=== PATIENT | female | born 1980 | race Hispanic/Latino ===

== ENCOUNTER 2017-02-26 15:18 | Inpatient (IN) | payer OTHER ==
[~2017-02-26] VITALS: Ht 160 cm; Wt 80.8 kg
[~2017-02-26 15:18] MED LIST: ALPRAZOLAM OD0.25 MG; ATORVASTATIN CA10 MG; FENOFIBRATE160 M1 PO; FLEXERIL 5MG TAB5 MG PO; HUMALOG100 U/ML SC; METFORMIN HCL500 M2; MULTIVITAMIN1 TAB PO; NORCO 325 MG-51 TAB PO; TRI-SPRINTEC 281 TAB PO; VITAMIN B COMPL1 CAP PO; VITAMIN D32000 I1 PO; ZITHROMAX Z-PA250 M1 PO
--- NOTE | 2017-02-26 15:23 | NUR ---
PT TO ED FOR C/C OF RLQ PAIN THAT RADIATES TO BACK SINCE THIS MORNING. +NAUSEA/+VOMITING X 2 EPISODES. DENIES DIFFICULTY URINATING. PT IS TYPE II DM: F/S 134 IN TRIAGE. PT HYPERTENSIVE IN TRAIGE
--- NOTE | 2017-02-26 15:32 | NUR ---
APPRECIATE TRIAGE NOTE. RAMOS AVENDANO TO BEDSIDE FOR EVALUATION AT THIS TIME.
--- NOTE | 2017-02-26 15:35 | ED GI/GU/ABDOMINAL COMPLAINT ---
History of Present Illness General Chief Complaint: General Adult Stated Complaint: N/V, RT SIDE ABDOMINAL PAIN Source: patient Exam Limitations: no limitations Vital Signs & Intake/Output Vital Signs & Intake/Output Vital Signs Date Time Temp Pulse Resp B/P B/P Pulse O2 O2 Flow FiO2 Mean Ox Delivery Rate 02/26 1609 100.2 02/26 1536 148/89 02/26 1521 96.2 82 15 154/110 100 Room Air Room Air Allergies Coded Allergies: MDX - PCN (penicillin) (PCN (PENICILLIN)) (HIVES 02/26/17) Reconcile Medications Acetaminophen/Hydrocodone Bi ([place] 325 MG-5 MG) 1 TAB TAB 1 TAB PO Q6HR PRN PAIN Alprazolam 0.25 MG TABLET 1 TAB PO PRN ANXIETY (Reported) Atorvastatin Calcium (Lipitor) (Unknown Strength) TABLET (Unknown Dose) UNKNOWN (Reported) CHOLECALCIFEROL (VITAMIN D3) (Vitamin D-3) (Unknown Strength) CAPSULE (Unknown Dose) PO DAILY SUPPLEMENT (Reported) Cyclobenzaprine (Flexeril 5MG Tab) 5 MG TAB 1 TAB PO QHS PRN PAIN Ethinyl Estradiol/Norgestima (Tri-Sprintec 28 35 Mcg-0.25 MG) 1 TAB TAB 1 TAB PO DAILY CONTROL (Reported) FENOFIBRATE NANOCRYSTALLIZED (Fenofibrate) 145 MG TABLET 1 TAB PO DAILY CHOLESTEROL (Reported) Insulin Lispro, Recombinant (Humalog) 100 U/ML EDVIN 1-5 UNIT SC DAILY DIABETES (Reported) Metformin Hydrochloride (Metformin HCl) 500 MG TAB 1 TAB PO BID DIABETES ( Reported) Multivitamin (Multiple Vitamins) 1 EACH TABLET 1 TAB PO DAILY SUPPLEMENT ( Reported) Vitamin B Complex 1 EACH CAPSULE 1 CAP PO DAILY SUPPLEMENT (Reported) Triage Note: PT TO ED FOR C/C OF RLQ PAIN THAT RADIATES TO BACK SINCE THIS MORNING. +NAUSEA/+VOMITING X 2 EPISODES. DENIES DIFFICULTY URINATING. PT IS TYPE II DM: F/S 134 IN TRIAGE. Triage Nurses Notes Reviewed? yes ? n Is pt currently ? No Onset: Abrupt Duration: hour(s):, constant, continues in ED Timing: recent history Quality/Severity: moderate, sharpness, severe Location: right upper quadrant Radiation: no radiation Activities at Onset: none No Modifying Factors: none HPI: 36-year-old female comes into emergency room for further evaluation of right upper abdominal pain that began this morning when she woke up. Associated nausea vomiting. Pain is sharp. Moderate to severe. Continues. History of pancreatitis. Denies any abdominal surgeries. Nothing seems to make the symptoms better or worse. Denies any other associated symptoms. (TAVO SHEN) Past History Travel History Traveled to [place] past 21 day No Medical History Any Pertinent Medical History? 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 No (TAVO SHEN) Review of Systems Review of Systems Constitutional: Reports: no symptoms. EENTM: Reports: no symptoms. Respiratory: Reports: no symptoms. Cardiovascular: Reports: no symptoms. GI: Reports: see HPI. Genitourinary: Reports: no symptoms. Musculoskeletal: Reports: no symptoms. Skin: Reports: no symptoms. Neurological/Psychological: Reports: no symptoms. Hematologic/Endocrine: Reports: no symptoms. Immunologic/Allergic: Reports: no symptoms. All Other Systems: Reviewed and Negative (TAVO SHEN) Physical Exam Physical Exam General Appearance: well developed/nourished, alert, awake Head: atraumatic Eyes: Bilateral: normal appearance. Ears, Nose, Throat, Mouth: hearing grossly normal, moist mucous membrane Neck: normal inspection Respiratory: no respiratory distress Cardiovascular: regular rate/rhythm Gastrointestinal: soft, tenderness (right upper quadrant) Back: normal inspection Extremities: normal range of motion Neurologic/Psych: awake, alert, oriented x 3, normal gait, normal mood/affect Skin: intact, normal color Core Measures ACS in differential dx? No Severe Sepsis Present: No Septic Shock Present: No (TAVO SHEN) Progress Differential Diagnosis: appendicitis, biliary colic, bowel obstruction, cholecystitis, diverticulitis, ectopic , gastritis, hepatitis, hernia, ischemic bowel, inflamm bowel dis, intrauterine , kidney stone, ovarian cyst, ovarian torsion, pancreatitis, PID/cervicitis, peptic ulcer, PUD/GERD, perforated viscous, threatened AB, UTI/pyelo Plan of Care: Orders Procedure Date/time Status Nothing by Mouth 02/27 B Active Add-on Test (ER Only) 02/26 1718 Active Patient Data 02/26 1715 Active Saline Lock 02/26 1713 Active Misc Message 02/26 171 Active ED Holding Orders 02/26 171 Active Vital Signs 02/26 1713 Active Activity/Ambulation 02/26 1713 Active Code Status 02/26 171 Active Admit to inpatient 02/27 1712 Active Add-on Test (ER Only) 02/26 171 Active MIXED VENOUS BLOOD GAS (GEN) 02/26 170 Active URINALYSIS 02/26 153 Active LIPASE 02/26 153 Complete HUMAN BETA HCG SCREEN 02/26 153 Complete COMPREHENSIVE METABOLIC PANEL 02/26 153 Complete CBC WITHOUT DIFFERENTIAL 02/26 153 Complete AMYLASE 02/26 153 Complete Current Medications Sig/Jack Start time Last Medication Dose Stop Time Status Admin Lactated Ringer's 1,000 ML ONCE ONE 02/26 171 AC (Lactated Ringers) 02/26 2114 Sodium Chloride 1,000 ML BOLUS ONE 02/26 171 AC (Normal Saline 0.9%) 02/26 1814 Sodium Chloride 1,000 ML .Q6H40M 02/26 171 UNVr (Normal Saline 0.9%) Laboratory Tests 02/26/17 1550: Anion Gap 17 H, Estimated GFR > 60, BUN/Creatinine Ratio 20.0, Glucose 140 H, Calcium 8.4, Total Bilirubin 1.3, AST 38 H, ALT 39, Alkaline Phosphatase 79, Total Protein 8.1, Albumin 3.2 L, Globulin 4.9 H, Albumin/Globulin Ratio 0.7 L, Amylase 78, Lipase 319 H, Total Beta HCG NEGATIVE, CBC w Diff NO MAN DIFF REQ, RBC 4.97, MCV 81.0, MCH 28.2, RDW 12.8, MPV 10.2, Gran % 81.7 H, Lymphocytes % 15.1 L, Monocytes % 2.5, Eosinophils % 0.5, Basophils % 0.2, Absolute Granulocytes 10.1 H, Absolute Lymphocytes 1.9, Absolute Monocytes 0.3, Absolute Eosinophils 0.1, Absolute Basophils 0, PUBS MCHC 34.8 Diagnostic Imaging: Viewed by Me: CT Scan. Discussed w/RAD: CT Scan. Radiology Impression: SERVICE DATE: 02/26/17-6508 EXAM TYPE: CAT - CT ABD & PELVIS W/O IV CONTRAS EXAMINATION: CT ABDOMEN AND PELVIS WITHOUT CONTRAST CLINICAL INFORMATION: Right upper quadrant pain. History of pancreatitis. COMPARISON: None TECHNIQUE: Multidetector volumetric imaging was performed from the superior aspect of the liver through the pubic symphysis. Sagittal and coronal reformatted images were obtained on the technologist's workstation. DLP: 335.29 mGy-cm FINDINGS: LUNG BASES: The visualized lung bases are unremarkable. LIVER, GALLBLADDER, AND BILIARY TREE: The liver is diffusely low in attenuation in keeping with hepatic steatosis. No dilated bile ducts are appreciated on this study without intravenous contrast. The gallbladder is contracted and not evaluated. No evidence to suggest cholecystitis. PANCREAS: The pancreas is not well evaluated due to the lack of intravenous contrast on this study. There is moderate swelling of the head of the pancreas consistent with the history of pancreatitis. Small amount of adjacent peripancreatic fluid. No large fluid collections are seen. The study does not assess for pancreatic necrosis or adjacent splenic vein/vasculature. SPLEEN: Unremarkable. ADRENAL GLANDS: Unremarkable. KIDNEYS AND URETERS: A tiny nonobstructing calculus is seen at the lower pole the left kidney. The kidneys are otherwise normal in appearance without hydronephrosis. BLADDER: The bladder is decompressed. GASTROINTESTINAL TRACT: The small and large bowel are unremarkable. The appendix is unremarkable. ABDOMINAL WALL: Small fat-containing periumbilical hernia is seen. LYMPH NODES: Normal. VASCULAR: No dilatation of the abdominal aorta or iliac vessels. PELVIC VISCERA: The uterus and adnexa are unremarkable. Trace free fluid is seen in the cul-de-sac. OSSEOUS STRUCTURES: Unremarkable. IMPRESSION: 1. Moderate swelling of the pancreatic head is demonstrated with mild peripancreatic acute fluid. The findings are concordant with the clinical diagnosis of pancreatitis. No well- defined fluid collection is seen. The lack of intravenous contrast limits evaluation for pancreatic necrosis or for evaluation of the adjacent pancreatic vasculature. 2. Hepatic steatosis without hepatomegaly. No obvious biliary ductal dilatation. The gallbladder is decompressed and not evaluated. Right upper quadrant sonography may be of further utility if there is concern regarding biliary dilatation or cholelithiasis. There are no CT manifestations to suggest cholecystitis. 3. Tiny nonobstructive left lower pole renal calculus. DICTATED BY: ARACELI HENDRICKS MD Initial ED EKG: none (TAVO SHEN) Departure Departure Disposition: STILL A PATIENT Condition: Stable Clinical Impression Primary Impression: Acute pancreatitis Referrals: ANYA LAWRENCE MD (PCP/Family) Departure Forms: Customer Survey General Discharge Information Admission Note Spoke With: VANCE ANNA MD Documentation of Exam: Documentation of any treatments & extenuating circumstances including Concerns Regarding Discharge (functional status, medication knowledge or non-compliance, living conditions, etc.) that warrant an admission rather than observation: Patient require IV fluids. IV pain control. GI consultation. IV antiemetics. Patient would do poorly as an outpatient. (TAVO SHEN) PA/RESTAURANT SUPERVISOR Co-Sign Statement Statement: ED Attending supervision documentation- [X] I saw and evaluated the patient. I have also reviewed all the pertinent lab results and diagnostic results. I agree with the findings and the plan of care as documented in the PA's/RESTAURANT SUPERVISOR's documentation. [X] I have reviewed the ED Record and agree with the PA's/RESTAURANT SUPERVISOR's documentation. [] Additions or exceptions (if any) to the PAs/RESTAURANT SUPERVISOR's note and plan are summarized below: [] (YULIA JACKSON,JHON Cruz)
--- NOTE | 2017-02-26 16:18 | NUR ---
PT MEDICATED PER EMAR. TO CAT SCAN VIA STRETCHER.
[2017-02-26 16:37] LABS: ABSOLUTE BASOPHIL COUNT 0 /CUMM (0.0-0.2); ABSOLUTE EOSINOPHIL COUNT 0.1 /CUMM (0.0-0.7); ABSOLUTE GRANULOCYTE CT 10.1 /CUMM (1.4-6.5); ABSOLUTE LYMPH COUNT 1.9 /CUMM (1.2-3.4); ABSOLUTE MONOCYTE COUNT 0.3 /CUMM (0.10-0.60); BASOPHIL % 0.2 % (0.0-2.0); EOSINOPHIL % 0.5 % (0-5); HEMATOCRIT 40.3 % (37-47); MEAN CORPUSCULAR HGB 28.2 PG (27.0-31.0); MEAN CORPUSCULAR HGB CONC 34.8 G/DL (33.0-37.0); MEAN PLATELET VOLUME 10.2 FL (7.4-10.4); RBC DISTRIBUTION WIDTH 12.8 % (11.5-14.5); RED BLOOD CELL CT 4.97 /CUMM (4.20-5.40); WHITE BLOOD CELL COUNT 12.4 /CUMM (4.8-10.8)
--- NOTE | 2017-02-26 16:37 | NUR ---
PT REPORTS RELIEF FROM PAIN 4/10 AT THIS TIME. PT REMINDED OF NEED FOR URINE SPECIMEN, VERBALIZES UNDERSTANDING. NS BOLUS CONTINUES TO RUN AT THIS TIME.
--- NOTE | 2017-02-26 16:49 | CT SCAN REPORT ---
EXAMINATION: CT ABDOMEN AND PELVIS WITHOUT CONTRAST CLINICAL INFORMATION: Right upper quadrant pain. History of pancreatitis. COMPARISON: None TECHNIQUE: Multidetector volumetric imaging was performed from the superior aspect of the liver through the pubic symphysis. Sagittal and coronal reformatted images were obtained on the technologist's workstation. DLP: 335.29 mGy-cm FINDINGS: LUNG BASES: The visualized lung bases are unremarkable. LIVER, GALLBLADDER, AND BILIARY TREE: The liver is diffusely low in attenuation in keeping with hepatic steatosis. No dilated bile ducts are appreciated on this study without intravenous contrast. The gallbladder is contracted and not evaluated. No evidence to suggest cholecystitis. PANCREAS: The pancreas is not well evaluated due to the lack of intravenous contrast on this study. There is moderate swelling of the head of the pancreas consistent with the history of pancreatitis. Small amount of adjacent peripancreatic fluid. No large fluid collections are seen. The study does not assess for pancreatic necrosis or adjacent splenic vein/vasculature. SPLEEN: Unremarkable. ADRENAL GLANDS: Unremarkable. KIDNEYS AND URETERS: A tiny nonobstructing calculus is seen at the lower pole the left kidney. The kidneys are otherwise normal in appearance without hydronephrosis. BLADDER: The bladder is decompressed. GASTROINTESTINAL TRACT: The small and large bowel are unremarkable. The appendix is unremarkable. ABDOMINAL WALL: Small fat-containing periumbilical hernia is seen. LYMPH NODES: Normal. VASCULAR: No dilatation of the abdominal aorta or iliac vessels. PELVIC VISCERA: The uterus and adnexa are unremarkable. Trace free fluid is seen in the cul-de-sac. OSSEOUS STRUCTURES: Unremarkable. IMPRESSION: 1. Moderate swelling of the pancreatic head is demonstrated with mild peripancreatic acute fluid. The findings are concordant with the clinical diagnosis of pancreatitis. No well-defined fluid collection is seen. The lack of intravenous contrast limits evaluation for pancreatic necrosis or for evaluation of the adjacent pancreatic vasculature. 2. Hepatic steatosis without hepatomegaly. No obvious biliary ductal dilatation. The gallbladder is decompressed and not evaluated. Right upper quadrant sonography may be of further utility if there is concern regarding biliary dilatation or cholelithiasis. There are no CT manifestations to suggest cholecystitis. 3. Tiny nonobstructive left lower pole renal calculus.
[2017-02-26 16:57] LABS: GRANULOCYTE % 81.7 % (42.2-75.2); PLATELET COUNT 148 /CUMM (130-400)
--- NOTE | 2017-02-26 17:05 | NUR ---
RAMOS JUAN ALBERTO TO BEDSIDE TO DISCUSS RESULTS AND POC.
--- NOTE | 2017-02-26 17:36 | NUR ---
PT MEDICATED PER EMAR.
--- NOTE | 2017-02-26 17:55 | NUR ---
CRITICAL TEST RESULTS [id number] JANETH CRUZ 36 F TESTS AND RESULTS: LACTIC 2.0 Results received and read back by: SOCORRO MONTANO Results received date and time: 02/26/17 1756 The following provider was notified of the results, and read the results back: RAMOS AVENDANO Notified date and time: 02/26/17 at 1756
--- NOTE | 2017-02-26 18:07 | NUR ---
Emergency Dept [facility] Admit Note: To be admitted to [facility] by DR ANNA with PANCREATITIS as the diagnosis, to 204-02 location. Nursing Slat Grader and admitting notified 02/26/17 at 8641
--- NOTE | 2017-02-26 18:10 | NUR ---
PER SHIRA HOLLOWAY SHE WILL CALL BACK FOR REPORT.
--- NOTE | 2017-02-26 19:21 | History & Physical ---
COLIN NEAL 02/26/17 5819: General Information and HPI MD Statement: I have seen and personally examined JANETH CRUZ and documented this H&P. The patient is a 36 year old F who presented with a patient stated chief complaint of [abdominal pain]. Source of Information: patient, family Exam Limitations: no limitations History of Present Illness: Patient is a 36-year-old female with past medical history of hypertriglyceridemia, type 2 diabetes mellitus, Previous episodes of pancreatitis(1 and 5 years ago), asthma presented to the ED today for acute onset of right upper quadrant pain that started this morning. Patient reports that around 9:30 this morning she started having sharp right upper quadrant pain along with nausea and vomiting. Pain was 10 /10 in intensity, continuous, and the right upper quadrant, radiating in a bandlike form to her back. It was associated with nausea and vomiting. She had 2 episodes of severe vomiting which was bilious/ brownish with food particles. She also endorses fever, chills, along with weakness and fatigue. No associated chest pain, palpitations, headaches, lightheadedness, urinary or bowel symptoms. Patient had 2 attacks of pancreatitis in the past. She was diagnosed with hypertriglyceridemia about 4 years ago and has been on treatment with Crestor, fenofibrate and fish oil since then. Her reforestation worker is Dr. Zelaya in [place]. She has no history of gallstones, but was found to have biliary sludge in previous imaging. No history of alcohol abuse. In the ED vitals showed a temperature of 96.2, pulse 82, respiration 15, blood pressure 154/110, pulse ox 100% on room air. Labs showed white count of 12.4 with no left shift, sodium 133, potassium 4.2, anion gap of 17, glucose 140, normal lactate, AST of 38, Lipase of 319, amylase 78,calcium 8.4, her triglycerides level was more than 10,500 (significantly elevated than previous values), hemoglobin A1c 5.9 in October 2016, beta-hCG negative CT ab/pelvis showed moderate swelling of the pancreatic head with mild peripancreatic ascites fluid consistent with appendicitis. No fluid collection was seen. Hepatitic steatosis morphine with no biliary dilatation. Patient received IV fluids, IV morphine, IV Zofran in the ED. Allergies/Medications Allergies: Coded Allergies: MDX - PCN (penicillin) (PCN (PENICILLIN)) (HIVES 02/26/17) Home Med list Acetaminophen/Hydrocodone Bi ([place] 325 MG-5 MG) 1 TAB TAB 1 TAB PO Q6HR PRN PAIN Albuterol Sulfate (Proair Hfa) 90 MCG HFA.AER.AD 2 PUF INH Q4-6 PRN PRN WHEEZING (Reported) Alprazolam 0.25 MG TABLET 1 TAB PO PRN ANXIETY (Reported) Atorvastatin Calcium (Lipitor) (Unknown Strength) TABLET (Unknown Dose) UNKNOWN (Reported) CHOLECALCIFEROL (VITAMIN D3) (Vitamin D-3) (Unknown Strength) CAPSULE (Unknown Dose) PO DAILY SUPPLEMENT (Reported) Cyclobenzaprine (Flexeril 5MG Tab) 5 MG TAB 1 TAB PO QHS PRN PAIN Ethinyl Estradiol/Norgestima (Tri-Sprintec 28 35 Mcg-0.25 MG) 1 TAB TAB 1 TAB PO DAILY CONTROL (Reported) Fenofibrate 160 MG TABLET 1 TAB PO DAILY HIGH CHOLESTROL (Reported) Insulin Lispro, Recombinant (Humalog) 100 U/ML EDVIN 1-5 UNIT SC DAILY DIABETES (Reported) Metformin Hydrochloride (Metformin HCl) 500 MG TAB 1 TAB PO BID DIABETES ( Reported) Multivitamin (Multiple Vitamins) 1 EACH TABLET 1 TAB PO DAILY SUPPLEMENT ( Reported) Melrose-3 Acid Ethyl Esters 1 GRAM CAPSULE 2 CAP PO BID VITAMIN SUPPORT ( Reported) Rosuvastatin Calcium (Crestor) 20 MG TABLET 1 TAB PO DAILY HIGH CHOLESTROL ( Reported) Vitamin B Complex 1 EACH CAPSULE 1 CAP PO DAILY SUPPLEMENT (Reported) Past History Travel History Traveled to [place] past 21 day No Medical History Neurological: NONE EENT: NONE Cardiovascular: HIGH TRIGLYCERIDES Respiratory: asthma Gastrointestinal: pancreatitis Hepatic: INFLAMED LIVER Renal: NONE Musculoskeletal: NONE Psychiatric: anxiety Endocrine: diabetes Blood Disorders: NONE Cancer(s): NONE TOWER SWITCH OPERATOR/Reproductive: NONE Surgical History Surgical History: N Past Family/Social History Psychosocial History ETOH Use: denies use Illicit Drug Use: denies illicit drug use Review of Systems Review of Systems Constitutional: Reports: chills, fever, malaise, weakness. EENTM: Reports: no symptoms. Cardiovascular: Reports: no symptoms. Respiratory: Reports: no symptoms. GI: Reports: abdominal pain, nausea, vomiting. Genitourinary: Reports: no symptoms. Musculoskeletal: Reports: no symptoms. Skin: Reports: no symptoms. Neurological/Psychological: Reports: no symptoms. Exam & Diagnostic Data Last 24 Hrs of Vital Signs/I&O Vital Signs Date Time Temp Pulse Resp B/P B/P Pulse O2 O2 Flow FiO2 Mean Ox Delivery Rate 02/26 1735 99.9 75 18 114/69 99 Room Air Room Air 02/26 1609 100.2 02/26 1536 148/89 02/26 1521 96.2 82 15 154/110 100 Room Air Room Air Intake & Output 02/26 1600 02/26 0800 02/26 0000 Intake Total Output Total Balance Patient 77.111 kg Weight Weight Reported by Patient Measurement Method Physical Exam General Appearance Alert, Oriented X3, Cooperative, No Acute Distress Skin No Rashes, No Breakdown, No Significant Lesion Skin Temp/Moisture Exam: Warm/Dry Sepsis Skin Exam (color): Normal for Ethnicity HEENT Atraumatic, PERRLA, EOMI Neck Supple, No JVD Lymphatic Cervical nl Cardiovascular Regular Rate, Normal S1, Normal S2 Lungs Clear to Auscultation, Normal Air Movement Abdomen RUQ TENDERNESS, POSITIVE LAM'S, positive lam's sign Neurological Normal Gait, Normal Speech, Normal Tone, Sensation Intact, Cranial Nerves 3-12 NL, Reflexes 2+ Last 24 Hrs of Labs/Dave: Laboratory Tests 02/26/17 1841: Urinalysis LIGHT H, Urine Color YEL, Urine Clarity CLEAR, Urine pH 5.5, Ur Specific [place] >= 1.030, Urine Protein TRACE H, Urine Ketones 15 H, Urine Nitrite NEG, Urine Bilirubin NEG, Urine Urobilinogen 0.2, Ur Leukocyte Esterase NEG, Ur Microscopic SEDIMENT EXAMINED, Urine WBC 3-5 H, Ur Epithelial Cells MOD H, Urine Bacteria FEW H, Urine Mucus MOD H, Urine Hemoglobin TRACE-LYSED, Urine Glucose NEG 02/26/17 1800: Bicarbonate Actual 19 L, Mixed VBG pH 7.31, Mixed VBG pCO2 38 L, Mixed VBG O2 Saturation 38, P-50 (Temp Corrected) Y, Carboxyhemoglobin 0.2 L, O2 Concentration % RA, Temperature 99.0, Phlebotomy Draw Site R AC 02/26/17 1550: Anion Gap 17 H, Estimated GFR > 60, BUN/Creatinine Ratio 20.0, Glucose 140 H, Lactic Acid 2.0, Calcium 8.4, Total Bilirubin 1.3, AST 38 H, ALT 39, Alkaline Phosphatase 79, Lactate Dehydrogenase 534, Total Protein 8.1, Albumin 3.2 L, Globulin 4.9 H, Albumin/Globulin Ratio 0.7 L, Triglycerides > 01354 H, Amylase 78, Lipase 319 H, Total Beta HCG NEGATIVE, CBC w Diff NO MAN DIFF REQ, RBC 4.97, MCV 81.0, MCH 28.2, RDW 12.8, MPV 10.2, Gran % 81.7 H, Lymphocytes % 15.1 L, Monocytes % 2.5, Eosinophils % 0.5, Basophils % 0.2, Absolute Granulocytes 10.1 H, Absolute Lymphocytes 1.9, Absolute Monocytes 0.3, Absolute Eosinophils 0.1, Absolute Basophils 0, PUBS MCHC 34.8 Assessment/Plan Assessment: Patient is a 36-year-old female with past medical history of hypertriglyceridemia, type 2 diabetes mellitus, Previous episodes of pancreatitis(1 and 5 years ago), asthma presented to the ED today for acute onset of right upper quadrant pain that started this morning. In the ED vitals showed a temperature of 96.2, pulse 82, respiration 15, blood pressure 154/110, pulse ox 100% on room air. Labs showed white count of 12.4 with no left shift, sodium 133, potassium 4.2, anion gap of 17, glucose 140, normal lactate, AST of 38, Lipase of 319, amylase 78,calcium 8.4, her triglycerides level was more than 10,500 (significantly elevated than previous values), hemoglobin A1c 5.9 in October 2016, beta-hCG negative CT ab/pelvis showed moderate swelling of the pancreatic head with mild peripancreatic ascites fluid consistent with pancreatitis. No fluid collection was seen. Hepatitic steatosis morphine with no biliary dilatation. Patient received IV fluids, IV morphine, IV Zofran in the ED. Assessment * Hypertrigleceridemia induced acute on chronic pancreatitis * ?Acute Cholecystitis * Positive Lam's * Type 2 diabetes mellitus * Asthma * Nausea & Vomiting Plan * Admit patient to ICU * Vitals per protocol * Nothing by mouth for now and advance diet in a.m. as tolerated * Continue Ringer's lactate at 200 mL an hour * Since patient has significantly elevated triglyceride levels, patient should ideally receive a Apheresis. Endocrinology was consulted and a decision was made to start the patient on insulin drip at 1 unit per hour with sugar checks every hour. If blood sugar drops below 140 mg, plan is to start the patient on dextrose. Serum triglyceride level more than 1000 mg per dl happens in fewer than 1 in 5000 individuals. * Add potassium to the Ringer's lactate * Recheck triglyceride levels in a.m. * We will check lipid panel in a.m. * Check a baseline chest x-ray to rule out any infection * EKG and troponin, since patient appears to have irregular heart rate with a murmur. * We will get baseline echocardiogram since she is at high risk of coronary artery disease. * We'll check thyroid levels * IV Zofran around the clock when necessary for nausea and vomiting * IV morphine for pain control [id number] * Continue Crestor 80 mg, fenofibrate 600 mg twice a day and fish oil * Right upper quadrant ultrasound to rule out biliary dilatation/gallstones * GI consult in a.m. * Endocrine consult in a.m. * Cardiology consult * Continue her asthma medications * DVT prophylaxis subcutaneous heparin * Full code As Ranked By This Provider Problem List: 1. Acute pancreatitis 2. Diabetes Core Measures/Miscellaneous Acute Coronary Syndrome ACS Diagnosis: No Cerebrovascular Accident CVA/TIA Diagnosis: No Congestive Heart Failure CHF Diagnosis: No VTE (View Protocol) VTE Risk Factors: Estrogen No Mech VTE prophylaxis d/t: No contraindications No VTE Pharm Prophylaxis d/t: No contraindications VTE Diagnosis: No VTE Type: NONE VTE Confirmed by (Test): NONE Sepsis (View Protocol) Severe Sepsis Present: No Septic Shock Septic Shock Present: No Miscellaneous Documentation Attending Case Discussed With: WILFRIDO JACKSON,VANCE Aldrich Primary Care Physician: MELINDA JACKSON,ANYA Patient sees these Specialists DR LAZCANO Level of Patient Care: General Medicine GRISELDA JACKSON, [facility] 02/26/172028: Attending MD Review Statement Attending Statement Attending MD Statement: examined this patient, discuss w/resident/PA/GRAINING OPERATOR, agreed w/resident/PA/GRAINING OPERATOR, discussed with family Attending Assessment/Plan: 36 yo F had her first bout of pancreatitis about 5 yrs ago when she was admitted for DKA and had a new diagnosis of T2DM at [facility]. Subsequently, about 1 yr ago she had her second bout of pancreatitis due to hypertriglyceridemia (admitted to a hospital at [facility]). She was diagnosed with hypertriglyceridemia about 4 yrs prior and is on crestor, fenofibrate and fish oil. She follows GI Dr. Zelaya at [place]. She has no h/o gallstones, was noted to have biliary sludge at one point but this was absent on recent repeat imaging. She denies h/o alcohol use. She presents today for c/o sudden onset sharp right upper quadrant pain radiating to the back, associated with nausea, bilious nonbloody vomiting, chills and weakness. She denies chest pain, palpitations, dyspnea, diarrhea or urinary symptoms. She is followed by Dr. Ann (Endocrine) at [place]. She reports her last A1C was 5.8, and for the past 1 week her sugars have been elevated to around 200 's. She is currently on novolog SS and metformin for diabetes, she was on lantus that was stopped 3 yrs ago by her PCP as her sugars were better. Vitals: Tmax 100.2, HR 82, BP 123/61, sats 92% RA. Exam: AAO, in moderate distress due to pain, dry mucous membranes, no pallor or cyanosis, Chest b/ clear, Heart S1S2 regular, systolic murmur+, Abd soft, distended, RUQ tenderness+, BS sluggish, no guarding or rigidity. LE: no edema. Labs: WBC 12.4, H/H 14/40.3, no bands, Na 133, bicarb 12, AG 17, glucose 140, lactic acid 2.0, T. Bili 1.3, AST 38, ALT 39, trop neg, albumin 3.2, Triglyceride > 64865, amylase 78, lipase 319, TSH 0.682, Free T4 1.35, beta HCG neg. UA trace protein, ketones 15, WBC 3-5. VB.31/38/69/19. CXR: mild left basilar atelectatic changes, no acute changes. CT abd/pelvis w/o contrast: moderate swelling of pancreatic head with mild peripancreatic acute fluid. Cannot comment on pancreatic necrosis due to lack of contrast. Hepatic steatosis w/o hepatomegaly, no biliary dilatation or cholelithiasis. EKG: Sinus rhythm, no acute changes. Assessment and plan: 1. Acute RUQ pain associated with N/V in this patient with h/o hypertriglyceridemia and pancreatitis, now with elevated TG levels to > 10,[address] imaging s/o of pancreatitis, although cannot rule out other possibilities such as acute cholecystitis, no e/o choledocholithiasis or cholelithiasis, less likely cholangitis with normal LFTs. Amylase/ lipase are not very helpful when the TG levels are that high. ICU admit, vitals q1 hourly, panculture, NPO, anti-emetics, lactated ringer's @ 200/hr, pain management with IV dilaudid, serial abdominal exam. RUQ ultrasound in AM to assess biliary and hepatic pathology. Trend lactic acid. Endo (Dr. Gibbs ) and GI (Dr. Bonilla) consulted. Ideally Apheresis is the first option for hypertriglyceridemia (for > 1000), however after d/w Endocrine we are going ahead with insulin drip to help reduced triglyceride levels (acts by increasing lipoprotein lipase activity). Accucheks Q1 hour, initiate D5-1/2NS with KCL once sugars < 140, continue insulin drip, recheck ICU bundle and TG levels Q6 hours. If TG persistently high, we will discuss with Nephro about need for apheresis. Continue crestor, fenofibrate and fish oil when patient able to take PO. Check HbA1c. [facility]CU consult (Dr. Lazcano aware). 2. High AG metabolic acidosis. Lactic acid normal. Will check salicylate, alcohol, tylenol and acetone levels. Check urine tox screen. 3. Systolic murmur on exam. EKG and troponin are essentially negative. Will obtain echo in AM. GI ppx - IV protonix. DVT ppx Hep SC. Full code. UPDATE Around midnight, patient spiked a temp of 101, repeat labs showed worsening hypocalcemia, lactic acidosis (2.0 --> 3.9), hypomagnesemia and worsening metabolic acidosis. TG levels still remained at >10,500. Patient c/o persistent abdominal discomfort and bloating, otherwise she was hemodynamically stable. Given the fever spike, which is possible with pancreatitis, ?concern for impending necrosis vs. Acute GB pathology which I cannot rule out, I have covered empirically with IV Ceftaz and flagyl to cover for gram negatives and anaerobes. I had a long discussion with Dr. Lazcano (on-call dynamic balancer) to see what would be the best course of action in the best interest of the patient. Concern was raised if patient needs urgent apheresis and if that is the case, can we do apheresis at [facility] or do we need to transfer patient to [facility]. I personally spoke with Dr. Bonilla (GI) and Dr. Gibbs (Endo). Per Dr. Bonilla, we do have the ability to do apheresis at [facility] but this call would be taken by Nephro. Resident spoke with Dr. Fuchs (On-call auto body worker) who said he would assess patient in AM for need for apheresis, and that we could arrange for apheresis at [facility]. I was constantly in contact with Dr. Lazcano and he is aware of the above plan. We will continue the insulin drip, recheck labs in AM and pending above will decide on eventual need for apheresis in AM. I have personally explained all of the above to the patient and she agrees with the plan. Patient works with Dr. Lazcano, and he also spoke with her over the phone. We have reassured her about the plan of care. TTS > [address] imaging s/o of pancreatitis, although cannot rule out other possibilities such as acute cholecystitis, no e/o choledocholithiasis or cholelithiasis, less likely cholangitis with normal LFTs. Amylase/ lipase are not very helpful when the TG levels are that high. ICU admit, vitals q1 hourly, panculture, NPO, anti-emetics, lactated ringer's @ 200/hr, pain management with IV dilaudid, serial abdominal exam. RUQ ultrasound in AM to assess biliary and hepatic pathology. Trend lactic acid. Endo (Dr. Gibbs ) and GI (Dr. Bonilla) consulted. Ideally Apheresis is the first option for hypertriglyceridemia (for > 1000), however after d/w Endocrine we are going ahead with insulin drip to help reduced triglyceride levels (acts by increasing lipoprotein lipase activity). Accucheks Q1 hour, initiate D5-1/2NS with KCL once sugars < 140, continue insulin drip, recheck ICU bundle and TG levels Q6 hours. If TG persistently high, we will discuss with Nephro about need for apheresis. Continue crestor, fenofibrate and fish oil when patient able to take PO. Check HbA1c. 2. High AG metabolic acidosis. Lactic acid normal. Will check salicylate, alcohol, tylenol and acetone levels. Check urine tox screen. 3. Systolic murmur on exam. EKG and troponin are essentially negative. Will obtain echo in AM. DVT ppx Hep SC. Full code. UPDATE Around midnight, patient spiked a temp of 101, repeat labs showed worsening hypocalcemia, lactic acidosis (2.0 --> 3.9), hypomagnesemia and worsening metabolic acidosis. TG levels still remained at >10,500. Patient c/o persistent abdominal discomfort and bloating, otherwise she was hemodynamically stable. Given the fever spike, which is possible with pancreatitis, ?concern for impending necrosis vs. Acute GB pathology which I cannot rule out, I have covered empirically with IV Ceftaz and flagyl to cover for gram negatives and anaerobes. I had a long discussion with Dr. Lazcano (on-call dynamic balancer) to see what would be the best course of action in the best interest of the patient. Concern was raised if patient needs urgent apheresis and if that is the case, can we do apheresis at [facility] or do we need to transfer patient to [facility]. I personally spoke with Dr. Bonilla (GI) and Dr. Gibbs (Endo). Per Dr. Bonilla, we do have the ability to do apheresis at [facility] but this call would be taken by Nephro. Resident spoke with Dr. Fuchs (On-call auto body worker) who said he would assess patient in AM for need for apheresis, and that we could arrange for apheresis at [facility]. I was constantly in contact with Dr. Lazcano and he is aware of the above plan. We will continue the insulin drip, recheck labs in AM and pending above will decide on eventual need for apheresis in AM. I have personally explained all of the above to the patient and she agrees with the plan. Patient works with Dr. Lazcano, and he also spoke with her over the phone. We have reassured her about the plan of care.
--- NOTE | 2017-02-26 19:43 | NUR ---
REPORT GIVEN TO SHIRA HOLLOWAY. TRANSPORT BOOKED. PT MEDICATED PER EMAR.
--- NOTE | 2017-02-26 19:49 | NUR ---
TRANSPORT TO BEDSIDE FOR PT TRANSPORT BUT PT IS NOT TO BE TRANSFERRED AT THIS TIME PER DR. TRUJILLO DUE TO POSSIBLE NEED FOR INSULIN DRIP. FBG AT THIS TIME 146. CHARGE NURSE NOTIFIED OF SITUATION AND PT UPDATED ON POC.
[2017-02-26] MEDS ORDERED: CRESTOR20 M2 PO (20:03)
[2017-02-26] MEDS ORDERED: OMEGA-3 ACID ETH1 GM PO (20:04)
[2017-02-26] MEDS ORDERED: PROAIR HFA8.5 GM INH (20:05)
--- NOTE | 2017-02-26 20:28 | NUR ---
PT TO RADIOLOGY FOR PCXY AT THIS TIME.
--- NOTE | 2017-02-26 20:53 | RADIOLOGY REPORT ---
EXAMINATION: XR CHEST CLINICAL INFORMATION: Chest pain COMPARISON: None TECHNIQUE: 2 views of the chest were obtained. FINDINGS: Normal cardiomediastinal silhouette and pulmonary vascularity. Mild left basilar atelectatic changes. The lungs are otherwise clear. No pleural effusions or pneumothorax. The visualized bones are within normal limits. IMPRESSION: Mild left basilar atelectatic changes, otherwise no acute cardiopulmonary findings.
--- NOTE | 2017-02-26 21:20 | NUR ---
PT MEDICATED WITH REGLAN AND DILAUDID PER EMAR FOR WORSENING NAUSEA AND PAIN.
--- NOTE | 2017-02-26 21:45 | NUR ---
PER DR. TRUJILLO START INSULIN DRIP AT 1UNIT/HR. HOURLY FBG WITH TRAGET RANGE OF 140-160MG/DL. DO NOT RUN D5NS PIGGYBACK INTO INSULIN DRIP. CHANGE MAINTENANCE FLUIDS FROM LR AT 200ML/HR TO D5 1/2NS WITH 40MEQ K AT 100ML/HR.
--- NOTE | 2017-02-26 22:50 | NUR ---
[facility] REPORTED 155PER DR. TRUJILLO
--- NOTE | 2017-02-26 23:23 | NUR ---
PER [employer] WILLOW PRN ORDERS WERE PLACED FOR NAUSEA AND PAIN. PHARMACY CONCERNS REGARDING TRICOR 600MG DISCUSSED WITH [employer]. PER PHARMACY TRICOR 200MG IS MAX DAILY DOSE AND DESPITE MULTIPLE ATTEMPTS TO REACH THE [employer]CIAL [employer]ERS OR RESIDENT THE ORDER HAS NOT BEEN ABLE TO BE CORRECTED. SHIRA PAULA GIVEN REPORT AT THIS TIME REGARDING PLAN OF CARE AND FOLLOW UP.
--- NOTE | 2017-02-27 | NUR ---
SEE ICU FLOWSHEET.
--- NOTE | 2017-02-27 00:15 | NUR ---
HOUSE STAFF CLOTH PATTERN MAKER MARBELLA GARCIA NOTIFIED--HE IS AWARE OF FSBS AND TEMP. NO CHANGES OR NEW ORDERS GIVEN AT THIS TIME.
--- NOTE | 2017-02-27 01:17 | NUR ---
CRITICAL TEST RESULTS [id number] JANETH CRUZ 36 F TESTS AND RESULTS: MAG = 0.8 Results received and read back by: GENIE CARD Results received date and time: 02/27/17 0117 The following provider was notified of the results, and read the results back: DR GARCIA Notified date and time: 02/27/17 at 0015
--- NOTE | 2017-02-27 01:39 | Admission Certification ---
Admission Certification Certification Statement - As attending physician, I certify that at the time of - admission, based on clinical presentation, severity of - symptoms, need for further diagnostic testing and - therapeutic interventions, and risk of adverse outcomes - without in-hospital treatment, in my clinical assessment, - this patient requires an acute hospital stay for a minimum - of two nights or longer. I have also considered psychsocial - factors such as support system, advanced age, financial - issues, cognitive issues, and failed out-patient treatments, - past re-admission history, safety of patient, and lack of - compliance as applicable. Specific rationale supporting this admission is: Pancreatitis, hypertriglyceridemia.
--- NOTE | 2017-02-27 02:00 | NUR ---
HOUSE STAFFF HERE REQUESTING STAT EKG. SHE IS AWARE OF INCREASED TEMP AND OVERALL STATUS.
--- NOTE | 2017-02-27 03:43 | NUR ---
REPORT CALLLED TO ED RN
[2017-02-27 04:00] VITALS: BP 126/78
--- NOTE | 2017-02-27 04:00 | NUR ---
36 YEAR OLD FEMALE WITH PMHX HIGH TRIGLYCERIDES, PANCREATITIS X2 WITH HOSPITALIZATION, INFLAMED LIVER, ASTHMA, DIABETES, AND ANXIETY PRESENTS TO HOSPITAL WITH ACUTE ONSET OF RIGHT UPPER QUADRANT PAIN. NOTED TRIGLYCERIDES GREATER THAN 10,000 AND LIPASE 319. PT STARTED ON INSULIN GTT WITH ACCU CHECKS INCREASED AND NEEDED TO DRIVE DOWNTRIGLYCERIDES. SKIN INTACT VENODYNES PLACED WITH HEPARIN SQ CONTINUED. EKG SINUS TACHY 110-120'S AND NO ECTOPY NOTED. ACU CHECK 237 AND INSULIN GTT TO 3 UNITS PER HOUR. IVF TO CONT AT 200 PER HOUR OF LR AND D51/2NS WITH 40 KCL AT 100/HR EACH AND MAGNESIUM 2 GM TO RUN IN. PT SETTLED INTO ROOM 112 AND ORIENTED TO ICU
[2017-02-27 06:15] LABS: HEMATOCRIT 43.7 % (37-47); MEAN CORPUSCULAR VOLUME 80.9 FL (81.0-99.0); MEAN PLATELET VOLUME 8.4 FL (7.4-10.4); RBC DISTRIBUTION WIDTH 13.1 % (11.5-14.5); WHITE BLOOD CELL COUNT 9.9 /CUMM (4.8-10.8)
[2017-02-27 07:00] LABS: PLATELET COUNT 267 /CUMM (130-400)
[2017-02-27 07:01] LABS: MEAN CORPUSCULAR HGB 28.2 PG (27.0-31.0); MEAN CORPUSCULAR HGB CONC 34.6 G/DL (33.0-37.0)
--- NOTE | 2017-02-27 07:31 | Cons- CRCU ---
ROSSY GORDON MD 02/27/17 0731: General Information and HPI Consulting Request Date of Consult: 02/27/17 Requested By: Dr. Swanson History of Present Illness: 36 year old woman with past medical history of hypertriglyceridemia, two episodes of pancreatitis, NIDDM-II, and asthma seen for evaluation of abdominal pain. Patient reports that around 9:30am on the day of admission she develop acute onset 10/10 right upper quadrant abdominal pain radiating straight through to her back with associated nausea, nonbloody bilious vomiting, fever, chills, weakness and fatigue. She otherwise denied any chest pain, palpitations. She was reportedly diagnosed with hypertriglyceridemia 4 four years ago for which she is followed by paper conservator Dr. Zelaya of [place] and takes Crestor, Fenofribrate. Presently she reports moderate abdominal pain with associated nausea, but otherwise denies any further vomiting. Additionally she denies any blurred/ double vision, lightheadedness/dizziness, headache, fever, chills, chest pain, palpitations, shortness of breath, diarrhea. Allergies/Medications Allergies: Coded Allergies: Penicillins (HIVES 02/28/17) atorvastatin (From LIPITOR) (THROAT CLOSES 02/28/17) Home Med List: Acetaminophen/Hydrocodone Bi ([place] 325 MG-5 MG) 1 TAB TAB 1 TAB PO Q6HR PRN PAIN Albuterol Sulfate (Proair Hfa) 90 MCG HFA.AER.AD 2 PUF INH Q4-6 PRN PRN WHEEZING (Reported) Alprazolam 0.25 MG TABLET 1 TAB PO PRN ANXIETY (Reported) CHOLECALCIFEROL (VITAMIN D3) (Vitamin D-3) (Unknown Strength) CAPSULE (Unknown Dose) PO DAILY SUPPLEMENT (Reported) Cyclobenzaprine (Flexeril 5MG Tab) 5 MG TAB 1 TAB PO QHS PRN PAIN Ethinyl Estradiol/Norgestima (Tri-Sprintec 28 35 Mcg-0.25 MG) 1 TAB TAB 1 TAB PO DAILY CONTROL (Reported) Fenofibrate 160 MG TABLET 1 TAB PO DAILY HIGH CHOLESTROL (Reported) Insulin Lispro, Recombinant (Humalog) 100 U/ML EDVIN 1-5 UNIT SC DAILY DIABETES (Reported) Metformin Hydrochloride (Metformin HCl) 500 MG TAB 1 TAB PO BID DIABETES ( Reported) Multivitamin (Multiple Vitamins) 1 EACH TABLET 1 TAB PO DAILY SUPPLEMENT ( Reported) Dwight-3 Acid Ethyl Esters 1 GRAM CAPSULE 2 CAP PO BID VITAMIN SUPPORT ( Reported) Rosuvastatin Calcium (Crestor) 20 MG TABLET 1 TAB PO DAILY HIGH CHOLESTROL ( Reported) Vitamin B Complex 1 EACH CAPSULE 1 CAP PO DAILY SUPPLEMENT (Reported) Current Medications: Current Medications Sig/Jack Start time Last Medication Dose Route Stop Time Status Admin Acetaminophen 0 .STK-MED ONE 02/27 014 DC IV Acetaminophen 0 .STK-MED ONE 02/26 1942 DC IV Acetaminophen 0 .STK-MED ONE 02/27 1940 DC PO Acetaminophen 325 MG Q6 PRN 02/26 184 AC PO Acetaminophen 1,000 MG Q6 PRN 02/26 1845 AC 02/27 IV 0747 Albumin Human 200 GM ONCE ONE 02/27 1045 DC 02/27 IV 02/27 1046 1143 Atorvastatin Calcium 80 MG 1700 02/27 1700 AC PO Calcitriol 0.25 MCG BID 02/27 1212 AC 02/27 IV 1453 Calcium Chloride 1 GM ONCE ONE 02/27 0915 CAN IV 02/27 0916 Calcium Gluconate 1 GM ONCE ONE 02/27 1715 DC 07 Sodium Chloride 100 ML IV 02/27 1814 1726 Calcium Gluconate 1 GM ONCE ONE 02/27 1715 DC Sodium Chloride 100 ML IV 02/27 1814 Calcium Gluconate 6 GM ONCE ONE 02/27 1115 DC 07 Sodium Chloride 190 ML IV 02/27 1116 1143 Calcium Gluconate 6 GM ONCE ONE 02/27 1100 CAN Sodium Chloride 190 ML IV 02/27 1329 Calcium Gluconate 1 GM ONCE ONE 02/27 1015 DC 02/27 Sodium Chloride 100 ML IV 02/27 1114 1230 Calcium Gluconate 0 .STK-MED ONE 02/27 0225 DC IV Calcium Gluconate 1 GM ONCE ONE 02/27 0145 DC 02/27 Sodium Chloride 100 ML IV 02/27 0244 0145 Ceftazidime 0 .STK-MED ONE 02/27 0225 DC .ROUTE Ceftazidime 1,000 MG IQ8 02/27 0215 DC 07 IV 0841 Enoxaparin Sodium 40 MG 1700 02/27 1700 DC SC Enoxaparin Sodium 40 MG 1900 02/26 1900 DC SC Fenofibrate 145 MG DAILY 02/27 0030 AC 02/27 PO 0107 Fenofibrate 600 MG BID 02/26 220 DC PO Fenofibrate 145 MG DAILY 02/26 1849 DC PO Heparin Sodium 0 .STK-MED ONE 02/27 0905 DC (Porcine) IV Heparin Sodium 0 .STK-MED ONE 02/26 2358 DC (Porcine) .ROUTE Heparin Sodium 5,000 UNIT Q8 02/26 2200 AC 02/27 (Porcine) SC 1454 Hydromorphone HCl 1 MG Q3 PRN 02/27 0800 AC 02/27 IV 1730 Hydromorphone HCl 0 .STK-MED ONE 02/27 0351 DC .ROUTE Hydromorphone HCl 0 .STK-MED ONE 02/26 2355 DC .ROUTE Hydromorphone HCl 2 MG ONCE ONE 02/26 2330 DC 02/27 IV PUSH 02/26 2331 0003 Hydromorphone HCl 0 .STK-MED ONE 02/26 2107 DC .ROUTE Hydromorphone HCl 1 MG Q4P PRN 02/26 2100 DC 02/27 IV 0600 Insulin Aspart 0 TIDAC 02/27 0800 CAN SC Insulin Human Regular 100 UNIT Q24H 02/26 2045 AC 02/26 Sodium Chloride 100 ML IV 2145 Lactated Ringer's 1,000 ML Q10H 02/26 2100 AC 02/27 IV 0842 Lactated Ringer's 1,000 ML ONCE ONE 02/26 1945 CAN IV 02/27 0044 Lactated Ringer's 1,000 ML ONCE ONE 02/26 1715 DC 02/26 IV 02/26 2114 1940 Lidocaine 0 .STK-MED ONE 02/27 0905 DC .ROUTE Magnesium Sulfate 1 GM Q2H 02/27 1415 DC 02/27 Dextrose/Water 100 ML IV 02/27 1814 1700 Magnesium Sulfate 1 GM ONCE ONE 02/27 0915 DC 02/27 Dextrose/Water 100 ML IV 02/27 1314 1217 Magnesium Sulfate 1 GM Q2H 02/27 0130 DC 02/27 Dextrose/Water 100 ML IV 02/27 0529 0530 Metoclopramide HCl 0 .STK-MED ONE 02/26 210 DC .ROUTE Metoclopramide HCl 10 MG ONCE ONE 02/26 2100 DC 07/04 IV 07/04 2101 2110 Metronidazole 500 MG IQ8 02/27 0215 DC 02/27 N/A 1 UNIT IV 0842 Montelukast Sodium 10 MG AT BEDTIME 02/26 2200 AC 02/27 PO 0008 Morphine Sulfate 0 .STK-MED ONE 02/26 193 DC .ROUTE Morphine Sulfate 0.5 MG Q4 PRN 02/26 1845 DC 02/26 IV 1940 Non-Formulary 0 SEE ADMIN CRITERIA 02/26 1900 UNVr Medication ANY Ondansetron HCl 4 MG .STK-MED ONE 02/27 0746 DC IM 02/27 0747 Ondansetron HCl 4 MG Q6P PRN 02/26 194 DC IV Ondansetron HCl 0 .STK-MED ONE 02/26 193 DC .ROUTE Ondansetron HCl 4 MG Q6P PRN 02/26 1930 AC 02/27 IV 1453 Pantoprazole Sodium 40 MG DAILY 02/27 1000 AC 02/27 IV 0841 Potassium Chloride 40 MEQ Q10H 02/26 2115 DC 02/26 Dextrose/Sodium 1,000 ML IV 2226 Chloride Potassium Chloride 20 MEQ Q10H 02/26 2100 DC Sodium Chloride 1,000 ML IV Sodium Chloride 1,000 ML .Q6H40M 02/26 1715 DC 02/27 IV 0107 Trimethobenzamide HCl 0 .STK-MED ONE 02/26 2355 DC IM Trimethobenzamide HCl 200 MG ONCE ONE 02/26 2330 DC 02/27 IM 02/26 2331 0003 Review of Systems Review of Systems Constitutional: Reports: see HPI. 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 Home Services at Home: None Smoking Status: Never Smoked ETOH Use: denies use Illicit Drug Use: denies illicit drug use Exam & Diagnostic Data Last 24 Hrs of Vital Signs/I&O Vital Signs Date Time Temp Pulse Resp B/P B/P Pulse O2 O2 Flow FiO2 Mean Ox Delivery Rate 02/27 1600 96.8 120 26 118/70 93 Room Air Room Air 02/27 1200 99 Room Air Room Air 02/27 0800 98.6 116 20 120/84 96 Room Air Room Air 07/05 0800 95 Room Air Room Air 02/27 0400 99.4 122 28 126/78 93 Room Air 02/27 0400 93 Room Air 02/27 0300 99.1 02/27 0142 100.8 02/27 0004 101.0 103 16 123/61 92 Room Air 02/26 2212 100.2 70 17 138/82 100 Room Air 02/26 1942 100.7 78 18 144/87 98 Room Air Room Air Intake & Output 02/27 1600 02/27 0800 02/27 0000 Intake Total 1587 1260 1999 Output Total 300 100 Balance 1287 1160 1999 Intake, IV 1587 1260 1999 Output, Urine 300 100 Patient 78.528 kg Weight Weight Bed scale Measurement Method Physical Exam General Appearance: well developed/nourished, alert, awake, mild distress Other Physical Findings: General-well developed, well nourished middle aged woman in mild/ moderate distress HEENT-NCAT, PERRL, EOMI, anicteric sclera Cardio-S1, S2 w/o m/g/r;RRR Lung-CTA bilaterally Abdomen-moderate/sever tenderness without guarding/rigidity, faint bowel sounds, Neuro- Awake and alert, CN II - XII grossly intact Ext-normal pulses, no cyanosis/clubbing/edema, normal capillary refill Last 48 Hrs of Labs/Dave: Laboratory Tests 02/27/17 1823: Lactic Acid Cancelled 02/27/17 1520: Lactic Acid 4.3 H 02/27/17 1520: Ionized Calcium Pending 02/27/17 1520: Plasma Potassium 4.3, Anion Gap 14, Estimated GFR > 60, Glucose 178 H, Calcium 5.9 *L, Phosphorus 1.6 L, Magnesium 2.2, Total Bilirubin 0.8, AST 16, ALT 16, Albumin 3.6, Triglycerides 864 H, CBC w Diff NO MAN DIFF REQ, RBC 5.64 H, MCV 82.2, MCH 27.9, RDW 13.6, MPV 9.6, Gran % 80.9 H, Lymphocytes % 14.5 L, Monocytes % 4.4, Eosinophils % 0, Basophils % 0.2, Absolute Granulocytes 7.3 H, Absolute Lymphocytes 1.3, Absolute Monocytes 0.4, Absolute Eosinophils 0, Absolute Basophils 0, PUBS MCHC 33.9 02/27/17 1215: Ionized Calcium Pending 02/27/17 1215: Plasma Potassium 5.1 H, Anion Gap 16, Estimated GFR > 60, Glucose 252 H, Lactic Acid 3.7 H, Calcium 5.1 *L, Phosphorus 1.7 L, Magnesium 1.6, Total Bilirubin 0.8, AST 32, ALT 30, Albumin 3.0 L, Acetone Level NEGATIVE 02/27/17 1150: Urinalysis LIGHT H, Urine Color YESIKA, Urine Clarity HAZY H, Urine pH 6.0, Ur Specific [place] >= 1.030, Urine Protein 100 H, Urine Ketones 15 H, Urine Nitrite NEG, Urine Bilirubin NEG, Urine Urobilinogen 0.2, Ur Leukocyte Esterase NEG, Ur Microscopic SEDIMENT EXAMINED, Urine RBC RARE, Urine WBC 1-3 H, Ur Epithelial Cells RARE, Urine Bacteria FEW H, Hyaline Casts 1-3 H, Granular Casts 1-3 H, Urine Mucus MOD H, Urine Hemoglobin NEG, Urine Glucose >=1000 H 02/27/17 09: Ionized Calcium Pending 02/27/17 0930: Plasma Potassium 5.5 H, Anion Gap 18 H, Estimated GFR > 60, Glucose 263 H, Lactic Acid 4.5 H, Calcium 5.3 *L, Phosphorus 1.3 L, Magnesium 1.8, Total Bilirubin 1.2, AST 37 H, ALT 23, Albumin 2.8 L, PT 11.7, INR 1.12, APTT 29, Fibrinogen Activity 446 H, Fibrin Degrad Products <10 ug/ml, CBC w Diff MAN DIFF ORDERED, RBC 5.87 H, MCV 81.2, MCH 27.9, RDW 13.1, MPV 9.1, Segmented Neutrophils 62, Band Neutrophils 12 H, Lymphocytes 23, Monocytes 3, Platelet Estimate VERIFIED BY SMEAR, Polychromasia 1+, PUBS MCHC 34.4 02/27/17 0545: Lactic Acid 4.2 H 02/27/17 0545: Anion Gap 19 H, Estimated GFR > 60, Glucose 262 H, Calcium 5.6 *L, Phosphorus 1.8 L, Magnesium 1.7, Total Bilirubin 1.0, AST 36, ALT 30, Albumin 2.8 L, Triglycerides > 77069 H, Cholesterol 837 H, LDL Cholesterol Direct 145.50 H, LDL Cholesterol, Calc ND, HDL Cholesterol 24 L, Cholesterol/HDL Ratio 27.1 H, 25-OH Vitamin D Total < 4.2 L, PTH Intact 226.4 H, CBC w Diff MAN DIFF ORDERED , RBC 5.40, MCV 80.9 L, MCH 28.2, RDW 13.1, MPV 8.4, Segmented Neutrophils 65, Band Neutrophils 15 H, Lymphocytes 18 L, Monocytes 2, Platelet Estimate ADEQUATE, Polychromasia 1+, Ovalocytes FEW, PUBS MCHC 34.6, Fld Total RBCs Counted 100 02/27/17 0230: Lactic Acid 3.9 H 02/27/17 0028: Anion Gap 17 H, Estimated GFR > 60, Glucose 201 H, Calcium 6.0 L, Phosphorus 3.2, Magnesium 0.8 *L, Total Bilirubin 1.1, AST 33, ALT 29, Albumin 3.1 L, Triglycerides > 23930 H 02/26/17 1841: Urine Opiates Screen > 4000.00 H, Methadone Screen < 40, Barbiturate Screen < 60, Ur Phencyclidine Scrn < 6.00, Amphetamines Screen < 100, U Benzodiazepines Scrn < 85, Urine Cocaine Screen < 50, Urine Cannabis Screen < 5.00, Urinalysis LIGHT H, Urine Color YEL, Urine Clarity CLEAR, Urine pH 5.5, Ur Specific [place] >= 1.030, Urine Protein TRACE H, Urine Ketones 15 H, Urine Nitrite NEG , Urine Bilirubin NEG, Urine Urobilinogen 0.2, Ur Leukocyte Esterase NEG, Ur Microscopic SEDIMENT EXAMINED, Urine WBC 3-5 H, Ur Epithelial Cells MOD H, Urine Bacteria FEW H, Urine Mucus MOD H, Urine Hemoglobin TRACE-LYSED, Urine Glucose NEG 02/26/17 1800: Bicarbonate Actual 19 L, Mixed VBG pH 7.31, Mixed VBG pCO2 38 L, Mixed VBG O2 Saturation 38, P-50 (Temp Corrected) Y, Carboxyhemoglobin 0.2 L, O2 Concentration % RA, Temperature 99.0, Phlebotomy Draw Site R AC 02/26/17 1550: Anion Gap 17 H, Estimated GFR > 60, BUN/Creatinine Ratio 20.0, Glucose 140 H, Lactic Acid 2.0, Calcium 8.4, Total Bilirubin 1.3, AST 38 H, ALT 39, Alkaline Phosphatase 79, Lactate Dehydrogenase 534, Troponin I < 0.01, Total Protein 8.1, Albumin 3.2 L, Globulin 4.9 H, Albumin/Globulin Ratio 0.7 L, Triglycerides > 42513 H, Amylase 78, Lipase 319 H, TSH 0.682, Free T4 1.35, Total T3 1.09, Total Beta HCG NEGATIVE, CBC w Diff NO MAN DIFF REQ, RBC 4.97, MCV 81.0, MCH 28.2, RDW 12.8, MPV 10.2, Gran % 81.7 H, Lymphocytes % 15.1 L, Monocytes % 2.5 , Eosinophils % 0.5, Basophils % 0.2, Absolute Granulocytes 10.1 H, Absolute Lymphocytes 1.9, Absolute Monocytes 0.3, Absolute Eosinophils 0.1, Absolute Basophils 0, PUBS MCHC 34.8, Salicylates < 1.0, Acetaminophen < 10.0 L, Serum Alcohol < 10.0, Acetone Level NEGATIVE Diagnostic Data CXR Results IMPRESSION: Mild left basilar atelectatic changes, otherwise no acute cardiopulmonary findings. Other Results SERVICE DATE: 02/26/17 EXAM TYPE: CAT - CT ABD & PELVIS W/O IV CONTRAS IMPRESSION: 1. Moderate swelling of the pancreatic head is demonstrated with mild peripancreatic acute fluid. The findings are concordant with the clinical diagnosis of pancreatitis. No well-defined fluid collection is seen. The lack of intravenous contrast limits evaluation for pancreatic necrosis or for evaluation of the adjacent pancreatic vasculature. 2. Hepatic steatosis without hepatomegaly. No obvious biliary ductal dilatation. The gallbladder is decompressed and not evaluated. Right upper quadrant sonography may be of further utility if there is concern regarding biliary dilatation or cholelithiasis. There are no CT manifestations to suggest cholecystitis. 3. Tiny nonobstructive left lower pole renal calculus. SERVICE DATE: 02/27/17 EXAM TYPE: IR - FLUORO GUID VENOUS ACCESS; INTERVENTIONAL SETUP; US-GUIDANCE VASCULAR ACCESS; US-LIMITED ABDOMEN IMPRESSION: Successful placement of right sided jugular dialysis catheter. Assessment/Plan Impression/Plan: 36 year old woman with past medical history of Hypertriglyceridemia, two episodes of pancreatitis, non-insulin dependent diabetes mellitus type II, and asthma seen for evaluation of acute onset abdominal pain. ED Course -Vitals: Temp 96.2-100.2, HR 82, RR 15, BP 148-154/89-110, O2 100% on Room Air -Significant Labs: WBC 12.4, Hgb/Hct 14.0/40.3, Plt 289, Na 133, K 4.2, AG 17, Lactic acid 2.0, Ca 8.4, Triglycerides >10,500, Lipase 319, B-HCG negative -Studies: CXR no acute cardiopulmonary findings, CT Abdomen/Pelvis- moderate swelling of the pancreatic head with mild peripancreatic fluid consistent with pancreatitis Problem List: -Severe Hypertriglyceridemia -Acute Pancreatitis -Diabetic Ketoacidosis -Lactic Acidosis -Hypocalcemia -Hypophosphatemia Patient appears to have acute pancreatitis secondary to severe hypertriglyceridemia. Patient was started on Lactated Ringers in the ED and admitted to the ICU for further evaluation. Consults were placed with gastroenterology, endocrinology and nephrology for further evaluation of the patients clinical condition. It was determiend that plasmapheresis should be pursued in an attempt to reduce patients serum lipids. Plan -ICU -Serum plasma labs Q3 Hours -Replete Electrolytes aggressively -Plasmapheresis per nephrology -Accucheck Q1 -Insulin Drip -Pain Control -Aggressive Intravenous fluids -GI/Endo/Neph/ID consults -F/U echocardiogram Consult Acknowledgment - Thank you for your consult request. KLAUS BERGER MD 02/27/17 1024: Assessment/Plan Other Findings/Comments: Klaus Drew M.D. have examined this patient, reviewed available EMR data, personally reviewed images, discussed with resident/PA/DRY BOX TENDER, discussed management plan with housestaff and nursing staff, discussed managment plan all of healthcare providers, discussed management plan with patient and/or family, agreed with resident/PA/DRY BOX TENDER. The past history and parts of the chart have been autopopulated. Impression 36 year old woman * significant acute on chronic hypertrygliceredimia with pancreatitis * electrolyte derangement secondary to above Plan -urgent plasmapheresis, IR for large bore phresis catheter -insulin gtt -gi, endocrine, renal consultations are appreciated -monitor hemodynamics -f/u ECHO -incentive spirometry -pain control -calcium repletion -ppi -with respect to abxs, no iv contrast was used and no clear evidence for pancreatic necrosis, unclear role for antibiotics, will ask Dr. Damon if antibiotics are necessary at this clinical juncture. DVT prophylaxis at all times TTS 60 min Consult Acknowledgment - Thank you for your consult request.
--- NOTE | 2017-02-27 07:50 | Cons- Gastroenterology ---
General Information and HPI Consulting Request Date of Consult: 02/27/17 Requested By: VANCE ANNA MD Source of Information: patient Allergies/Medications Allergies: Coded Allergies: MDX - PCN (penicillin) (PCN (PENICILLIN)) (HIVES 02/26/17) Home Med List: Acetaminophen/Hydrocodone Bi ([place] 325 MG-5 MG) 1 TAB TAB 1 TAB PO Q6HR PRN PAIN Albuterol Sulfate (Proair Hfa) 90 MCG HFA.AER.AD 2 PUF INH Q4-6 PRN PRN WHEEZING (Reported) Alprazolam 0.25 MG TABLET 1 TAB PO PRN ANXIETY (Reported) Atorvastatin Calcium (Lipitor) (Unknown Strength) TABLET (Unknown Dose) UNKNOWN (Reported) CHOLECALCIFEROL (VITAMIN D3) (Vitamin D-3) (Unknown Strength) CAPSULE (Unknown Dose) PO DAILY SUPPLEMENT (Reported) Cyclobenzaprine (Flexeril 5MG Tab) 5 MG TAB 1 TAB PO QHS PRN PAIN Ethinyl Estradiol/Norgestima (Tri-Sprintec 28 35 Mcg-0.25 MG) 1 TAB TAB 1 TAB PO DAILY CONTROL (Reported) Fenofibrate 160 MG TABLET 1 TAB PO DAILY HIGH CHOLESTROL (Reported) Insulin Lispro, Recombinant (Humalog) 100 U/ML EDVIN 1-5 UNIT SC DAILY DIABETES (Reported) Metformin Hydrochloride (Metformin HCl) 500 MG TAB 1 TAB PO BID DIABETES ( Reported) Multivitamin (Multiple Vitamins) 1 EACH TABLET 1 TAB PO DAILY SUPPLEMENT ( Reported) [place]-3 Acid Ethyl Esters 1 GRAM CAPSULE 2 CAP PO BID VITAMIN SUPPORT ( Reported) Rosuvastatin Calcium (Crestor) 20 MG TABLET 1 TAB PO DAILY HIGH CHOLESTROL ( Reported) Vitamin B Complex 1 EACH CAPSULE 1 CAP PO DAILY SUPPLEMENT (Reported) Current Medications: Current Medications Sig/Jack Start time Last Medication Dose Route Stop Time Status Admin Acetaminophen 0 .STK-MED ONE 02/27 145 DC IV Acetaminophen 0 .STK-MED ONE 02/26 1942 DC IV Acetaminophen 0 .STK-MED ONE 02/27 1940 DC PO Acetaminophen 325 MG Q6 PRN 02/26 184 AC PO Acetaminophen 1,000 MG Q6 PRN 02/26 1845 AC 02/27 IV 0747 Atorvastatin Calcium 80 MG 1700 02/27 1700 AC PO Calcium Gluconate 0 .STK-MED ONE 02/27 0225 DC IV Calcium Gluconate 1 GM ONCE ONE 02/27 0145 DC 02/27 Sodium Chloride 100 ML IV 02/27 0244 0145 Ceftazidime 0 .STK-MED ONE 02/27 0225 DC .ROUTE Ceftazidime 1,000 MG IQ8 02/27 0215 AC 02/27 IV 0332 Enoxaparin Sodium 40 MG 1700 02/27 1700 DC SC Enoxaparin Sodium 40 MG 1900 02/26 1900 DC SC Fenofibrate 145 MG DAILY 02/27 0030 AC 02/27 PO 0107 Fenofibrate 600 MG BID 02/26 220 DC PO Fenofibrate 145 MG DAILY 02/26 1849 DC PO Heparin Sodium 0 .STK-MED ONE 02/26 2358 DC (Porcine) .ROUTE Heparin Sodium 5,000 UNIT Q8 02/26 2200 AC 02/27 (Porcine) SC 0550 Hydromorphone HCl 0 .STK-MED ONE 02/27 0351 DC .ROUTE Hydromorphone HCl 0 .STK-MED ONE 02/26 235 DC .ROUTE Hydromorphone HCl 2 MG ONCE ONE 02/26 2330 DC 02/27 IV PUSH 02/26 2331 0003 Hydromorphone HCl 0 .STK-MED ONE 02/26 210 DC .ROUTE Hydromorphone HCl 1 MG Q4P PRN 02/26 2100 AC 02/27 IV 0600 Hydromorphone HCl 0 .STK-MED ONE 02/26 1722 DC .ROUTE Hydromorphone HCl 1 MG ONCE ONE 02/26 1715 DC 02/26 IV 02/26 1716 1735 Insulin Aspart 0 TIDAC 02/27 0800 CAN SC Insulin Human Regular 100 UNIT Q24H 02/26 2045 AC 02/26 Sodium Chloride 100 ML IV 2145 Lactated Ringer's 1,000 ML Q10H 02/26 2100 AC IV Lactated Ringer's 1,000 ML ONCE ONE 02/26 1945 CAN IV 02/27 0044 Lactated Ringer's 1,000 ML ONCE ONE 02/26 1715 DC / IV 02/26 2114 1940 Magnesium Sulfate 1 GM Q2H 02/27 0130 DC 02/27 Dextrose/Water 100 ML IV 02/27 0529 0530 Metoclopramide HCl 0 .STK-MED ONE 02/26 2107 DC .ROUTE Metoclopramide HCl 10 MG ONCE ONE 02/26 2100 DC 02/26 IV 02/26 2101 2110 Metoclopramide HCl 0 .STK-MED ONE 02/26 1721 DC .ROUTE Metoclopramide HCl 10 MG ONCE ONE 02/26 1715 DC 02/26 IV 02/26 1716 1735 Metronidazole 500 MG IQ8 02/27 0215 02/27 N/A 1 UNIT IV 0332 Montelukast Sodium 10 MG AT BEDTIME 02/26 2200 02/27 PO 0008 Morphine Sulfate 0 .STK-MED ONE 02/26 1933 DC .ROUTE Morphine Sulfate 0.5 MG Q4 PRN 02/26 1845 DC 02/26 IV 1940 Morphine Sulfate 0 .STK-MED ONE 02/26 1610 DC .ROUTE Morphine Sulfate 4 MG ONCE ONE 02/26 1545 DC 02/26 IV 02/26 1546 1618 Non-Formulary 0 SEE ADMIN CRITERIA 02/26 1900 UNVr Medication ANY Ondansetron HCl 4 MG Q6P PRN 02/26 1945 DC IV Ondansetron HCl 0 .STK-MED ONE 02/26 1933 DC .ROUTE Ondansetron HCl 4 MG Q6P PRN 02/26 1930 AC 02/27 IV 0746 Ondansetron HCl 0 .STK-MED ONE 02/26 1610 DC .ROUTE Ondansetron HCl 4 MG ONCE ONE 02/26 1545 DC 02/26 IV 02/26 1546 1618 Pantoprazole Sodium 40 MG DAILY 02/27 1000 AC IV Potassium Chloride 40 MEQ Q10H 02/26 2115 AC 02/26 Dextrose/Sodium 1,000 ML IV 2226 Chloride Potassium Chloride 20 MEQ Q10H 02/26 2100 DC Sodium Chloride 1,000 ML IV Sodium Chloride 1,000 ML BOLUS ONE 02/26 1715 DC 02/26 IV 02/26 1814 1735 Sodium Chloride 1,000 ML .Q6H40M 02/26 1715 DC 02/27 IV 0107 Sodium Chloride 1,000 ML BOLUS ONE 02/26 1545 DC 02/26 IV 02/26 1644 1618 Trimethobenzamide HCl 0 .STK-MED ONE 02/26 2355 DC IM Trimethobenzamide HCl 200 MG ONCE ONE 02/26 2330 DC 02/27 IM 02/26 2331 0003 Past History Travel History Traveled to [place] past 21 day No Medical History Blood Transfusion Hx: No Neurological: NONE EENT: NONE Cardiovascular: HIGH TRIGLYCERIDES Respiratory: asthma Gastrointestinal: pancreatitis Hepatic: INFLAMED LIVER Renal: NONE Musculoskeletal: NONE Psychiatric: anxiety Endocrine: diabetes Blood Disorders: NONE Cancer(s): NONE 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 Home Services at Home: None Smoking Status: Never Smoked ETOH Use: denies use Illicit Drug Use: denies illicit drug use Exam & Diagnostic Data Vital Signs and I&O Vital Signs Date Time Temp Pulse Resp B/P B/P Pulse O2 O2 Flow FiO2 Mean Ox Delivery Rate 02/28 400 99.4 122 28 126/78 93 Room Air 02/27 040 93 Room Air 02/27 0300 99.1 02/27 0142 100.8 02/27 0004 101.0 103 16 123/61 92 Room Air 02/26 2212 100.2 70 17 138/82 100 Room Air 02/26 1942 100.7 78 18 144/87 98 Room Air Room Air 02/26 1735 99.9 75 18 114/69 99 Room Air Room Air 02/26 1609 100.2 02/26 1536 148/89 02/26 1521 96.2 82 15 154/110 100 Room Air Room Air Intake & Output 02/27 1600 02/27 0400 02/26 1600 02/26 0400 02/25 1600 02/25 0400 Intake Total 1260 2000 Output Total 100 Balance 1160 2000 Intake, IV 1260 2000 Output, Urine 100 Patient 173 lb 170 lb Weight Weight Bed scale Reported by Patient Measurement Method Results Pertinent Lab Results: Laboratory Tests 02/27 02/27 02/27 0545 0545 0230 Chemistry Sodium (137 - 145 mmol/L) 129 L Potassium (3.5 - 5.1 mmol/L) 4.9 Chloride (98 - 107 mmol/L) 104 Carbon Dioxide (22 - 30 mmol/L) 6 *L Anion Gap (5 - 16) 19 H BUN (7 - 17 mg/dL) 6 L Creatinine (0.5 - 1.0 mg/dL) 0.5 Estimated GFR (>60 ml/min) > 60 Glucose (65 - 99 mg/dL) 262 H Lactic Acid (0.7 - 2.1 mmol/L) 4.2 H 3.9 H Calcium (8.4 - 10.2 mg/dL) 5.6 *L Phosphorus (2.5 - 4.5 mg/dL) 1.8 L Magnesium (1.6 - 2.3 mg/dL) 1.7 Total Bilirubin (0.2 - 1.3 mg/dL) 1.0 AST (14 - 36 U/L) 36 ALT (9 - 52 U/L) 30 Albumin (3.5 - 5.0 g/dL) 2.8 L Triglycerides (<150 mg/dL) > 51727 H Cholesterol (<200 MG/DL) 837 H LDL Cholesterol Direct (<100 mg/dL) 145.50 H LDL Cholesterol, Calc (65 - 129 mg/dL) ND HDL Cholesterol (40 - 60 mg/dL) 24 L Cholesterol/HDL Ratio (0.00 - 4.23 %) 27.1 H 25-OH Vitamin D Total (30 - 100 ng/ml) Pending PTH Intact (13.8 - 85 pg/ml) Pending Hematology CBC w Diff MAN DIFF ORDERED WBC (4.8 - 10.8 /CUMM) 9.9 RBC (4.20 - 5.40 /CUMM) 5.40 Hgb (12.0 - 16.0 G/DL) 15.0 Hct (37 - 47 %) 43.7 MCV (81.0 - 99.0 FL) 80.9 L MCH (27.0 - 31.0 PG) 28.2 RDW (11.5 - 14.5 %) 13.1 Plt Count (130 - 400 /CUMM) 267 MPV (7.4 - 10.4 FL) 8.4 Segmented Neutrophils (42.2 - 75.2 %) 65 Band Neutrophils (0.0 - 5.0 %) 15 H Lymphocytes (20.5 - 51.1 %) 18 L Monocytes (1.7 - 9.3 %) 2 Platelet Estimate (ADEQUATE) ADEQUATE Polychromasia 1+ Ovalocytes FEW PUBS MCHC (33.0 - 37.0 G/DL) 34.6 Other Body Source Fld Total RBCs Counted (%) 100 02/27 02/26 02/26 0028 1841 1800 Blood Gas Bicarbonate Actual (22 - 26 MEQ/L) 19 L Mixed VBG pH (7.31 - 7.41 PH) 7.31 Mixed VBG pCO2 (41 - 51 TORR) 38 L Mixed VBG O2 Saturation (35 - 45 TORR) 38 P-50 (Temp Corrected) Y Carboxyhemoglobin (1.5 - 5.0 %) 0.2 L O2 Concentration % RA Temperature (97.0 - 100.0 FARH) 99.0 Chemistry Sodium (137 - 145 mmol/L) 131 L Potassium (3.5 - 5.1 mmol/L) 4.4 Chloride (98 - 107 mmol/L) 104 Carbon Dioxide (22 - 30 mmol/L) 10 L Anion Gap (5 - 16) 17 H BUN (7 - 17 mg/dL) 6 L Creatinine (0.5 - 1.0 mg/dL) 0.5 Estimated GFR (>60 ml/min) > 60 Glucose (65 - 99 mg/dL) 201 H Calcium (8.4 - 10.2 mg/dL) 6.0 L Phosphorus (2.5 - 4.5 mg/dL) 3.2 Magnesium (1.6 - 2.3 mg/dL) 0.8 *L Total Bilirubin (0.2 - 1.3 mg/dL) 1.1 AST (14 - 36 U/L) 33 ALT (9 - 52 U/L) 29 Albumin (3.5 - 5.0 g/dL) 3.1 L Triglycerides (<150 mg/dL) > 29074 H Miscellaneous Phlebotomy Draw Site R AC Toxicology Urine Opiates Screen (>2000 NG/ML) > 4000.00 H Methadone Screen (>300 NG/ML) < 40 Barbiturate Screen (>200 NG/ML) < 60 Ur Phencyclidine Scrn (>25 NG/ML) < 6.00 Amphetamines Screen (>1000 NG/ML) < 100 U Benzodiazepines Scrn (>200 NG/ML) < 85 Urine Cocaine Screen (>300 NG/ML) < 50 Urine Cannabis Screen (>50 NG/ML) < 5.00 Urines Urinalysis LIGHT H Urine Color (YEL,AMB,STR) YEL Urine Clarity (CLEAR) CLEAR Urine pH (5.0 - 8.0) 5.5 Ur Specific [place] (1.001 - 1.035) >= 1.030 Urine Protein (NEG,<30 MG/DL) TRACE H Urine Ketones (NEG) 15 H Urine Nitrite (NEG) NEG Urine Bilirubin (NEG) NEG Urine Urobilinogen (0.1 - 1.0 EU/dl) 0.2 Ur Leukocyte Esterase (NEG) NEG Ur Microscopic SEDIMENT EXAMINED Urine WBC (0 - 2 /HPF) 3-5 H Ur Epithelial Cells (NONE,FEW) MOD H Urine Bacteria (NEG/NONE) FEW H Urine Mucus (FEW,NONE) MOD H Urine Hemoglobin (NEG) TRACE-LYSED Urine Glucose (N MG/DL) NEG 02/26 1550 Chemistry Sodium (137 - 145 mmol/L) 133 L Potassium (3.5 - 5.1 mmol/L) 4.2 Chloride (98 - 107 mmol/L) 104 Carbon Dioxide (22 - 30 mmol/L) 12 L Anion Gap (5 - 16) 17 H BUN (7 - 17 mg/dL) 10 Creatinine (0.5 - 1.0 mg/dL) 0.5 Estimated GFR (>60 ml/min) > 60 BUN/Creatinine Ratio (7 - 25 %) 20.0 Glucose (65 - 99 mg/dL) 140 H Lactic Acid (0.7 - 2.1 mmol/L) 2.0 Calcium (8.4 - 10.2 mg/dL) 8.4 Total Bilirubin (0.2 - 1.3 mg/dL) 1.3 AST (14 - 36 U/L) 38 H ALT (9 - 52 U/L) 39 Alkaline Phosphatase (<127 U/L) 79 Lactate Dehydrogenase (313 - 618 U/L) 534 Troponin I (< 0.11 ng/ml) < 0.01 Total Protein (6.3 - 8.2 g/dL) 8.1 Albumin (3.5 - 5.0 g/dL) 3.2 L Globulin (1.9 - 4.2 gm/dL) 4.9 H Albumin/Globulin Ratio (1.1 - 2.2 %) 0.7 L Triglycerides (<150 mg/dL) > 28430 H Amylase (30 - 110 U/L) 78 Lipase (23 - 300 U/L) 319 H TSH (0.270 - 4.200 uIU/mL) 0.682 Free T4 (0.79 - 2.35 ng/dL) 1.35 Total T3 (0.97 - 1.69 ng/mL) 1.09 Total Beta HCG (NEGATIVE) NEGATIVE Hematology CBC w Diff NO MAN DIFF REQ WBC (4.8 - 10.8 /CUMM) 12.4 H RBC (4.20 - 5.40 /CUMM) 4.97 Hgb (12.0 - 16.0 G/DL) 14.0 Hct (37 - 47 %) 40.3 MCV (81.0 - 99.0 FL) 81.0 MCH (27.0 - 31.0 PG) 28.2 RDW (11.5 - 14.5 %) 12.8 Plt Count (130 - 400 /CUMM) 148 MPV (7.4 - 10.4 FL) 10.2 Gran % (42.2 - 75.2 %) 81.7 H Lymphocytes % (20.5 - 51.1 %) 15.1 L Monocytes % (1.7 - 9.3 %) 2.5 Eosinophils % (0 - 5 %) 0.5 Basophils % (0.0 - 2.0 %) 0.2 Absolute Granulocytes (1.4 - 6.5 /CUMM) 10.1 H Absolute Lymphocytes (1.2 - 3.4 /CUMM) 1.9 Absolute Monocytes (0.10 - 0.60 /CUMM) 0.3 Absolute Eosinophils (0.0 - 0.7 /CUMM) 0.1 Absolute Basophils (0.0 - 0.2 /CUMM) 0 PUBS MCHC (33.0 - 37.0 G/DL) 34.8 Toxicology Salicylates (0 - 20.0 mg/dL) < 1.0 Acetaminophen (10.0 - 30.0 ug/mL) < 10.0 L Serum Alcohol (<10 MG/DL) < 10.0 Acetone Level (NEGATIVE) NEGATIVE Assessment/Plan Assessment/Recommendations: Full note to follow Severe acute hypertriglyceridemic pancreatitis with abdominal distention and apparent ileus, acidemia, hypocalcemia, fever. Recommendations * Nothing by mouth, aggressive IV fluids although monitor for worsening abdominal distention and risk of compartment syndrome * Careful monitoring of input and output, oxygen saturation * Concurrent management of hypertriglyceridemia by endocrinology, to include insulin and fenofibrate. * Rule out component of ketoacidosis to acidemia * Strong consideration for apheresis given the degree of hypertriglyceridemia and severity of pancreatitis. Nephrology has been contacted. * Calcium infusion with evidence of symptomatic hypocalcemia. Magnesium repletion. Consult Acknowledgment - Thank you for your consult request.
[2017-02-27 08:00] VITALS: BP 120/84
--- NOTE | 2017-02-27 09:20 | Cons- Nephrology ---
General Information and HPI Consulting Request Date of Consult: 02/27/17 Requested By: WILFRIDO JACKSON,VANCE Aldrich Reason for Consult: Pancreatitis & severe hyperTG Source of Information: patient, old records Exam Limitations: no limitations History of Present Illness: 36 yr old WF w known DM & hypertriglyceridemia complicated by previous pancreatitis x 2 in past admit yesterday w R sided upper quadrant & epigastric pain associated w mult episodes of vomiting. Evaluation showed markedly elevated TG (>10K) & mildly elevated lipase w edema pancreatic head by CT consistent w pancreatitis. Begun on IV fluids & insulin drip but course complicated by lactic acidosis & progressive severe hypocalcemia. No Sz activity but has had cramps w/ o paresthesias. No SOB & nonoliguric. Denies EtOH use. Labs also significant for prob pseudohyponatremia & prob erroneous serum bicarb <10. Allergies/Medications Allergies: Coded Allergies: MDX - PCN (penicillin) (PCN (PENICILLIN)) (HIVES 02/26/17) Home Med List: Acetaminophen/Hydrocodone Bi (Kanosh 325 MG-5 MG) 1 TAB TAB 1 TAB PO Q6HR PRN PAIN Albuterol Sulfate (Proair Hfa) 90 MCG HFA.AER.AD 2 PUF INH Q4-6 PRN PRN WHEEZING (Reported) Alprazolam 0.25 MG TABLET 1 TAB PO PRN ANXIETY (Reported) Atorvastatin Calcium (Lipitor) (Unknown Strength) TABLET (Unknown Dose) UNKNOWN (Reported) CHOLECALCIFEROL (VITAMIN D3) (Vitamin D-3) (Unknown Strength) CAPSULE (Unknown Dose) PO DAILY SUPPLEMENT (Reported) Cyclobenzaprine (Flexeril 5MG Tab) 5 MG TAB 1 TAB PO QHS PRN PAIN Ethinyl Estradiol/Norgestima (Tri-Sprintec 28 35 Mcg-0.25 MG) 1 TAB TAB 1 TAB PO DAILY CONTROL (Reported) Fenofibrate 160 MG TABLET 1 TAB PO DAILY HIGH CHOLESTROL (Reported) Insulin Lispro, Recombinant (Humalog) 100 U/ML EDVIN 1-5 UNIT SC DAILY DIABETES (Reported) Metformin Hydrochloride (Metformin HCl) 500 MG TAB 1 TAB PO BID DIABETES ( Reported) Multivitamin (Multiple Vitamins) 1 EACH TABLET 1 TAB PO DAILY SUPPLEMENT ( Reported) Hasty-3 Acid Ethyl Esters 1 GRAM CAPSULE 2 CAP PO BID VITAMIN SUPPORT ( Reported) Rosuvastatin Calcium (Crestor) 20 MG TABLET 1 TAB PO DAILY HIGH CHOLESTROL ( Reported) Vitamin B Complex 1 EACH CAPSULE 1 CAP PO DAILY SUPPLEMENT (Reported) Current Medications: Current Medications Sig/Jack Start time Last Medication Dose Route Stop Time Status Admin Acetaminophen 0 .STK-MED ONE 02/27 014 DC IV Acetaminophen 0 .STK-MED ONE 02/26 194 DC IV Acetaminophen 0 .STK-MED ONE 02/26 194 DC PO Acetaminophen 325 MG Q6 PRN 02/26 184 AC PO Acetaminophen 1,000 MG Q6 PRN 02/26 1845 AC 02/27 IV 0747 Atorvastatin Calcium 80 MG 1700 02/27 1700 AC PO Calcium Gluconate 0 .STK-MED ONE 02/27 0225 DC IV Calcium Gluconate 1 GM ONCE ONE 02/27 014 DC 02/27 Sodium Chloride 100 ML IV 02/27 0244 0145 Ceftazidime 0 .STK-MED ONE 02/27 022 DC .ROUTE Ceftazidime 1,000 MG IQ8 02/27 0215 AC 02/27 IV 0332 Enoxaparin Sodium 40 MG 1700 02/27 1700 DC SC Enoxaparin Sodium 40 MG 1900 02/26 1900 DC SC Fenofibrate 145 MG DAILY 02/27 0030 AC 02/27 PO 0107 Fenofibrate 600 MG BID 02/26 220 DC PO Fenofibrate 145 MG DAILY 02/26 184 DC PO Heparin Sodium 0 .STK-MED ONE 02/26 2358 DC (Porcine) .ROUTE Heparin Sodium 5,000 UNIT Q8 02/26 2200 AC 02/27 (Porcine) SC 0550 Hydromorphone HCl 1 MG Q3 PRN 02/27 0800 AC IV Hydromorphone HCl 0 .STK-MED ONE 02/27 0351 DC .ROUTE Hydromorphone HCl 0 .STK-MED ONE 02/26 2355 DC .ROUTE Hydromorphone HCl 2 MG ONCE ONE 02/26 2330 DC 02/27 IV PUSH 02/26 2331 0003 Hydromorphone HCl 0 .STK-MED ONE 02/26 2107 DC .ROUTE Hydromorphone HCl 1 MG Q4P PRN 02/26 2100 DC 02/27 IV 0600 Hydromorphone HCl 0 .STK-MED ONE 02/26 1722 DC .ROUTE Hydromorphone HCl 1 MG ONCE ONE 02/26 1715 DC 02/26 IV 02/26 1716 1735 Insulin Aspart 0 TIDAC 02/27 0800 CAN SC Insulin Human Regular 100 UNIT Q24H 02/26 2045 AC 02/26 Sodium Chloride 100 ML IV 2145 Lactated Ringer's 1,000 ML Q10H 02/26 2100 AC IV Lactated Ringer's 1,000 ML ONCE ONE 02/26 1945 CAN IV 02/27 0044 Lactated Ringer's 1,000 ML ONCE ONE 02/26 1715 DC 02/26 IV 02/26 211 1940 Magnesium Sulfate 1 GM Q2H 02/27 0130 DC 02/27 Dextrose/Water 100 ML IV 02/27 05 0530 Metoclopramide HCl 0 .STK-MED ONE 02/26 2107 DC .ROUTE Metoclopramide HCl 10 MG ONCE ONE 02/26 2100 DC 02/26 IV 02/26 2101 2110 Metoclopramide HCl 0 .STK-MED ONE 02/26 172 DC .ROUTE Metoclopramide HCl 10 MG ONCE ONE 02/26 1715 DC 02/26 IV 02/26 1716 1735 Metronidazole 500 MG IQ8 02/27 0215 AC 02/27 N/A 1 UNIT IV 0332 Montelukast Sodium 10 MG AT BEDTIME 02/26 2200 AC 02/27 PO 0008 Morphine Sulfate 0 .STK-MED ONE 02/26 193 DC .ROUTE Morphine Sulfate 0.5 MG Q4 PRN 02/26 1845 DC 02/26 IV 1940 Morphine Sulfate 0 .STK-MED ONE 02/26 1610 DC .ROUTE Morphine Sulfate 4 MG ONCE ONE 02/26 1545 DC 02/26 IV 02/26 1546 1618 Non-Formulary 0 SEE ADMIN CRITERIA 02/26 1900 UNVr Medication ANY Ondansetron HCl 4 MG Q6P PRN 02/26 194 DC IV Ondansetron HCl 0 .STK-MED ONE 02/26 193 DC .ROUTE Ondansetron HCl 4 MG Q6P PRN 02/26 1930 AC 02/27 IV 0746 Ondansetron HCl 0 .STK-MED ONE 02/26 1610 DC .ROUTE Ondansetron HCl 4 MG ONCE ONE 02/26 1545 DC 02/26 IV 02/26 1546 1618 Pantoprazole Sodium 40 MG DAILY 07/05 1000 AC IV Potassium Chloride 40 MEQ Q10H 02/26 2115 DC 02/26 Dextrose/Sodium 1,000 ML IV 2226 Chloride Potassium Chloride 20 MEQ Q10H 02/26 2100 DC Sodium Chloride 1,000 ML IV Sodium Chloride 1,000 ML BOLUS ONE 02/26 1715 DC 02/26 IV 02/26 1814 1735 Sodium Chloride 1,000 ML .Q6H40M 02/26 1715 DC 02/27 IV 0107 Sodium Chloride 1,000 ML BOLUS ONE 02/26 1545 DC 07/ IV 02/26 1644 1618 Trimethobenzamide HCl 0 .STK-MED ONE 02/26 2355 DC IM Trimethobenzamide HCl 200 MG ONCE ONE 02/26 2330 DC 02/27 IM 02/26 2331 0003 Review of Systems Review of Systems Constitutional: Reports: fever. EENTM: Reports: no symptoms. Cardiovascular: Reports: no symptoms. Respiratory: Reports: no symptoms. GI: Reports: see HPI. Genitourinary: Reports: no symptoms. Musculoskeletal: Reports: no symptoms. Skin: Reports: no symptoms. Neurological/Psychological: Reports: no symptoms. Hematologic/Endocrine: Reports: no symptoms. Immunologic/Allergic: Reports: no symptoms. 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 Home Services at Home: None Smoking Status: Never Smoked ETOH Use: denies use Illicit Drug Use: denies illicit drug use Exam & Diagnostic Data Vital Signs and I&O Vital Signs Date Time Temp Pulse Resp B/P B/P Pulse O2 O2 Flow FiO2 Mean Ox Delivery Rate 02/27 0400 99.4 122 28 126/78 93 Room Air 02/27 0400 93 Room Air 02/27 0300 99.1 02/27 0142 100.8 02/27 0004 101.0 103 16 123/61 92 Room Air 02/26 2212 100.2 70 17 138/82 100 Room Air 02/26 1942 100.7 78 18 144/87 98 Room Air Room Air 02/26 1735 99.9 75 18 114/69 99 Room Air Room Air 02/26 1609 100.2 02/26 1536 148/89 02/26 1521 96.2 82 15 154/110 100 Room Air Room Air Intake & Output 02/27 0400 02/26 1600 02/26 0400 02/25 1600 02/25 0400 Intake Total 1260 2000 Output Total 100 Balance 1160 2000 Intake, IV 1260 2000 Output, Urine 100 Patient 173 lb 170 lb Weight Weight Bed scale Reported by Patient Measurement Method Physical Exam General Appearance: well developed/nourished, no apparent distress, alert Head: atraumatic, normal appearance Eyes: Bilateral: normal appearance. 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2 - 1.3 mg/dL) 1.0 AST (14 - 36 U/L) 36 ALT (9 - 52 U/L) 30 Albumin (3.5 - 5.0 g/dL) 2.8 L Triglycerides (<150 mg/dL) > 34387 H Cholesterol (<200 MG/DL) 837 H LDL Cholesterol Direct (<100 mg/dL) 145.50 H LDL Cholesterol, Calc (65 - 129 mg/dL) ND HDL Cholesterol (40 - 60 mg/dL) 24 L Cholesterol/HDL Ratio (0.00 - 4.23 %) 27.1 H 25-OH Vitamin D Total (30 - 100 ng/ml) < 4.2 L PTH Intact (13.8 - 85 pg/ml) 226.4 H Hematology CBC w Diff MAN DIFF ORDERED WBC (4.8 - 10.8 /CUMM) 9.9 RBC (4.20 - 5.40 /CUMM) 5.40 Hgb (12.0 - 16.0 G/DL) 15.0 Hct (37 - 47 %) 43.7 MCV (81.0 - 99.0 FL) 80.9 L MCH (27.0 - 31.0 PG) 28.2 RDW (11.5 - 14.5 %) 13.1 Plt Count (130 - 400 /CUMM) 267 MPV (7.4 - 10.4 FL) 8.4 Segmented Neutrophils (42.2 - 75.2 %) 65 Band Neutrophils (0.0 - 5.0 %) 15 H Lymphocytes (20.5 - 51.1 %) 18 L Monocytes (1.7 - 9.3 %) 2 Platelet Estimate (ADEQUATE) ADEQUATE Polychromasia 1+ Ovalocytes FEW PUBS MCHC (33.0 - 37.0 G/DL) 34.6 Other Body Source Fld Total RBCs Counted (%) 100 07/05 02/26 02/26 0028 1841 1800 Blood Gas Bicarbonate Actual (22 - 26 MEQ/L) 19 L Mixed VBG pH (7.31 - 7.41 PH) 7.31 Mixed VBG pCO2 (41 - 51 TORR) 38 L Mixed VBG O2 Saturation (35 - 45 TORR) 38 P-50 (Temp Corrected) Y Carboxyhemoglobin (1.5 - 5.0 %) 0.2 L O2 Concentration % RA Temperature (97.0 - 100.0 FARH) 99.0 Chemistry Sodium (137 - 145 mmol/L) 131 L Potassium (3.5 - 5.1 mmol/L) 4.4 Chloride (98 - 107 mmol/L) 104 Carbon Dioxide (22 - 30 mmol/L) 10 L Anion Gap (5 - 16) 17 H BUN (7 - 17 mg/dL) 6 L Creatinine (0.5 - 1.0 mg/dL) 0.5 Estimated GFR (>60 ml/min) > 60 Glucose (65 - 99 mg/dL) 201 H Calcium (8.4 - 10.2 mg/dL) 6.0 L Phosphorus (2.5 - 4.5 mg/dL) 3.2 Magnesium (1.6 - 2.3 mg/dL) 0.8 *L Total Bilirubin (0.2 - 1.3 mg/dL) 1.1 AST (14 - 36 U/L) 33 ALT (9 - 52 U/L) 29 Albumin (3.5 - 5.0 g/dL) 3.1 L Triglycerides (<150 mg/dL) > 82450 H Miscellaneous Phlebotomy Draw Site R AC Toxicology Urine Opiates Screen (>2000 NG/ML) > 4000.00 H Methadone Screen (>300 NG/ML) < 40 Barbiturate Screen (>200 NG/ML) < 60 Ur Phencyclidine Scrn (>25 NG/ML) < 6.00 Amphetamines Screen (>1000 NG/ML) < 100 U Benzodiazepines Scrn (>200 NG/ML) < 85 Urine Cocaine Screen (>300 NG/ML) < 50 Urine Cannabis Screen (>50 NG/ML) < 5.00 Urines Urinalysis LIGHT H Urine Color (YEL,AMB,STR) YEL Urine Clarity (CLEAR) CLEAR Urine pH (5.0 - 8.0) 5.5 Ur Specific Sharon (1.001 - 1.035) >= 1.030 Urine Protein (NEG,<30 MG/DL) TRACE H Urine Ketones (NEG) 15 H Urine Nitrite (NEG) NEG Urine Bilirubin (NEG) NEG Urine Urobilinogen (0.1 - 1.0 EU/dl) 0.2 Ur Leukocyte Esterase (NEG) NEG Ur Microscopic SEDIMENT EXAMINED Urine WBC (0 - 2 /HPF) 3-5 H Ur Epithelial Cells (NONE,FEW) MOD H Urine Bacteria (NEG/NONE) FEW H Urine Mucus (FEW,NONE) MOD H Urine Hemoglobin (NEG) TRACE-LYSED Urine Glucose (N MG/DL) NEG 02/26 1550 Chemistry Sodium (137 - 145 mmol/L) 133 L Potassium (3.5 - 5.1 mmol/L) 4.2 Chloride (98 - 107 mmol/L) 104 Carbon Dioxide (22 - 30 mmol/L) 12 L Anion Gap (5 - 16) 17 H BUN (7 - 17 mg/dL) 10 Creatinine (0.5 - 1.0 mg/dL) 0.5 Estimated GFR (>60 ml/min) > 60 BUN/Creatinine Ratio (7 - 25 %) 20.0 Glucose (65 - 99 mg/dL) 140 H Lactic Acid (0.7 - 2.1 mmol/L) 2.0 Calcium (8.4 - 10.2 mg/dL) 8.4 Total Bilirubin (0.2 - 1.3 mg/dL) 1.3 AST (14 - 36 U/L) 38 H ALT (9 - 52 U/L) 39 Alkaline Phosphatase (<127 U/L) 79 Lactate Dehydrogenase (313 - 618 U/L) 534 Troponin I (< 0.11 ng/ml) < 0.01 Total Protein (6.3 - 8.2 g/dL) 8.1 Albumin (3.5 - 5.0 g/dL) 3.2 L Globulin (1.9 - 4.2 gm/dL) 4.9 H Albumin/Globulin Ratio (1.1 - 2.2 %) 0.7 L Triglycerides (<150 mg/dL) > 41899 H Amylase (30 - 110 U/L) 78 Lipase (23 - 300 U/L) 319 H TSH (0.270 - 4.200 uIU/mL) 0.682 Free T4 (0.79 - 2.35 ng/dL) 1.35 Total T3 (0.97 - 1.69 ng/mL) 1.09 Total Beta HCG (NEGATIVE) NEGATIVE Hematology CBC w Diff NO MAN DIFF REQ WBC (4.8 - 10.8 /CUMM) 12.4 H RBC (4.20 - 5.40 /CUMM) 4.97 Hgb (12.0 - 16.0 G/DL) 14.0 Hct (37 - 47 %) 40.3 MCV (81.0 - 99.0 FL) 81.0 MCH (27.0 - 31.0 PG) 28.2 RDW (11.5 - 14.5 %) 12.8 Plt Count (130 - 400 /CUMM) 148 MPV (7.4 - 10.4 FL) 10.2 Gran % (42.2 - 75.2 %) 81.7 H Lymphocytes % (20.5 - 51.1 %) 15.1 L Monocytes % (1.7 - 9.3 %) 2.5 Eosinophils % (0 - 5 %) 0.5 Basophils % (0.0 - 2.0 %) 0.2 Absolute Granulocytes (1.4 - 6.5 /CUMM) 10.1 H Absolute Lymphocytes (1.2 - 3.4 /CUMM) 1.9 Absolute Monocytes (0.10 - 0.60 /CUMM) 0.3 Absolute Eosinophils (0.0 - 0.7 /CUMM) 0.1 Absolute Basophils (0.0 - 0.2 /CUMM) 0 PUBS MCHC (33.0 - 37.0 G/DL) 34.8 Toxicology Salicylates (0 - 20.0 mg/dL) < 1.0 Acetaminophen (10.0 - 30.0 ug/mL) < 10.0 L Serum Alcohol (<10 MG/DL) < 10.0 Acetone Level (NEGATIVE) NEGATIVE Imaging/Other Studies: XR CHEST CLINICAL INFORMATION: Chest pain COMPARISON: None TECHNIQUE: 2 views of the chest were obtained. FINDINGS: Normal cardiomediastinal silhouette and pulmonary vascularity. Mild left basilar atelectatic changes. The lungs are otherwise clear. No pleural effusions or pneumothorax. The visualized bones are within normal limits. IMPRESSION: Mild left basilar atelectatic changes, otherwise no acute cardiopulmonary findings. CT ABDOMEN AND PELVIS WITHOUT CONTRAST CLINICAL INFORMATION: Right upper quadrant pain. History of pancreatitis. COMPARISON: None TECHNIQUE: Multidetector volumetric imaging was performed from the superior aspect of the liver through the pubic symphysis. Sagittal and coronal reformatted images were obtained on the technologist's workstation. DLP: 335.29 mGy-cm FINDINGS: LUNG BASES: The visualized lung bases are unremarkable. LIVER, GALLBLADDER, AND BILIARY TREE: The liver is diffusely low in attenuation in keeping with hepatic steatosis. No dilated bile ducts are appreciated on this study without intravenous contrast. The gallbladder is contracted and not evaluated. No evidence to suggest cholecystitis. PANCREAS: The pancreas is not well evaluated due to the lack of intravenous contrast on this study. There is moderate swelling of the head of the pancreas consistent with the history of pancreatitis. Small amount of adjacent peripancreatic fluid. No large fluid collections are seen. The study does not assess for pancreatic necrosis or adjacent splenic vein/vasculature. SPLEEN: Unremarkable. ADRENAL GLANDS: Unremarkable. KIDNEYS AND URETERS: A tiny nonobstructing calculus is seen at the lower pole the left kidney. The kidneys are otherwise normal in appearance without hydronephrosis. BLADDER: The bladder is decompressed. GASTROINTESTINAL TRACT: The small and large bowel are unremarkable. The appendix is unremarkable. ABDOMINAL WALL: Small fat-containing periumbilical hernia is seen. LYMPH NODES: Normal. VASCULAR: No dilatation of the abdominal aorta or iliac vessels. PELVIC VISCERA: The uterus and adnexa are unremarkable. Trace free fluid is seen in the cul-de-sac. OSSEOUS STRUCTURES: Unremarkable. IMPRESSION: 1. Moderate swelling of the pancreatic head is demonstrated with mild peripancreatic acute fluid. The findings are concordant with the clinical diagnosis of pancreatitis. No well-defined fluid collection is seen. The lack of intravenous contrast limits evaluation for pancreatic necrosis or for evaluation of the adjacent pancreatic vasculature. 2. Hepatic steatosis without hepatomegaly. No obvious biliary ductal dilatation. The gallbladder is decompressed and not evaluated. Right upper quadrant sonography may be of further utility if there is concern regarding biliary dilatation or cholelithiasis. There are no CT manifestations to suggest cholecystitis. 3. Tiny nonobstructive left lower pole renal calculus. Assessment/Plan Assessment/Recommendations Assessment: 1. Pancreatitis: despite relatively low amylase/lipase, clinically severe w elevated lactic acid & severe hypocalcemia due to severe hypertriglyceridemia. Discussed possible benefit & risks for adddition of plasma exchange to try to limit further pancreatic injury, including need for IJ cath access, citrate anticoagulation, SP Alb replacement w possible FFP need if coags/bleeding require. Pt wishes to proceed. 2. HypoCa: due to pancreatitis & hypoMg; sxmatic w + Chvostek --> replace Mg & gentle Ca supplement 3. Met Acid: likely lactic acidosis - r/o ongoing ketoacidosis, but serum bicarb 10 prob lab measurement error due to severe hyperTG & ABG measured bicarb 19 more accurate; would check plasma lytes & ask lab to separate lipid phase from serum going forward 4. Hyponatremia: suspect pseudo due to hyperTG Recommendations: 1. IR consult nontunneled IJ HD cath 2. 4 liter plasmapheresis/exchange w SP Alb replacement 3. IV Ca gluconate drip to keep corrected Ca ~ 7 4. IV Mg replacement 5. check coags 6. serum acetone; urine ketones 7. plasma electrolytes 8. recheck TG level post pheresis & again in AM
[2017-02-27 10:15] LABS: HEMATOCRIT 47.7 % (37-47); MEAN CORPUSCULAR VOLUME 81.2 FL (81.0-99.0); MEAN PLATELET VOLUME 9.1 FL (7.4-10.4); PLATELET COUNT 270 /CUMM (130-400); RBC DISTRIBUTION WIDTH 13.1 % (11.5-14.5); RED BLOOD CELL CT 5.87 /CUMM (4.20-5.40); WHITE BLOOD CELL COUNT 8.2 /CUMM (4.8-10.8)
[2017-02-27 11:34] LABS: MEAN CORPUSCULAR HGB 27.9 PG (27.0-31.0); MEAN CORPUSCULAR HGB CONC 34.4 G/DL (33.0-37.0)
--- NOTE | 2017-02-27 11:35 | Cons- Endocrinology ---
General Information and HPI Consulting Request Date of Consult: 02/27/17 Requested By: ICU team Reason for Consult: management of diabetes and severe hypertriglyeridemia Source of Information: patient, old records Exam Limitations: no limitations History of Present Illness: 36-year-old female with past medical history of hypertriglyceridemia and multiple episodes of pancreatitis, type 2 diabetes mellitus, asthma presented to the ED for acute onset of right upper quadrant pain and she was diagnosed with acute pancreatitis. At home, she was on Aorvastatin and Fenofibrate. On admission, blood work showed glucose 140, TRIG > 42211, AG 17, bicarb 12, acetone negative, lipase 318 and amylase 78. She was kept NPO and on LR; she was put on an insulin drip and D5 1/2 NS. Midnight lab showed glucose 201, TRIG > 44949, calcium 6.0, Mg 0.8, bicarb 10, albumin 3.1. patient remained on isnulin drip and received Mg and calcium iv supplement. She still complains of having abdominal pain this morning. Allergies/Medications Allergies: Coded Allergies: MDX - PCN (penicillin) (PCN (PENICILLIN)) (HIVES 02/26/17) Home Med List: Acetaminophen/Hydrocodone Bi ([place] 325 MG-5 MG) 1 TAB TAB 1 TAB PO Q6HR PRN PAIN Albuterol Sulfate (Proair Hfa) 90 MCG HFA.AER.AD 2 PUF INH Q4-6 PRN PRN WHEEZING (Reported) Alprazolam 0.25 MG TABLET 1 TAB PO PRN ANXIETY (Reported) Atorvastatin Calcium (Lipitor) (Unknown Strength) TABLET (Unknown Dose) UNKNOWN (Reported) CHOLECALCIFEROL (VITAMIN D3) (Vitamin D-3) (Unknown Strength) CAPSULE (Unknown Dose) PO DAILY SUPPLEMENT (Reported) Cyclobenzaprine (Flexeril 5MG Tab) 5 MG TAB 1 TAB PO QHS PRN PAIN Ethinyl Estradiol/Norgestima (Tri-Sprintec 28 35 Mcg-0.25 MG) 1 TAB TAB 1 TAB PO DAILY CONTROL (Reported) Fenofibrate 160 MG TABLET 1 TAB PO DAILY HIGH CHOLESTROL (Reported) Insulin Lispro, Recombinant (Humalog) 100 U/ML EDVIN 1-5 UNIT SC DAILY DIABETES (Reported) Metformin Hydrochloride (Metformin HCl) 500 MG TAB 1 TAB PO BID DIABETES ( Reported) Multivitamin (Multiple Vitamins) 1 EACH TABLET 1 TAB PO DAILY SUPPLEMENT ( Reported) [place]-3 Acid Ethyl Esters 1 GRAM CAPSULE 2 CAP PO BID VITAMIN SUPPORT ( Reported) Rosuvastatin Calcium (Crestor) 20 MG TABLET 1 TAB PO DAILY HIGH CHOLESTROL ( Reported) Vitamin B Complex 1 EACH CAPSULE 1 CAP PO DAILY SUPPLEMENT (Reported) Review of Systems Review of Systems Constitutional: Reports: see HPI. Cardiovascular: Denies: chest pain, orthopena, palpitations. Respiratory: Denies: short of breath. GI: Reports: abdominal pain. Hematologic/Endocrine: Denies: polyuria, polydipsia. 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 Home Services at Home: None Smoking Status: Never Smoked ETOH Use: denies use Illicit Drug Use: denies illicit drug use Exam & Diagnostic Data Last 24 Hrs of Vital Signs/I&O Vital Signs Date Time Temp Pulse Resp B/P B/P Pulse O2 O2 Flow FiO2 Mean Ox Delivery Rate 02/27 0400 99.4 122 28 126/78 93 Room Air 02/27 0400 93 Room Air 02/27 0300 99.1 / 0142 100.8 07/ 0004 101.0 103 16 123/61 92 Room Air 02/26 2212 100.2 70 17 138/82 100 Room Air 02/26 1942 100.7 78 18 144/87 98 Room Air Room Air 02/26 1735 99.9 75 18 114/69 99 Room Air Room Air 02/26 1609 100.2 / 1536 148/89 07/ 1521 96.2 82 15 154/110 100 Room Air Room Air Intake & Output 02/27 1600 07/05 0800 07/05 0000 Intake Total 1260 2000 Output Total 100 Balance 1160 2000 Intake, IV 1260 2000 Output, Urine 100 Patient 173 lb Weight Weight Bed scale Measurement Method Physical Exam General Appearance: no apparent distress Neck: normal inspection Respiratory: lungs clear Cardiovascular: regular rate/rhythm Gastrointestinal: tenderness Extremities: no edema Labs/Dave Results: Laboratory Tests 02/27 02/27 02/27 0930 0930 2247 Chemistry Sodium (137 - 145 mmol/L) 127 L Potassium (3.5 - 5.1 mmol/L) 5.9 H Plasma Potassium (3.4 - 4.4 MMOL/L) 5.5 H Chloride (98 - 107 mmol/L) 103 Carbon Dioxide (22 - 30 mmol/L) 8 *L Anion Gap (5 - 16) 18 H BUN (7 - 17 mg/dL) 8 Creatinine (0.5 - 1.0 mg/dL) 0.7 Estimated GFR (>60 ml/min) > 60 Glucose (65 - 99 mg/dL) 263 H Lactic Acid (0.7 - 2.1 mmol/L) 4.5 H 4.2 H Calcium (8.4 - 10.2 mg/dL) 5.3 *L Ionized Calcium Pending Phosphorus (2.5 - 4.5 mg/dL) 1.3 L Magnesium (1.6 - 2.3 mg/dL) 1.8 Total Bilirubin (0.2 - 1.3 mg/dL) 1.2 AST (14 - 36 U/L) 37 H ALT (9 - 52 U/L) 23 Albumin (3.5 - 5.0 g/dL) 2.8 L Coagulation PT (9.4 - 12.5 SEC) 11.7 INR (0.90 - 1.19) 1.12 APTT (25 - 37 SEC) 29 Fibrinogen Activity (200 - 393 MG/DL) 446 H Fibrin Degrad Products (< 10 ug/ml) <10 ug/ml Hematology CBC w Diff MAN DIFF ORDERED WBC (4.8 - 10.8 /CUMM) 8.2 RBC (4.20 - 5.40 /CUMM) 5.87 H Hgb (12.0 - 16.0 G/DL) 16.3 H Hct (37 - 47 %) 47.7 H MCV (81.0 - 99.0 FL) 81.2 MCH (27.0 - 31.0 PG) 27.9 RDW (11.5 - 14.5 %) 13.1 Plt Count (130 - 400 /CUMM) 270 MPV (7.4 - 10.4 FL) 9.1 Segmented Neutrophils (42.2 - 75.2 %) 62 Band Neutrophils (0.0 - 5.0 %) 12 H Lymphocytes (20.5 - 51.1 %) 23 Monocytes (1.7 - 9.3 %) 3 Platelet Estimate (ADEQUATE) VERIFIED BY SMEAR Polychromasia 1+ PUBS MCHC (33.0 - 37.0 G/DL) 34.4 02/27 0702/27 0545 0230 0028 Chemistry Sodium (137 - 145 mmol/L) 129 L 131 L Potassium (3.5 - 5.1 mmol/L) 4.9 4.4 Chloride (98 - 107 mmol/L) 104 104 Carbon Dioxide (22 - 30 mmol/L) 6 *L 10 L Anion Gap (5 - 16) 19 H 17 H BUN (7 - 17 mg/dL) 6 L 6 L Creatinine (0.5 - 1.0 mg/dL) 0.5 0.5 Estimated GFR (>60 ml/min) > 60 > 60 Glucose (65 - 99 mg/dL) 262 H 201 H Lactic Acid (0.7 - 2.1 mmol/L) 3.9 H Calcium (8.4 - 10.2 mg/dL) 5.6 *L 6.0 L Phosphorus (2.5 - 4.5 mg/dL) 1.8 L 3.2 Magnesium (1.6 - 2.3 mg/dL) 1.7 0.8 *L Total Bilirubin (0.2 - 1.3 mg/dL) 1.0 1.1 AST (14 - 36 U/L) 36 33 ALT (9 - 52 U/L) 30 29 Albumin (3.5 - 5.0 g/dL) 2.8 L 3.1 L Triglycerides (<150 mg/dL) > 45570 H > 17870 H Cholesterol (<200 MG/DL) 837 H LDL Cholesterol Direct (<100 mg/dL) 145.50 H LDL Cholesterol, Calc (65 - 129 mg/dL) ND HDL Cholesterol (40 - 60 mg/dL) 24 L Cholesterol/HDL Ratio (0.00 - 4.23 %) 27.1 H 25-OH Vitamin D Total (30 - 100 ng/ml) < 4.2 L PTH Intact (13.8 - 85 pg/ml) 226.4 H Hematology CBC w Diff MAN DIFF ORDERED WBC (4.8 - 10.8 /CUMM) 9.9 RBC (4.20 - 5.40 /CUMM) 5.40 Hgb (12.0 - 16.0 G/DL) 15.0 Hct (37 - 47 %) 43.7 MCV (81.0 - 99.0 FL) 80.9 L MCH (27.0 - 31.0 PG) 28.2 RDW (11.5 - 14.5 %) 13.1 Plt Count (130 - 400 /CUMM) 267 MPV (7.4 - 10.4 FL) 8.4 Segmented Neutrophils (42.2 - 75.2 %) 65 Band Neutrophils (0.0 - 5.0 %) 15 H Lymphocytes (20.5 - 51.1 %) 18 L Monocytes (1.7 - 9.3 %) 2 Platelet Estimate (ADEQUATE) ADEQUATE Polychromasia 1+ Ovalocytes FEW PUBS MCHC (33.0 - 37.0 G/DL) 34.6 Other Body Source Fld Total RBCs Counted (%) 100 02/26 02/26 1841 1800 Blood Gas Bicarbonate Actual (22 - 26 MEQ/L) 19 L Mixed VBG pH (7.31 - 7.41 PH) 7.31 Mixed VBG pCO2 (41 - 51 TORR) 38 L Mixed VBG O2 Saturation (35 - 45 TORR) 38 P-50 (Temp Corrected) Y Carboxyhemoglobin (1.5 - 5.0 %) 0.2 L O2 Concentration % RA Temperature (97.0 - 100.0 FARH) 99.0 Miscellaneous Phlebotomy Draw Site R AC Toxicology Urine Opiates Screen (>2000 NG/ML) > 4000.00 H Methadone Screen (>300 NG/ML) < 40 Barbiturate Screen (>200 NG/ML) < 60 Ur Phencyclidine Scrn (>25 NG/ML) < 6.00 Amphetamines Screen (>1000 NG/ML) < 100 U Benzodiazepines Scrn (>200 NG/ML) < 85 Urine Cocaine Screen (>300 NG/ML) < 50 Urine Cannabis Screen (>50 NG/ML) < 5.00 Urines Urinalysis LIGHT H Urine Color (YEL,AMB,STR) YEL Urine Clarity (CLEAR) CLEAR Urine pH (5.0 - 8.0) 5.5 Ur Specific [place] (1.001 - 1.035) >= 1.030 Urine Protein (NEG,<30 MG/DL) TRACE H Urine Ketones (NEG) 15 H Urine Nitrite (NEG) NEG Urine Bilirubin (NEG) NEG Urine Urobilinogen (0.1 - 1.0 EU/dl) 0.2 Ur Leukocyte Esterase (NEG) NEG Ur Microscopic SEDIMENT EXAMINED Urine WBC (0 - 2 /HPF) 3-5 H Ur Epithelial Cells (NONE,FEW) MOD H Urine Bacteria (NEG/NONE) FEW H Urine Mucus (FEW,NONE) MOD H Urine Hemoglobin (NEG) TRACE-LYSED Urine Glucose (N MG/DL) NEG 02/26 1550 Chemistry Sodium (137 - 145 mmol/L) 133 L Potassium (3.5 - 5.1 mmol/L) 4.2 Chloride (98 - 107 mmol/L) 104 Carbon Dioxide (22 - 30 mmol/L) 12 L Anion Gap (5 - 16) 17 H BUN (7 - 17 mg/dL) 10 Creatinine (0.5 - 1.0 mg/dL) 0.5 Estimated GFR (>60 ml/min) > 60 BUN/Creatinine Ratio (7 - 25 %) 20.0 Glucose (65 - 99 mg/dL) 140 H Lactic Acid (0.7 - 2.1 mmol/L) 2.0 Calcium (8.4 - 10.2 mg/dL) 8.4 Total Bilirubin (0.2 - 1.3 mg/dL) 1.3 AST (14 - 36 U/L) 38 H ALT (9 - 52 U/L) 39 Alkaline Phosphatase (<127 U/L) 79 Lactate Dehydrogenase (313 - 618 U/L) 534 Troponin I (< 0.11 ng/ml) < 0.01 Total Protein (6.3 - 8.2 g/dL) 8.1 Albumin (3.5 - 5.0 g/dL) 3.2 L Globulin (1.9 - 4.2 gm/dL) 4.9 H Albumin/Globulin Ratio (1.1 - 2.2 %) 0.7 L Triglycerides (<150 mg/dL) > 36232 H Amylase (30 - 110 U/L) 78 Lipase (23 - 300 U/L) 319 H TSH (0.270 - 4.200 uIU/mL) 0.682 Free T4 (0.79 - 2.35 ng/dL) 1.35 Total T3 (0.97 - 1.69 ng/mL) 1.09 Total Beta HCG (NEGATIVE) NEGATIVE Hematology CBC w Diff NO MAN DIFF REQ WBC (4.8 - 10.8 /CUMM) 12.4 H RBC (4.20 - 5.40 /CUMM) 4.97 Hgb (12.0 - 16.0 G/DL) 14.0 Hct (37 - 47 %) 40.3 MCV (81.0 - 99.0 FL) 81.0 MCH (27.0 - 31.0 PG) 28.2 RDW (11.5 - 14.5 %) 12.8 Plt Count (130 - 400 /CUMM) 148 MPV (7.4 - 10.4 FL) 10.2 Gran % (42.2 - 75.2 %) 81.7 H Lymphocytes % (20.5 - 51.1 %) 15.1 L Monocytes % (1.7 - 9.3 %) 2.5 Eosinophils % (0 - 5 %) 0.5 Basophils % (0.0 - 2.0 %) 0.2 Absolute Granulocytes (1.4 - 6.5 /CUMM) 10.1 H Absolute Lymphocytes (1.2 - 3.4 /CUMM) 1.9 Absolute Monocytes (0.10 - 0.60 /CUMM) 0.3 Absolute Eosinophils (0.0 - 0.7 /CUMM) 0.1 Absolute Basophils (0.0 - 0.2 /CUMM) 0 PUBS MCHC (33.0 - 37.0 G/DL) 34.8 Toxicology Salicylates (0 - 20.0 mg/dL) < 1.0 Acetaminophen (10.0 - 30.0 ug/mL) < 10.0 L Serum Alcohol (<10 MG/DL) < 10.0 Acetone Level (NEGATIVE) NEGATIVE Assessment/Plan Assessment/Plan 36-year-old female with past medical history of hypertriglyceridemia and multiple episodes of pancreatitis, type 2 diabetes mellitus, asthma presented to the ED for acute onset of right upper quadrant pain and she was diagnosed with acute pancreatitis which most likely is related to severe hypertriglyceridemia. She has been on insulin drip overnight and her TRIG level remains > 54743. In addition, her electrolytes have been significantly off which could be ? assay affected by the significantly elevated TRIG. management: 1. continue insulin drip and adjust the insulin drip rate to keep glucose level between 140 and 180 mg/dl; 2. monitor electrolytes every 3-4 hours and then IVF will be adjusted accordingly; 3. consider plasmaphoresis; 4. hypocalcemia with secondary hyperparathyroidism and severe vitamin D deficiency ( undetectable 25 OH vitamin D) --- calcium gluconate iv supplement and calcitriol 0.25 mcg iv twice a day; ---replete Mg; ---monitor calcium level every 3-4 hours and will consider calcium drip if it is indicated. ---if she starts taking pills orally, I will consider giving patient TUMs 500 mg every 8 hours and vitamin d2 50,000 units once a week. Consult Acknowledgment - Thank you for your consult request.
[2017-02-27 11:38] LABS: PT 11.7 SEC (9.4-12.5); PTT 29 SEC (25-37)
--- NOTE | 2017-02-27 11:49 | INTERVENTIONAL RADIOLOGY RPT ---
RIGHT-SIDED nondiagnostic TUNNELED DIALYSIS CATHETER FOR PLASMAPHERESIS INTERVENTIONAL RADIOLOGIST: Jonathan Segura M.D. CLINICAL INDICATION: Pancreatitis and hyperlipidemia. Needs plasmapheresis. ACCESS: Right internal jugular vein. GUIDANCE: Ultrasound and Fluoroscopy (0.2) minutes COMPLICATIONS: none CONTRAST: none INFORMED CONSENT: Informed consent was obtained from the patient prior to the procedure. During this process, the procedure and potential alternatives were explained, along with the intended outcome and benefits. The risks of the procedure including the possibility of an unsuccessful procedure, as well as the risk of not doing the procedure were discussed. The patient was given the opportunity to ask questions regarding the procedure and appeared competent to make decisions. A signed consent form documenting this discussion was placed in the medical record. A time out procedure was performed. DESCRIPTION: The right neck and chest wall were prepped and draped. All elements of maximal sterile barrier technique followed including use of cap, mask, sterile gown, sterile gloves, a sterile full body drape and hand hygiene. Also followed skin preparation with 2% chlorhexidine for cutaneous antisepsis, and sterile ultrasound preparation with sterile gel and probe cover when applicable. Under direct ultrasonic guidance, the right internal jugular vein was punctured using a micropuncture system. Under fluoroscopic guidance, a 0.018 guidewire was advanced into the right atrium. The 0.018 wire was replaced with a 0.035 wire with its tip in the IVC. After serial dilatation with 8, 10 and 12 [place] dilators, a 12 [place] temporary dialysis catheter was passed over the guidewire and positioned with its tip in the mid-right atrium. The the wings of the catheter were secured to the skin using 2-0 Ethilon. . The lumens of the Perma-Cath were flushed with heparin. A sterile dressing was applied. IMPRESSION: Successful placement of right sided jugular dialysis catheter.
--- NOTE | 2017-02-27 15:19 | Cons- Infect Disease ---
General Information and HPI Consulting Request Date of Consult: 02/27/17 Requested By: VANCE ANNA MD Reason for Consult: Pancreatitis Source of Information: patient History of Present Illness: This is a 36-year-old woman with a history of hypertriglyceridemia, diabetes, with 2 episodes of pancreatitis in the past, 1 and 5 years prior to admission, both of which resolved with supportive treatment, admitted on February 26 with the acute onset of right upper quadrant pain, nausea and vomiting associated with fevers, chills, weakness and fatigue. On admission she was febrile to 100.2. Laboratory data revealed a white blood cell count of 12,000, BUN/creatinine 10 and 0.5, lipase 319, triglycerides greater than 10,500, AST 38. Urinalysis 3-5 WBCs. Chest x-ray revealed mild left basilar atelectasis. CT of the abdomen and pelvis without IV contrast revealed moderate swelling of the pancreatic head with mild peripancreatic fluid, a decompressed gallbladder and a tiny nonobstructive left lower pole renal calculus. She was admitted to the ICU and begun on an insulin drip. Overnight she spiked to 101 and was begun on Ceftazidime and Flagyl. This morning a right IJ tunneled dialysis catheter was placed for plasmapheresis, and she underwent an exchange earlier today. She reports persistent right upper quadrant pain with nausea. Allergies/Medications Allergies: Coded Allergies: MDX - PCN (penicillin) (PCN (PENICILLIN)) (HIVES 02/26/17) Home Med List: Acetaminophen/Hydrocodone Bi ([place] 325 MG-5 MG) 1 TAB TAB 1 TAB PO Q6HR PRN PAIN Albuterol Sulfate (Proair Hfa) 90 MCG HFA.AER.AD 2 PUF INH Q4-6 PRN PRN WHEEZING (Reported) Alprazolam 0.25 MG TABLET 1 TAB PO PRN ANXIETY (Reported) Atorvastatin Calcium (Lipitor) (Unknown Strength) TABLET (Unknown Dose) UNKNOWN (Reported) CHOLECALCIFEROL (VITAMIN D3) (Vitamin D-3) (Unknown Strength) CAPSULE (Unknown Dose) PO DAILY SUPPLEMENT (Reported) Cyclobenzaprine (Flexeril 5MG Tab) 5 MG TAB 1 TAB PO QHS PRN PAIN Ethinyl Estradiol/Norgestima (Tri-Sprintec 28 35 Mcg-0.25 MG) 1 TAB TAB 1 TAB PO DAILY CONTROL (Reported) Fenofibrate 160 MG TABLET 1 TAB PO DAILY HIGH CHOLESTROL (Reported) Insulin Lispro, Recombinant (Humalog) 100 U/ML EDVIN 1-5 UNIT SC DAILY DIABETES (Reported) Metformin Hydrochloride (Metformin HCl) 500 MG TAB 1 TAB PO BID DIABETES ( Reported) Multivitamin (Multiple Vitamins) 1 EACH TABLET 1 TAB PO DAILY SUPPLEMENT ( Reported) [place]-3 Acid Ethyl Esters 1 GRAM CAPSULE 2 CAP PO BID VITAMIN SUPPORT ( Reported) Rosuvastatin Calcium (Crestor) 20 MG TABLET 1 TAB PO DAILY HIGH CHOLESTROL ( Reported) Vitamin B Complex 1 EACH CAPSULE 1 CAP PO DAILY SUPPLEMENT (Reported) Past History Travel History Traveled to [place] past 21 day No Medical History Blood Transfusion Hx: No Neurological: NONE EENT: NONE Cardiovascular: HIGH TRIGLYCERIDES Respiratory: asthma Gastrointestinal: pancreatitis Hepatic: INFLAMED LIVER Renal: NONE Musculoskeletal: NONE Psychiatric: anxiety Endocrine: diabetes Blood Disorders: NONE Cancer(s): NONE 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 Home Services at Home: None Smoking Status: Never Smoked ETOH Use: denies use Illicit Drug Use: denies illicit drug use Review of Systems Review of Systems All Other Systems: Reviewed and Negative Exam & Diagnostic Data Last 24 Hrs of Vital Signs/I&O Vital Signs Date Time Temp Pulse Resp B/P B/P Pulse O2 O2 Flow FiO2 Mean Ox Delivery Rate 02/27 1200 99 Room Air Room Air 02/27 0800 95 Room Air Room Air 02/27 0400 99.4 122 28 126/78 93 Room Air 02/27 0400 93 Room Air 02/27 0300 99.1 07/ 0142 100.8 07/ 0004 101.0 103 16 123/61 92 Room Air 02/26 2212 100.2 70 17 138/82 100 Room Air 02/26 1942 100.7 78 18 144/87 98 Room Air Room Air 02/26 1735 99.9 75 18 114/69 99 Room Air Room Air 02/26 1609 100.2 / 1536 148/89 02/26 1521 96.2 82 15 154/110 100 Room Air Room Air Intake & Output 02/27 1600 07/05 0800 07 0000 Intake Total 1260 2000 Output Total 100 Balance 1160 2000 Intake, IV 1260 2000 Output, Urine 100 Patient 173 lb Weight Weight Bed scale Measurement Method Physical Exam Other Physical Findings: She is awake and alert in no acute distress. MAXIMUM TEMPERATURE 101. Skin reveals no rash. HEENT exam is negative. Neck is supple with no adenopathy; right IJ tunneled catheter in place. Lungs decreased breath sounds at both bases. Heart regular rhythm with no murmur. Abdomen is distended, tender on palpation over the right upper quadrant and, to a lesser extent, the left lower quadrant and right lower quadrant, with no bowel sounds appreciated. Back no CVA tenderness. Extremities no cyanosis, clubbing or edema. Neuro is without focality. Finnegan catheter is in place. Last 24 Hours of Lab Results: Laboratory Tests 02/27 02/27 02/27 1215 1215 1150 Chemistry Sodium (137 - 145 mmol/L) 129 L Potassium (3.5 - 5.1 mmol/L) 5.6 H Plasma Potassium (3.4 - 4.4 MMOL/L) 5.1 H Chloride (98 - 107 mmol/L) 105 Carbon Dioxide (22 - 30 mmol/L) 8 *L Anion Gap (5 - 16) 16 BUN (7 - 17 mg/dL) 9 Creatinine (0.5 - 1.0 mg/dL) 0.9 Estimated GFR (>60 ml/min) > 60 Glucose (65 - 99 mg/dL) 252 H Lactic Acid (0.7 - 2.1 mmol/L) 3.7 H Calcium (8.4 - 10.2 mg/dL) 5.1 *L Ionized Calcium Pending Phosphorus (2.5 - 4.5 mg/dL) 1.7 L Magnesium (1.6 - 2.3 mg/dL) 1.6 Total Bilirubin (0.2 - 1.3 mg/dL) 0.8 AST (14 - 36 U/L) 32 ALT (9 - 52 U/L) 30 Albumin (3.5 - 5.0 g/dL) 3.0 L Urines Urinalysis LIGHT H Urine Color (YEL,AMB,STR) YESIKA Urine Clarity (CLEAR) HAZY H Urine pH (5.0 - 8.0) 6.0 Ur Specific [place] (1.001 - 1.035) >= 1.030 Urine Protein (NEG,<30 MG/DL) 100 H Urine Ketones (NEG) 15 H Urine Nitrite (NEG) NEG Urine Bilirubin (NEG) NEG Urine Urobilinogen (0.1 - 1.0 EU/dl) 0.2 Ur Leukocyte Esterase (NEG) NEG Ur Microscopic SEDIMENT EXAMINED Urine RBC (0 - 5 /HPF) RARE Urine WBC (0 - 2 /HPF) 1-3 H Ur Epithelial Cells (NONE,FEW) RARE Urine Bacteria (NEG/NONE) FEW H Hyaline Casts (0/LPF) 1-3 H Granular Casts (NONE /LPF) 1-3 H Urine Mucus (FEW,NONE) MOD H Urine Hemoglobin (NEG) NEG Urine Glucose (N MG/DL) >=1000 H 02/27 02/27 02/27 0930 0930 0545 Chemistry Sodium (137 - 145 mmol/L) 127 L Potassium (3.5 - 5.1 mmol/L) 5.9 H Plasma Potassium (3.4 - 4.4 MMOL/L) 5.5 H Chloride (98 - 107 mmol/L) 103 Carbon Dioxide (22 - 30 mmol/L) 8 *L Anion Gap (5 - 16) 18 H BUN (7 - 17 mg/dL) 8 Creatinine (0.5 - 1.0 mg/dL) 0.7 Estimated GFR (>60 ml/min) > 60 Glucose (65 - 99 mg/dL) 263 H Lactic Acid (0.7 - 2.1 mmol/L) 4.5 H 4.2 H Calcium (8.4 - 10.2 mg/dL) 5.3 *L Ionized Calcium Pending Phosphorus (2.5 - 4.5 mg/dL) 1.3 L Magnesium (1.6 - 2.3 mg/dL) 1.8 Total Bilirubin (0.2 - 1.3 mg/dL) 1.2 AST (14 - 36 U/L) 37 H ALT (9 - 52 U/L) 23 Albumin (3.5 - 5.0 g/dL) 2.8 L Coagulation PT (9.4 - 12.5 SEC) 11.7 INR (0.90 - 1.19) 1.12 APTT (25 - 37 SEC) 29 Fibrinogen Activity (200 - 393 MG/DL) 446 H Fibrin Degrad Products (< 10 ug/ml) <10 ug/ml Hematology CBC w Diff MAN DIFF ORDERED WBC (4.8 - 10.8 /CUMM) 8.2 RBC (4.20 - 5.40 /CUMM) 5.87 H Hgb (12.0 - 16.0 G/DL) 16.3 H Hct (37 - 47 %) 47.7 H MCV (81.0 - 99.0 FL) 81.2 MCH (27.0 - 31.0 PG) 27.9 RDW (11.5 - 14.5 %) 13.1 Plt Count (130 - 400 /CUMM) 270 MPV (7.4 - 10.4 FL) 9.1 Segmented Neutrophils (42.2 - 75.2 %) 62 Band Neutrophils (0.0 - 5.0 %) 12 H Lymphocytes (20.5 - 51.1 %) 23 Monocytes (1.7 - 9.3 %) 3 Platelet Estimate (ADEQUATE) VERIFIED BY SMEAR Polychromasia 1+ PUBS MCHC (33.0 - 37.0 G/DL) 34.4 02/27 07/02/27 0545 0230 0028 Chemistry Sodium (137 - 145 mmol/L) 129 L 131 L Potassium (3.5 - 5.1 mmol/L) 4.9 4.4 Chloride (98 - 107 mmol/L) 104 104 Carbon Dioxide (22 - 30 mmol/L) 6 *L 10 L Anion Gap (5 - 16) 19 H 17 H BUN (7 - 17 mg/dL) 6 L 6 L Creatinine (0.5 - 1.0 mg/dL) 0.5 0.5 Estimated GFR (>60 ml/min) > 60 > 60 Glucose (65 - 99 mg/dL) 262 H 201 H Lactic Acid (0.7 - 2.1 mmol/L) 3.9 H Calcium (8.4 - 10.2 mg/dL) 5.6 *L 6.0 L Phosphorus (2.5 - 4.5 mg/dL) 1.8 L 3.2 Magnesium (1.6 - 2.3 mg/dL) 1.7 0.8 *L Total Bilirubin (0.2 - 1.3 mg/dL) 1.0 1.1 AST (14 - 36 U/L) 36 33 ALT (9 - 52 U/L) 30 29 Albumin (3.5 - 5.0 g/dL) 2.8 L 3.1 L Triglycerides (<150 mg/dL) > 90866 H > 45376 H Cholesterol (<200 MG/DL) 837 H LDL Cholesterol Direct (<100 mg/dL) 145.50 H LDL Cholesterol, Calc (65 - 129 mg/dL) ND HDL Cholesterol (40 - 60 mg/dL) 24 L Cholesterol/HDL Ratio (0.00 - 4.23 %) 27.1 H 25-OH Vitamin D Total (30 - 100 ng/ml) < 4.2 L PTH Intact (13.8 - 85 pg/ml) 226.4 H Hematology CBC w Diff MAN DIFF ORDERED WBC (4.8 - 10.8 /CUMM) 9.9 RBC (4.20 - 5.40 /CUMM) 5.40 Hgb (12.0 - 16.0 G/DL) 15.0 Hct (37 - 47 %) 43.7 MCV (81.0 - 99.0 FL) 80.9 L MCH (27.0 - 31.0 PG) 28.2 RDW (11.5 - 14.5 %) 13.1 Plt Count (130 - 400 /CUMM) 267 MPV (7.4 - 10.4 FL) 8.4 Segmented Neutrophils (42.2 - 75.2 %) 65 Band Neutrophils (0.0 - 5.0 %) 15 H Lymphocytes (20.5 - 51.1 %) 18 L Monocytes (1.7 - 9.3 %) 2 Platelet Estimate (ADEQUATE) ADEQUATE Polychromasia 1+ Ovalocytes FEW PUBS MCHC (33.0 - 37.0 G/DL) 34.6 Other Body Source Fld Total RBCs Counted (%) 100 02/26 02/26 1841 1800 Blood Gas Bicarbonate Actual (22 - 26 MEQ/L) 19 L Mixed VBG pH (7.31 - 7.41 PH) 7.31 Mixed VBG pCO2 (41 - 51 TORR) 38 L Mixed VBG O2 Saturation (35 - 45 TORR) 38 P-50 (Temp Corrected) Y Carboxyhemoglobin (1.5 - 5.0 %) 0.2 L O2 Concentration % RA Temperature (97.0 - 100.0 FARH) 99.0 Miscellaneous Phlebotomy Draw Site R AC Toxicology Urine Opiates Screen (>2000 NG/ML) > 4000.00 H Methadone Screen (>300 NG/ML) < 40 Barbiturate Screen (>200 NG/ML) < 60 Ur Phencyclidine Scrn (>25 NG/ML) < 6.00 Amphetamines Screen (>1000 NG/ML) < 100 U Benzodiazepines Scrn (>200 NG/ML) < 85 Urine Cocaine Screen (>300 NG/ML) < 50 Urine Cannabis Screen (>50 NG/ML) < 5.00 Urines Urinalysis LIGHT H Urine Color (YEL,AMB,STR) YEL Urine Clarity (CLEAR) CLEAR Urine pH (5.0 - 8.0) 5.5 Ur Specific [place] (1.001 - 1.035) >= 1.030 Urine Protein (NEG,<30 MG/DL) TRACE H Urine Ketones (NEG) 15 H Urine Nitrite (NEG) NEG Urine Bilirubin (NEG) NEG Urine Urobilinogen (0.1 - 1.0 EU/dl) 0.2 Ur Leukocyte Esterase (NEG) NEG Ur Microscopic SEDIMENT EXAMINED Urine WBC (0 - 2 /HPF) 3-5 H Ur Epithelial Cells (NONE,FEW) MOD H Urine Bacteria (NEG/NONE) FEW H Urine Mucus (FEW,NONE) MOD H Urine Hemoglobin (NEG) TRACE-LYSED Urine Glucose (N MG/DL) NEG 02/26 1550 Chemistry Sodium (137 - 145 mmol/L) 133 L Potassium (3.5 - 5.1 mmol/L) 4.2 Chloride (98 - 107 mmol/L) 104 Carbon Dioxide (22 - 30 mmol/L) 12 L Anion Gap (5 - 16) 17 H BUN (7 - 17 mg/dL) 10 Creatinine (0.5 - 1.0 mg/dL) 0.5 Estimated GFR (>60 ml/min) > 60 BUN/Creatinine Ratio (7 - 25 %) 20.0 Glucose (65 - 99 mg/dL) 140 H Lactic Acid (0.7 - 2.1 mmol/L) 2.0 Calcium (8.4 - 10.2 mg/dL) 8.4 Total Bilirubin (0.2 - 1.3 mg/dL) 1.3 AST (14 - 36 U/L) 38 H ALT (9 - 52 U/L) 39 Alkaline Phosphatase (<127 U/L) 79 Lactate Dehydrogenase (313 - 618 U/L) 534 Troponin I (< 0.11 ng/ml) < 0.01 Total Protein (6.3 - 8.2 g/dL) 8.1 Albumin (3.5 - 5.0 g/dL) 3.2 L Globulin (1.9 - 4.2 gm/dL) 4.9 H Albumin/Globulin Ratio (1.1 - 2.2 %) 0.7 L Triglycerides (<150 mg/dL) > 16724 H Amylase (30 - 110 U/L) 78 Lipase (23 - 300 U/L) 319 H TSH (0.270 - 4.200 uIU/mL) 0.682 Free T4 (0.79 - 2.35 ng/dL) 1.35 Total T3 (0.97 - 1.69 ng/mL) 1.09 Total Beta HCG (NEGATIVE) NEGATIVE Hematology CBC w Diff NO MAN DIFF REQ WBC (4.8 - 10.8 /CUMM) 12.4 H RBC (4.20 - 5.40 /CUMM) 4.97 Hgb (12.0 - 16.0 G/DL) 14.0 Hct (37 - 47 %) 40.3 MCV (81.0 - 99.0 FL) 81.0 MCH (27.0 - 31.0 PG) 28.2 RDW (11.5 - 14.5 %) 12.8 Plt Count (130 - 400 /CUMM) 148 MPV (7.4 - 10.4 FL) 10.2 Gran % (42.2 - 75.2 %) 81.7 H Lymphocytes % (20.5 - 51.1 %) 15.1 L Monocytes % (1.7 - 9.3 %) 2.5 Eosinophils % (0 - 5 %) 0.5 Basophils % (0.0 - 2.0 %) 0.2 Absolute Granulocytes (1.4 - 6.5 /CUMM) 10.1 H Absolute Lymphocytes (1.2 - 3.4 /CUMM) 1.9 Absolute Monocytes (0.10 - 0.60 /CUMM) 0.3 Absolute Eosinophils (0.0 - 0.7 /CUMM) 0.1 Absolute Basophils (0.0 - 0.2 /CUMM) 0 PUBS MCHC (33.0 - 37.0 G/DL) 34.8 Toxicology Salicylates (0 - 20.0 mg/dL) < 1.0 Acetaminophen (10.0 - 30.0 ug/mL) < 10.0 L Serum Alcohol (<10 MG/DL) < 10.0 Acetone Level (NEGATIVE) NEGATIVE Last 24 Hours of Dave Results: Blood cultures 2 February 27 pending Urine culture February 26 and February 27 pending Diagnostic Data Recent Imaging Findings: Chest x-ray revealed mild left basilar atelectasis. CT of the abdomen and pelvis without IV contrast revealed moderate swelling of the pancreatic head with mild peripancreatic fluid, a decompressed gallbladder and a tiny nonobstructive left lower pole renal calculus. Right upper quadrant ultrasound results pending Assessment/Plan Assessment/Plan Impression: This is a 36-year-old woman with diabetes, hypertriglyceridemia, status post 2 episodes of pancreatitis in the past 5 years, admitted on February 26 with the acute onset of right upper quadrant pain, nausea and vomiting, found to have a markedly elevated triglyceride level with a low-grade fever and mild leukocytosis now status post 1 plasmapheresis exchange. Her clinical picture is consistent with an acute pancreatitis, with a CT scan of the abdomen revealing pancreatic and mild peripancreatic inflammation. The CT scan was without IV contrast, limiting the ability to detect necrosis; nevertheless there is no role for antibiotics in this setting. If she is found to have necrosis and her condition deteriorates then aspiration of the pancreas to rule out infection would be indicated, after which antibiotics could be considered pending results of the aspiration. Her abdomen is markedly distended, with no bowel sounds appreciated, raising concern for an ileus or, as GI has suggested, abdominal compartment syndrome. Suggestion: 1. Further management of her pancreatitis and evaluation for ileus/compartment syndrome per GI 2. Consider surgical evaluation 3. Follow-up results of the recent right upper quadrant ultrasound 4. Consider repeat CT of the abdomen and pelvis with IV contrast/pancreatic protocol 5. Discontinue Ceftazidime and Flagyl and follow off antibiotics pending above Consult Acknowledgment - Thank you for your consult request.
[2017-02-27 16:00] VITALS: BP 118/70
[2017-02-27 16:06] LABS: ABSOLUTE BASOPHIL COUNT 0 /CUMM (0.0-0.2); ABSOLUTE EOSINOPHIL COUNT 0 /CUMM (0.0-0.7); ABSOLUTE GRANULOCYTE CT 7.3 /CUMM (1.4-6.5); ABSOLUTE LYMPH COUNT 1.3 /CUMM (1.2-3.4); ABSOLUTE MONOCYTE COUNT 0.4 /CUMM (0.10-0.60); BASOPHIL % 0.2 % (0.0-2.0); EOSINOPHIL % 0 % (0-5); HEMATOCRIT 46.4 % (37-47); MEAN CORPUSCULAR HGB 27.9 PG (27.0-31.0); MEAN CORPUSCULAR HGB CONC 33.9 G/DL (33.0-37.0); MEAN CORPUSCULAR VOLUME 82.2 FL (81.0-99.0); MEAN PLATELET VOLUME 9.6 FL (7.4-10.4); RBC DISTRIBUTION WIDTH 13.6 % (11.5-14.5); RED BLOOD CELL CT 5.64 /CUMM (4.20-5.40)
[2017-02-27 17:07] LABS: GRANULOCYTE % 80.9 % (42.2-75.2); PLATELET COUNT 155 /CUMM (130-400)
[2017-02-27 19:38] LABS: ABSOLUTE BASOPHIL COUNT 0 /CUMM (0.0-0.2); ABSOLUTE EOSINOPHIL COUNT 0 /CUMM (0.0-0.7); ABSOLUTE GRANULOCYTE CT 6.2 /CUMM (1.4-6.5); ABSOLUTE LYMPH COUNT 1.4 /CUMM (1.2-3.4); ABSOLUTE MONOCYTE COUNT 0.4 /CUMM (0.10-0.60); BASOPHIL % 0.1 % (0.0-2.0); EOSINOPHIL % 0.1 % (0-5); GRANULOCYTE % 77.4 % (42.2-75.2); MEAN CORPUSCULAR HGB 27.5 PG (27.0-31.0); MEAN CORPUSCULAR HGB CONC 33.7 G/DL (33.0-37.0); MEAN CORPUSCULAR VOLUME 81.6 FL (81.0-99.0); PLATELET COUNT 189 /CUMM (130-400); RBC DISTRIBUTION WIDTH 13.6 % (11.5-14.5); RED BLOOD CELL CT 5.39 /CUMM (4.20-5.40); WHITE BLOOD CELL COUNT 8.1 /CUMM (4.8-10.8)
--- NOTE | 2017-02-27 21:26 | NUR ---
PATIENT RECEIVED AT 0800, ALERT/ORIENTED X3. NOTED THROUGHOUT THE DAY TO HAVE INTERMITTENT PAIN TO RUQ W/ REST AND UPON PALPATION UP TO 05/05. IV DILAUDID GIVEN PER EMAR. RELIEF FOUND W/ 10/05 PAIN AFTER MEDS GIVEN. PATIENT IS NPO AND C/O NAUSEA INTERMITTENTLY WELL, ZOFRAN GIVEN PER EMAR. RIGHT CHEST ALESHA CATH PLACED IN IR THIS AM WITHOUT ILL EFFECT. PLASMOPHARESIS COMPLETED AND REMOVED 5L OF TRIGLYCERIDES WITH GOOD EFFECT. SINUS TACH ON THE MONITOR 110S-120S THROUGHOUT SHIFT, SBP 90S-120S. PATIENT DENIES CHEST PAIN. NOTED MORE BLOATING/BELCHING IN THE EVENING. VERY HYPOACTIVE BOWEL SOUNDS ASSESSED THROUGHOUT THE DAY. SKIN INTACT. JOSHUA PLACED AT 1115 W/ CLEAR YESIKA URINE IN MODERATE AMOUNTS. ON ROOM AIR, NOT DISTRESS. SATTING 94%. SWEATING AT TIMES, GIVEN COMPRESSES/FAN/ICE CHIPS OCCASIONALLY. ON INSULIN GTT W/ ACCU CHECKS DONE Q1 HOUR. ANION GAP CLOSING THROUGHOUT THE DAY AND BLOOD SUGARS DECREASING. NOVOLIN INSULIN GTT TITRATED PER MD REQUEST. LR RUNNING AT 100 MLS/HR UPON INITIAL ASSESSMENT AND LEAVING W/ IT RUNNING AT 150S MLS/HR. SURGERY CONSULTED FOR CONTINUED ABDOMINAL DISCOMFORT. CALCIUM AND MAG REPLETED THROUGHOUT THE DAY. PATIENT GIVEN EMOTIONAL REASSURANCE/SUPPORT.
[2017-02-27 22:19] LABS: ABSOLUTE BASOPHIL COUNT 0 /CUMM (0.0-0.2); ABSOLUTE EOSINOPHIL COUNT 0 /CUMM (0.0-0.7); ABSOLUTE GRANULOCYTE CT 6.4 /CUMM (1.4-6.5); ABSOLUTE LYMPH COUNT 1.5 /CUMM (1.2-3.4); ABSOLUTE MONOCYTE COUNT 0.4 /CUMM (0.10-0.60); BASOPHIL % 0.2 % (0.0-2.0); EOSINOPHIL % 0.1 % (0-5); GRANULOCYTE % 76.2 % (42.2-75.2); HEMATOCRIT 44.8 % (37-47); MEAN CORPUSCULAR HGB 27.9 PG (27.0-31.0); MEAN CORPUSCULAR HGB CONC 33.9 G/DL (33.0-37.0); MEAN CORPUSCULAR VOLUME 82.2 FL (81.0-99.0); MEAN PLATELET VOLUME 9.3 FL (7.4-10.4); PLATELET COUNT 124 /CUMM (130-400); RBC DISTRIBUTION WIDTH 13.8 % (11.5-14.5); RED BLOOD CELL CT 5.45 /CUMM (4.20-5.40); WHITE BLOOD CELL COUNT 8.4 /CUMM (4.8-10.8)
[2017-02-28] VITALS: BP 130/74
[2017-02-28 00:35] LABS: ABSOLUTE BASOPHIL COUNT 0 /CUMM (0.0-0.2); ABSOLUTE EOSINOPHIL COUNT 0 /CUMM (0.0-0.7); ABSOLUTE LYMPH COUNT 1.7 /CUMM (1.2-3.4); ABSOLUTE MONOCYTE COUNT 0.3 /CUMM (0.10-0.60); BASOPHIL % 0.2 % (0.0-2.0); EOSINOPHIL % 0 % (0-5); GRANULOCYTE % 79.6 % (42.2-75.2); HEMATOCRIT 42.2 % (37-47); MEAN CORPUSCULAR HGB 27.6 PG (27.0-31.0); MEAN CORPUSCULAR HGB CONC 34.3 G/DL (33.0-37.0); MEAN CORPUSCULAR VOLUME 80.5 FL (81.0-99.0); MEAN PLATELET VOLUME 8.7 FL (7.4-10.4); RBC DISTRIBUTION WIDTH 13.5 % (11.5-14.5); RED BLOOD CELL CT 5.25 /CUMM (4.20-5.40)
[2017-02-28 00:47] LABS: PLATELET COUNT 197 /CUMM (130-400)
--- NOTE | 2017-02-28 03:30 | NUR ---
0300- Patient noted to have bloody urine in carter catheter. Dr. Jackson Bruno notified of hematuria. Will cont to monitor.
[2017-02-28 06:22] LABS: ABSOLUTE BASOPHIL COUNT 0 /CUMM (0.0-0.2); ABSOLUTE EOSINOPHIL COUNT 0 /CUMM (0.0-0.7); ABSOLUTE LYMPH COUNT 1.7 /CUMM (1.2-3.4); ABSOLUTE MONOCYTE COUNT 0.3 /CUMM (0.10-0.60); BASOPHIL % 0 % (0.0-2.0); EOSINOPHIL % 0.1 % (0-5); GRANULOCYTE % 79.8 % (42.2-75.2); HEMATOCRIT 41.5 % (37-47); MEAN CORPUSCULAR HGB 27.5 PG (27.0-31.0); MEAN CORPUSCULAR HGB CONC 33.4 G/DL (33.0-37.0); MEAN CORPUSCULAR VOLUME 82.3 FL (81.0-99.0); MEAN PLATELET VOLUME 8.1 FL (7.4-10.4); PLATELET COUNT 190 /CUMM (130-400); RED BLOOD CELL CT 5.04 /CUMM (4.20-5.40)
--- NOTE | 2017-02-28 06:55 | PN- Resident CRCU ---
Subjective HPI/CRCU Issues: Patient seen and examined. She is seen sitting upright in bed resting comfortably. She appears to be in no acute distress. She reports persistent nausea despite the three currently ordered medications; however admits that she would love to try a gingerale. Her abdominal pain/discomfort is still present but is much improved since yesterday. She admits to feeling bloated but feels relief when she burps, she denies passing gas. She otherwise feels overall much better and has no new complaints. She admits to mild shortness of breath that is worse when speaking that she attributes to her swollen belly. She denies any headache, fever, chills, chest pain/discomfort, vomiting, diarrhea. Objective Vital Signs & I&O Last 8 Hrs of Vitals and I&O: Vitals signs since 02/28/17 0000 HR 124-128 BP Sys 92-154 BP Jessie 62-154 RR 18-34 Exam General Appearance: well developed/nourished, no apparent distress, alert, awake , comfortable Other Physical Findings: General-well developed, well nourished middle aged woman in mild/ moderate distress HEENT-NCAT, PERRL, EOMI, anicteric sclera Cardio/Chest-S1, S2 w/o m/g/r;RRR, nontunneled catheter in place in right chest wall Lung-CTA bilaterally, diminished bibasilar air movement Abdomen-mild tenderness without guarding/rigidity, faint bowel sounds - carter catheter in place draining a red/yellow urine Neuro- Awake and alert, CN II - XII grossly intact Ext-normal pulses, no cyanosis/clubbing/edema Current Medications: Current Medications Sig/Jack Start time Last Medication Dose Route Stop Time Status Admin Acetaminophen 650 MG ONCE ONE 03/01 0315 DC 03/01 PO 03/01 0316 0306 Acetaminophen 325 MG Q6 PRN 02/26 1845 AC PO Acetaminophen 1,000 MG Q6 PRN 02/26 1845 AC 02/27 IV 0747 Albuterol Sulfate 3 ML Q4P PRN 02/28 2145 AC 02/28 INH 2132 Calcitriol 0.25 MCG BID 02/27 1212 AC 03/01 IV 0950 Calcium Carbonate 500 MG Q6 02/28 1200 AC 03/01 PO 1157 Dextrose/Sodium 1,000 ML Q20H 07/07 0230 DC 03/01 Chloride IV 03/01 1549 0808 Dextrose/Sodium 1,000 ML Q10H 03/01 0230 AC 03/01 Chloride IV 1157 Ergocalciferol 50,000 IU QTHURS 02/28 1415 AC 02/28 PO 1847 Fenofibrate 145 MG DAILY 02/27 0030 AC 03/01 PO 0943 Furosemide 40 MG ONCE ONE 03/01 1545 DC IV 03/01 1546 Furosemide 40 MG ONCE ONE 03/01 1215 DC 03/01 IV 03/01 1216 1232 Guaifenesin/ 10 ML Q6P PRN 03/01 0100 AC Dextromethorphan PO Heparin Sodium 5,000 UNIT Q8 02/26 2200 AC 03/01 (Porcine) SC 1404 Hydromorphone HCl 1 MG Q3 PRN 02/27 0800 AC 03/01 IV 1404 Insulin Human Regular 100 UNIT Q24H 02/26 2045 AC 03/01 Sodium Chloride 100 ML IV 0059 Lactated Ringer's 1,000 ML Q20H 03/01 0230 DC 03/01 IV 0235 Lactated Ringer's 1,000 ML Q10H 02/26 2100 DC 03/01 IV 0950 Metoclopramide HCl 10 MG Q6P PRN 02/28 0215 IV Montelukast Sodium 10 MG AT BEDTIME 02/26 2200 AC 02/28 PO 2224 Nicotinic Acid 500 MG WITH MEALS 03/01 1700 AC PO Non-Formulary 0 SEE ADMIN CRITERIA 02/26 1900 UNVr Medication ANY Ondansetron HCl 4 MG Q6P PRN 02/26 1930 AC 03/01 IV 1300 Pantoprazole Sodium 40 MG DAILY 02/27 1000 AC 03/01 IV 0943 Potassium Phosphate 10 mMol ONE ONE 03/01 1215 DC 03/01 Sodium Chloride 250 ML IV 03/01 1617 1404 Rosuvastatin Calcium 20 MG DAILY 02/28 1115 AC 03/01 PO 0943 Trimethobenzamide HCl 200 MG TID PRN 02/28 0215 AC 02/28 IM 0212 Impression/Plan Impression/Problem List Impression: Patients abdominal pain/discomfort is improving with persistent nausea despite three antiemetics. She has mild shortness of breath, chest xray this morning demonstrated small bilateral effusions. She is continued on intravenous fluids. She is maintained on the insulin drip until triglycerides are below 500. Corrected calcium to 6.7 this morning, oral calcium supplement started. Repeat labs this afternoon will be drawn to assess improvement of metabolic abnormalities. #Severe Hypertriglyceridemia, improving #Acute Pancreatitis, improving #Diabetic Ketoacidosis, improving #History of insulin-dependent diabetes mellitus #Lactic acidosis, resolved #Hypocalcemia #Hypophosphatemia #Hypomagnesemia Patient with history of hypertriglyceridemia, insulin-dependent diabetes mellitus, and previous episodes of pancreatitis seen for evaluation of acute onset right upper quadrant abdominal pain. Triglycerides were found to be initially elevated to greater than 10,500 elevated lipase, and CT scan demonstrating acute pancreatitis. Patient was stared on intravenous fluids, pain medications, and antiemetics and admitted to the ICU for further management and care. Nephrology/endocrinology/gastroenterology consults were placed, patient was placed with a non-tunneled catheter and urgently underwent plasampheresis. Patient was later identified to be in DKA for which an insulin drip was started. Serum chemistries were drawn every three hours and electrolytes were aggressively repleted. Patient received ceftazidime / flagyl for concern of abdominal infection but was subsequently followed off antibiotics. -ICU -RIJ non-tunneled cath -Carter catheter -Strict ins&outs -Incentive spirometry -LR @ 125mL/hr -D5NS @ 75 mL/hr -Insulin Drip until triglycerides < 500 -Calcium carbonate 500mg PO Q6H -Zofran/Reglan/Tigan -Lipitor 80mg PO Daily -Calitriol 0.25mcg IV BID -Protonix 40mg IV Daily -Fenofibrate 145mg PO Daily -Pain control with Acetaminophen/Dilaudid -Endocrine/GI/Nephro/GS/ID consults -Follow up blood/urine cultures -NPO -DVT PPx with subcutaneous heparin -F/U [id number], C-peptid Problem List: 1. Acute pancreatitis Pain Ratin Tomorrow's Labs & Rationales: CBC ICU bundle Triglycerides Plan DVT/Prophylaxis: mechanical
--- NOTE | 2017-02-28 07:03 | RADIOLOGY REPORT ---
EXAMINATION: XR PORTABLE CHEST CLINICAL INFORMATION: Pleural effusion. COMPARISON: Chest x-ray 02/26/2017 TECHNIQUE: Portable frontal view of the chest was obtained. 6:24 AM FINDINGS: Lung volume is low. There is blunting of the right and left costophrenic angles consistent with small bilateral pleural effusions. No significant central pulmonary vascular congestion. No dense consolidation. IMPRESSION: Low lung volume. Small bilateral pleural effusions.
[2017-02-28 08:00] VITALS: BP 122/70
--- NOTE | 2017-02-28 08:35 | PN- Nephrology ---
Assessment/Plan Assessment: 1. pancreatitis; due to severe hyperTG; TG drop from > 10 K --> 864 post phereis --> 677 this morning. Given continued TG fall will hold further phereis this morning & recheck this afternoon 2. hypoCa: w/o sx --> would target corrected Ca 6.5-7; try to limit excess Ca supplement so as to avoid hyperCa in recovery phase 3. met acid: improved lactic; no bicarb need Suggestion: 1. continue IV fluids 2. check coags : PTT, INR, & fibrinogen 3. recheck TG this afternooon & in AM Subjective Subjective: Feeling better w less abd pain - no vomiting - no diarrhea Tolerated plasma pheresis/plasma exchange yesterday w SP Alb replacement No paresthesias or cramps No SOB Objective Vital Signs and I&Os Vital Signs Date Time Temp Pulse Resp B/P B/P Pulse O2 O2 Flow FiO2 Mean Ox Delivery Rate 02/28 0000 98.4 124 21 130/74 97 Room Air 02/27 1600 96.8 120 26 118/70 93 Room Air Room Air 02/27 1600 92 Room Air Room Air 02/27 1200 99 Room Air Room Air Intake & Output 02/28 1600 02/28 0400 02/27 1600 02/27 0400 02/26 1600 02/26 0400 Intake Total 1656 1150 2847 2000 Output Total 215 200 400 Balance 5108 002 7271 2000 Intake, IV 1656 1150 2847 2000 Output, Urine 215 200 400 Patient 173 lb 170 lb Weight Weight Bed scale Reported by Patient Measurement Method Physical Exam General Appearance: no apparent distress, alert Head: atraumatic, normal appearance Neck: R IJ HD cath Respiratory: no respiratory distress, quiet respiration, decreased breath sounds (bases) Cardiovascular: regular rate/rhythm Abdomen: distention, tenderness (primarily epigastric) Extremities: no edema Neurologic/Psychiatric: awake, alert, oriented x 3, no [place] Current Medications: Current Medications Sig/Jack Start time Last Medication Dose Route Stop Time Status Admin Acetaminophen 325 MG Q6 PRN 02/26 184 AC PO Acetaminophen 1,000 MG Q6 PRN 02/26 1845 AC 02/27 IV 0747 Albumin Human 200 GM ONCE ONE 02/27 1045 DC 02/27 IV 02/27 1046 1143 Atorvastatin Calcium 80 MG 1700 02/27 1700 AC PO Calcitriol 0.25 MCG BID 07/ 1212 AC 07/05 IV 2209 Calcium Carbonate 500 MG Q8 02/27 2215 AC / PO 0555 Calcium Chloride 1 GM ONCE ONE 02/27 0915 CAN IV 02/27 0916 Calcium Gluconate 1 GM ONCE ONE 02/28 0745 AC Sodium Chloride 100 ML IV 02/28 0844 Calcium Gluconate 1 GM ONCE ONE 02/28 0530 DC 07/ Sodium Chloride 100 ML IV 02/28 0629 0631 Calcium Gluconate 1 GM ONCE ONE 02/28 0100 DC 07/ Sodium Chloride 100 ML IV 07 0159 0159 Calcium Gluconate 1 GM ONCE ONE 02/27 1715 DC 07/ Sodium Chloride 100 ML IV 07 1814 1726 Calcium Gluconate 1 GM ONCE ONE 02/27 1715 DC 07/ Sodium Chloride 100 ML IV 07/ 1814 1730 Calcium Gluconate 6 GM ONCE ONE 02/27 1115 DC 07/ Sodium Chloride 190 ML IV 07/ 1116 1143 Calcium Gluconate 6 GM ONCE ONE 02/27 1100 CAN Sodium Chloride 190 ML IV 07 1329 Calcium Gluconate 1 GM ONCE ONE 02/27 1015 DC 07/ Sodium Chloride 100 ML IV 07/ 1114 1230 Ceftazidime 1,000 MG IQ8 02/27 0215 DC 07/ IV 0841 Dextrose/Sodium 1,000 ML Q20H / 2245 AC 07/05 Chloride IV 07/ 1204 2245 Enoxaparin Sodium 40 MG 1700 07/05 1700 DC SC Fenofibrate 145 MG DAILY 02/27 0030 02/27 PO 0107 Heparin Sodium 0 .STK-MED ONE 02/27 0905 DC (Porcine) IV Heparin Sodium 5,000 UNIT Q8 / 2200 AC 02/27 (Porcine) SC 2210 Hydromorphone HCl 2 MG ONE TIME ONE 02/28 0645 DC 02/28 IV PUSH 02/28 0646 0615 Hydromorphone HCl 1 MG Q3 PRN 02/27 0800 AC 07 IV 0801 Insulin Human Regular 100 UNITS .STK-MED ONE 02/27 1616 DC IV 07/ 1617 Insulin Human Regular 100 UNIT Q24H / 2045 AC 07/ Sodium Chloride 100 ML IV 0507 Lactated Ringer's 1,000 ML Q10H 02/26 2100 AC 02/28 IV 0302 Lidocaine 0 .STK-MED ONE 02/27 0905 DC .ROUTE Magnesium Sulfate 1 GM Q2H 02/27 1415 DC 02/27 Dextrose/Water 100 ML IV 02/27 1814 1700 Magnesium Sulfate 1 GM ONCE ONE 02/27 0915 DC 02/27 Dextrose/Water 100 ML IV 02/27 1314 1217 Metoclopramide HCl 10 MG Q6P PRN 02/28 0215 AC IV Metronidazole 500 MG IQ8 02/27 0215 DC 02/27 N/A 1 UNIT IV 0842 Montelukast Sodium 10 MG AT BEDTIME 02/26 2200 AC 02/27 PO 2226 Non-Formulary 0 SEE ADMIN CRITERIA 02/26 1900 UNVr Medication ANY Ondansetron HCl 4 MG ONCE ONE 02/27 2330 DC 02/27 IV 02/27 2331 2343 Ondansetron HCl 4 MG .STK-MED ONE 02/27 1438 DC IM 02/27 1439 Ondansetron HCl 4 MG Q6P PRN 02/26 1930 AC 02/28 IV 0512 Pantoprazole Sodium 40 MG DAILY 02/27 1000 AC 02/27 IV 0841 Trimethobenzamide HCl 200 MG TID PRN 02/28 0215 AC 02/28 IM 0212 Results Pertinent Lab Results: Laboratory Tests 02/28 02/28 02/28 0600 0305 0300 Chemistry Sodium (137 - 145 mmol/L) 134 L 135 L Potassium (3.5 - 5.1 mmol/L) 4.2 4.3 Chloride (98 - 107 mmol/L) 108 H 108 H Carbon Dioxide (22 - 30 mmol/L) 16 L 17 L Anion Gap (5 - 16) 10 10 BUN (7 - 17 mg/dL) 12 11 Creatinine (0.5 - 1.0 mg/dL) 0.7 0.7 Estimated GFR (>60 ml/min) > 60 > 60 Glucose (65 - 99 mg/dL) 154 H 147 H C-Peptide Pending Lactic Acid (0.7 - 2.1 mmol/L) 1.8 Calcium (8.4 - 10.2 mg/dL) 5.9 *L 6.1 L Phosphorus (2.5 - 4.5 mg/dL) 2.1 L 2.2 L Magnesium (1.6 - 2.3 mg/dL) 2.6 H 2.6 H Total Bilirubin (0.2 - 1.3 mg/dL) 0.7 0.7 AST (14 - 36 U/L) 37 H 34 ALT (9 - 52 U/L) 27 21 Albumin (3.5 - 5.0 g/dL) 3.0 L 3.1 L Triglycerides (<150 mg/dL) 677 H Hematology CBC w Diff NO MAN DIFF REQ WBC (4.8 - 10.8 /CUMM) 10.0 RBC (4.20 - 5.40 /CUMM) 5.04 Hgb (12.0 - 16.0 G/DL) 13.9 Hct (37 - 47 %) 41.5 MCV (81.0 - 99.0 FL) 82.3 MCH (27.0 - 31.0 PG) 27.5 RDW (11.5 - 14.5 %) 14.0 Plt Count (130 - 400 /CUMM) 190 MPV (7.4 - 10.4 FL) 8.1 Gran % (42.2 - 75.2 %) 79.8 H Lymphocytes % (20.5 - 51.1 %) 17.4 L Monocytes % (1.7 - 9.3 %) 2.7 Eosinophils % (0 - 5 %) 0.1 Basophils % (0.0 - 2.0 %) 0 L Absolute Granulocytes (1.4 - 6.5 /CUMM) 8.0 H Absolute Lymphocytes (1.2 - 3.4 /CUMM) 1.7 Absolute Monocytes (0.10 - 0.60 /CUMM) 0.3 Absolute Eosinophils (0.0 - 0.7 /CUMM) 0 Absolute Basophils (0.0 - 0.2 /CUMM) 0 PUBS MCHC (33.0 - 37.0 G/DL) 33.4 Immunology SHAHEED Antibody Pending 02/28 02/27 0000 2105 Chemistry Sodium (137 - 145 mmol/L) 134 L 134 L Potassium (3.5 - 5.1 mmol/L) 4.6 4.7 Chloride (98 - 107 mmol/L) 109 H 108 H Carbon Dioxide (22 - 30 mmol/L) 15 L 15 L Anion Gap (5 - 16) 10 11 BUN (7 - 17 mg/dL) 10 10 Creatinine (0.5 - 1.0 mg/dL) 0.7 0.7 Estimated GFR (>60 ml/min) > 60 > 60 Glucose (65 - 99 mg/dL) 144 H 125 H Lactic Acid (0.7 - 2.1 mmol/L) 1.7 2.2 H Calcium (8.4 - 10.2 mg/dL) 5.7 *L 6.1 L Phosphorus (2.5 - 4.5 mg/dL) 2.1 L 2.2 L Magnesium (1.6 - 2.3 mg/dL) 2.6 H 2.7 H Total Bilirubin (0.2 - 1.3 mg/dL) 0.6 0.6 AST (14 - 36 U/L) 30 25 ALT (9 - 52 U/L) 21 20 Albumin (3.5 - 5.0 g/dL) 3.1 L 3.3 L Hematology CBC w Diff NO MAN DIFF REQ NO MAN DIFF REQ WBC (4.8 - 10.8 /CUMM) 10.0 8.4 RBC (4.20 - 5.40 /CUMM) 5.25 5.45 H Hgb (12.0 - 16.0 G/DL) 14.5 15.2 Hct (37 - 47 %) 42.2 44.8 MCV (81.0 - 99.0 FL) 80.5 L 82.2 MCH (27.0 - 31.0 PG) 27.6 27.9 RDW (11.5 - 14.5 %) 13.5 13.8 Plt Count (130 - 400 /CUMM) 197 124 L MPV (7.4 - 10.4 FL) 8.7 9.3 Gran % (42.2 - 75.2 %) 79.6 H 76.2 H Lymphocytes % (20.5 - 51.1 %) 16.7 L 18.1 L Monocytes % (1.7 - 9.3 %) 3.5 5.4 Eosinophils % (0 - 5 %) 0 0.1 Basophils % (0.0 - 2.0 %) 0.2 0.2 Absolute Granulocytes (1.4 - 6.5 /CUMM) 8.0 H 6.4 Absolute Lymphocytes (1.2 - 3.4 /CUMM) 1.7 1.5 Absolute Monocytes (0.10 - 0.60 /CUMM) 0.3 0.4 Absolute Eosinophils (0.0 - 0.7 /CUMM) 0 0 Absolute Basophils (0.0 - 0.2 /CUMM) 0 0 PUBS MCHC (33.0 - 37.0 G/DL) 34.3 33.9 02/27 02/27 02/27 1830 1823 1520 Chemistry Sodium (137 - 145 mmol/L) 133 L Potassium (3.5 - 5.1 mmol/L) 4.1 Chloride (98 - 107 mmol/L) 107 Carbon Dioxide (22 - 30 mmol/L) 14 L Anion Gap (5 - 16) 11 BUN (7 - 17 mg/dL) 9 Creatinine (0.5 - 1.0 mg/dL) 0.7 Estimated GFR (>60 ml/min) > 60 Glucose (65 - 99 mg/dL) 158 H Lactic Acid (0.7 - 2.1 mmol/L) 3.0 H Cancelled 4.3 H Calcium (8.4 - 10.2 mg/dL) 6.8 L Phosphorus (2.5 - 4.5 mg/dL) 1.9 L Magnesium (1.6 - 2.3 mg/dL) 3.1 H Total Bilirubin (0.2 - 1.3 mg/dL) 0.7 AST (14 - 36 U/L) 23 ALT (9 - 52 U/L) 18 Albumin (3.5 - 5.0 g/dL) 3.3 L Hematology CBC w Diff NO MAN DIFF REQ WBC (4.8 - 10.8 /CUMM) 8.1 RBC (4.20 - 5.40 /CUMM) 5.39 Hgb (12.0 - 16.0 G/DL) 14.8 Hct (37 - 47 %) 44.0 MCV (81.0 - 99.0 FL) 81.6 MCH (27.0 - 31.0 PG) 27.5 RDW (11.5 - 14.5 %) 13.6 Plt Count (130 - 400 /CUMM) 189 MPV (7.4 - 10.4 FL) 9.0 Gran % (42.2 - 75.2 %) 77.4 H Lymphocytes % (20.5 - 51.1 %) 16.8 L Monocytes % (1.7 - 9.3 %) 5.6 Eosinophils % (0 - 5 %) 0.1 Basophils % (0.0 - 2.0 %) 0.1 Absolute Granulocytes (1.4 - 6.5 /CUMM) 6.2 Absolute Lymphocytes (1.2 - 3.4 /CUMM) 1.4 Absolute Monocytes (0.10 - 0.60 /CUMM) 0.4 Absolute Eosinophils (0.0 - 0.7 /CUMM) 0 Absolute Basophils (0.0 - 0.2 /CUMM) 0 PUBS MCHC (33.0 - 37.0 G/DL) 33.7 07 0702/27 1520 1520 1215 Chemistry Sodium (137 - 145 mmol/L) 135 L Potassium (3.5 - 5.1 mmol/L) 4.5 Plasma Potassium (3.4 - 4.4 MMOL/L) 4.3 Chloride (98 - 107 mmol/L) 107 Carbon Dioxide (22 - 30 mmol/L) 14 L Anion Gap (5 - 16) 14 BUN (7 - 17 mg/dL) 9 Creatinine (0.5 - 1.0 mg/dL) 0.7 Estimated GFR (>60 ml/min) > 60 Glucose (65 - 99 mg/dL) 178 H Calcium (8.4 - 10.2 mg/dL) 5.9 *L Ionized Calcium Pending Pending Phosphorus (2.5 - 4.5 mg/dL) 1.6 L Magnesium (1.6 - 2.3 mg/dL) 2.2 Total Bilirubin (0.2 - 1.3 mg/dL) 0.8 AST (14 - 36 U/L) 16 ALT (9 - 52 U/L) 16 Albumin (3.5 - 5.0 g/dL) 3.6 Triglycerides (<150 mg/dL) 864 H Hematology CBC w Diff NO MAN DIFF REQ WBC (4.8 - 10.8 /CUMM) 9.0 RBC (4.20 - 5.40 /CUMM) 5.64 H Hgb (12.0 - 16.0 G/DL) 15.7 Hct (37 - 47 %) 46.4 MCV (81.0 - 99.0 FL) 82.2 MCH (27.0 - 31.0 PG) 27.9 RDW (11.5 - 14.5 %) 13.6 Plt Count (130 - 400 /CUMM) 155 MPV (7.4 - 10.4 FL) 9.6 Gran % (42.2 - 75.2 %) 80.9 H Lymphocytes % (20.5 - 51.1 %) 14.5 L Monocytes % (1.7 - 9.3 %) 4.4 Eosinophils % (0 - 5 %) 0 Basophils % (0.0 - 2.0 %) 0.2 Absolute Granulocytes (1.4 - 6.5 /CUMM) 7.3 H Absolute Lymphocytes (1.2 - 3.4 /CUMM) 1.3 Absolute Monocytes (0.10 - 0.60 /CUMM) 0.4 Absolute Eosinophils (0.0 - 0.7 /CUMM) 0 Absolute Basophils (0.0 - 0.2 /CUMM) 0 PUBS MCHC (33.0 - 37.0 G/DL) 33.9 07 0702/27 1215 1150 0930 Chemistry Sodium (137 - 145 mmol/L) 129 L Potassium (3.5 - 5.1 mmol/L) 5.6 H Plasma Potassium (3.4 - 4.4 MMOL/L) 5.1 H Chloride (98 - 107 mmol/L) 105 Carbon Dioxide (22 - 30 mmol/L) 8 *L Anion Gap (5 - 16) 16 BUN (7 - 17 mg/dL) 9 Creatinine (0.5 - 1.0 mg/dL) 0.9 Estimated GFR (>60 ml/min) > 60 Glucose (65 - 99 mg/dL) 252 H Lactic Acid (0.7 - 2.1 mmol/L) 3.7 H Calcium (8.4 - 10.2 mg/dL) 5.1 *L Ionized Calcium Pending Phosphorus (2.5 - 4.5 mg/dL) 1.7 L Magnesium (1.6 - 2.3 mg/dL) 1.6 Total Bilirubin (0.2 - 1.3 mg/dL) 0.8 AST (14 - 36 U/L) 32 ALT (9 - 52 U/L) 30 Albumin (3.5 - 5.0 g/dL) 3.0 L Toxicology Acetone Level (NEGATIVE) NEGATIVE Urines Urinalysis LIGHT H Urine Color (YEL,AMB,STR) YESIKA Urine Clarity (CLEAR) HAZY H Urine pH (5.0 - 8.0) 6.0 Ur Specific Spring (1.001 - 1.035) >= 1.030 Urine Protein (NEG,<30 MG/DL) 100 H Urine Ketones (NEG) 15 H Urine Nitrite (NEG) NEG Urine Bilirubin (NEG) NEG Urine Urobilinogen (0.1 - 1.0 EU/dl) 0.2 Ur Leukocyte Esterase (NEG) NEG Ur Microscopic SEDIMENT EXAMINED Urine RBC (0 - 5 /HPF) RARE Urine WBC (0 - 2 /HPF) 1-3 H Ur Epithelial Cells (NONE,FEW) RARE Urine Bacteria (NEG/NONE) FEW H Hyaline Casts (0/LPF) 1-3 H Granular Casts (NONE /LPF) 1-3 H Urine Mucus (FEW,NONE) MOD H Urine Hemoglobin (NEG) NEG Urine Glucose (N MG/DL) >=1000 H 02/27 07 0930 0545 Chemistry Sodium (137 - 145 mmol/L) 127 L Potassium (3.5 - 5.1 mmol/L) 5.9 H Plasma Potassium (3.4 - 4.4 MMOL/L) 5.5 H Chloride (98 - 107 mmol/L) 103 Carbon Dioxide (22 - 30 mmol/L) 8 *L Anion Gap (5 - 16) 18 H BUN (7 - 17 mg/dL) 8 Creatinine (0.5 - 1.0 mg/dL) 0.7 Estimated GFR (>60 ml/min) > 60 Glucose (65 - 99 mg/dL) 263 H Lactic Acid (0.7 - 2.1 mmol/L) 4.5 H 4.2 H Calcium (8.4 - 10.2 mg/dL) 5.3 *L Phosphorus (2.5 - 4.5 mg/dL) 1.3 L Magnesium (1.6 - 2.3 mg/dL) 1.8 Total Bilirubin (0.2 - 1.3 mg/dL) 1.2 AST (14 - 36 U/L) 37 H ALT (9 - 52 U/L) 23 Albumin (3.5 - 5.0 g/dL) 2.8 L Coagulation PT (9.4 - 12.5 SEC) 11.7 INR (0.90 - 1.19) 1.12 APTT (25 - 37 SEC) 29 Fibrinogen Activity (200 - 393 MG/DL) 446 H Fibrin Degrad Products (< 10 ug/ml) <10 ug/ml Hematology CBC w Diff MAN DIFF ORDERED WBC (4.8 - 10.8 /CUMM) 8.2 RBC (4.20 - 5.40 /CUMM) 5.87 H Hgb (12.0 - 16.0 G/DL) 16.3 H Hct (37 - 47 %) 47.7 H MCV (81.0 - 99.0 FL) 81.2 MCH (27.0 - 31.0 PG) 27.9 RDW (11.5 - 14.5 %) 13.1 Plt Count (130 - 400 /CUMM) 270 MPV (7.4 - 10.4 FL) 9.1 Segmented Neutrophils (42.2 - 75.2 %) 62 Band Neutrophils (0.0 - 5.0 %) 12 H Lymphocytes (20.5 - 51.1 %) 23 Monocytes (1.7 - 9.3 %) 3 Platelet Estimate (ADEQUATE) VERIFIED BY SMEAR Polychromasia 1+ PUBS MCHC (33.0 - 37.0 G/DL) 34.4 05 07 07 0545 0230 0028 Chemistry Sodium (137 - 145 mmol/L) 129 L 131 L Potassium (3.5 - 5.1 mmol/L) 4.9 4.4 Chloride (98 - 107 mmol/L) 104 104 Carbon Dioxide (22 - 30 mmol/L) 6 *L 10 L Anion Gap (5 - 16) 19 H 17 H BUN (7 - 17 mg/dL) 6 L 6 L Creatinine (0.5 - 1.0 mg/dL) 0.5 0.5 Estimated GFR (>60 ml/min) > 60 > 60 Glucose (65 - 99 mg/dL) 262 H 201 H Lactic Acid (0.7 - 2.1 mmol/L) 3.9 H Calcium (8.4 - 10.2 mg/dL) 5.6 *L 6.0 L Phosphorus (2.5 - 4.5 mg/dL) 1.8 L 3.2 Magnesium (1.6 - 2.3 mg/dL) 1.7 0.8 *L Total Bilirubin (0.2 - 1.3 mg/dL) 1.0 1.1 AST (14 - 36 U/L) 36 33 ALT (9 - 52 U/L) 30 29 Albumin (3.5 - 5.0 g/dL) 2.8 L 3.1 L Triglycerides (<150 mg/dL) > 40429 H > 87570 H Cholesterol (<200 MG/DL) 837 H LDL Cholesterol Direct (<100 mg/dL) 145.50 H LDL Cholesterol, Calc (65 - 129 mg/dL) ND HDL Cholesterol (40 - 60 mg/dL) 24 L Cholesterol/HDL Ratio (0.00 - 4.23 %) 27.1 H 25-OH Vitamin D Total (30 - 100 ng/ml) < 4.2 L PTH Intact (13.8 - 85 pg/ml) 226.4 H Hematology CBC w Diff MAN DIFF ORDERED WBC (4.8 - 10.8 /CUMM) 9.9 RBC (4.20 - 5.40 /CUMM) 5.40 Hgb (12.0 - 16.0 G/DL) 15.0 Hct (37 - 47 %) 43.7 MCV (81.0 - 99.0 FL) 80.9 L MCH (27.0 - 31.0 PG) 28.2 RDW (11.5 - 14.5 %) 13.1 Plt Count (130 - 400 /CUMM) 267 MPV (7.4 - 10.4 FL) 8.4 Segmented Neutrophils (42.2 - 75.2 %) 65 Band Neutrophils (0.0 - 5.0 %) 15 H Lymphocytes (20.5 - 51.1 %) 18 L Monocytes (1.7 - 9.3 %) 2 Platelet Estimate (ADEQUATE) ADEQUATE Polychromasia 1+ Ovalocytes FEW PUBS MCHC (33.0 - 37.0 G/DL) 34.6 Other Body Source Fld Total RBCs Counted (%) 100 07/04 07 1841 1800 Blood Gas Bicarbonate Actual (22 - 26 MEQ/L) 19 L Mixed VBG pH (7.31 - 7.41 PH) 7.31 Mixed VBG pCO2 (41 - 51 TORR) 38 L Mixed VBG O2 Saturation (35 - 45 TORR) 38 P-50 (Temp Corrected) Y Carboxyhemoglobin (1.5 - 5.0 %) 0.2 L O2 Concentration % RA Temperature (97.0 - 100.0 FARH) 99.0 Miscellaneous Phlebotomy Draw Site R AC Toxicology Urine Opiates Screen (>2000 NG/ML) > 4000.00 H Methadone Screen (>300 NG/ML) < 40 Barbiturate Screen (>200 NG/ML) < 60 Ur Phencyclidine Scrn (>25 NG/ML) < 6.00 Amphetamines Screen (>1000 NG/ML) < 100 U Benzodiazepines Scrn (>200 NG/ML) < 85 Urine Cocaine Screen (>300 NG/ML) < 50 Urine Cannabis Screen (>50 NG/ML) < 5.00 Urines Urinalysis LIGHT H Urine Color (YEL,AMB,STR) YEL Urine Clarity (CLEAR) CLEAR Urine pH (5.0 - 8.0) 5.5 Ur Specific Spring (1.001 - 1.035) >= 1.030 Urine Protein (NEG,<30 MG/DL) TRACE H Urine Ketones (NEG) 15 H Urine Nitrite (NEG) NEG Urine Bilirubin (NEG) NEG Urine Urobilinogen (0.1 - 1.0 EU/dl) 0.2 Ur Leukocyte Esterase (NEG) NEG Ur Microscopic SEDIMENT EXAMINED Urine WBC (0 - 2 /HPF) 3-5 H Ur Epithelial Cells (NONE,FEW) MOD H Urine Bacteria (NEG/NONE) FEW H Urine Mucus (FEW,NONE) MOD H Urine Hemoglobin (NEG) TRACE-LYSED Urine Glucose (N MG/DL) NEG 02/26 1550 Chemistry Sodium (137 - 145 mmol/L) 133 L Potassium (3.5 - 5.1 mmol/L) 4.2 Chloride (98 - 107 mmol/L) 104 Carbon Dioxide (22 - 30 mmol/L) 12 L Anion Gap (5 - 16) 17 H BUN (7 - 17 mg/dL) 10 Creatinine (0.5 - 1.0 mg/dL) 0.5 Estimated GFR (>60 ml/min) > 60 BUN/Creatinine Ratio (7 - 25 %) 20.0 Glucose (65 - 99 mg/dL) 140 H Lactic Acid (0.7 - 2.1 mmol/L) 2.0 Calcium (8.4 - 10.2 mg/dL) 8.4 Total Bilirubin (0.2 - 1.3 mg/dL) 1.3 AST (14 - 36 U/L) 38 H ALT (9 - 52 U/L) 39 Alkaline Phosphatase (<127 U/L) 79 Lactate Dehydrogenase (313 - 618 U/L) 534 Troponin I (< 0.11 ng/ml) < 0.01 Total Protein (6.3 - 8.2 g/dL) 8.1 Albumin (3.5 - 5.0 g/dL) 3.2 L Globulin (1.9 - 4.2 gm/dL) 4.9 H Albumin/Globulin Ratio (1.1 - 2.2 %) 0.7 L Triglycerides (<150 mg/dL) > 50447 H Amylase (30 - 110 U/L) 78 Lipase (23 - 300 U/L) 319 H TSH (0.270 - 4.200 uIU/mL) 0.682 Free T4 (0.79 - 2.35 ng/dL) 1.35 Total T3 (0.97 - 1.69 ng/mL) 1.09 Total Beta HCG (NEGATIVE) NEGATIVE Hematology CBC w Diff NO MAN DIFF REQ WBC (4.8 - 10.8 /CUMM) 12.4 H RBC (4.20 - 5.40 /CUMM) 4.97 Hgb (12.0 - 16.0 G/DL) 14.0 Hct (37 - 47 %) 40.3 MCV (81.0 - 99.0 FL) 81.0 MCH (27.0 - 31.0 PG) 28.2 RDW (11.5 - 14.5 %) 12.8 Plt Count (130 - 400 /CUMM) 148 MPV (7.4 - 10.4 FL) 10.2 Gran % (42.2 - 75.2 %) 81.7 H Lymphocytes % (20.5 - 51.1 %) 15.1 L Monocytes % (1.7 - 9.3 %) 2.5 Eosinophils % (0 - 5 %) 0.5 Basophils % (0.0 - 2.0 %) 0.2 Absolute Granulocytes (1.4 - 6.5 /CUMM) 10.1 H Absolute Lymphocytes (1.2 - 3.4 /CUMM) 1.9 Absolute Monocytes (0.10 - 0.60 /CUMM) 0.3 Absolute Eosinophils (0.0 - 0.7 /CUMM) 0.1 Absolute Basophils (0.0 - 0.2 /CUMM) 0 PUBS MCHC (33.0 - 37.0 G/DL) 34.8 Toxicology Salicylates (0 - 20.0 mg/dL) < 1.0 Acetaminophen (10.0 - 30.0 ug/mL) < 10.0 L Serum Alcohol (<10 MG/DL) < 10.0 Acetone Level (NEGATIVE) NEGATIVE Imaging/Other Studies: CXR: IMPRESSION: Low lung volume. Small bilateral pleural effusions.
--- NOTE | 2017-02-28 08:40 | PN- Gastroenterology ---
Assessment/Plan Assessment/Recommendations: Severe acute hypertriglyceridemic pancreatitis with abdominal distention and ileus; dyspnea/hypoxia likely secondary to splinting; improvement in acidemia with normalization of anion gap, continued hypocalcemia. Hypertriglyceridemia responded well to 1 session of pheresis. Recommendations * Continue nothing by mouth, IV fluids * When cleared by nephrology, remove pheresis catheter * Continued careful monitoring of input and output, oxygen saturation * Chest x-ray, abdominal x-ray * Supplemental oxygen, respiratory therapy * Insulin management per endocrinology; hypertriglyceridemia is now improved to less than 1000, and anion gap has normalized. * Rule out component of ketoacidosis to acidemia * Calcium management per nephrology. Supplement, especially if recurrent evidence of symptomatic hypocalcemia. * Agree with infectious disease, as to no antibiotics Subjective Subjective: Continued abdominal pain, although the patient claims it is better. Mild nausea without vomiting. No fever this morning. Some difficulty breathing because of pain on inspiration. Review of Systems Constitutional: Reports: diaphoresis. Denies: fever. EENTM: Denies: icterus. Cardiovascular: Denies: chest pain, peripheral edema. Respiratory: Reports: short of breath. Denies: cough. Gastrointestinal: Reports: abdominal pain, bloating, nausea. Denies: vomiting. Genitourinary: Reports: hematuria. Musculoskeletal: Denies: neck pain. Skin: Denies: jaundice. Neurological/Psychological: Denies: cognitive dysfunction, confusion. Hematologic/Endocrine: Denies: bruising, bleeding. Objective Vital Signs and I&Os Vital Signs Date Time Temp Pulse Resp B/P B/P Pulse O2 O2 Flow FiO2 Mean Ox Delivery Rate 02/28 0000 98.4 124 21 130/74 97 Room Air 02/27 1600 96.8 120 26 118/70 93 Room Air Room Air 02/27 1600 92 Room Air Room Air 02/27 1200 99 Room Air Room Air Intake & Output 02/28 1600 02/28 0400 02/27 1600 02/27 0400 02/26 1600 02/26 0400 Intake Total 1656 1150 2847 1999 Output Total 215 200 400 Balance 7781 065 8673 1999 Intake, IV 1656 1150 2847 1999 Output, Urine 215 200 400 Patient 173 lb 170 lb Weight Weight Bed scale Reported by Patient Measurement Method Physical Exam: Tachypneic and tachycardic. Comfortable-appearing; no apparent distress, however. Skin without lesion, mottling, jaundice, petechiae//ecchymoses purpura. No adenopathy. Sclera anicteric. Mucous members moist. Heart tachycardia without murmur. Lungs with decreased breath sounds. Abdomen is distended with absent bowel sounds; there is upper abdominal tenderness to mild/ moderate palpation. Extremities without edema, and was normal pulses. Current Medications: Current Medications Sig/Jack Start time Last Medication Dose Route Stop Time Status Admin Acetaminophen 325 MG Q6 PRN 02/26 1845 AC PO Acetaminophen 1,000 MG Q6 PRN 02/26 1845 AC 02/27 IV 0747 Albumin Human 200 GM ONCE ONE 02/27 1045 DC 07/ IV 02/27 1046 1143 Atorvastatin Calcium 80 MG 1700 02/27 1700 AC PO Calcitriol 0.25 MCG BID 02/27 1212 AC 02/27 IV 2209 Calcium Carbonate 500 MG Q8 02/27 2215 AC 02/28 PO 0555 Calcium Chloride 1 GM ONCE ONE 02/27 0915 CAN IV 02/27 0916 Calcium Gluconate 1 GM ONCE ONE 02/28 0745 AC Sodium Chloride 100 ML IV 02/28 0844 Calcium Gluconate 1 GM ONCE ONE 02/28 0530 DC 02/28 Sodium Chloride 100 ML IV 02/28 0629 0631 Calcium Gluconate 1 GM ONCE ONE 02/28 0100 DC 07/ Sodium Chloride 100 ML IV 02/28 0159 0159 Calcium Gluconate 1 GM ONCE ONE 02/27 1715 DC 07/ Sodium Chloride 100 ML IV / 1814 1726 Calcium Gluconate 1 GM ONCE ONE 02/27 1715 DC 07/ Sodium Chloride 100 ML IV / 1814 1730 Calcium Gluconate 6 GM ONCE ONE 02/27 1115 DC 07/ Sodium Chloride 190 ML IV / 1116 1143 Calcium Gluconate 6 GM ONCE ONE 02/27 1100 CAN Sodium Chloride 190 ML IV / 1329 Calcium Gluconate 1 GM ONCE ONE 02/27 1015 DC 07/ Sodium Chloride 100 ML IV / 1114 1230 Ceftazidime 1,000 MG IQ8 02/27 0215 DC 07/05 IV 0841 Dextrose/Sodium 1,000 ML Q20H / 2245 AC 07/05 Chloride IV / 1204 2245 Enoxaparin Sodium 40 MG 1700 / 1700 DC SC Fenofibrate 145 MG DAILY 02/27 0030 02/27 PO 0107 Heparin Sodium 0 .STK-MED ONE 02/27 09 DC (Porcine) IV Heparin Sodium 5,000 UNIT Q8 02/26 2200 AC 02/27 (Porcine) SC 2210 Hydromorphone HCl 2 MG ONE TIME ONE 02/28 0645 DC 02/28 IV PUSH 02/28 0646 0615 Hydromorphone HCl 1 MG Q3 PRN 02/27 0800 AC 02/28 IV 0801 Insulin Human Regular 100 UNITS .STK-MED ONE 02/27 1616 DC IV 02/27 1617 Insulin Human Regular 100 UNIT Q24H 02/26 2045 AC 02/28 Sodium Chloride 100 ML IV 0507 Lactated Ringer's 1,000 ML Q10H 02/26 2100 AC 02/28 IV 0302 Lidocaine 0 .STK-MED ONE 02/27 09 DC .ROUTE Magnesium Sulfate 1 GM Q2H 02/27 1415 DC 02/27 Dextrose/Water 100 ML IV 02/27 1814 1700 Magnesium Sulfate 1 GM ONCE ONE 02/27 0915 MN 02/27 Dextrose/Water 100 ML IV 02/27 1314 1217 Metoclopramide HCl 10 MG Q6P PRN 02/28 0215 IV Metronidazole 500 MG IQ8 02/27 0215 DC 02/27 N/A 1 UNIT IV 0842 Montelukast Sodium 10 MG AT BEDTIME 02/26 220 02/27 PO 2226 Non-Formulary 0 SEE ADMIN CRITERIA 02/26 1900 UNVr Medication ANY Ondansetron HCl 4 MG ONCE ONE 02/27 2330 DC 02/27 IV 02/27 2331 2343 Ondansetron HCl 4 MG .STK-MED ONE 02/27 1438 DC IM 02/27 1439 Ondansetron HCl 4 MG Q6P PRN 02/26 1930 02/28 IV 0512 Pantoprazole Sodium 40 MG DAILY 02/27 1000 AC 02/27 IV 0841 Trimethobenzamide HCl 200 MG TID PRN 02/28 0215 AC 02/28 IM 0212 Results Pertinent Lab Results: Laboratory Tests 02/28 02/28 02/28 0600 0305 0300 Chemistry Sodium (137 - 145 mmol/L) 134 L 135 L Potassium (3.5 - 5.1 mmol/L) 4.2 4.3 Chloride (98 - 107 mmol/L) 108 H 108 H Carbon Dioxide (22 - 30 mmol/L) 16 L 17 L Anion Gap (5 - 16) 10 10 BUN (7 - 17 mg/dL) 12 11 Creatinine (0.5 - 1.0 mg/dL) 0.7 0.7 Estimated GFR (>60 ml/min) > 60 > 60 Glucose (65 - 99 mg/dL) 154 H 147 H C-Peptide Pending Lactic Acid (0.7 - 2.1 mmol/L) 1.8 Calcium (8.4 - 10.2 mg/dL) 5.9 *L 6.1 L Phosphorus (2.5 - 4.5 mg/dL) 2.1 L 2.2 L Magnesium (1.6 - 2.3 mg/dL) 2.6 H 2.6 H Total Bilirubin (0.2 - 1.3 mg/dL) 0.7 0.7 AST (14 - 36 U/L) 37 H 34 ALT (9 - 52 U/L) 27 21 Albumin (3.5 - 5.0 g/dL) 3.0 L 3.1 L Triglycerides (<150 mg/dL) 677 H Hematology CBC w Diff NO MAN DIFF REQ WBC (4.8 - 10.8 /CUMM) 10.0 RBC (4.20 - 5.40 /CUMM) 5.04 Hgb (12.0 - 16.0 G/DL) 13.9 Hct (37 - 47 %) 41.5 MCV (81.0 - 99.0 FL) 82.3 MCH (27.0 - 31.0 PG) 27.5 RDW (11.5 - 14.5 %) 14.0 Plt Count (130 - 400 /CUMM) 190 MPV (7.4 - 10.4 FL) 8.1 Gran % (42.2 - 75.2 %) 79.8 H Lymphocytes % (20.5 - 51.1 %) 17.4 L Monocytes % (1.7 - 9.3 %) 2.7 Eosinophils % (0 - 5 %) 0.1 Basophils % (0.0 - 2.0 %) 0 L Absolute Granulocytes (1.4 - 6.5 /CUMM) 8.0 H Absolute Lymphocytes (1.2 - 3.4 /CUMM) 1.7 Absolute Monocytes (0.10 - 0.60 /CUMM) 0.3 Absolute Eosinophils (0.0 - 0.7 /CUMM) 0 Absolute Basophils (0.0 - 0.2 /CUMM) 0 PUBS MCHC (33.0 - 37.0 G/DL) 33.4 Immunology SHAHEED Antibody Pending 02/28 02/27 0000 2105 Chemistry Sodium (137 - 145 mmol/L) 134 L 134 L Potassium (3.5 - 5.1 mmol/L) 4.6 4.7 Chloride (98 - 107 mmol/L) 109 H 108 H Carbon Dioxide (22 - 30 mmol/L) 15 L 15 L Anion Gap (5 - 16) 10 11 BUN (7 - 17 mg/dL) 10 10 Creatinine (0.5 - 1.0 mg/dL) 0.7 0.7 Estimated GFR (>60 ml/min) > 60 > 60 Glucose (65 - 99 mg/dL) 144 H 125 H Lactic Acid (0.7 - 2.1 mmol/L) 1.7 2.2 H Calcium (8.4 - 10.2 mg/dL) 5.7 *L 6.1 L Phosphorus (2.5 - 4.5 mg/dL) 2.1 L 2.2 L Magnesium (1.6 - 2.3 mg/dL) 2.6 H 2.7 H Total Bilirubin (0.2 - 1.3 mg/dL) 0.6 0.6 AST (14 - 36 U/L) 30 25 ALT (9 - 52 U/L) 21 20 Albumin (3.5 - 5.0 g/dL) 3.1 L 3.3 L Hematology CBC w Diff NO MAN DIFF REQ NO MAN DIFF REQ WBC (4.8 - 10.8 /CUMM) 10.0 8.4 RBC (4.20 - 5.40 /CUMM) 5.25 5.45 H Hgb (12.0 - 16.0 G/DL) 14.5 15.2 Hct (37 - 47 %) 42.2 44.8 MCV (81.0 - 99.0 FL) 80.5 L 82.2 MCH (27.0 - 31.0 PG) 27.6 27.9 RDW (11.5 - 14.5 %) 13.5 13.8 Plt Count (130 - 400 /CUMM) 197 124 L MPV (7.4 - 10.4 FL) 8.7 9.3 Gran % (42.2 - 75.2 %) 79.6 H 76.2 H Lymphocytes % (20.5 - 51.1 %) 16.7 L 18.1 L Monocytes % (1.7 - 9.3 %) 3.5 5.4 Eosinophils % (0 - 5 %) 0 0.1 Basophils % (0.0 - 2.0 %) 0.2 0.2 Absolute Granulocytes (1.4 - 6.5 /CUMM) 8.0 H 6.4 Absolute Lymphocytes (1.2 - 3.4 /CUMM) 1.7 1.5 Absolute Monocytes (0.10 - 0.60 /CUMM) 0.3 0.4 Absolute Eosinophils (0.0 - 0.7 /CUMM) 0 0 Absolute Basophils (0.0 - 0.2 /CUMM) 0 0 PUBS MCHC (33.0 - 37.0 G/DL) 34.3 33.9 02/27 02/27 02/27 1830 1823 1520 Chemistry Sodium (137 - 145 mmol/L) 133 L Potassium (3.5 - 5.1 mmol/L) 4.1 Chloride (98 - 107 mmol/L) 107 Carbon Dioxide (22 - 30 mmol/L) 14 L Anion Gap (5 - 16) 11 BUN (7 - 17 mg/dL) 9 Creatinine (0.5 - 1.0 mg/dL) 0.7 Estimated GFR (>60 ml/min) > 60 Glucose (65 - 99 mg/dL) 158 H Lactic Acid (0.7 - 2.1 mmol/L) 3.0 H Cancelled 4.3 H Calcium (8.4 - 10.2 mg/dL) 6.8 L Phosphorus (2.5 - 4.5 mg/dL) 1.9 L Magnesium (1.6 - 2.3 mg/dL) 3.1 H Total Bilirubin (0.2 - 1.3 mg/dL) 0.7 AST (14 - 36 U/L) 23 ALT (9 - 52 U/L) 18 Albumin (3.5 - 5.0 g/dL) 3.3 L Hematology CBC w Diff NO MAN DIFF REQ WBC (4.8 - 10.8 /CUMM) 8.1 RBC (4.20 - 5.40 /CUMM) 5.39 Hgb (12.0 - 16.0 G/DL) 14.8 Hct (37 - 47 %) 44.0 MCV (81.0 - 99.0 FL) 81.6 MCH (27.0 - 31.0 PG) 27.5 RDW (11.5 - 14.5 %) 13.6 Plt Count (130 - 400 /CUMM) 189 MPV (7.4 - 10.4 FL) 9.0 Gran % (42.2 - 75.2 %) 77.4 H Lymphocytes % (20.5 - 51.1 %) 16.8 L Monocytes % (1.7 - 9.3 %) 5.6 Eosinophils % (0 - 5 %) 0.1 Basophils % (0.0 - 2.0 %) 0.1 Absolute Granulocytes (1.4 - 6.5 /CUMM) 6.2 Absolute Lymphocytes (1.2 - 3.4 /CUMM) 1.4 Absolute Monocytes (0.10 - 0.60 /CUMM) 0.4 Absolute Eosinophils (0.0 - 0.7 /CUMM) 0 Absolute Basophils (0.0 - 0.2 /CUMM) 0 PUBS MCHC (33.0 - 37.0 G/DL) 33.7 02/27 02/27 02/27 1520 1520 1215 Chemistry Sodium (137 - 145 mmol/L) 135 L Potassium (3.5 - 5.1 mmol/L) 4.5 Plasma Potassium (3.4 - 4.4 MMOL/L) 4.3 Chloride (98 - 107 mmol/L) 107 Carbon Dioxide (22 - 30 mmol/L) 14 L Anion Gap (5 - 16) 14 BUN (7 - 17 mg/dL) 9 Creatinine (0.5 - 1.0 mg/dL) 0.7 Estimated GFR (>60 ml/min) > 60 Glucose (65 - 99 mg/dL) 178 H Calcium (8.4 - 10.2 mg/dL) 5.9 *L Ionized Calcium Pending Pending Phosphorus (2.5 - 4.5 mg/dL) 1.6 L Magnesium (1.6 - 2.3 mg/dL) 2.2 Total Bilirubin (0.2 - 1.3 mg/dL) 0.8 AST (14 - 36 U/L) 16 ALT (9 - 52 U/L) 16 Albumin (3.5 - 5.0 g/dL) 3.6 Triglycerides (<150 mg/dL) 864 H Hematology CBC w Diff NO MAN DIFF REQ WBC (4.8 - 10.8 /CUMM) 9.0 RBC (4.20 - 5.40 /CUMM) 5.64 H Hgb (12.0 - 16.0 G/DL) 15.7 Hct (37 - 47 %) 46.4 MCV (81.0 - 99.0 FL) 82.2 MCH (27.0 - 31.0 PG) 27.9 RDW (11.5 - 14.5 %) 13.6 Plt Count (130 - 400 /CUMM) 155 MPV (7.4 - 10.4 FL) 9.6 Gran % (42.2 - 75.2 %) 80.9 H Lymphocytes % (20.5 - 51.1 %) 14.5 L Monocytes % (1.7 - 9.3 %) 4.4 Eosinophils % (0 - 5 %) 0 Basophils % (0.0 - 2.0 %) 0.2 Absolute Granulocytes (1.4 - 6.5 /CUMM) 7.3 H Absolute Lymphocytes (1.2 - 3.4 /CUMM) 1.3 Absolute Monocytes (0.10 - 0.60 /CUMM) 0.4 Absolute Eosinophils (0.0 - 0.7 /CUMM) 0 Absolute Basophils (0.0 - 0.2 /CUMM) 0 PUBS MCHC (33.0 - 37.0 G/DL) 33.9 02/27 02/27 02/27 1215 1150 0930 Chemistry Sodium (137 - 145 mmol/L) 129 L Potassium (3.5 - 5.1 mmol/L) 5.6 H Plasma Potassium (3.4 - 4.4 MMOL/L) 5.1 H Chloride (98 - 107 mmol/L) 105 Carbon Dioxide (22 - 30 mmol/L) 8 *L Anion Gap (5 - 16) 16 BUN (7 - 17 mg/dL) 9 Creatinine (0.5 - 1.0 mg/dL) 0.9 Estimated GFR (>60 ml/min) > 60 Glucose (65 - 99 mg/dL) 252 H Lactic Acid (0.7 - 2.1 mmol/L) 3.7 H Calcium (8.4 - 10.2 mg/dL) 5.1 *L Ionized Calcium Pending Phosphorus (2.5 - 4.5 mg/dL) 1.7 L Magnesium (1.6 - 2.3 mg/dL) 1.6 Total Bilirubin (0.2 - 1.3 mg/dL) 0.8 AST (14 - 36 U/L) 32 ALT (9 - 52 U/L) 30 Albumin (3.5 - 5.0 g/dL) 3.0 L Toxicology Acetone Level (NEGATIVE) NEGATIVE Urines Urinalysis LIGHT H Urine Color (YEL,AMB,STR) YESIKA Urine Clarity (CLEAR) HAZY H Urine pH (5.0 - 8.0) 6.0 Ur Specific [place] (1.001 - 1.035) >= 1.030 Urine Protein (NEG,<30 MG/DL) 100 H Urine Ketones (NEG) 15 H Urine Nitrite (NEG) NEG Urine Bilirubin (NEG) NEG Urine Urobilinogen (0.1 - 1.0 EU/dl) 0.2 Ur Leukocyte Esterase (NEG) NEG Ur Microscopic SEDIMENT EXAMINED Urine RBC (0 - 5 /HPF) RARE Urine WBC (0 - 2 /HPF) 1-3 H Ur Epithelial Cells (NONE,FEW) RARE Urine Bacteria (NEG/NONE) FEW H Hyaline Casts (0/LPF) 1-3 H Granular Casts (NONE /LPF) 1-3 H Urine Mucus (FEW,NONE) MOD H Urine Hemoglobin (NEG) NEG Urine Glucose (N MG/DL) >=1000 H 02/27 02/27 0930 0545 Chemistry Sodium (137 - 145 mmol/L) 127 L Potassium (3.5 - 5.1 mmol/L) 5.9 H Plasma Potassium (3.4 - 4.4 MMOL/L) 5.5 H Chloride (98 - 107 mmol/L) 103 Carbon Dioxide (22 - 30 mmol/L) 8 *L Anion Gap (5 - 16) 18 H BUN (7 - 17 mg/dL) 8 Creatinine (0.5 - 1.0 mg/dL) 0.7 Estimated GFR (>60 ml/min) > 60 Glucose (65 - 99 mg/dL) 263 H Lactic Acid (0.7 - 2.1 mmol/L) 4.5 H 4.2 H Calcium (8.4 - 10.2 mg/dL) 5.3 *L Phosphorus (2.5 - 4.5 mg/dL) 1.3 L Magnesium (1.6 - 2.3 mg/dL) 1.8 Total Bilirubin (0.2 - 1.3 mg/dL) 1.2 AST (14 - 36 U/L) 37 H ALT (9 - 52 U/L) 23 Albumin (3.5 - 5.0 g/dL) 2.8 L Coagulation PT (9.4 - 12.5 SEC) 11.7 INR (0.90 - 1.19) 1.12 APTT (25 - 37 SEC) 29 Fibrinogen Activity (200 - 393 MG/DL) 446 H Fibrin Degrad Products (< 10 ug/ml) <10 ug/ml Hematology CBC w Diff MAN DIFF ORDERED WBC (4.8 - 10.8 /CUMM) 8.2 RBC (4.20 - 5.40 /CUMM) 5.87 H Hgb (12.0 - 16.0 G/DL) 16.3 H Hct (37 - 47 %) 47.7 H MCV (81.0 - 99.0 FL) 81.2 MCH (27.0 - 31.0 PG) 27.9 RDW (11.5 - 14.5 %) 13.1 Plt Count (130 - 400 /CUMM) 270 MPV (7.4 - 10.4 FL) 9.1 Segmented Neutrophils (42.2 - 75.2 %) 62 Band Neutrophils (0.0 - 5.0 %) 12 H Lymphocytes (20.5 - 51.1 %) 23 Monocytes (1.7 - 9.3 %) 3 Platelet Estimate (ADEQUATE) VERIFIED BY SMEAR Polychromasia 1+ PUBS MCHC (33.0 - 37.0 G/DL) 34.4 07 07 07 0545 0230 0028 Chemistry Sodium (137 - 145 mmol/L) 129 L 131 L Potassium (3.5 - 5.1 mmol/L) 4.9 4.4 Chloride (98 - 107 mmol/L) 104 104 Carbon Dioxide (22 - 30 mmol/L) 6 *L 10 L Anion Gap (5 - 16) 19 H 17 H BUN (7 - 17 mg/dL) 6 L 6 L Creatinine (0.5 - 1.0 mg/dL) 0.5 0.5 Estimated GFR (>60 ml/min) > 60 > 60 Glucose (65 - 99 mg/dL) 262 H 201 H Lactic Acid (0.7 - 2.1 mmol/L) 3.9 H Calcium (8.4 - 10.2 mg/dL) 5.6 *L 6.0 L Phosphorus (2.5 - 4.5 mg/dL) 1.8 L 3.2 Magnesium (1.6 - 2.3 mg/dL) 1.7 0.8 *L Total Bilirubin (0.2 - 1.3 mg/dL) 1.0 1.1 AST (14 - 36 U/L) 36 33 ALT (9 - 52 U/L) 30 29 Albumin (3.5 - 5.0 g/dL) 2.8 L 3.1 L Triglycerides (<150 mg/dL) > 54241 H > 75657 H Cholesterol (<200 MG/DL) 837 H LDL Cholesterol Direct (<100 mg/dL) 145.50 H LDL Cholesterol, Calc (65 - 129 mg/dL) ND HDL Cholesterol (40 - 60 mg/dL) 24 L Cholesterol/HDL Ratio (0.00 - 4.23 %) 27.1 H 25-OH Vitamin D Total (30 - 100 ng/ml) < 4.2 L PTH Intact (13.8 - 85 pg/ml) 226.4 H Hematology CBC w Diff MAN DIFF ORDERED WBC (4.8 - 10.8 /CUMM) 9.9 RBC (4.20 - 5.40 /CUMM) 5.40 Hgb (12.0 - 16.0 G/DL) 15.0 Hct (37 - 47 %) 43.7 MCV (81.0 - 99.0 FL) 80.9 L MCH (27.0 - 31.0 PG) 28.2 RDW (11.5 - 14.5 %) 13.1 Plt Count (130 - 400 /CUMM) 267 MPV (7.4 - 10.4 FL) 8.4 Segmented Neutrophils (42.2 - 75.2 %) 65 Band Neutrophils (0.0 - 5.0 %) 15 H Lymphocytes (20.5 - 51.1 %) 18 L Monocytes (1.7 - 9.3 %) 2 Platelet Estimate (ADEQUATE) ADEQUATE Polychromasia 1+ Ovalocytes FEW PUBS MCHC (33.0 - 37.0 G/DL) 34.6 Other Body Source Fld Total RBCs Counted (%) 100 02/26 02/26 1841 1800 Blood Gas Bicarbonate Actual (22 - 26 MEQ/L) 19 L Mixed VBG pH (7.31 - 7.41 PH) 7.31 Mixed VBG pCO2 (41 - 51 TORR) 38 L Mixed VBG O2 Saturation (35 - 45 TORR) 38 P-50 (Temp Corrected) Y Carboxyhemoglobin (1.5 - 5.0 %) 0.2 L O2 Concentration % RA Temperature (97.0 - 100.0 FARH) 99.0 Miscellaneous Phlebotomy Draw Site R AC Toxicology Urine Opiates Screen (>2000 NG/ML) > 4000.00 H Methadone Screen (>300 NG/ML) < 40 Barbiturate Screen (>200 NG/ML) < 60 Ur Phencyclidine Scrn (>25 NG/ML) < 6.00 Amphetamines Screen (>1000 NG/ML) < 100 U Benzodiazepines Scrn (>200 NG/ML) < 85 Urine Cocaine Screen (>300 NG/ML) < 50 Urine Cannabis Screen (>50 NG/ML) < 5.00 Urines Urinalysis LIGHT H Urine Color (YEL,AMB,STR) YEL Urine Clarity (CLEAR) CLEAR Urine pH (5.0 - 8.0) 5.5 Ur Specific [place] (1.001 - 1.035) >= 1.030 Urine Protein (NEG,<30 MG/DL) TRACE H Urine Ketones (NEG) 15 H Urine Nitrite (NEG) NEG Urine Bilirubin (NEG) NEG Urine Urobilinogen (0.1 - 1.0 EU/dl) 0.2 Ur Leukocyte Esterase (NEG) NEG Ur Microscopic SEDIMENT EXAMINED Urine WBC (0 - 2 /HPF) 3-5 H Ur Epithelial Cells (NONE,FEW) MOD H Urine Bacteria (NEG/NONE) FEW H Urine Mucus (FEW,NONE) MOD H Urine Hemoglobin (NEG) TRACE-LYSED Urine Glucose (N MG/DL) NEG 02/26 1550 Chemistry Sodium (137 - 145 mmol/L) 133 L Potassium (3.5 - 5.1 mmol/L) 4.2 Chloride (98 - 107 mmol/L) 104 Carbon Dioxide (22 - 30 mmol/L) 12 L Anion Gap (5 - 16) 17 H BUN (7 - 17 mg/dL) 10 Creatinine (0.5 - 1.0 mg/dL) 0.5 Estimated GFR (>60 ml/min) > 60 BUN/Creatinine Ratio (7 - 25 %) 20.0 Glucose (65 - 99 mg/dL) 140 H Lactic Acid (0.7 - 2.1 mmol/L) 2.0 Calcium (8.4 - 10.2 mg/dL) 8.4 Total Bilirubin (0.2 - 1.3 mg/dL) 1.3 AST (14 - 36 U/L) 38 H ALT (9 - 52 U/L) 39 Alkaline Phosphatase (<127 U/L) 79 Lactate Dehydrogenase (313 - 618 U/L) 534 Troponin I (< 0.11 ng/ml) < 0.01 Total Protein (6.3 - 8.2 g/dL) 8.1 Albumin (3.5 - 5.0 g/dL) 3.2 L Globulin (1.9 - 4.2 gm/dL) 4.9 H Albumin/Globulin Ratio (1.1 - 2.2 %) 0.7 L Triglycerides (<150 mg/dL) > 25055 H Amylase (30 - 110 U/L) 78 Lipase (23 - 300 U/L) 319 H TSH (0.270 - 4.200 uIU/mL) 0.682 Free T4 (0.79 - 2.35 ng/dL) 1.35 Total T3 (0.97 - 1.69 ng/mL) 1.09 Total Beta HCG (NEGATIVE) NEGATIVE Hematology CBC w Diff NO MAN DIFF REQ WBC (4.8 - 10.8 /CUMM) 12.4 H RBC (4.20 - 5.40 /CUMM) 4.97 Hgb (12.0 - 16.0 G/DL) 14.0 Hct (37 - 47 %) 40.3 MCV (81.0 - 99.0 FL) 81.0 MCH (27.0 - 31.0 PG) 28.2 RDW (11.5 - 14.5 %) 12.8 Plt Count (130 - 400 /CUMM) 148 MPV (7.4 - 10.4 FL) 10.2 Gran % (42.2 - 75.2 %) 81.7 H Lymphocytes % (20.5 - 51.1 %) 15.1 L Monocytes % (1.7 - 9.3 %) 2.5 Eosinophils % (0 - 5 %) 0.5 Basophils % (0.0 - 2.0 %) 0.2 Absolute Granulocytes (1.4 - 6.5 /CUMM) 10.1 H Absolute Lymphocytes (1.2 - 3.4 /CUMM) 1.9 Absolute Monocytes (0.10 - 0.60 /CUMM) 0.3 Absolute Eosinophils (0.0 - 0.7 /CUMM) 0.1 Absolute Basophils (0.0 - 0.2 /CUMM) 0 PUBS MCHC (33.0 - 37.0 G/DL) 34.8 Toxicology Salicylates (0 - 20.0 mg/dL) < 1.0 Acetaminophen (10.0 - 30.0 ug/mL) < 10.0 L Serum Alcohol (<10 MG/DL) < 10.0 Acetone Level (NEGATIVE) NEGATIVE
--- NOTE | 2017-02-28 08:47 | ECHOCARDIOGRAM REPORT ---
JANETH CRUZ Age: 36 : 1980 Gender: F Exam Date: 02/27/2017 08:41 Exam Location: [facility] Ht (in): 63 Wt (lb): 173 BSA: 1.90 BP: 126 / 78 Ordering Physician: ALEJANDRO ZABALA MD Referring Physician: ALEJANDRO ZABALA MD Technologist: Ceferino Cohen [facility] Room Number: 112 Indications: STRUCTURAL HEART DISEASE Rhythm: Sinus Technical Quality: Technically difficult study FINDINGS Left Ventricle Normal left ventricular size, wall thickness and systolic function with no obvious regional wall motion abnormalities. Normal left ventricular diastolic filling pattern for age. The ejection fraction is visually estimated at >65 %. Right Ventricle The right ventricle is normal in size and function. Right Atrium The right atrium is normal in size. Left Atrium The left atrium is normal in size. The interatrial septum is intact. Mitral Valve The mitral valve is normal in structure and function. There is no mitral regurgitation. Aortic Valve Structurally normal aortic valve without significant sclerosis or stenosis. There is no aortic regurgitation. Tricuspid Valve The tricuspid valve is normal in structure and function. There is no tricuspid regurgitation. Unable to estimate the right ventricular systolic pressure. Pulmonic Valve Pulmonic valve not well visualized. There is no pulmonic regurgitation. Pericardium Normal pericardium without effusion. No pleural effusion. Great Vessels Normal aortic root dimension. The aortic arch and great vessels are normal. CONCLUSIONS Technically difficult and limited study. No significant chamber abnormalities. No significant valve abnormalities. Normal transthoracic echocardiogram. Mikey Bonilla M.D. (Electronically Signed) Final Date: 28 February 2017 08:46 MEASUREMENTS (Male / Female) Normal Values 2D ECHO LV Diastolic Diameter PLAX 3.0 cm 4.2 - 5.9 / 3.9 - 5.3 cm LV Systolic Diameter PLAX 2.2 cm 2.1 - 4.0 cm LV Fractional Shortening PLAX 26.7 % 25 - 46 % LV Ejection Fraction 2D Teich 53.7 % IVS Diastolic Thickness 1.0 cm LVPW Diastolic Thickness 1.1 cm LV Relative Wall Thickness 0.7 RV Internal Dim ED PLAX 3.2 cm 1.9 - 3.8 cm LVOT Diameter 1.8 cm Aortic Root Diameter 2.6 cm LA Systolic Diameter LX 3.6 cm 3.0 - 4.0 / 2.7 - 3.8 cm Ascending Aorta Diameter 2.8 cm DOPPLER AV Peak Velocity 138.0 cm/s AV Peak Gradient 7.6 mmHg AV Mean Velocity 86.2 cm/s AV Mean Gradient 4.0 mmHg AV Velocity Time Integral 18.1 cm LVOT Peak Velocity 111.0 cm/s LVOT Peak Gradient 4.9 mmHg LVOT Mean Velocity 68.0 cm/s LVOT Mean Gradient 2.0 mmHg LVOT Velocity Time Integral 16.4 cm LVOT Stroke Volume 41.7 cm AV Area Cont Eq vti 2.3 cm AV Area Cont Eq pk 2.0 cm MV Peak Velocity 75.8 cm/s MV Peak Gradient 2.3 mmHg MV Mean Velocity 50.6 cm/s MV Mean Gradient 1.0 mmHg Mitral E Point Velocity 73.5 cm/s Mitral A Point Velocity 73.5 cm/s Mitral E to A Ratio 1.0 MV PHT Velocity 77.4 cm/s MV Deceleration Traill 392.0 cm/s MV Pressure Half Time 59.2 ms MV Area PHT 3.7 cm MV Deceleration Time 194.0 ms PV Peak Velocity 182.0 cm/s PV Peak Gradient 13.2 mmHg PV Mean Velocity 127.0 cm/s PV Mean Gradient 8.0 mmHg PV Velocity Time Integral 26.2 cm LV E' Lateral Velocity 8.6 cm/s Mitral E to LV E' Lateral Ratio 8.6 LV E' Septal Velocity 6.2 cm/s Mitral E to LV E' Septal Ratio 11.8
--- NOTE | 2017-02-28 09:23 | PN- CRCU ---
Subjective HPI/Critical Care Issues: pt seen and examined triglycerides with significant reduction after plasmapheresis abd pain remains but improved NPO for ileus Objective Current Medications: Current Medications Sig/Jack Start time Last Medication Dose Route Stop Time Status Admin Acetaminophen 325 MG Q6 PRN 02/26 1845 AC PO Acetaminophen 1,000 MG Q6 PRN 02/26 1845 AC 02/27 IV 0747 Albumin Human 200 GM ONCE ONE 02/27 1045 DC 07/ IV 02/27 1046 1143 Atorvastatin Calcium 80 MG 1700 02/27 1700 AC PO Calcitriol 0.25 MCG BID 02/27 1212 AC 07 IV 2209 Calcium Carbonate 500 MG Q6 02/28 1200 AC PO Calcium Carbonate 500 MG Q8 02/27 2215 DC 02/28 PO 0555 Calcium Chloride 1 GM ONCE ONE 02/27 0915 CAN IV 02/27 0916 Calcium Gluconate 1 GM ONCE ONE 02/28 0745 DC Sodium Chloride 100 ML IV 02/28 0844 Calcium Gluconate 1 GM ONCE ONE 02/28 0530 DC 02/28 Sodium Chloride 100 ML IV 02/28 0629 0631 Calcium Gluconate 1 GM ONCE ONE 02/28 0100 DC 07 Sodium Chloride 100 ML IV 02/28 0159 0159 Calcium Gluconate 1 GM ONCE ONE 02/27 1715 DC 07/05 Sodium Chloride 100 ML IV 07/ 1814 1726 Calcium Gluconate 1 GM ONCE ONE 02/27 1715 DC 07/05 Sodium Chloride 100 ML IV 07/ 1814 1730 Calcium Gluconate 6 GM ONCE ONE 02/27 1115 DC 07/ Sodium Chloride 190 ML IV 07/ 1116 1143 Calcium Gluconate 6 GM ONCE ONE 02/27 1100 CAN Sodium Chloride 190 ML IV 07/ 1329 Calcium Gluconate 1 GM ONCE ONE / 1015 DC 07/05 Sodium Chloride 100 ML IV 07/ 1114 1230 Ceftazidime 1,000 MG IQ8 / 0215 DC 07/ IV 0841 Dextrose/Sodium 1,000 ML Q20H / 2245 AC 07/05 Chloride IV 07/ 1204 2245 Enoxaparin Sodium 40 MG 1700 07/05 1700 DC SC Fenofibrate 145 MG DAILY 07/ 0030 AC 07 PO 0107 Heparin Sodium 5,000 UNIT Q8 02/26 2200 AC 02/27 (Porcine) SC 2210 Hydromorphone HCl 2 MG ONE TIME ONE 02/28 0645 DC 02/28 IV PUSH 02/28 0646 0615 Hydromorphone HCl 1 MG Q3 PRN 02/27 0800 AC 02/28 IV 0801 Insulin Human Regular 100 UNITS .STK-MED ONE 02/27 1616 DC IV 07/ 1617 Insulin Human Regular 100 UNIT Q24H 02/26 2045 AC 02/28 Sodium Chloride 100 ML IV 0507 Lactated Ringer's 1,000 ML Q10H 02/26 2100 AC 02/28 IV 0302 Magnesium Sulfate 1 GM Q2H 02/27 1415 DC 02/27 Dextrose/Water 100 ML IV 02/27 1814 1700 Magnesium Sulfate 1 GM ONCE ONE 02/27 0915 DC 02/27 Dextrose/Water 100 ML IV 02/27 1314 1217 Metoclopramide HCl 10 MG Q6P PRN 02/28 0215 AC IV Metronidazole 500 MG IQ8 02/27 0215 DC 02/27 N/A 1 UNIT IV 0842 Montelukast Sodium 10 MG AT BEDTIME 02/26 2200 02/27 PO 2226 Non-Formulary 0 SEE ADMIN CRITERIA 02/26 1900 UNVr Medication ANY Ondansetron HCl 4 MG ONCE ONE 02/27 2330 DC 07/ IV 02/27 2331 2343 Ondansetron HCl 4 MG .STK-MED ONE 02/27 1438 DC IM 02/27 1439 Ondansetron HCl 4 MG Q6P PRN 02/26 1930 02/28 IV 0512 Pantoprazole Sodium 40 MG DAILY 02/27 1000 AC 02/27 IV 0841 Trimethobenzamide HCl 200 MG TID PRN 02/28 0215 AC 02/28 IM 0212 Vital Signs & I&O Last 24 Hrs of Vitals and I&O: Vital Signs Date Time Temp Pulse Resp B/P B/P Pulse O2 O2 Flow FiO2 Mean Ox Delivery Rate 02/28 08 92 Nasal 3.0L Cannula 02/28 0000 98.4 124 21 130/74 97 Room Air / 1600 96.8 120 26 118/70 93 Room Air Room Air 02/27 1600 92 Room Air Room Air / 1200 99 Room Air Room Air Intake & Output 02/28 1600 02/28 0800 02/28 0000 Intake Total 1656 1150 Output Total 215 200 Balance 1441 950 Intake, IV 1656 1150 Output, Urine 215 200 Exam Other Physical Findings: gen awake and alert heent ncat cvs s1, s2 lungs ctab abd minimal sounds ext trace edema Results Last 24 Hrs of Lab Results: Laboratory Tests 02/28/17 0600: Anion Gap 10, Estimated GFR > 60, Glucose 154 H, Calcium 5.9 *L, Phosphorus 2.1 L, Magnesium 2.6 H, Total Bilirubin 0.7, AST 37 H, ALT 27, Albumin 3.0 L, Triglycerides 677 H, CBC w Diff NO MAN DIFF REQ, RBC 5.04, MCV 82.3, MCH 27.5, RDW 14.0, MPV 8.1, Gran % 79.8 H, Lymphocytes % 17.4 L, Monocytes % 2.7, Eosinophils % 0.1, Basophils % 0 L, Absolute Granulocytes 8.0 H, Absolute Lymphocytes 1.7, Absolute Monocytes 0.3, Absolute Eosinophils 0, Absolute Basophils 0, PUBS MCHC 33.4 02/28/17 0305: Anion Gap 10, Estimated GFR > 60, Glucose 147 H, Lactic Acid 1.8, Calcium 6.1 L, Phosphorus 2.2 L, Magnesium 2.6 H, Total Bilirubin 0.7, AST 34, ALT 21, Albumin 3.1 L 02/28/17 0300: C-Peptide Pending, SHAHEED Antibody Pending 02/28/17 0000: Anion Gap 10, Estimated GFR > 60, Glucose 144 H, Lactic Acid 1.7, Calcium 5.7 * L, Phosphorus 2.1 L, Magnesium 2.6 H, Total Bilirubin 0.6, AST 30, ALT 21, Albumin 3.1 L, CBC w Diff NO MAN DIFF REQ, RBC 5.25, MCV 80.5 L, MCH 27.6, RDW 13.5, MPV 8.7, Gran % 79.6 H, Lymphocytes % 16.7 L, Monocytes % 3.5, Eosinophils % 0, Basophils % 0.2, Absolute Granulocytes 8.0 H, Absolute Lymphocytes 1.7, Absolute Monocytes 0.3, Absolute Eosinophils 0, Absolute Basophils 0, PUBS MCHC 34.3 02/27/17 2105: Anion Gap 11, Estimated GFR > 60, Glucose 125 H, Lactic Acid 2.2 H, Calcium 6.1 L, Phosphorus 2.2 L, Magnesium 2.7 H, Total Bilirubin 0.6, AST 25, ALT 20 , Albumin 3.3 L, CBC w Diff NO MAN DIFF REQ, RBC 5.45 H, MCV 82.2, MCH 27.9, RDW 13.8, MPV 9.3, Gran % 76.2 H, Lymphocytes % 18.1 L, Monocytes % 5.4, Eosinophils % 0.1, Basophils % 0.2, Absolute Granulocytes 6.4, Absolute Lymphocytes 1.5, Absolute Monocytes 0.4, Absolute Eosinophils 0, Absolute Basophils 0, [facility] 33.9 02/27/17 1830: Anion Gap 11, Estimated GFR > 60, Glucose 158 H, Lactic Acid 3.0 H, Calcium 6.8 L, Phosphorus 1.9 L, Magnesium 3.1 H, Total Bilirubin 0.7, AST 23, ALT 18 , Albumin 3.3 L, CBC w Diff NO MAN DIFF REQ, RBC 5.39, MCV 81.6, MCH 27.5, RDW 13.6, MPV 9.0, Gran % 77.4 H, Lymphocytes % 16.8 L, Monocytes % 5.6, Eosinophils % 0.1, Basophils % 0.1, Absolute Granulocytes 6.2, Absolute Lymphocytes 1.4, Absolute Monocytes 0.4, Absolute Eosinophils 0, Absolute Basophils 0, [facility] 33.7 02/27/17 1823: Lactic Acid Cancelled 02/27/17 1520: Lactic Acid 4.3 H 02/27/17 1520: Ionized Calcium Pending 02/27/17 1520: Plasma Potassium 4.3, Anion Gap 14, Estimated GFR > 60, Glucose 178 H, Calcium 5.9 *L, Phosphorus 1.6 L, Magnesium 2.2, Total Bilirubin 0.8, AST 16, ALT 16, Albumin 3.6, Triglycerides 864 H, CBC w Diff NO MAN DIFF REQ, RBC 5.64 H, MCV 82.2, MCH 27.9, RDW 13.6, MPV 9.6, Gran % 80.9 H, Lymphocytes % 14.5 L, Monocytes % 4.4, Eosinophils % 0, Basophils % 0.2, Absolute Granulocytes 7.3 H, Absolute Lymphocytes 1.3, Absolute Monocytes 0.4, Absolute Eosinophils 0, Absolute Basophils 0, PUBS MCHC 33.9 02/27/17 1215: Ionized Calcium Pending 02/27/17 1215: Plasma Potassium 5.1 H, Anion Gap 16, Estimated GFR > 60, Glucose 252 H, Lactic Acid 3.7 H, Calcium 5.1 *L, Phosphorus 1.7 L, Magnesium 1.6, Total Bilirubin 0.8, AST 32, ALT 30, Albumin 3.0 L, Acetone Level NEGATIVE 02/27/17 1150: Urinalysis LIGHT H, Urine Color YESIKA, Urine Clarity HAZY H, Urine pH 6.0, Ur Specific [place] >= 1.030, Urine Protein 100 H, Urine Ketones 15 H, Urine Nitrite NEG, Urine Bilirubin NEG, Urine Urobilinogen 0.2, Ur Leukocyte Esterase NEG, Ur Microscopic SEDIMENT EXAMINED, Urine RBC RARE, Urine WBC 1-3 H, Ur Epithelial Cells RARE, Urine Bacteria FEW H, Hyaline Casts 1-3 H, Granular Casts 1-3 H, Urine Mucus MOD H, Urine Hemoglobin NEG, Urine Glucose >=1000 H 02/27/17 0930: Ionized Calcium Pending 02/27/17 0930: Plasma Potassium 5.5 H, Anion Gap 18 H, Estimated GFR > 60, Glucose 263 H, Lactic Acid 4.5 H, Calcium 5.3 *L, Phosphorus 1.3 L, Magnesium 1.8, Total Bilirubin 1.2, AST 37 H, ALT 23, Albumin 2.8 L, PT 11.7, INR 1.12, APTT 29, Fibrinogen Activity 446 H, Fibrin Degrad Products <10 ug/ml, CBC w Diff MAN DIFF ORDERED, RBC 5.87 H, MCV 81.2, MCH 27.9, RDW 13.1, MPV 9.1, Segmented Neutrophils 62, Band Neutrophils 12 H, Lymphocytes 23, Monocytes 3, Platelet Estimate VERIFIED BY SMEAR, Polychromasia 1+, PUBS MCHC 34.4 Impression/Plan Impression/Plan Impression/Plan: Impression 36 year old woman * 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
--- NOTE | 2017-02-28 09:56 | ULTRASOUND REPORT ---
EXAMINATION: US ABDOMEN LIMITED CLINICAL INFORMATION: Acute pancreatitis. COMPARISON: CT abdomen 02/26/2017. TECHNIQUE: Real-time imaging of the right upper quadrant abdominal viscera. FINDINGS: PANCREAS: Pancreas could not be seen as it is obscured by bowel gas. LIVER: Once again seen is fatty infiltration liver with increased echogenicity. The liver demonstrates normal size, and contour . No focal lesion or intrahepatic biliary duct dilatation. GALLBLADDER: The gallbladder is physiologically distended without evidence of stones, sludge, polyps, wall thickening or pericholecystic fluid. COMMON BILE DUCT: Normal in caliber measuring 0.4 cm in diameter. RIGHT KIDNEY: No hydronephrosis. No renal calculi or focal parenchymal lesions. The kidney measures 9.5 cm in maximum dimension. FREE FLUID: None. IMPRESSION: 1. Fatty infiltration of liver. 2. The pancreas could not be seen.
--- NOTE | 2017-02-28 10:16 | PN- Infect Dx ---
Subjective Subjective: Afebrile. She feels better with decreased abdominal discomfort and decreased nausea. She does note some dyspnea secondary to inability to take a deep inspiration. Objective Last 24 Hrs of Vital Signs/I&O Vital Signs Date Time Temp Pulse Resp B/P B/P Pulse O2 O2 Flow FiO2 Mean Ox Delivery Rate 02/29 800 92 Nasal 3.0L Cannula 02/28 08 96.6 126 24 122/70 91 Nasal 3.0L Cannula 02/28 0000 98.4 124 21 130/74 97 Room Air 02/27 1600 96.8 120 26 118/70 93 Room Air Room Air 02/27 1600 92 Room Air Room Air 02/27 1200 99 Room Air Room Air Intake & Output 02/28 1600 02/28 0802/28 0000 Intake Total 1656 1150 Output Total 215 200 Balance 1441 950 Intake, IV 1656 1150 Output, Urine 215 200 Physical Exam Other Physical Findings: She appears more comfortable in no acute distress Neck tunneled catheter in the right IJ with no inflammation at the site Lungs decreased breath sounds at both bases Heart regular rhythm with no murmur Abdomen is less distended, mildly tender to palpation diffusely, with no guarding or rebound, positive bowel sounds Extremities trace edema both lower extremities Finnegan catheter remains in place Results Last 24 Hours of Lab Results: Laboratory Tests 02/28 02/28 02/28 0600 0305 0300 Chemistry Sodium (137 - 145 mmol/L) 134 L 135 L Potassium (3.5 - 5.1 mmol/L) 4.2 4.3 Chloride (98 - 107 mmol/L) 108 H 108 H Carbon Dioxide (22 - 30 mmol/L) 16 L 17 L Anion Gap (5 - 16) 10 10 BUN (7 - 17 mg/dL) 12 11 Creatinine (0.5 - 1.0 mg/dL) 0.7 0.7 Estimated GFR (>60 ml/min) > 60 > 60 Glucose (65 - 99 mg/dL) 154 H 147 H C-Peptide Pending Lactic Acid (0.7 - 2.1 mmol/L) 1.8 Calcium (8.4 - 10.2 mg/dL) 5.9 *L 6.1 L Phosphorus (2.5 - 4.5 mg/dL) 2.1 L 2.2 L Magnesium (1.6 - 2.3 mg/dL) 2.6 H 2.6 H Total Bilirubin (0.2 - 1.3 mg/dL) 0.7 0.7 AST (14 - 36 U/L) 37 H 34 ALT (9 - 52 U/L) 27 21 Albumin (3.5 - 5.0 g/dL) 3.0 L 3.1 L Triglycerides (<150 mg/dL) 677 H Hematology CBC w Diff NO MAN DIFF REQ WBC (4.8 - 10.8 /CUMM) 10.0 RBC (4.20 - 5.40 /CUMM) 5.04 Hgb (12.0 - 16.0 G/DL) 13.9 Hct (37 - 47 %) 41.5 MCV (81.0 - 99.0 FL) 82.3 MCH (27.0 - 31.0 PG) 27.5 RDW (11.5 - 14.5 %) 14.0 Plt Count (130 - 400 /CUMM) 190 MPV (7.4 - 10.4 FL) 8.1 Gran % (42.2 - 75.2 %) 79.8 H Lymphocytes % (20.5 - 51.1 %) 17.4 L Monocytes % (1.7 - 9.3 %) 2.7 Eosinophils % (0 - 5 %) 0.1 Basophils % (0.0 - 2.0 %) 0 L Absolute Granulocytes (1.4 - 6.5 /CUMM) 8.0 H Absolute Lymphocytes (1.2 - 3.4 /CUMM) 1.7 Absolute Monocytes (0.10 - 0.60 /CUMM) 0.3 Absolute Eosinophils (0.0 - 0.7 /CUMM) 0 Absolute Basophils (0.0 - 0.2 /CUMM) 0 PUBS MCHC (33.0 - 37.0 G/DL) 33.4 Immunology SHAHEED Antibody Pending 02/28 02/27 0000 2105 Chemistry Sodium (137 - 145 mmol/L) 134 L 134 L Potassium (3.5 - 5.1 mmol/L) 4.6 4.7 Chloride (98 - 107 mmol/L) 109 H 108 H Carbon Dioxide (22 - 30 mmol/L) 15 L 15 L Anion Gap (5 - 16) 10 11 BUN (7 - 17 mg/dL) 10 10 Creatinine (0.5 - 1.0 mg/dL) 0.7 0.7 Estimated GFR (>60 ml/min) > 60 > 60 Glucose (65 - 99 mg/dL) 144 H 125 H Lactic Acid (0.7 - 2.1 mmol/L) 1.7 2.2 H Calcium (8.4 - 10.2 mg/dL) 5.7 *L 6.1 L Phosphorus (2.5 - 4.5 mg/dL) 2.1 L 2.2 L Magnesium (1.6 - 2.3 mg/dL) 2.6 H 2.7 H Total Bilirubin (0.2 - 1.3 mg/dL) 0.6 0.6 AST (14 - 36 U/L) 30 25 ALT (9 - 52 U/L) 21 20 Albumin (3.5 - 5.0 g/dL) 3.1 L 3.3 L Hematology CBC w Diff NO MAN DIFF REQ NO MAN DIFF REQ WBC (4.8 - 10.8 /CUMM) 10.0 8.4 RBC (4.20 - 5.40 /CUMM) 5.25 5.45 H Hgb (12.0 - 16.0 G/DL) 14.5 15.2 Hct (37 - 47 %) 42.2 44.8 MCV (81.0 - 99.0 FL) 80.5 L 82.2 MCH (27.0 - 31.0 PG) 27.6 27.9 RDW (11.5 - 14.5 %) 13.5 13.8 Plt Count (130 - 400 /CUMM) 197 124 L MPV (7.4 - 10.4 FL) 8.7 9.3 Gran % (42.2 - 75.2 %) 79.6 H 76.2 H Lymphocytes % (20.5 - 51.1 %) 16.7 L 18.1 L Monocytes % (1.7 - 9.3 %) 3.5 5.4 Eosinophils % (0 - 5 %) 0 0.1 Basophils % (0.0 - 2.0 %) 0.2 0.2 Absolute Granulocytes (1.4 - 6.5 /CUMM) 8.0 H 6.4 Absolute Lymphocytes (1.2 - 3.4 /CUMM) 1.7 1.5 Absolute Monocytes (0.10 - 0.60 /CUMM) 0.3 0.4 Absolute Eosinophils (0.0 - 0.7 /CUMM) 0 0 Absolute Basophils (0.0 - 0.2 /CUMM) 0 0 PUBS MCHC (33.0 - 37.0 G/DL) 34.3 33.9 02/27 02/27 02/27 1830 1823 1520 Chemistry Sodium (137 - 145 mmol/L) 133 L Potassium (3.5 - 5.1 mmol/L) 4.1 Chloride (98 - 107 mmol/L) 107 Carbon Dioxide (22 - 30 mmol/L) 14 L Anion Gap (5 - 16) 11 BUN (7 - 17 mg/dL) 9 Creatinine (0.5 - 1.0 mg/dL) 0.7 Estimated GFR (>60 ml/min) > 60 Glucose (65 - 99 mg/dL) 158 H Lactic Acid (0.7 - 2.1 mmol/L) 3.0 H Cancelled 4.3 H Calcium (8.4 - 10.2 mg/dL) 6.8 L Phosphorus (2.5 - 4.5 mg/dL) 1.9 L Magnesium (1.6 - 2.3 mg/dL) 3.1 H Total Bilirubin (0.2 - 1.3 mg/dL) 0.7 AST (14 - 36 U/L) 23 ALT (9 - 52 U/L) 18 Albumin (3.5 - 5.0 g/dL) 3.3 L Hematology CBC w Diff NO MAN DIFF REQ WBC (4.8 - 10.8 /CUMM) 8.1 RBC (4.20 - 5.40 /CUMM) 5.39 Hgb (12.0 - 16.0 G/DL) 14.8 Hct (37 - 47 %) 44.0 MCV (81.0 - 99.0 FL) 81.6 MCH (27.0 - 31.0 PG) 27.5 RDW (11.5 - 14.5 %) 13.6 Plt Count (130 - 400 /CUMM) 189 MPV (7.4 - 10.4 FL) 9.0 Gran % (42.2 - 75.2 %) 77.4 H Lymphocytes % (20.5 - 51.1 %) 16.8 L Monocytes % (1.7 - 9.3 %) 5.6 Eosinophils % (0 - 5 %) 0.1 Basophils % (0.0 - 2.0 %) 0.1 Absolute Granulocytes (1.4 - 6.5 /CUMM) 6.2 Absolute Lymphocytes (1.2 - 3.4 /CUMM) 1.4 Absolute Monocytes (0.10 - 0.60 /CUMM) 0.4 Absolute Eosinophils (0.0 - 0.7 /CUMM) 0 Absolute Basophils (0.0 - 0.2 /CUMM) 0 PUBS MCHC (33.0 - 37.0 G/DL) 33.7 02/27 02/27 02/27 1520 1520 1215 Chemistry Sodium (137 - 145 mmol/L) 135 L Potassium (3.5 - 5.1 mmol/L) 4.5 Plasma Potassium (3.4 - 4.4 MMOL/L) 4.3 Chloride (98 - 107 mmol/L) 107 Carbon Dioxide (22 - 30 mmol/L) 14 L Anion Gap (5 - 16) 14 BUN (7 - 17 mg/dL) 9 Creatinine (0.5 - 1.0 mg/dL) 0.7 Estimated GFR (>60 ml/min) > 60 Glucose (65 - 99 mg/dL) 178 H Calcium (8.4 - 10.2 mg/dL) 5.9 *L Ionized Calcium Pending Pending Phosphorus (2.5 - 4.5 mg/dL) 1.6 L Magnesium (1.6 - 2.3 mg/dL) 2.2 Total Bilirubin (0.2 - 1.3 mg/dL) 0.8 AST (14 - 36 U/L) 16 ALT (9 - 52 U/L) 16 Albumin (3.5 - 5.0 g/dL) 3.6 Triglycerides (<150 mg/dL) 864 H Hematology CBC w Diff NO MAN DIFF REQ WBC (4.8 - 10.8 /CUMM) 9.0 RBC (4.20 - 5.40 /CUMM) 5.64 H Hgb (12.0 - 16.0 G/DL) 15.7 Hct (37 - 47 %) 46.4 MCV (81.0 - 99.0 FL) 82.2 MCH (27.0 - 31.0 PG) 27.9 RDW (11.5 - 14.5 %) 13.6 Plt Count (130 - 400 /CUMM) 155 MPV (7.4 - 10.4 FL) 9.6 Gran % (42.2 - 75.2 %) 80.9 H Lymphocytes % (20.5 - 51.1 %) 14.5 L Monocytes % (1.7 - 9.3 %) 4.4 Eosinophils % (0 - 5 %) 0 Basophils % (0.0 - 2.0 %) 0.2 Absolute Granulocytes (1.4 - 6.5 /CUMM) 7.3 H Absolute Lymphocytes (1.2 - 3.4 /CUMM) 1.3 Absolute Monocytes (0.10 - 0.60 /CUMM) 0.4 Absolute Eosinophils (0.0 - 0.7 /CUMM) 0 Absolute Basophils (0.0 - 0.2 /CUMM) 0 PUBS MCHC (33.0 - 37.0 G/DL) 33.9 07/05 07/05 1215 1150 Chemistry Sodium (137 - 145 mmol/L) 129 L Potassium (3.5 - 5.1 mmol/L) 5.6 H Plasma Potassium (3.4 - 4.4 MMOL/L) 5.1 H Chloride (98 - 107 mmol/L) 105 Carbon Dioxide (22 - 30 mmol/L) 8 *L Anion Gap (5 - 16) 16 BUN (7 - 17 mg/dL) 9 Creatinine (0.5 - 1.0 mg/dL) 0.9 Estimated GFR (>60 ml/min) > 60 Glucose (65 - 99 mg/dL) 252 H Lactic Acid (0.7 - 2.1 mmol/L) 3.7 H Calcium (8.4 - 10.2 mg/dL) 5.1 *L Phosphorus (2.5 - 4.5 mg/dL) 1.7 L Magnesium (1.6 - 2.3 mg/dL) 1.6 Total Bilirubin (0.2 - 1.3 mg/dL) 0.8 AST (14 - 36 U/L) 32 ALT (9 - 52 U/L) 30 Albumin (3.5 - 5.0 g/dL) 3.0 L Toxicology Acetone Level (NEGATIVE) NEGATIVE Urines Urinalysis LIGHT H Urine Color (YEL,AMB,STR) YESIKA Urine Clarity (CLEAR) HAZY H Urine pH (5.0 - 8.0) 6.0 Ur Specific [place] (1.001 - 1.035) >= 1.030 Urine Protein (NEG,<30 MG/DL) 100 H Urine Ketones (NEG) 15 H Urine Nitrite (NEG) NEG Urine Bilirubin (NEG) NEG Urine Urobilinogen (0.1 - 1.0 EU/dl) 0.2 Ur Leukocyte Esterase (NEG) NEG Ur Microscopic SEDIMENT EXAMINED Urine RBC (0 - 5 /HPF) RARE Urine WBC (0 - 2 /HPF) 1-3 H Ur Epithelial Cells (NONE,FEW) RARE Urine Bacteria (NEG/NONE) FEW H Hyaline Casts (0/LPF) 1-3 H Granular Casts (NONE /LPF) 1-3 H Urine Mucus (FEW,NONE) MOD H Urine Hemoglobin (NEG) NEG Urine Glucose (N MG/DL) >=1000 H Last 24 Hours of Dave Results: Blood cultures 2 February 27 negative Urine culture February 26 negative Urine culture February 27 negative Recent Imaging Studies: Chest x-ray February 28, personally reviewed, reveals blunting of both right and left costophrenic angles with small bilateral pleural effusions Right upper quadrant ultrasound February 27 reveals fatty infiltration of the liver and a physiologically distended gallbladder with no evidence of stones, sludge, polyps, wall thickening or pericholecystic fluid Assessment/Plan Impression: Improved with a dramatic decrease in her triglyceride level following 1 pheresis treatment yesterday with a decrease in her abdominal discomfort as well. She remains afebrile with a normal white blood cell count off antibiotics. Suggestion: 1. Remove Finnegan catheter 2. Remove right IJ tunneled catheter once it is clear she will not require further treatments 3. Continue to follow off antibiotics
[2017-02-28] MEDS ORDERED: CRESTOR20 M2 PO (11:09)
--- NOTE | 2017-02-28 11:49 | NUR ---
RECEIVED PATIENT AT 0800 ALERT/ORIENTED X3, ST ON THE MONITOR 120S-130S, SBP:110S-130S. NO CHEST PAIN. ON ROOM AIR, C/O SHORTNESS OF BREATH/DIFFICULTY TAKING DEEP BREATHES R/T DISTENDED/BLOATED ABDOMEN. 86-88% O2 SAT NOTED, PLACED ON 3L NASAL CANNULA AND INCENTIVE SPIROMETER, ENCOURAGED TO COUGH/DEEP BREATHE. LUNGS CLEAR IN THE UPPER AND DIMINISHED THROUGHOUT. ALPS ON. ABDOMEN FIRM/DISTENDED, HYPOACTIVE BOWEL SOUNDS. DENIES NAUSEA. GIVEN DILAUDID FOR PAIN PER EMAR. JOSHUA IN PLACE DRAINING SCANT DARK YESIKA/RED TINGED SEDIMENT FILLED URINE. SKIN INTACT. GETTING LR @ 125 MLS/HR AND D5NS @ 75 X1 LITER. INSULIN GTT FOUND AT 5 U/HR AND TITRATED PER 'S REQUEST.
--- NOTE | 2017-02-28 12:46 | PN- Diabetes ---
See Addendum Assessment/Plan Assessment: 36-year-old female with past medical history of hypertriglyceridemia and multiple episodes of pancreatitis, type 2 diabetes mellitus, asthma presented to the ED for acute onset of right upper quadrant pain and she was diagnosed with acute pancreatitis which most likely is related to severe hypertriglyceridemia. She has been on insulin drip overnight and her TRIG level remains > [id number]. In addition, her electrolytes have been significantly off which could be ? assay affected by the significantly elevated TRIG. Patient received plasmaphoresis and TRIG level has improved. She was still on insulin drip at 5 units per hour this morning. In addition, she was on D5NS at 75 ml/hour. her FSGs were between 120 and 160. Her calcium level was low ranging between 5.1 and 5.9; her albumin was 3.0. She is on Calcitriol 0.25 mcg iv twice a day, WHITNEY 500 mg every 8 hours and calcium gluconate iv supplement as needed. Clinically she has been feeling better. Plan: 1. continue insulin drip and adjust the insulin drip rate to keep glucose level between 140 and 180 mg/dl; 2. monitor electrolytes and TRIG every 8-12 hours and then IVF will be adjusted accordingly; 3. hypocalcemia with secondary hyperparathyroidism and severe vitamin D deficiency ( undetectable 25 OH vitamin D) ---continue calcitriol 0.25 mcg iv twice a day; ---increase WHITNEY to 500 mg every 6 hours; ---consider starting vitamin d2 50,000 units once a week ---monitor calcium, albumin, phos and Mg. will follow. Subjective Subjective: She feels better. Objective Last 24 Hrs of Vital Signs/I&O Vital Signs Date Time Temp Pulse Resp B/P B/P Pulse O2 O2 Flow FiO2 Mean Ox Delivery Rate 02/28 1130 Nasal 3.0L Cannula 02/28 1130 92 Nasal 3.0L Cannula 02/28 08 92 Nasal 3.0L Cannula 02/28 0800 96.6 126 24 122/70 91 Nasal 3.0L Cannula 02/28 0000 98.4 124 21 130/74 97 Room Air / 1600 96.8 120 26 118/70 93 Room Air Room Air / 1600 92 Room Air Room Air Intake & Output 02/28 1600 /06 0800 07/ 0000 Intake Total 1656 1150 Output Total 215 200 Balance 1441 950 Intake, IV 1656 1150 Output, Urine 215 200 Findings Pertinent Lab/Dave Results: Laboratory Tests 02/28 02/28 02/28 1215 0600 0305 Chemistry Sodium (137 - 145 mmol/L) Pending 134 L 135 L Potassium (3.5 - 5.1 mmol/L) Pending 4.2 4.3 Chloride (98 - 107 mmol/L) Pending 108 H 108 H Carbon Dioxide (22 - 30 mmol/L) Pending 16 L 17 L Anion Gap (5 - 16) Pending 10 10 BUN (7 - 17 mg/dL) Pending 12 11 Creatinine (0.5 - 1.0 mg/dL) Pending 0.7 0.7 Estimated GFR (>60 ml/min) > 60 > 60 Glucose (65 - 99 mg/dL) Pending 154 H 147 H Lactic Acid (0.7 - 2.1 mmol/L) 1.8 Calcium (8.4 - 10.2 mg/dL) Pending 5.9 *L 6.1 L Phosphorus (2.5 - 4.5 mg/dL) Pending 2.1 L 2.2 L Magnesium (1.6 - 2.3 mg/dL) Pending 2.6 H 2.6 H Total Bilirubin (0.2 - 1.3 mg/dL) Pending 0.7 0.7 AST (14 - 36 U/L) Pending 37 H 34 ALT (9 - 52 U/L) Pending 27 21 Creatine Kinase Pending Albumin (3.5 - 5.0 g/dL) Pending 3.0 L 3.1 L Triglycerides (<150 mg/dL) Pending 677 H Coagulation PT Pending INR Pending APTT Pending Fibrinogen Activity Pending Fibrin Degrad Products Pending Hematology CBC w Diff NO MAN DIFF REQ WBC (4.8 - 10.8 /CUMM) 10.0 RBC (4.20 - 5.40 /CUMM) 5.04 Hgb (12.0 - 16.0 G/DL) 13.9 Hct (37 - 47 %) 41.5 MCV (81.0 - 99.0 FL) 82.3 MCH (27.0 - 31.0 PG) 27.5 RDW (11.5 - 14.5 %) 14.0 Plt Count (130 - 400 /CUMM) 190 MPV (7.4 - 10.4 FL) 8.1 Gran % (42.2 - 75.2 %) 79.8 H Lymphocytes % (20.5 - 51.1 %) 17.4 L Monocytes % (1.7 - 9.3 %) 2.7 Eosinophils % (0 - 5 %) 0.1 Basophils % (0.0 - 2.0 %) 0 L Absolute Granulocytes (1.4 - 6.5 /CUMM) 8.0 H Absolute Lymphocytes (1.2 - 3.4 /CUMM) 1.7 Absolute Monocytes (0.10 - 0.60 /CUMM) 0.3 Absolute Eosinophils (0.0 - 0.7 /CUMM) 0 Absolute Basophils (0.0 - 0.2 /CUMM) 0 PUBS MCHC (33.0 - 37.0 G/DL) 33.4 0706 07/06 0300 0000 Chemistry Sodium (137 - 145 mmol/L) 134 L Potassium (3.5 - 5.1 mmol/L) 4.6 Chloride (98 - 107 mmol/L) 109 H Carbon Dioxide (22 - 30 mmol/L) 15 L Anion Gap (5 - 16) 10 BUN (7 - 17 mg/dL) 10 Creatinine (0.5 - 1.0 mg/dL) 0.7 Estimated GFR (>60 ml/min) > 60 Glucose (65 - 99 mg/dL) 144 H C-Peptide Pending Lactic Acid (0.7 - 2.1 mmol/L) 1.7 Calcium (8.4 - 10.2 mg/dL) 5.7 *L Phosphorus (2.5 - 4.5 mg/dL) 2.1 L Magnesium (1.6 - 2.3 mg/dL) 2.6 H Total Bilirubin (0.2 - 1.3 mg/dL) 0.6 AST (14 - 36 U/L) 30 ALT (9 - 52 U/L) 21 Albumin (3.5 - 5.0 g/dL) 3.1 L Hematology CBC w Diff NO MAN DIFF REQ WBC (4.8 - 10.8 /CUMM) 10.0 RBC (4.20 - 5.40 /CUMM) 5.25 Hgb (12.0 - 16.0 G/DL) 14.5 Hct (37 - 47 %) 42.2 MCV (81.0 - 99.0 FL) 80.5 L MCH (27.0 - 31.0 PG) 27.6 RDW (11.5 - 14.5 %) 13.5 Plt Count (130 - 400 /CUMM) 197 MPV (7.4 - 10.4 FL) 8.7 Gran % (42.2 - 75.2 %) 79.6 H Lymphocytes % (20.5 - 51.1 %) 16.7 L Monocytes % (1.7 - 9.3 %) 3.5 Eosinophils % (0 - 5 %) 0 Basophils % (0.0 - 2.0 %) 0.2 Absolute Granulocytes (1.4 - 6.5 /CUMM) 8.0 H Absolute Lymphocytes (1.2 - 3.4 /CUMM) 1.7 Absolute Monocytes (0.10 - 0.60 /CUMM) 0.3 Absolute Eosinophils (0.0 - 0.7 /CUMM) 0 Absolute Basophils (0.0 - 0.2 /CUMM) 0 PUBS MCHC (33.0 - 37.0 G/DL) 34.3 Immunology SHAHEED Antibody Pending 02/27 02/27 2105 1830 Chemistry Sodium (137 - 145 mmol/L) 134 L 133 L Potassium (3.5 - 5.1 mmol/L) 4.7 4.1 Chloride (98 - 107 mmol/L) 108 H 107 Carbon Dioxide (22 - 30 mmol/L) 15 L 14 L Anion Gap (5 - 16) 11 11 BUN (7 - 17 mg/dL) 10 9 Creatinine (0.5 - 1.0 mg/dL) 0.7 0.7 Estimated GFR (>60 ml/min) > 60 > 60 Glucose (65 - 99 mg/dL) 125 H 158 H Lactic Acid (0.7 - 2.1 mmol/L) 2.2 H 3.0 H Calcium (8.4 - 10.2 mg/dL) 6.1 L 6.8 L Phosphorus (2.5 - 4.5 mg/dL) 2.2 L 1.9 L Magnesium (1.6 - 2.3 mg/dL) 2.7 H 3.1 H Total Bilirubin (0.2 - 1.3 mg/dL) 0.6 0.7 AST (14 - 36 U/L) 25 23 ALT (9 - 52 U/L) 20 18 Albumin (3.5 - 5.0 g/dL) 3.3 L 3.3 L Hematology CBC w Diff NO MAN DIFF REQ NO MAN DIFF REQ WBC (4.8 - 10.8 /CUMM) 8.4 8.1 RBC (4.20 - 5.40 /CUMM) 5.45 H 5.39 Hgb (12.0 - 16.0 G/DL) 15.2 14.8 Hct (37 - 47 %) 44.8 44.0 MCV (81.0 - 99.0 FL) 82.2 81.6 MCH (27.0 - 31.0 PG) 27.9 27.5 RDW (11.5 - 14.5 %) 13.8 13.6 Plt Count (130 - 400 /CUMM) 124 L 189 MPV (7.4 - 10.4 FL) 9.3 9.0 Gran % (42.2 - 75.2 %) 76.2 H 77.4 H Lymphocytes % (20.5 - 51.1 %) 18.1 L 16.8 L Monocytes % (1.7 - 9.3 %) 5.4 5.6 Eosinophils % (0 - 5 %) 0.1 0.1 Basophils % (0.0 - 2.0 %) 0.2 0.1 Absolute Granulocytes (1.4 - 6.5 /CUMM) 6.4 6.2 Absolute Lymphocytes (1.2 - 3.4 /CUMM) 1.5 1.4 Absolute Monocytes (0.10 - 0.60 /CUMM) 0.4 0.4 Absolute Eosinophils (0.0 - 0.7 /CUMM) 0 0 Absolute Basophils (0.0 - 0.2 /CUMM) 0 0 PUBS MCHC (33.0 - 37.0 G/DL) 33.9 33.7 02/27 02/27 02/27 1823 1520 1520 Chemistry Lactic Acid (0.7 - 2.1 mmol/L) Cancelled 4.3 H Ionized Calcium Pending 02/27 1520 Chemistry Sodium (137 - 145 mmol/L) 135 L Potassium (3.5 - 5.1 mmol/L) 4.5 Plasma Potassium (3.4 - 4.4 MMOL/L) 4.3 Chloride (98 - 107 mmol/L) 107 Carbon Dioxide (22 - 30 mmol/L) 14 L Anion Gap (5 - 16) 14 BUN (7 - 17 mg/dL) 9 Creatinine (0.5 - 1.0 mg/dL) 0.7 Estimated GFR (>60 ml/min) > 60 Glucose (65 - 99 mg/dL) 178 H Calcium (8.4 - 10.2 mg/dL) 5.9 *L Phosphorus (2.5 - 4.5 mg/dL) 1.6 L Magnesium (1.6 - 2.3 mg/dL) 2.2 Total Bilirubin (0.2 - 1.3 mg/dL) 0.8 AST (14 - 36 U/L) 16 ALT (9 - 52 U/L) 16 Albumin (3.5 - 5.0 g/dL) 3.6 Triglycerides (<150 mg/dL) 864 H Hematology CBC w Diff NO MAN DIFF REQ WBC (4.8 - 10.8 /CUMM) 9.0 RBC (4.20 - 5.40 /CUMM) 5.64 H Hgb (12.0 - 16.0 G/DL) 15.7 Hct (37 - 47 %) 46.4 MCV (81.0 - 99.0 FL) 82.2 MCH (27.0 - 31.0 PG) 27.9 RDW (11.5 - 14.5 %) 13.6 Plt Count (130 - 400 /CUMM) 155 MPV (7.4 - 10.4 FL) 9.6 Gran % (42.2 - 75.2 %) 80.9 H Lymphocytes % (20.5 - 51.1 %) 14.5 L Monocytes % (1.7 - 9.3 %) 4.4 Eosinophils % (0 - 5 %) 0 Basophils % (0.0 - 2.0 %) 0.2 Absolute Granulocytes (1.4 - 6.5 /CUMM) 7.3 H Absolute Lymphocytes (1.2 - 3.4 /CUMM) 1.3 Absolute Monocytes (0.10 - 0.60 /CUMM) 0.4 Absolute Eosinophils (0.0 - 0.7 /CUMM) 0 Absolute Basophils (0.0 - 0.2 /CUMM) 0 PUBS MCHC (33.0 - 37.0 G/DL) 33.9
--- NOTE | 2017-02-28 12:55 | Cons- General Surgery ---
General Information and HPI Consulting Request Date of Consult: 02/27/17 Requested By: VANCE ANNA MD Reason for Consult: Pancreatitis, r/o ACS Source of Information: patient Exam Limitations: no limitations History of Present Illness: 36 year old female presented to the ED with abdominal pain. She was diagnosed with pancreatitis d/t elevated triglycerides. She has h/o the same happening in the past but this time she admitted to the pain being different. She has been resuscitated since the night prior when she was admitted. Today she was noted to be more distended. Given the resuscitation and distention I was asked to evaluate for possible abdominal compartment syndrome. Patient still c/o of some epigastric pain and she does feel bloated. Allergies/Medications Allergies: Coded Allergies: Penicillins (HIVES 02/28/17) atorvastatin (From LIPITOR) (THROAT CLOSES 02/28/17) Home Med List: Acetaminophen/Hydrocodone Bi ([place] 325 MG-5 MG) 1 TAB TAB 1 TAB PO Q6HR PRN PAIN Albuterol Sulfate (Proair Hfa) 90 MCG HFA.AER.AD 2 PUF INH Q4-6 PRN PRN WHEEZING (Reported) Alprazolam 0.25 MG TABLET 1 TAB PO PRN ANXIETY (Reported) CHOLECALCIFEROL (VITAMIN D3) (Vitamin D-3) (Unknown Strength) CAPSULE (Unknown Dose) PO DAILY SUPPLEMENT (Reported) Cyclobenzaprine (Flexeril 5MG Tab) 5 MG TAB 1 TAB PO QHS PRN PAIN Ethinyl Estradiol/Norgestima (Tri-Sprintec 28 35 Mcg-0.25 MG) 1 TAB TAB 1 TAB PO DAILY CONTROL (Reported) Fenofibrate 160 MG TABLET 1 TAB PO DAILY HIGH CHOLESTROL (Reported) Insulin Lispro, Recombinant (Humalog) 100 U/ML EDVIN 1-5 UNIT SC DAILY DIABETES (Reported) Metformin Hydrochloride (Metformin HCl) 500 MG TAB 1 TAB PO BID DIABETES ( Reported) Multivitamin (Multiple Vitamins) 1 EACH TABLET 1 TAB PO DAILY SUPPLEMENT ( Reported) Union-3 Acid Ethyl Esters 1 GRAM CAPSULE 2 CAP PO BID VITAMIN SUPPORT ( Reported) Rosuvastatin Calcium (Crestor) 20 MG TABLET 1 TAB PO DAILY HIGH CHOLESTROL ( Reported) Vitamin B Complex 1 EACH CAPSULE 1 CAP PO DAILY SUPPLEMENT (Reported) Current Medications: Current Medications Sig/Jack Start time Last Medication Dose Route Stop Time Status Admin Acetaminophen 325 MG Q6 PRN 07/ 1845 AC PO Acetaminophen 1,000 MG Q6 PRN 02/26 1845 AC 07 IV 0747 Atorvastatin Calcium 80 MG 1700 07/ 1700 DC PO Calcitriol 0.25 MCG BID 07/ 1212 AC 07/ IV 1108 Calcium Carbonate 500 MG Q6 07/ 1200 AC 07 PO 1109 Calcium Carbonate 500 MG Q8 07 2215 DC 07 PO 0555 Calcium Chloride 1 GM ONCE ONE 02/27 0915 CAN IV 02/27 0916 Calcium Gluconate 1 GM ONCE ONE 02/28 0745 DC 02/28 Sodium Chloride 100 ML IV 02/28 0844 0830 Calcium Gluconate 1 GM ONCE ONE 02/28 0530 DC 02/28 Sodium Chloride 100 ML IV 02/28 0629 0631 Calcium Gluconate 1 GM ONCE ONE 02/28 0100 DC 02/28 Sodium Chloride 100 ML IV 02/28 0159 0159 Calcium Gluconate 1 GM ONCE ONE 02/27 1715 DC 07/ Sodium Chloride 100 ML IV 07 1814 1726 Calcium Gluconate 1 GM ONCE ONE 02/27 1715 DC 07/ Sodium Chloride 100 ML IV 07/ 1814 1730 Ceftazidime 1,000 MG IQ8 / 0215 DC 07 IV 0841 Dextrose/Sodium 1,000 ML Q20H / 2245 DC 07/ Chloride IV 07/ 1204 2245 Enoxaparin Sodium 40 MG 1700 07/ 1700 OH SC Fenofibrate 145 MG DAILY 07/ 0030 AC 02/28 PO 1109 Heparin Sodium 5,000 UNIT Q8 / 2200 02/27 (Porcine) SC 2210 Hydromorphone HCl 2 MG ONE TIME ONE 02/28 0645 DC / IV PUSH / 0646 0615 Hydromorphone HCl 1 MG Q3 PRN 02/27 0800 AC 02/28 IV 1102 Insulin Human Regular 100 UNITS .STK-MED ONE 02/27 1616 DC IV 07/ 1617 Insulin Human Regular 100 UNIT Q24H / 2045 AC 07/ Sodium Chloride 100 ML IV 0507 Lactated Ringer's 1,000 ML Q10H / 2100 AC 02/28 IV 0302 Magnesium Sulfate 1 GM Q2H 02/27 1415 DC 07 Dextrose/Water 100 ML IV 02/27 1814 1700 Magnesium Sulfate 1 GM ONCE ONE 02/27 0915 DC 02/27 Dextrose/Water 100 ML IV 02/27 1314 1217 Metoclopramide HCl 10 MG Q6P PRN 02/28 0215 AC IV Metronidazole 500 MG IQ8 02/27 0215 DC 02/27 N/A 1 UNIT IV 0842 Montelukast Sodium 10 MG AT BEDTIME 02/26 2200 AC 02/27 PO 2226 Non-Formulary 0 SEE ADMIN CRITERIA 02/26 1900 UNVr Medication ANY Ondansetron HCl 4 MG ONCE ONE 02/27 2330 DC 02/27 IV 02/27 2331 2343 Ondansetron HCl 4 MG .STK-MED ONE 02/27 1438 DC IM 02/27 1439 Ondansetron HCl 4 MG Q6P PRN 02/26 1930 AC 02/28 IV 0512 Pantoprazole Sodium 40 MG DAILY 02/27 1000 AC 02/28 IV 1108 Rosuvastatin Calcium 20 MG DAILY 02/28 1115 AC PO Trimethobenzamide HCl 200 MG TID PRN 02/28 0215 AC 02/28 IM 0212 Past History Medical History Blood Transfusion Hx: No Neurological: NONE EENT: NONE Cardiovascular: HIGH TRIGLYCERIDES Respiratory: asthma Gastrointestinal: pancreatitis Hepatic: INFLAMED LIVER Renal: NONE Musculoskeletal: NONE Psychiatric: anxiety Endocrine: diabetes Blood Disorders: NONE Cancer(s): NONE 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 Home Services at Home: None Smoking Status: Never Smoked ETOH Use: denies use Illicit Drug Use: denies illicit drug use Review of Systems Review of Systems: Negative aside for the above mentioned positives. Exam & Diagnostic Data Vital Signs and I&O Vital Signs Date Time Temp Pulse Resp B/P B/P Pulse O2 O2 Flow FiO2 Mean Ox Delivery Rate 02/28 1130 Nasal 3.0L Cannula 02/28 1130 92 Nasal 3.0L Cannula 02/28 08 92 Nasal 3.0L Cannula 02/28 08 96.6 126 24 122/70 91 Nasal 3.0L Cannula 02/28 0000 98.4 124 21 130/74 97 Room Air 02/27 1600 96.8 120 26 118/70 93 Room Air Room Air 02/27 1600 92 Room Air Room Air Intake & Output 02/28 0802/28 0000 02/27 0802/27 0000 Intake Total 1656 1150 1587 1260 2000 Output Total 215 200 300 100 Balance 9715 920 3062 1160 1999 Intake, IV 1656 1150 1587 1260 1999 Output, Urine 215 200 300 100 Patient 173 lb Weight Weight Bed scale Measurement Method Physical Exam General Appearance: well developed/nourished, no apparent distress, alert, awake Head: atraumatic, normal appearance Eyes: Bilateral: normal appearance. Neck: normal inspection, supple Respiratory: chest non-tender Cardiovascular: regular rate/rhythm Gastrointestinal: soft, distention, tenderness (epigastric) Back: normal range of motion Neurologic/Psych: no motor/sensory deficits Cranial Nerves: normal hearing, normal speech Last 24 Hours of Labs: Laboratory Tests 02/28 02/28 02/28 1215 0600 0305 Chemistry Sodium (137 - 145 mmol/L) Pending 134 L 135 L Potassium (3.5 - 5.1 mmol/L) Pending 4.2 4.3 Chloride (98 - 107 mmol/L) Pending 108 H 108 H Carbon Dioxide (22 - 30 mmol/L) Pending 16 L 17 L Anion Gap (5 - 16) Pending 10 10 BUN (7 - 17 mg/dL) Pending 12 11 Creatinine (0.5 - 1.0 mg/dL) Pending 0.7 0.7 Estimated GFR (>60 ml/min) > 60 > 60 Glucose (65 - 99 mg/dL) Pending 154 H 147 H Lactic Acid (0.7 - 2.1 mmol/L) 1.8 Calcium (8.4 - 10.2 mg/dL) Pending 5.9 *L 6.1 L Phosphorus (2.5 - 4.5 mg/dL) Pending 2.1 L 2.2 L Magnesium (1.6 - 2.3 mg/dL) Pending 2.6 H 2.6 H Total Bilirubin (0.2 - 1.3 mg/dL) Pending 0.7 0.7 AST (14 - 36 U/L) Pending 37 H 34 ALT (9 - 52 U/L) Pending 27 21 Creatine Kinase Pending Albumin (3.5 - 5.0 g/dL) Pending 3.0 L 3.1 L Triglycerides (<150 mg/dL) Pending 677 H Coagulation PT Pending INR Pending APTT Pending Fibrinogen Activity Pending Fibrin Degrad Products Pending Hematology CBC w Diff NO MAN DIFF REQ WBC (4.8 - 10.8 /CUMM) 10.0 RBC (4.20 - 5.40 /CUMM) 5.04 Hgb (12.0 - 16.0 G/DL) 13.9 Hct (37 - 47 %) 41.5 MCV (81.0 - 99.0 FL) 82.3 MCH (27.0 - 31.0 PG) 27.5 RDW (11.5 - 14.5 %) 14.0 Plt Count (130 - 400 /CUMM) 190 MPV (7.4 - 10.4 FL) 8.1 Gran % (42.2 - 75.2 %) 79.8 H Lymphocytes % (20.5 - 51.1 %) 17.4 L Monocytes % (1.7 - 9.3 %) 2.7 Eosinophils % (0 - 5 %) 0.1 Basophils % (0.0 - 2.0 %) 0 L Absolute Granulocytes (1.4 - 6.5 /CUMM) 8.0 H Absolute Lymphocytes (1.2 - 3.4 /CUMM) 1.7 Absolute Monocytes (0.10 - 0.60 /CUMM) 0.3 Absolute Eosinophils (0.0 - 0.7 /CUMM) 0 Absolute Basophils (0.0 - 0.2 /CUMM) 0 PUBS MCHC (33.0 - 37.0 G/DL) 33.4 02/28 02/28 0300 0000 Chemistry Sodium (137 - 145 mmol/L) 134 L Potassium (3.5 - 5.1 mmol/L) 4.6 Chloride (98 - 107 mmol/L) 109 H Carbon Dioxide (22 - 30 mmol/L) 15 L Anion Gap (5 - 16) 10 BUN (7 - 17 mg/dL) 10 Creatinine (0.5 - 1.0 mg/dL) 0.7 Estimated GFR (>60 ml/min) > 60 Glucose (65 - 99 mg/dL) 144 H C-Peptide Pending Lactic Acid (0.7 - 2.1 mmol/L) 1.7 Calcium (8.4 - 10.2 mg/dL) 5.7 *L Phosphorus (2.5 - 4.5 mg/dL) 2.1 L Magnesium (1.6 - 2.3 mg/dL) 2.6 H Total Bilirubin (0.2 - 1.3 mg/dL) 0.6 AST (14 - 36 U/L) 30 ALT (9 - 52 U/L) 21 Albumin (3.5 - 5.0 g/dL) 3.1 L Hematology CBC w Diff NO MAN DIFF REQ WBC (4.8 - 10.8 /CUMM) 10.0 RBC (4.20 - 5.40 /CUMM) 5.25 Hgb (12.0 - 16.0 G/DL) 14.5 Hct (37 - 47 %) 42.2 MCV (81.0 - 99.0 FL) 80.5 L MCH (27.0 - 31.0 PG) 27.6 RDW (11.5 - 14.5 %) 13.5 Plt Count (130 - 400 /CUMM) 197 MPV (7.4 - 10.4 FL) 8.7 Gran % (42.2 - 75.2 %) 79.6 H Lymphocytes % (20.5 - 51.1 %) 16.7 L Monocytes % (1.7 - 9.3 %) 3.5 Eosinophils % (0 - 5 %) 0 Basophils % (0.0 - 2.0 %) 0.2 Absolute Granulocytes (1.4 - 6.5 /CUMM) 8.0 H Absolute Lymphocytes (1.2 - 3.4 /CUMM) 1.7 Absolute Monocytes (0.10 - 0.60 /CUMM) 0.3 Absolute Eosinophils (0.0 - 0.7 /CUMM) 0 Absolute Basophils (0.0 - 0.2 /CUMM) 0 PUBS MCHC (33.0 - 37.0 G/DL) 34.3 Immunology SHAHEED Antibody Pending 02/27 02/27 2105 1830 Chemistry Sodium (137 - 145 mmol/L) 134 L 133 L Potassium (3.5 - 5.1 mmol/L) 4.7 4.1 Chloride (98 - 107 mmol/L) 108 H 107 Carbon Dioxide (22 - 30 mmol/L) 15 L 14 L Anion Gap (5 - 16) 11 11 BUN (7 - 17 mg/dL) 10 9 Creatinine (0.5 - 1.0 mg/dL) 0.7 0.7 Estimated GFR (>60 ml/min) > 60 > 60 Glucose (65 - 99 mg/dL) 125 H 158 H Lactic Acid (0.7 - 2.1 mmol/L) 2.2 H 3.0 H Calcium (8.4 - 10.2 mg/dL) 6.1 L 6.8 L Phosphorus (2.5 - 4.5 mg/dL) 2.2 L 1.9 L Magnesium (1.6 - 2.3 mg/dL) 2.7 H 3.1 H Total Bilirubin (0.2 - 1.3 mg/dL) 0.6 0.7 AST (14 - 36 U/L) 25 23 ALT (9 - 52 U/L) 20 18 Albumin (3.5 - 5.0 g/dL) 3.3 L 3.3 L Hematology CBC w Diff NO MAN DIFF REQ NO MAN DIFF REQ WBC (4.8 - 10.8 /CUMM) 8.4 8.1 RBC (4.20 - 5.40 /CUMM) 5.45 H 5.39 Hgb (12.0 - 16.0 G/DL) 15.2 14.8 Hct (37 - 47 %) 44.8 44.0 MCV (81.0 - 99.0 FL) 82.2 81.6 MCH (27.0 - 31.0 PG) 27.9 27.5 RDW (11.5 - 14.5 %) 13.8 13.6 Plt Count (130 - 400 /CUMM) 124 L 189 MPV (7.4 - 10.4 FL) 9.3 9.0 Gran % (42.2 - 75.2 %) 76.2 H 77.4 H Lymphocytes % (20.5 - 51.1 %) 18.1 L 16.8 L Monocytes % (1.7 - 9.3 %) 5.4 5.6 Eosinophils % (0 - 5 %) 0.1 0.1 Basophils % (0.0 - 2.0 %) 0.2 0.1 Absolute Granulocytes (1.4 - 6.5 /CUMM) 6.4 6.2 Absolute Lymphocytes (1.2 - 3.4 /CUMM) 1.5 1.4 Absolute Monocytes (0.10 - 0.60 /CUMM) 0.4 0.4 Absolute Eosinophils (0.0 - 0.7 /CUMM) 0 0 Absolute Basophils (0.0 - 0.2 /CUMM) 0 0 PUBS MCHC (33.0 - 37.0 G/DL) 33.9 33.7 02/27 02/27 02/27 1823 1520 1520 Chemistry Lactic Acid (0.7 - 2.1 mmol/L) Cancelled 4.3 H Ionized Calcium Pending 02/27 1520 Chemistry Sodium (137 - 145 mmol/L) 135 L Potassium (3.5 - 5.1 mmol/L) 4.5 Plasma Potassium (3.4 - 4.4 MMOL/L) 4.3 Chloride (98 - 107 mmol/L) 107 Carbon Dioxide (22 - 30 mmol/L) 14 L Anion Gap (5 - 16) 14 BUN (7 - 17 mg/dL) 9 Creatinine (0.5 - 1.0 mg/dL) 0.7 Estimated GFR (>60 ml/min) > 60 Glucose (65 - 99 mg/dL) 178 H Calcium (8.4 - 10.2 mg/dL) 5.9 *L Phosphorus (2.5 - 4.5 mg/dL) 1.6 L Magnesium (1.6 - 2.3 mg/dL) 2.2 Total Bilirubin (0.2 - 1.3 mg/dL) 0.8 AST (14 - 36 U/L) 16 ALT (9 - 52 U/L) 16 Albumin (3.5 - 5.0 g/dL) 3.6 Triglycerides (<150 mg/dL) 864 H Hematology CBC w Diff NO MAN DIFF REQ WBC (4.8 - 10.8 /CUMM) 9.0 RBC (4.20 - 5.40 /CUMM) 5.64 H Hgb (12.0 - 16.0 G/DL) 15.7 Hct (37 - 47 %) 46.4 MCV (81.0 - 99.0 FL) 82.2 MCH (27.0 - 31.0 PG) 27.9 RDW (11.5 - 14.5 %) 13.6 Plt Count (130 - 400 /CUMM) 155 MPV (7.4 - 10.4 FL) 9.6 Gran % (42.2 - 75.2 %) 80.9 H Lymphocytes % (20.5 - 51.1 %) 14.5 L Monocytes % (1.7 - 9.3 %) 4.4 Eosinophils % (0 - 5 %) 0 Basophils % (0.0 - 2.0 %) 0.2 Absolute Granulocytes (1.4 - 6.5 /CUMM) 7.3 H Absolute Lymphocytes (1.2 - 3.4 /CUMM) 1.3 Absolute Monocytes (0.10 - 0.60 /CUMM) 0.4 Absolute Eosinophils (0.0 - 0.7 /CUMM) 0 Absolute Basophils (0.0 - 0.2 /CUMM) 0 PUBS MCHC (33.0 - 37.0 G/DL) 33.9 Imaging Results: CT scan - +pancreatitis Assessment/Plan Assessment/Plan Pancreatitis d/t hypertriglyceridemia -no clinical evidence of ACS -Continue resuscitation as per primary team -Monitor UO -Distention likely related to ileus from the pancreatitis and third-spacing -No acute surgical intervention at this time -pleas reconsult with any changes in clinical exam Thank you Consult Acknowledgment - Thank you for your consult request.
[2017-02-28 14:08] LABS: PT 12.9 SEC (9.4-12.5); PTT 28 SEC (25-37)
--- NOTE | 2017-02-28 14:40 | RADIOLOGY REPORT ---
EXAMINATION: XR PORTABLE CHEST CLINICAL INFORMATION: Cough and short of breath. COMPARISON: Portable chest x-ray earlier the same day. TECHNIQUE: Portable frontal view of the chest was obtained. Image is labeled 2:10 PM. FINDINGS: Lung volumes remain diminished with bibasilar atelectasis versus developing infiltrate on the left side greater than right. Small bilateral pleural effusions are also suspected. IMPRESSION: Small bilateral pleural effusions with increasing atelectasis at the bilateral lung bases. Infiltrate especially left lung base not excluded. Continued follow-up along with clinical correlation is recommended.
[2017-02-28 16:00] VITALS: BP 128/64
--- NOTE | 2017-02-28 21:17 | NUR ---
PATIENT'S URINE GROING INCREASING PUS-LIKE, ORANGE/YELLOW, THICK, CONCENTRATED THROUGHT THE DAY SHIFT AND POOR OUTPUT NOTED TO BE 200 MLS OVER 8 HOURS DESPITE GETTING ALMOST 2 LITERS INTAKE. UA/UC SENT PER DR. GORDON AND HOUSESTAFF & DR. WAGNER AWARE OF PATIENT'S OUTPUT. CONTINUING TO MONITOR. JOSHUA TO REMAIN IN PLACE AT THIS TIME.
--- NOTE | 2017-02-28 21:20 | NUR ---
1914: PATIENT BROUGHT DOWN FOR XRAY OF MULTI VIEW ABDOMEN TOLERATED PROCEDURE, SETTLED BACK IN ROOM AND REPORT GIVEN TO RN, COTY. ACCU CHECKS STILL TO REMAIN Q1 HOUR, AND TO ADJUST 1 U/HR UP OR DOWN TO MAINTAINED BS BETWEEN 140-[address] BRENNAN.
--- NOTE | 2017-02-28 21:30 | NUR ---
PT A/Ox3 UP FROM XRAY SETTLED BACK INTO BED. PT ON 3L NC LUNGS CLEAR BUT DIMINISHED. PT C/O FEELING LIKE SHE NEEDS HER INHALER. RESPIRATORY CALLED AND NEBS GIVEN. PT REPORTS PAIN BEGINING TO RETURN. PT ABD FIRM AND DISTENDED. PT SITTING AT 45% OR GREATER FOR EASE OF BREATHING. PT HAS ABSENT BOWEL SOUNDS TO RIGHT UPPER QUADRANT AND HYPOACTIVE BOWEL SOUNDS THROUGHOUT. PT DENIES NAUSEA AT THIS TIME
--- NOTE | 2017-02-28 21:38 | RADIOLOGY REPORT ---
EXAMINATION: XR KIDNEYS URETERS AND BLADDER. CLINICAL INFORMATION: Abdominal pain. Pancreatitis clinically, question ileus. COMPARISON: None TECHNIQUE: AP view abdomen. KUB: No pathologic-appearing calcifications are seen. Stomach is partially air-filled There is a featureless bowel loops identified centrally in the abdomen likely a small bowel loop which could be consistent with a localized ileus type pattern given the history of pancreatitis. Left colon appears collapsed. Right colon contains air and a small amount of stool. Small spherical calcifications deep pelvis are likely phleboliths. No focal destructive or sclerotic osseous lesions are seen. Visualized lung bases are clear. IMPRESSION: Findings most consistent with a localized ileus type of pattern.
[2017-03-01] VITALS: BP 140/70
--- NOTE | 2017-03-01 01:20 | NUR ---
0000 PATIENT RECEIVED ALERT AND ORIENTED X3, SKIN PINK, WARM AND DRY, PATIENT STATES ABDOMINAL PAIN RELIEF AFTER EARLIER PAIN MED, NOW -10/05, JEWEL STRIPPER SINUS TACHYCARDIA WITHOUT ECTOPY, HEART RATE HIGH 110'S TO LOW 120'S/MIN, O2 AT 3L/MIN VIA NC, CONTINOUS O2 SAT 92 TO 95%, BREATHE SOUNDS CLEAR BUT DIMINISHED AT BOTH BASES, RIJ ALESHA CATHETER CLAMPED AND IN PLACE- DRESSING CLEAN, DRY AND INTACT, ABDOMEN DISTENDED AND FIRM BUT NOT TAUT, NO AUDIBLE BS AT THIS TIME, JOSHUA TO GRAVITY WITH CONTINUED LOW UO- URINE YESIKA COLORED, INSULIN DRIP CONTINUES AT 4 UNITS/HR- ACCUCHECK 150 THIS HOUR 0100 PATIENT C/O REOCCURANCE OF SEVERE ABDOMINAL PAIN AFTER COUGHING- PAIN MED GIVEN EARLY NOW WITH PERMISSION OF DR ZABALA 0130 DR GARCIA MADE AWARE OF CONTINUED POOR UO- NO CHANGES IN ORDERS AT THIS TIME
--- NOTE | 2017-03-01 02:30 | NUR ---
0115 DR GARCIA MADE AWARE THAT ABDOMEN REMAINS DISTENDED AND FIRM AND NO AUDIBLE BOWEL SOUNDS
[2017-03-01 04:48] LABS: ABSOLUTE BASOPHIL COUNT 0 /CUMM (0.0-0.2); ABSOLUTE EOSINOPHIL COUNT 0 /CUMM (0.0-0.7); ABSOLUTE GRANULOCYTE CT 5.6 /CUMM (1.4-6.5); ABSOLUTE LYMPH COUNT 1.4 /CUMM (1.2-3.4); ABSOLUTE MONOCYTE COUNT 0.2 /CUMM (0.10-0.60); BASOPHIL % 0.3 % (0.0-2.0); EOSINOPHIL % 0.5 % (0-5); GRANULOCYTE % 76.3 % (42.2-75.2); MEAN CORPUSCULAR HGB CONC 34.4 G/DL (33.0-37.0); MEAN CORPUSCULAR VOLUME 81.3 FL (81.0-99.0); MEAN PLATELET VOLUME 7.4 FL (7.4-10.4); PLATELET COUNT 130 /CUMM (130-400); RBC DISTRIBUTION WIDTH 14.2 % (11.5-14.5); WHITE BLOOD CELL COUNT 7.4 /CUMM (4.8-10.8)
[2017-03-01 04:56] LABS: HEMATOCRIT 29.7 % (37-47); RED BLOOD CELL CT 3.66 /CUMM (4.20-5.40)
--- NOTE | 2017-03-01 06:37 | NUR ---
0400 PATIENT OOB TO [facility] [place]IENT'S REQUEST- SLEEPING IN NAPS, UPON RETURN TO BED STATES THAT SHE IS MORE COMFORTABLE AFTER BELCHING WHILE UP, NOW HYPOACTIVE BS PRESENT TO LOWER QUADRANTS 0500 7 BEAT RUN OF [place] VS IDIOVENTRICULAR RHYTHYM- DR GARCIA NOTIFIED, SEE STRIP 0630 PATIENT CONTINUES TO SLEEP IN NAPS, DR GARCIA MADE AWARE OF AM LABWORK RESULTS (H/H10.2/29.7, POTASSIUM 3.7, TRIGLYCERIDES 675), URINE CLEARER THS AM- OCCASIONAL PINK STREAKS NOTED, AWAITING AM MD ROUNDS
--- NOTE | 2017-03-01 07:16 | PN- Resident CRCU ---
Subjective HPI/CRCU Issues: Patient seen and examined. She is seen sitting upright in bed resting comfortably maintained on supplemental oxygen via nasal cannula. She appears to be in no acute distress. She reports persistent shortness of breath that she continues to attribute to her swollen belly. She is still burping and continues to deny passing gas. She remains nauseated, but states that it is improving; she is requesting to have some gingerale to drink. Otherwise she denies any fever, chills, chest pain, palpitations, vomiting, diarrhea. Objective Vital Signs & I&O Last 8 Hrs of Vitals and I&O: Intake & Output 03/01 1600 Intake Total 1392 Output Total 1825 Balance -433 Intake, IV 1192 Intake, Oral 200 Output, Urine 1825 Exam General Appearance: well developed/nourished, no apparent distress, alert, awake Other Physical Findings: General-well developed, well nourished middle aged woman in no acute distress HEENT-NCAT, PERRL, EOMI, anicteric sclera Cardio/Chest-S1, S2 w/o m/g/r;RRR, nontunneled catheter in place in right chest wall Lung-CTA bilaterally, diminished bibasilar air movement Abdomen-mild tenderness without guarding/rigidity, faint bowel sounds - carter catheter in place draining a red/yellow urine Neuro- Awake and alert, CN II - XII grossly intact Ext-normal pulses, no cyanosis/clubbing/edema Current Medications: Current Medications Sig/Jack Start time Last Medication Dose Route Stop Time Status Admin Acetaminophen 650 MG ONCE ONE 03/01 0315 DC 03/01 PO 03/01 0316 0306 Acetaminophen 325 MG Q6 PRN 02/26 1845 AC PO Acetaminophen 1,000 MG Q6 PRN 02/26 1845 AC 02/27 IV 0747 Albuterol Sulfate 3 ML Q4P PRN 02/28 2145 AC 02/28 INH 2132 Calcitriol 0.25 MCG BID 02/27 1212 AC 03/01 IV 0950 Calcium Carbonate 500 MG Q6 02/28 1200 AC 03/01 PO 1157 Dextrose/Sodium 1,000 ML Q20H 03/01 0230 DC 03/01 Chloride IV 03/01 1549 0808 Dextrose/Sodium 1,000 ML Q10H 03/01 0230 AC 03/01 Chloride IV 1157 Ergocalciferol 50,000 IU QTHURS 02/28 1415 AC 02/28 PO 1847 Fenofibrate 145 MG DAILY 02/27 0030 AC 03/01 PO 0943 Furosemide 40 MG ONCE ONE 03/01 1545 DC IV 03/01 1546 Furosemide 40 MG ONCE ONE 03/01 1215 DC 03/01 IV 03/01 1216 1232 Guaifenesin/ 10 ML Q6P PRN 03/01 0100 AC Dextromethorphan PO Heparin Sodium 5,000 UNIT Q8 02/26 2200 AC 03/01 (Porcine) SC 1404 Hydromorphone HCl 1 MG Q3 PRN 02/27 0800 AC 03/01 IV 1404 Insulin Human Regular 100 UNIT Q24H 02/26 2045 AC 03/01 Sodium Chloride 100 ML IV 0059 Lactated Ringer's 1,000 ML Q20H 03/01 0230 DC 03/01 IV 0235 Lactated Ringer's 1,000 ML Q10H 02/26 2100 DC 03/01 IV 0950 Metoclopramide HCl 10 MG Q6P PRN 02/28 0215 IV Montelukast Sodium 10 MG AT BEDTIME 02/26 2200 AC 02/28 PO 2224 Nicotinic Acid 500 MG WITH MEALS 03/01 1700 AC PO Non-Formulary 0 SEE ADMIN CRITERIA 02/26 1900 UNVr Medication ANY Ondansetron HCl 4 MG Q6P PRN 02/26 1930 AC 03/01 IV 1300 Pantoprazole Sodium 40 MG DAILY 02/27 1000 AC 03/01 IV 0943 Potassium Phosphate 10 mMol ONE ONE 03/01 1215 DC 03/01 Sodium Chloride 250 ML IV 03/01 1617 1404 Rosuvastatin Calcium 20 MG DAILY 02/28 1115 AC 03/01 PO 0943 Trimethobenzamide HCl 200 MG TID PRN 02/28 0215 AC 02/28 IM 0212 Impression/Plan Impression/Problem List Impression: Patient reports mild improvement in her abdominal pain and nausea. Labs this morning demonstrate an acute drop in her hemoglobin, which is most likely dilutional as she has no identifiable source of bleeding and is getting aggressive intravenous hydration with little urine output. Her electrolyte abnormalities are improving, with the exception of phosphate. She is to be given 10mmol of KPhos over four hours with 40mg IV lasix today. She is to be trialed on clear liquid diet. Non-tunneled catheter was removed. Triglycerides remaiend elevated this morning, she remains on the insulin drip with D5NS. This is to be continued throughout the day with repeat levels this evening and in the morning. Lactated ringers is discontinued. Carter catheter removed. #Severe Hypertriglyceridemia, improving #Acute Pancreatitis, improving #Diabetic Ketoacidosis, improving #History of insulin-dependent diabetes mellitus #Lactic acidosis, resolved #Hypocalcemia #Hypophosphatemia #Hypomagnesemia Patient with history of hypertriglyceridemia, insulin-dependent diabetes mellitus, and previous episodes of pancreatitis seen for evaluation of acute onset right upper quadrant abdominal pain. Triglycerides were found to be initially elevated to greater than 10,500 elevated lipase, and CT scan demonstrating acute pancreatitis. Patient was stared on intravenous fluids, pain medications, and antiemetics and admitted to the ICU for further management and care. Nephrology/endocrinology/gastroenterology consults were placed, patient was placed with a non-tunneled catheter and urgently underwent plasampheresis. Patient was later identified to be in DKA for which an insulin drip was started. Serum chemistries were drawn every three hours and electrolytes were aggressively repleted. Patient received ceftazidime / flagyl for concern of abdominal infection but was subsequently followed off antibiotics. -ICU -RIJ non-tunneled cath -Strict ins&outs -Incentive spirometry -D5NS @ 75 mL/hr -Insulin Drip until triglycerides < 500 -Calcium carbonate 500mg PO Q6H -Zofran/Reglan/Tigan -Lipitor 80mg PO Daily -Calitriol 0.25mcg IV BID -Protonix 40mg IV Daily -Fenofibrate 145mg PO Daily -Pain control with Acetaminophen/Dilaudid -Endocrine/GI/Nephro/GS/ID consults -Follow up blood/urine cultures -Clear liquid diet -DVT PPx with subcutaneous heparin -F/U GAD65, C-peptide Problem List: 1. Acute pancreatitis Pain Ratin Tomorrow's Labs & Rationales: CBC ICU Triglycerides Plan DVT/Prophylaxis: mechanical
[2017-03-01 08:00] VITALS: BP 123/65
--- NOTE | 2017-03-01 09:24 | PN- Diabetes ---
Assessment/Plan Assessment: 36-year-old female with past medical history of hypertriglyceridemia and multiple episodes of pancreatitis, type 2 diabetes mellitus, asthma presented to the ED for acute onset of right upper quadrant pain and she was diagnosed with acute pancreatitis which most likely is related to severe hypertriglyceridemia. Patient received plasmaphoresis and TRIG level improved. She is still on insulin drip at 4 units per hour this morning. In addition, she was on D5NS at 100 ml/hour. her FSGs were between 120 and 160. Repeat TRIG 675. with regards to hypocalcemia, she is on Calcitriol 0.25 mcg iv twice a day, WHITNEY 500 mg every 6 hours. Her repeat calcium 6.3, phos 1.2, albumin 2.7 Clinically she has been feeling better. Plan: 1. continue the current insulin drip; monitor FSGs every one hour and the goal of her glucose level is between 140 and 180; 2. continue the current calcium and vitamin D supplement; continue monitoring her electrolytes and calcium level. will follow. Subjective Subjective: she feels better. Objective Last 24 Hrs of Vital Signs/I&O Vital Signs Date Time Temp Pulse Resp B/P B/P Pulse O2 O2 Flow FiO2 Mean Ox Delivery Rate 03/01 800 95 Nasal 3.0L Cannula 03/01 08 98.0 108 20 123/65 95 Nasal 3.0L Cannula 03/01 0400 94 Nasal 3.0L Cannula 03/01 0000 98.1 122 22 140/70 94 Nasal 3.0L Cannula 03/01 0000 92 Nasal 3.0L Cannula 02/28 2123 96 Nasal 3.0L Cannula 02/28 2000 95 Nasal 3.0L Cannula 02/28 1600 98.7 124 28 128/64 98 Nasal 3.0L Cannula 02/28 1600 94 Nasal 3.0L Cannula 02/28 1200 91 Nasal 3.0L Cannula 02/28 1130 Nasal 3.0L Cannula 02/28 1130 92 Nasal 3.0L Cannula Intake & Output 03/01 0803/01 0000 Intake Total 1331 1613 Output Total 310 338 Balance 1021 1275 Intake, IV 1231 1413 Intake, Oral 100 200 Number 0 0 Bowel Movements Output, Urine 310 338 Patient 178 lb Weight Weight Bed scale Measurement Method Findings Pertinent Lab/Dave Results: Laboratory Tests 03/01 02/28 0420 1415 Chemistry Sodium (137 - 145 mmol/L) 135 L Potassium (3.5 - 5.1 mmol/L) 3.7 Chloride (98 - 107 mmol/L) 107 Carbon Dioxide (22 - 30 mmol/L) 21 L Anion Gap (5 - 16) 8 BUN (7 - 17 mg/dL) 7 Creatinine (0.5 - 1.0 mg/dL) 0.5 Estimated GFR (>60 ml/min) > 60 Glucose (65 - 99 mg/dL) 149 H Calcium (8.4 - 10.2 mg/dL) 6.3 L Phosphorus (2.5 - 4.5 mg/dL) 1.2 L Magnesium (1.6 - 2.3 mg/dL) 2.4 H Total Bilirubin (0.2 - 1.3 mg/dL) 0.8 AST (14 - 36 U/L) 40 H ALT (9 - 52 U/L) 29 Albumin (3.5 - 5.0 g/dL) 2.7 L Triglycerides (<150 mg/dL) 675 H Hematology CBC w Diff NO MAN DIFF REQ WBC (4.8 - 10.8 /CUMM) 7.4 RBC (4.20 - 5.40 /CUMM) 3.66 L Hgb (12.0 - 16.0 G/DL) 10.2 L Hct (37 - 47 %) 29.7 L MCV (81.0 - 99.0 FL) 81.3 MCH (27.0 - 31.0 PG) 28.0 RDW (11.5 - 14.5 %) 14.2 Plt Count (130 - 400 /CUMM) 130 MPV (7.4 - 10.4 FL) 7.4 Gran % (42.2 - 75.2 %) 76.3 H Lymphocytes % (20.5 - 51.1 %) 19.6 L Monocytes % (1.7 - 9.3 %) 3.3 Eosinophils % (0 - 5 %) 0.5 Basophils % (0.0 - 2.0 %) 0.3 Absolute Granulocytes (1.4 - 6.5 /CUMM) 5.6 Absolute Lymphocytes (1.2 - 3.4 /CUMM) 1.4 Absolute Monocytes (0.10 - 0.60 /CUMM) 0.2 Absolute Eosinophils (0.0 - 0.7 /CUMM) 0 Absolute Basophils (0.0 - 0.2 /CUMM) 0 PUBS MCHC (33.0 - 37.0 G/DL) 34.4 Urines Urinalysis MANY H Urine Color (YEL,AMB,STR) ORANG H Urine Clarity (CLEAR) TURBD H Urine pH (5.0 - 8.0) 6.0 Ur Specific [place] (1.001 - 1.035) >= 1.030 Urine Protein (NEG,<30 MG/DL) 100 H Urine Ketones (NEG) NEG Urine Nitrite (NEG) POS H Urine Bilirubin (NEG) NEG@ICTO Urine Urobilinogen (0.1 - 1.0 EU/dl) 0.2 Ur Leukocyte Esterase (NEG) NEG Ur Microscopic SEDIMENT EXAMINED Urine RBC (0 - 5 /HPF) >75 H Urine WBC (0 - 2 /HPF) 1-3 H Urine Hemoglobin (NEG) LARGE H Urine Glucose (N MG/DL) NEG 02/28 1215 Chemistry Sodium (137 - 145 mmol/L) 134 L Potassium (3.5 - 5.1 mmol/L) 4.2 Chloride (98 - 107 mmol/L) 108 H Carbon Dioxide (22 - 30 mmol/L) 18 L Anion Gap (5 - 16) 8 BUN (7 - 17 mg/dL) 10 Creatinine (0.5 - 1.0 mg/dL) 0.6 Estimated GFR (>60 ml/min) > 60 Glucose (65 - 99 mg/dL) 139 H Calcium (8.4 - 10.2 mg/dL) 6.4 L Phosphorus (2.5 - 4.5 mg/dL) 2.0 L Magnesium (1.6 - 2.3 mg/dL) 2.5 H Total Bilirubin (0.2 - 1.3 mg/dL) 0.6 AST (14 - 36 U/L) 38 H ALT (9 - 52 U/L) 25 Creatine Kinase (30 - 135 U/L) 654 H Albumin (3.5 - 5.0 g/dL) 2.9 L Triglycerides (<150 mg/dL) 749 H Coagulation PT (9.4 - 12.5 SEC) 12.9 H INR (0.90 - 1.19) 1.23 H APTT (25 - 37 SEC) 28 Fibrinogen Activity (200 - 393 MG/DL) 673 H Fibrin Degrad Products (< 10 ug/ml) >10 but < 40 ug/ml H
--- NOTE | 2017-03-01 10:38 | PN- Infect Dx ---
Subjective Subjective: Afebrile. She continues to complain of abdominal discomfort/distention with mild nausea and with limitation to deep inspiration. Objective Last 24 Hrs of Vital Signs/I&O Vital Signs Date Time Temp Pulse Resp B/P B/P Pulse O2 O2 Flow FiO2 Mean Ox Delivery Rate 03/01 800 95 Nasal 3.0L Cannula 03/01 800 98.0 108 20 123/65 95 Nasal 3.0L Cannula 03/01 0400 94 Nasal 3.0L Cannula 03/01 0000 98.1 122 22 140/70 94 Nasal 3.0L Cannula 03/01 0000 92 Nasal 3.0L Cannula 02/28 2123 96 Nasal 3.0L Cannula 02/28 2000 95 Nasal 3.0L Cannula 02/28 1600 98.7 124 28 128/64 98 Nasal 3.0L Cannula 02/28 1600 94 Nasal 3.0L Cannula 02/28 1200 91 Nasal 3.0L Cannula 02/28 1130 Nasal 3.0L Cannula 02/28 1130 92 Nasal 3.0L Cannula Intake & Output 03/01 1600 03/01 0803/01 0000 Intake Total 1331 1613 Output Total 310 338 Balance 1021 1275 Intake, IV 1231 1413 Intake, Oral 100 200 Number 0 0 Bowel Movements Output, Urine 310 338 Patient 178 lb Weight Weight Bed scale Measurement Method Physical Exam Other Physical Findings: She appears more comfortable in no acute distress Neck tunneled catheter in the right IJ with no inflammation at the site Lungs decreased breath sounds bilaterally Heart regular rhythm with no murmur Abdomen is distended, tender on palpation over the right, with no guarding or rebound, positive bowel sounds Extremities no cyanosis, clubbing or edema Results Last 24 Hours of Lab Results: Laboratory Tests 03/01 02/28 0420 1415 Chemistry Sodium (137 - 145 mmol/L) 135 L Potassium (3.5 - 5.1 mmol/L) 3.7 Chloride (98 - 107 mmol/L) 107 Carbon Dioxide (22 - 30 mmol/L) 21 L Anion Gap (5 - 16) 8 BUN (7 - 17 mg/dL) 7 Creatinine (0.5 - 1.0 mg/dL) 0.5 Estimated GFR (>60 ml/min) > 60 Glucose (65 - 99 mg/dL) 149 H Calcium (8.4 - 10.2 mg/dL) 6.3 L Phosphorus (2.5 - 4.5 mg/dL) 1.2 L Magnesium (1.6 - 2.3 mg/dL) 2.4 H Total Bilirubin (0.2 - 1.3 mg/dL) 0.8 AST (14 - 36 U/L) 40 H ALT (9 - 52 U/L) 29 Albumin (3.5 - 5.0 g/dL) 2.7 L Triglycerides (<150 mg/dL) 675 H Hematology CBC w Diff NO MAN DIFF REQ WBC (4.8 - 10.8 /CUMM) 7.4 RBC (4.20 - 5.40 /CUMM) 3.66 L Hgb (12.0 - 16.0 G/DL) 10.2 L Hct (37 - 47 %) 29.7 L MCV (81.0 - 99.0 FL) 81.3 MCH (27.0 - 31.0 PG) 28.0 RDW (11.5 - 14.5 %) 14.2 Plt Count (130 - 400 /CUMM) 130 MPV (7.4 - 10.4 FL) 7.4 Gran % (42.2 - 75.2 %) 76.3 H Lymphocytes % (20.5 - 51.1 %) 19.6 L Monocytes % (1.7 - 9.3 %) 3.3 Eosinophils % (0 - 5 %) 0.5 Basophils % (0.0 - 2.0 %) 0.3 Absolute Granulocytes (1.4 - 6.5 /CUMM) 5.6 Absolute Lymphocytes (1.2 - 3.4 /CUMM) 1.4 Absolute Monocytes (0.10 - 0.60 /CUMM) 0.2 Absolute Eosinophils (0.0 - 0.7 /CUMM) 0 Absolute Basophils (0.0 - 0.2 /CUMM) 0 PUBS MCHC (33.0 - 37.0 G/DL) 34.4 Urines Urinalysis MANY H Urine Color (YEL,AMB,STR) ORANG H Urine Clarity (CLEAR) TURBD H Urine pH (5.0 - 8.0) 6.0 Ur Specific [place] (1.001 - 1.035) >= 1.030 Urine Protein (NEG,<30 MG/DL) 100 H Urine Ketones (NEG) NEG Urine Nitrite (NEG) POS H Urine Bilirubin (NEG) NEG@ICTO Urine Urobilinogen (0.1 - 1.0 EU/dl) 0.2 Ur Leukocyte Esterase (NEG) NEG Ur Microscopic SEDIMENT EXAMINED Urine RBC (0 - 5 /HPF) >75 H Urine WBC (0 - 2 /HPF) 1-3 H Urine Hemoglobin (NEG) LARGE H Urine Glucose (N MG/DL) NEG 02/28 1215 Chemistry Sodium (137 - 145 mmol/L) 134 L Potassium (3.5 - 5.1 mmol/L) 4.2 Chloride (98 - 107 mmol/L) 108 H Carbon Dioxide (22 - 30 mmol/L) 18 L Anion Gap (5 - 16) 8 BUN (7 - 17 mg/dL) 10 Creatinine (0.5 - 1.0 mg/dL) 0.6 Estimated GFR (>60 ml/min) > 60 Glucose (65 - 99 mg/dL) 139 H Calcium (8.4 - 10.2 mg/dL) 6.4 L Phosphorus (2.5 - 4.5 mg/dL) 2.0 L Magnesium (1.6 - 2.3 mg/dL) 2.5 H Total Bilirubin (0.2 - 1.3 mg/dL) 0.6 AST (14 - 36 U/L) 38 H ALT (9 - 52 U/L) 25 Creatine Kinase (30 - 135 U/L) 654 H Albumin (3.5 - 5.0 g/dL) 2.9 L Triglycerides (<150 mg/dL) 749 H Coagulation PT (9.4 - 12.5 SEC) 12.9 H INR (0.90 - 1.19) 1.23 H APTT (25 - 37 SEC) 28 Fibrinogen Activity (200 - 393 MG/DL) 673 H Fibrin Degrad Products (< 10 ug/ml) >10 but < 40 ug/ml H Last 24 Hours of Dave Results: Blood cultures February 27 negative Urine culture February 27 negative Urine culture February 28 negative Recent Imaging Studies: Chest x-ray February 28, personally reviewed, reveals small bilateral pleural effusions with increasing atelectasis at both lung bases Assessment/Plan Impression: Stable with temperatures and white blood cell count remaining normal off antibiotics. Her abdominal symptoms are improving slowly status post 1 pheresis treatment for pancreatitis secondary to severe hypertriglyceridemia, with her triglyceride level markedly decreased. Suggestion: 1. Remove right IJ tunneled catheter 2. Continue to follow off antibiotics
--- NOTE | 2017-03-01 10:48 | PN- CRCU ---
Subjective HPI/Critical Care Issues: pt seen and examined dyspnea secondary to pain TG stable carter removed Objective Current Medications: Current Medications Sig/Jack Start time Last Medication Dose Route Stop Time Status Admin Acetaminophen 650 MG ONCE ONE 03/01 0315 DC 03/01 PO 03/01 0316 0306 Acetaminophen 325 MG Q6 PRN 02/26 1845 AC PO Acetaminophen 1,000 MG Q6 PRN 02/26 1845 AC 02/27 IV 0747 Albuterol Sulfate 3 ML Q4P PRN 02/28 2145 AC 02/28 INH 2132 Atorvastatin Calcium 80 MG 1700 / 1700 DC PO Calcitriol 0.25 MCG BID 02/27 1212 AC 03/01 IV 0950 Calcium Carbonate 500 MG Q6 02/28 1200 AC 03/01 PO 0610 Dextrose/Sodium 1,000 ML Q20H 03/01 0230 AC 03/01 Chloride IV 03/01 1549 0808 Dextrose/Sodium 1,000 ML Q10H 03/01 0230 AC 03/01 Chloride IV 0237 Dextrose/Sodium 1,000 ML Q20H 02/27 2245 DC 02/27 Chloride IV 02/28 1204 2245 Ergocalciferol 50,000 IU QTHURS 02/28 1415 AC 02/28 PO 1847 Fenofibrate 145 MG DAILY 02/27 0030 AC 03/01 PO 0943 Guaifenesin/ 10 ML Q6P PRN 03/01 0100 AC Dextromethorphan PO Heparin Sodium 5,000 UNIT Q8 / 2200 AC 02/28 (Porcine) SC 2225 Hydromorphone HCl 1 MG Q3 PRN 02/27 0800 AC 03/01 IV 0943 Insulin Human Regular 100 UNIT Q24H 02/26 2045 AC 03/01 Sodium Chloride 100 ML IV 0059 Lactated Ringer's 1,000 ML Q20H 03/01 0230 AC 03/01 IV 0235 Lactated Ringer's 1,000 ML Q10H / 2100 AC 03/01 IV 0950 Metoclopramide HCl 10 MG Q6P PRN 02/28 0215 AC IV Montelukast Sodium 10 MG AT BEDTIME 02/26 2200 AC 02/28 PO 2224 Non-Formulary 0 SEE ADMIN CRITERIA 02/26 1900 UNVr Medication ANY Ondansetron HCl 4 MG Q6P PRN 02/26 1930 AC 02/28 IV 0512 Pantoprazole Sodium 40 MG DAILY 02/27 1000 AC 03/01 IV 0943 Rosuvastatin Calcium 20 MG DAILY 02/28 1115 03/01 PO 0943 Trimethobenzamide HCl 200 MG TID PRN 02/28 0215 02/28 IM 0212 Vital Signs & I&O Last 24 Hrs of Vitals and I&O: Vital Signs Date Time Temp Pulse Resp B/P B/P Pulse O2 O2 Flow FiO2 Mean Ox Delivery Rate 03/01 800 95 Nasal 3.0L Cannula 03/01 08 98.0 108 20 123/65 95 Nasal 3.0L Cannula 03/01 0400 94 Nasal 3.0L Cannula 03/01 0000 98.1 122 22 140/70 94 Nasal 3.0L Cannula 03/01 0000 92 Nasal 3.0L Cannula 02/28 2123 96 Nasal 3.0L Cannula 02/28 2000 95 Nasal 3.0L Cannula 02/28 1600 98.7 124 28 128/64 98 Nasal 3.0L Cannula 02/28 1600 94 Nasal 3.0L Cannula 02/28 1200 91 Nasal 3.0L Cannula 02/28 1130 Nasal 3.0L Cannula 02/28 1130 92 Nasal 3.0L Cannula Intake & Output 03/01 1600 03/01 0800 03/01 0000 Intake Total 1331 1613 Output Total 310 338 Balance 1021 1275 Intake, IV 1231 1413 Intake, Oral 100 200 Number 0 0 Bowel Movements Output, Urine 310 338 Patient 178 lb Weight Weight Bed scale Measurement Method Exam Other Physical Findings: gen awake and alert heent ncat cvs s1, s2 lungs ctab abd minimal sounds ext trace edema Results Last 24 Hrs of Lab Results: Laboratory Tests 03/01/17 0420: Anion Gap 8, Estimated GFR > 60, Glucose 149 H, Calcium 6.3 L, Phosphorus 1.2 L, Magnesium 2.4 H, Total Bilirubin 0.8, AST 40 H, ALT 29, Albumin 2.7 L, Triglycerides 675 H, CBC w Diff NO MAN DIFF REQ, RBC 3.66 L, MCV 81.3, MCH 28.0, RDW 14.2, MPV 7.4, Gran % 76.3 H, Lymphocytes % 19.6 L, Monocytes % 3.3, Eosinophils % 0.5, Basophils % 0.3, Absolute Granulocytes 5.6, Absolute Lymphocytes 1.4, Absolute Monocytes 0.2, Absolute Eosinophils 0, Absolute Basophils 0, PUBS MCHC 34.4 02/28/17 1415: Urinalysis MANY H, Urine Color ORANG H, Urine Clarity TURBD H, Urine pH 6.0, Ur Specific [place] >= 1.030, Urine Protein 100 H, Urine Ketones NEG, Urine Nitrite POS H, Urine Bilirubin NEG@ICTO, Urine Urobilinogen 0.2, Ur Leukocyte Esterase NEG, Ur Microscopic SEDIMENT EXAMINED, Urine RBC >75 H, Urine WBC 1-3 H, Urine Hemoglobin LARGE H, Urine Glucose NEG 02/28/17 1215: Anion Gap 8, Estimated GFR > 60, Glucose 139 H, Calcium 6.4 L, Phosphorus 2.0 L, Magnesium 2.5 H, Total Bilirubin 0.6, AST 38 H, ALT 25, Creatine Kinase 654 H, Albumin 2.9 L, Triglycerides 749 H, PT 12.9 H, INR 1.23 H, APTT 28, Fibrinogen Activity 673 H, Fibrin Degrad Products >10 but < 40 ug/ml H Impression/Plan Impression/Plan Impression/Plan: Impression 36 year old woman * significant acute on chronic hypertrygliceredimia with pancreatitis * electrolyte derangement secondary to above Plan -s/p plasmapheresis, significant reduction in TG, d/c katerina if ok with renal -hyperlycemic tx per endocrinology -gi, endocrine, renal and GI consultations are appreciated -monitor hemodynamics -incentive spirometry -pain control -calcium repletion -ppi -no abx warranted at this time DVT prophylaxis at all times TTS 35 min
--- NOTE | 2017-03-01 11:16 | PN- Nephrology ---
Assessment/Plan Assessment: 1. Pancreatitis: TG stable 600s post pheresis & no need for further plasma exchange 2. Volume overload: needs IV fluids stopped & diuresis 3. Hypophos: severe; needs supplement 4. HypoCa: w/o sx --> corrected ~ low 7s; watch after phos supplement Suggestion: 1. d/c IV fluids 2. Lasix 40 mg IV 3. Kphos 10 mmole IV over 4 hrs 4. remove IJ HD cath 5. recheck labs w Ca/phos/lytes this evening Subjective Subjective: Less abd pain Abd full limiting respiration No paresthesias - no cramps Objective Vital Signs and I&Os Vital Signs Date Time Temp Pulse Resp B/P B/P Pulse O2 O2 Flow FiO2 Mean Ox Delivery Rate 03/01 08 95 Nasal 3.0L Cannula 03/01 08 98.0 108 20 123/65 95 Nasal 3.0L Cannula 03/01 0400 94 Nasal 3.0L Cannula 03/01 0000 98.1 122 22 140/70 94 Nasal 3.0L Cannula 03/01 0000 92 Nasal 3.0L Cannula 02/28 2123 96 Nasal 3.0L Cannula 02/28 2000 95 Nasal 3.0L Cannula 02/28 1600 98.7 124 28 128/64 98 Nasal 3.0L Cannula 02/28 1600 94 Nasal 3.0L Cannula 02/28 1200 91 Nasal 3.0L Cannula 02/28 1130 Nasal 3.0L Cannula 02/28 1130 92 Nasal 3.0L Cannula Intake & Output 03/01 1600 /07 0400 / 1600 02/28 0400 02/27 1600 02/27 0400 Intake Total 1331 1613 3640 1150 2847 2000 Output Total 310 338 415 200 400 Balance 1021 1275 3225 950 2447 1999 Intake, IV 1231 1413 3340 1150 2847 1999 Intake, Oral 100 200 300 Number 0 0 Bowel Movements Output, Urine 310 338 415 200 400 Patient 178 lb 173 lb 173 lb Weight Weight Bed scale Bed scale Measurement Method Physical Exam General Appearance: no apparent distress, alert, awake Head: atraumatic, normal appearance Ears, Nose, Throat: normal ENT inspection Neck: R IJ HD cath Respiratory: decreased breath sounds (bilat) Cardiovascular: regular rate/rhythm, edema (1= leg bilat) Abdomen: distention, tenderness Extremities: swelling Neurologic/Psychiatric: awake, alert, no [place] Current Medications: Current Medications Sig/Jack Start time Last Medication Dose Route Stop Time Status Admin Acetaminophen 650 MG ONCE ONE 03/01 0315 DC 03/01 PO 03/01 0316 0306 Acetaminophen 325 MG Q6 PRN 02/26 1845 AC PO Acetaminophen 1,000 MG Q6 PRN 02/26 1845 AC 02/27 IV 0747 Albuterol Sulfate 3 ML Q4P PRN 02/28 2145 02/28 INH 2132 Calcitriol 0.25 MCG BID 02/27 1212 AC 03/01 IV 0950 Calcium Carbonate 500 MG Q6 02/28 1200 AC 03/01 PO 0610 Dextrose/Sodium 1,000 ML Q20H 03/01 0230 03/01 Chloride IV 03/01 1549 0808 Dextrose/Sodium 1,000 ML Q10H 03/01 0230 03/01 Chloride IV 0237 Dextrose/Sodium 1,000 ML Q20H 02/27 2245 DC 02/27 Chloride IV 02/28 1204 2245 Ergocalciferol 50,000 IU QTHURS 02/28 1415 AC 02/28 PO 1847 Fenofibrate 145 MG DAILY 02/27 0030 AC 03/01 PO 0943 Guaifenesin/ 10 ML Q6P PRN 03/01 0100 AC Dextromethorphan PO Heparin Sodium 5,000 UNIT Q8 02/26 2200 AC 02/28 (Porcine) SC 2225 Hydromorphone HCl 1 MG Q3 PRN 02/27 0800 03/01 IV 0943 Insulin Human Regular 100 UNIT Q24H 02/26 2045 03/01 Sodium Chloride 100 ML IV 0059 Lactated Ringer's 1,000 ML Q20H 03/01 0230 03/01 IV 0235 Lactated Ringer's 1,000 ML Q10H 02/26 2100 AC 03/01 IV 0950 Metoclopramide HCl 10 MG Q6P PRN 02/28 0215 IV Montelukast Sodium 10 MG AT BEDTIME 02/26 2200 02/28 PO 2224 Non-Formulary 0 SEE ADMIN CRITERIA 02/26 1900 UNVr Medication ANY Ondansetron HCl 4 MG Q6P PRN 02/26 1930 02/28 IV 0512 Pantoprazole Sodium 40 MG DAILY 02/27 1000 AC 03/01 IV 0943 Rosuvastatin Calcium 20 MG DAILY 02/28 1115 AC 03/01 PO 0943 Trimethobenzamide HCl 200 MG TID PRN 02/28 0215 AC 02/28 IM 0212 Results Pertinent Lab Results: Laboratory Tests 03/01 02/28 0420 1415 Chemistry Sodium (137 - 145 mmol/L) 135 L Potassium (3.5 - 5.1 mmol/L) 3.7 Chloride (98 - 107 mmol/L) 107 Carbon Dioxide (22 - 30 mmol/L) 21 L Anion Gap (5 - 16) 8 BUN (7 - 17 mg/dL) 7 Creatinine (0.5 - 1.0 mg/dL) 0.5 Estimated GFR (>60 ml/min) > 60 Glucose (65 - 99 mg/dL) 149 H Calcium (8.4 - 10.2 mg/dL) 6.3 L Phosphorus (2.5 - 4.5 mg/dL) 1.2 L Magnesium (1.6 - 2.3 mg/dL) 2.4 H Total Bilirubin (0.2 - 1.3 mg/dL) 0.8 AST (14 - 36 U/L) 40 H ALT (9 - 52 U/L) 29 Albumin (3.5 - 5.0 g/dL) 2.7 L Triglycerides (<150 mg/dL) 675 H Hematology CBC w Diff NO MAN DIFF REQ WBC (4.8 - 10.8 /CUMM) 7.4 RBC (4.20 - 5.40 /CUMM) 3.66 L Hgb (12.0 - 16.0 G/DL) 10.2 L Hct (37 - 47 %) 29.7 L MCV (81.0 - 99.0 FL) 81.3 MCH (27.0 - 31.0 PG) 28.0 RDW (11.5 - 14.5 %) 14.2 Plt Count (130 - 400 /CUMM) 130 MPV (7.4 - 10.4 FL) 7.4 Gran % (42.2 - 75.2 %) 76.3 H Lymphocytes % (20.5 - 51.1 %) 19.6 L Monocytes % (1.7 - 9.3 %) 3.3 Eosinophils % (0 - 5 %) 0.5 Basophils % (0.0 - 2.0 %) 0.3 Absolute Granulocytes (1.4 - 6.5 /CUMM) 5.6 Absolute Lymphocytes (1.2 - 3.4 /CUMM) 1.4 Absolute Monocytes (0.10 - 0.60 /CUMM) 0.2 Absolute Eosinophils (0.0 - 0.7 /CUMM) 0 Absolute Basophils (0.0 - 0.2 /CUMM) 0 PUBS MCHC (33.0 - 37.0 G/DL) 34.4 Urines Urinalysis MANY H Urine Color (YEL,AMB,STR) ORANG H Urine Clarity (CLEAR) TURBD H Urine pH (5.0 - 8.0) 6.0 Ur Specific [place] (1.001 - 1.035) >= 1.030 Urine Protein (NEG,<30 MG/DL) 100 H Urine Ketones (NEG) NEG Urine Nitrite (NEG) POS H Urine Bilirubin (NEG) NEG@ICTO Urine Urobilinogen (0.1 - 1.0 EU/dl) 0.2 Ur Leukocyte Esterase (NEG) NEG Ur Microscopic SEDIMENT EXAMINED Urine RBC (0 - 5 /HPF) >75 H Urine WBC (0 - 2 /HPF) 1-3 H Urine Hemoglobin (NEG) LARGE H Urine Glucose (N MG/DL) NEG 02/28 1215 Chemistry Sodium (137 - 145 mmol/L) 134 L Potassium (3.5 - 5.1 mmol/L) 4.2 Chloride (98 - 107 mmol/L) 108 H Carbon Dioxide (22 - 30 mmol/L) 18 L Anion Gap (5 - 16) 8 BUN (7 - 17 mg/dL) 10 Creatinine (0.5 - 1.0 mg/dL) 0.6 Estimated GFR (>60 ml/min) > 60 Glucose (65 - 99 mg/dL) 139 H Calcium (8.4 - 10.2 mg/dL) 6.4 L Phosphorus (2.5 - 4.5 mg/dL) 2.0 L Magnesium (1.6 - 2.3 mg/dL) 2.5 H Total Bilirubin (0.2 - 1.3 mg/dL) 0.6 AST (14 - 36 U/L) 38 H ALT (9 - 52 U/L) 25 Creatine Kinase (30 - 135 U/L) 654 H Albumin (3.5 - 5.0 g/dL) 2.9 L Triglycerides (<150 mg/dL) 749 H Coagulation PT (9.4 - 12.5 SEC) 12.9 H INR (0.90 - 1.19) 1.23 H APTT (25 - 37 SEC) 28 Fibrinogen Activity (200 - 393 MG/DL) 673 H Fibrin Degrad Products (< 10 ug/ml) >10 but < 40 ug/ml H 02/28 07/06 07/06 0600 0305 0300 Chemistry Sodium (137 - 145 mmol/L) 134 L 135 L Potassium (3.5 - 5.1 mmol/L) 4.2 4.3 Chloride (98 - 107 mmol/L) 108 H 108 H Carbon Dioxide (22 - 30 mmol/L) 16 L 17 L Anion Gap (5 - 16) 10 10 BUN (7 - 17 mg/dL) 12 11 Creatinine (0.5 - 1.0 mg/dL) 0.7 0.7 Estimated GFR (>60 ml/min) > 60 > 60 Glucose (65 - 99 mg/dL) 154 H 147 H C-Peptide Pending Lactic Acid (0.7 - 2.1 mmol/L) 1.8 Calcium (8.4 - 10.2 mg/dL) 5.9 *L 6.1 L Phosphorus (2.5 - 4.5 mg/dL) 2.1 L 2.2 L Magnesium (1.6 - 2.3 mg/dL) 2.6 H 2.6 H Total Bilirubin (0.2 - 1.3 mg/dL) 0.7 0.7 AST (14 - 36 U/L) 37 H 34 ALT (9 - 52 U/L) 27 21 Albumin (3.5 - 5.0 g/dL) 3.0 L 3.1 L Triglycerides (<150 mg/dL) 677 H Hematology CBC w Diff NO MAN DIFF REQ WBC (4.8 - 10.8 /CUMM) 10.0 RBC (4.20 - 5.40 /CUMM) 5.04 Hgb (12.0 - 16.0 G/DL) 13.9 Hct (37 - 47 %) 41.5 MCV (81.0 - 99.0 FL) 82.3 MCH (27.0 - 31.0 PG) 27.5 RDW (11.5 - 14.5 %) 14.0 Plt Count (130 - 400 /CUMM) 190 MPV (7.4 - 10.4 FL) 8.1 Gran % (42.2 - 75.2 %) 79.8 H Lymphocytes % (20.5 - 51.1 %) 17.4 L Monocytes % (1.7 - 9.3 %) 2.7 Eosinophils % (0 - 5 %) 0.1 Basophils % (0.0 - 2.0 %) 0 L Absolute Granulocytes (1.4 - 6.5 /CUMM) 8.0 H Absolute Lymphocytes (1.2 - 3.4 /CUMM) 1.7 Absolute Monocytes (0.10 - 0.60 /CUMM) 0.3 Absolute Eosinophils (0.0 - 0.7 /CUMM) 0 Absolute Basophils (0.0 - 0.2 /CUMM) 0 PUBS MCHC (33.0 - 37.0 G/DL) 33.4 Immunology SHAHEED Antibody Pending 02/28 07 0000 2105 Chemistry Sodium (137 - 145 mmol/L) 134 L 134 L Potassium (3.5 - 5.1 mmol/L) 4.6 4.7 Chloride (98 - 107 mmol/L) 109 H 108 H Carbon Dioxide (22 - 30 mmol/L) 15 L 15 L Anion Gap (5 - 16) 10 11 BUN (7 - 17 mg/dL) 10 10 Creatinine (0.5 - 1.0 mg/dL) 0.7 0.7 Estimated GFR (>60 ml/min) > 60 > 60 Glucose (65 - 99 mg/dL) 144 H 125 H Lactic Acid (0.7 - 2.1 mmol/L) 1.7 2.2 H Calcium (8.4 - 10.2 mg/dL) 5.7 *L 6.1 L Phosphorus (2.5 - 4.5 mg/dL) 2.1 L 2.2 L Magnesium (1.6 - 2.3 mg/dL) 2.6 H 2.7 H Total Bilirubin (0.2 - 1.3 mg/dL) 0.6 0.6 AST (14 - 36 U/L) 30 25 ALT (9 - 52 U/L) 21 20 Albumin (3.5 - 5.0 g/dL) 3.1 L 3.3 L Hematology CBC w Diff NO MAN DIFF REQ NO MAN DIFF REQ WBC (4.8 - 10.8 /CUMM) 10.0 8.4 RBC (4.20 - 5.40 /CUMM) 5.25 5.45 H Hgb (12.0 - 16.0 G/DL) 14.5 15.2 Hct (37 - 47 %) 42.2 44.8 MCV (81.0 - 99.0 FL) 80.5 L 82.2 MCH (27.0 - 31.0 PG) 27.6 27.9 RDW (11.5 - 14.5 %) 13.5 13.8 Plt Count (130 - 400 /CUMM) 197 124 L MPV (7.4 - 10.4 FL) 8.7 9.3 Gran % (42.2 - 75.2 %) 79.6 H 76.2 H Lymphocytes % (20.5 - 51.1 %) 16.7 L 18.1 L Monocytes % (1.7 - 9.3 %) 3.5 5.4 Eosinophils % (0 - 5 %) 0 0.1 Basophils % (0.0 - 2.0 %) 0.2 0.2 Absolute Granulocytes (1.4 - 6.5 /CUMM) 8.0 H 6.4 Absolute Lymphocytes (1.2 - 3.4 /CUMM) 1.7 1.5 Absolute Monocytes (0.10 - 0.60 /CUMM) 0.3 0.4 Absolute Eosinophils (0.0 - 0.7 /CUMM) 0 0 Absolute Basophils (0.0 - 0.2 /CUMM) 0 0 PUBS MCHC (33.0 - 37.0 G/DL) 34.3 33.9 02/27 02/27 02/27 1830 1823 1520 Chemistry Sodium (137 - 145 mmol/L) 133 L Potassium (3.5 - 5.1 mmol/L) 4.1 Chloride (98 - 107 mmol/L) 107 Carbon Dioxide (22 - 30 mmol/L) 14 L Anion Gap (5 - 16) 11 BUN (7 - 17 mg/dL) 9 Creatinine (0.5 - 1.0 mg/dL) 0.7 Estimated GFR (>60 ml/min) > 60 Glucose (65 - 99 mg/dL) 158 H Lactic Acid (0.7 - 2.1 mmol/L) 3.0 H Cancelled 4.3 H Calcium (8.4 - 10.2 mg/dL) 6.8 L Phosphorus (2.5 - 4.5 mg/dL) 1.9 L Magnesium (1.6 - 2.3 mg/dL) 3.1 H Total Bilirubin (0.2 - 1.3 mg/dL) 0.7 AST (14 - 36 U/L) 23 ALT (9 - 52 U/L) 18 Albumin (3.5 - 5.0 g/dL) 3.3 L Hematology CBC w Diff NO MAN DIFF REQ WBC (4.8 - 10.8 /CUMM) 8.1 RBC (4.20 - 5.40 /CUMM) 5.39 Hgb (12.0 - 16.0 G/DL) 14.8 Hct (37 - 47 %) 44.0 MCV (81.0 - 99.0 FL) 81.6 MCH (27.0 - 31.0 PG) 27.5 RDW (11.5 - 14.5 %) 13.6 Plt Count (130 - 400 /CUMM) 189 MPV (7.4 - 10.4 FL) 9.0 Gran % (42.2 - 75.2 %) 77.4 H Lymphocytes % (20.5 - 51.1 %) 16.8 L Monocytes % (1.7 - 9.3 %) 5.6 Eosinophils % (0 - 5 %) 0.1 Basophils % (0.0 - 2.0 %) 0.1 Absolute Granulocytes (1.4 - 6.5 /CUMM) 6.2 Absolute Lymphocytes (1.2 - 3.4 /CUMM) 1.4 Absolute Monocytes (0.10 - 0.60 /CUMM) 0.4 Absolute Eosinophils (0.0 - 0.7 /CUMM) 0 Absolute Basophils (0.0 - 0.2 /CUMM) 0 PUBS MCHC (33.0 - 37.0 G/DL) 33.7 02/27 02/27 02/27 1520 1520 1215 Chemistry Sodium (137 - 145 mmol/L) 135 L Potassium (3.5 - 5.1 mmol/L) 4.5 Plasma Potassium (3.4 - 4.4 MMOL/L) 4.3 Chloride (98 - 107 mmol/L) 107 Carbon Dioxide (22 - 30 mmol/L) 14 L Anion Gap (5 - 16) 14 BUN (7 - 17 mg/dL) 9 Creatinine (0.5 - 1.0 mg/dL) 0.7 Estimated GFR (>60 ml/min) > 60 Glucose (65 - 99 mg/dL) 178 H Calcium (8.4 - 10.2 mg/dL) 5.9 *L Ionized Calcium (() mg/dL) Pending TNP Phosphorus (2.5 - 4.5 mg/dL) 1.6 L Magnesium (1.6 - 2.3 mg/dL) 2.2 Total Bilirubin (0.2 - 1.3 mg/dL) 0.8 AST (14 - 36 U/L) 16 ALT (9 - 52 U/L) 16 Albumin (3.5 - 5.0 g/dL) 3.6 Triglycerides (<150 mg/dL) 864 H Hematology CBC w Diff NO MAN DIFF REQ WBC (4.8 - 10.8 /CUMM) 9.0 RBC (4.20 - 5.40 /CUMM) 5.64 H Hgb (12.0 - 16.0 G/DL) 15.7 Hct (37 - 47 %) 46.4 MCV (81.0 - 99.0 FL) 82.2 MCH (27.0 - 31.0 PG) 27.9 RDW (11.5 - 14.5 %) 13.6 Plt Count (130 - 400 /CUMM) 155 MPV (7.4 - 10.4 FL) 9.6 Gran % (42.2 - 75.2 %) 80.9 H Lymphocytes % (20.5 - 51.1 %) 14.5 L Monocytes % (1.7 - 9.3 %) 4.4 Eosinophils % (0 - 5 %) 0 Basophils % (0.0 - 2.0 %) 0.2 Absolute Granulocytes (1.4 - 6.5 /CUMM) 7.3 H Absolute Lymphocytes (1.2 - 3.4 /CUMM) 1.3 Absolute Monocytes (0.10 - 0.60 /CUMM) 0.4 Absolute Eosinophils (0.0 - 0.7 /CUMM) 0 Absolute Basophils (0.0 - 0.2 /CUMM) 0 PUBS MCHC (33.0 - 37.0 G/DL) 33.9 02/27 02/27 02/27 1215 1150 0930 Chemistry Sodium (137 - 145 mmol/L) 129 L Potassium (3.5 - 5.1 mmol/L) 5.6 H Plasma Potassium (3.4 - 4.4 MMOL/L) 5.1 H Chloride (98 - 107 mmol/L) 105 Carbon Dioxide (22 - 30 mmol/L) 8 *L Anion Gap (5 - 16) 16 BUN (7 - 17 mg/dL) 9 Creatinine (0.5 - 1.0 mg/dL) 0.9 Estimated GFR (>60 ml/min) > 60 Glucose (65 - 99 mg/dL) 252 H Lactic Acid (0.7 - 2.1 mmol/L) 3.7 H Calcium (8.4 - 10.2 mg/dL) 5.1 *L Ionized Calcium (() mg/dL) TNP Phosphorus (2.5 - 4.5 mg/dL) 1.7 L Magnesium (1.6 - 2.3 mg/dL) 1.6 Total Bilirubin (0.2 - 1.3 mg/dL) 0.8 AST (14 - 36 U/L) 32 ALT (9 - 52 U/L) 30 Albumin (3.5 - 5.0 g/dL) 3.0 L Toxicology Acetone Level (NEGATIVE) NEGATIVE Urines Urinalysis LIGHT H Urine Color (YEL,AMB,STR) YESIKA Urine Clarity (CLEAR) HAZY H Urine pH (5.0 - 8.0) 6.0 Ur Specific [place] (1.001 - 1.035) >= 1.030 Urine Protein (NEG,<30 MG/DL) 100 H Urine Ketones (NEG) 15 H Urine Nitrite (NEG) NEG Urine Bilirubin (NEG) NEG Urine Urobilinogen (0.1 - 1.0 EU/dl) 0.2 Ur Leukocyte Esterase (NEG) NEG Ur Microscopic SEDIMENT EXAMINED Urine RBC (0 - 5 /HPF) RARE Urine WBC (0 - 2 /HPF) 1-3 H Ur Epithelial Cells (NONE,FEW) RARE Urine Bacteria (NEG/NONE) FEW H Hyaline Casts (0/LPF) 1-3 H Granular Casts (NONE /LPF) 1-3 H Urine Mucus (FEW,NONE) MOD H Urine Hemoglobin (NEG) NEG Urine Glucose (N MG/DL) >=1000 H 02/27 02/27 0930 0545 Chemistry Sodium (137 - 145 mmol/L) 127 L Potassium (3.5 - 5.1 mmol/L) 5.9 H Plasma Potassium (3.4 - 4.4 MMOL/L) 5.5 H Chloride (98 - 107 mmol/L) 103 Carbon Dioxide (22 - 30 mmol/L) 8 *L Anion Gap (5 - 16) 18 H BUN (7 - 17 mg/dL) 8 Creatinine (0.5 - 1.0 mg/dL) 0.7 Estimated GFR (>60 ml/min) > 60 Glucose (65 - 99 mg/dL) 263 H Lactic Acid (0.7 - 2.1 mmol/L) 4.5 H 4.2 H Calcium (8.4 - 10.2 mg/dL) 5.3 *L Phosphorus (2.5 - 4.5 mg/dL) 1.3 L Magnesium (1.6 - 2.3 mg/dL) 1.8 Total Bilirubin (0.2 - 1.3 mg/dL) 1.2 AST (14 - 36 U/L) 37 H ALT (9 - 52 U/L) 23 Albumin (3.5 - 5.0 g/dL) 2.8 L Coagulation PT (9.4 - 12.5 SEC) 11.7 INR (0.90 - 1.19) 1.12 APTT (25 - 37 SEC) 29 Fibrinogen Activity (200 - 393 MG/DL) 446 H Fibrin Degrad Products (< 10 ug/ml) <10 ug/ml Hematology CBC w Diff MAN DIFF ORDERED WBC (4.8 - 10.8 /CUMM) 8.2 RBC (4.20 - 5.40 /CUMM) 5.87 H Hgb (12.0 - 16.0 G/DL) 16.3 H Hct (37 - 47 %) 47.7 H MCV (81.0 - 99.0 FL) 81.2 MCH (27.0 - 31.0 PG) 27.9 RDW (11.5 - 14.5 %) 13.1 Plt Count (130 - 400 /CUMM) 270 MPV (7.4 - 10.4 FL) 9.1 Segmented Neutrophils (42.2 - 75.2 %) 62 Band Neutrophils (0.0 - 5.0 %) 12 H Lymphocytes (20.5 - 51.1 %) 23 Monocytes (1.7 - 9.3 %) 3 Platelet Estimate (ADEQUATE) VERIFIED BY SMEAR Polychromasia 1+ PUBS MCHC (33.0 - 37.0 G/DL) 34.4 02/27 02/27 02/27 0545 0230 0028 Chemistry Sodium (137 - 145 mmol/L) 129 L 131 L Potassium (3.5 - 5.1 mmol/L) 4.9 4.4 Chloride (98 - 107 mmol/L) 104 104 Carbon Dioxide (22 - 30 mmol/L) 6 *L 10 L Anion Gap (5 - 16) 19 H 17 H BUN (7 - 17 mg/dL) 6 L 6 L Creatinine (0.5 - 1.0 mg/dL) 0.5 0.5 Estimated GFR (>60 ml/min) > 60 > 60 Glucose (65 - 99 mg/dL) 262 H 201 H Lactic Acid (0.7 - 2.1 mmol/L) 3.9 H Calcium (8.4 - 10.2 mg/dL) 5.6 *L 6.0 L Phosphorus (2.5 - 4.5 mg/dL) 1.8 L 3.2 Magnesium (1.6 - 2.3 mg/dL) 1.7 0.8 *L Total Bilirubin (0.2 - 1.3 mg/dL) 1.0 1.1 AST (14 - 36 U/L) 36 33 ALT (9 - 52 U/L) 30 29 Albumin (3.5 - 5.0 g/dL) 2.8 L 3.1 L Triglycerides (<150 mg/dL) > 95203 H > 99009 H Cholesterol (<200 MG/DL) 837 H LDL Cholesterol Direct (<100 mg/dL) 145.50 H LDL Cholesterol, Calc (65 - 129 mg/dL) ND HDL Cholesterol (40 - 60 mg/dL) 24 L Cholesterol/HDL Ratio (0.00 - 4.23 %) 27.1 H 25-OH Vitamin D Total (30 - 100 ng/ml) < 4.2 L PTH Intact (13.8 - 85 pg/ml) 226.4 H Hematology CBC w Diff MAN DIFF ORDERED WBC (4.8 - 10.8 /CUMM) 9.9 RBC (4.20 - 5.40 /CUMM) 5.40 Hgb (12.0 - 16.0 G/DL) 15.0 Hct (37 - 47 %) 43.7 MCV (81.0 - 99.0 FL) 80.9 L MCH (27.0 - 31.0 PG) 28.2 RDW (11.5 - 14.5 %) 13.1 Plt Count (130 - 400 /CUMM) 267 MPV (7.4 - 10.4 FL) 8.4 Segmented Neutrophils (42.2 - 75.2 %) 65 Band Neutrophils (0.0 - 5.0 %) 15 H Lymphocytes (20.5 - 51.1 %) 18 L Monocytes (1.7 - 9.3 %) 2 Platelet Estimate (ADEQUATE) ADEQUATE Polychromasia 1+ Ovalocytes FEW PUBS MCHC (33.0 - 37.0 G/DL) 34.6 Other Body Source Fld Total RBCs Counted (%) 100 02/26 02/26 1841 1800 Blood Gas Bicarbonate Actual (22 - 26 MEQ/L) 19 L Mixed VBG pH (7.31 - 7.41 PH) 7.31 Mixed VBG pCO2 (41 - 51 TORR) 38 L Mixed VBG O2 Saturation (35 - 45 TORR) 38 P-50 (Temp Corrected) Y Carboxyhemoglobin (1.5 - 5.0 %) 0.2 L O2 Concentration % RA Temperature (97.0 - 100.0 FARH) 99.0 Miscellaneous Phlebotomy Draw Site R AC Toxicology Urine Opiates Screen (>2000 NG/ML) > 4000.00 H Methadone Screen (>300 NG/ML) < 40 Barbiturate Screen (>200 NG/ML) < 60 Ur Phencyclidine Scrn (>25 NG/ML) < 6.00 Amphetamines Screen (>1000 NG/ML) < 100 U Benzodiazepines Scrn (>200 NG/ML) < 85 Urine Cocaine Screen (>300 NG/ML) < 50 Urine Cannabis Screen (>50 NG/ML) < 5.00 Urines Urinalysis LIGHT H Urine Color (YEL,AMB,STR) YEL Urine Clarity (CLEAR) CLEAR Urine pH (5.0 - 8.0) 5.5 Ur Specific [place] (1.001 - 1.035) >= 1.030 Urine Protein (NEG,<30 MG/DL) TRACE H Urine Ketones (NEG) 15 H Urine Nitrite (NEG) NEG Urine Bilirubin (NEG) NEG Urine Urobilinogen (0.1 - 1.0 EU/dl) 0.2 Ur Leukocyte Esterase (NEG) NEG Ur Microscopic SEDIMENT EXAMINED Urine WBC (0 - 2 /HPF) 3-5 H Ur Epithelial Cells (NONE,FEW) MOD H Urine Bacteria (NEG/NONE) FEW H Urine Mucus (FEW,NONE) MOD H Urine Hemoglobin (NEG) TRACE-LYSED Urine Glucose (N MG/DL) NEG 02/26 1550 Chemistry Sodium (137 - 145 mmol/L) 133 L Potassium (3.5 - 5.1 mmol/L) 4.2 Chloride (98 - 107 mmol/L) 104 Carbon Dioxide (22 - 30 mmol/L) 12 L Anion Gap (5 - 16) 17 H BUN (7 - 17 mg/dL) 10 Creatinine (0.5 - 1.0 mg/dL) 0.5 Estimated GFR (>60 ml/min) > 60 BUN/Creatinine Ratio (7 - 25 %) 20.0 Glucose (65 - 99 mg/dL) 140 H Lactic Acid (0.7 - 2.1 mmol/L) 2.0 Calcium (8.4 - 10.2 mg/dL) 8.4 Total Bilirubin (0.2 - 1.3 mg/dL) 1.3 AST (14 - 36 U/L) 38 H ALT (9 - 52 U/L) 39 Alkaline Phosphatase (<127 U/L) 79 Lactate Dehydrogenase (313 - 618 U/L) 534 Troponin I (< 0.11 ng/ml) < 0.01 Total Protein (6.3 - 8.2 g/dL) 8.1 Albumin (3.5 - 5.0 g/dL) 3.2 L Globulin (1.9 - 4.2 gm/dL) 4.9 H Albumin/Globulin Ratio (1.1 - 2.2 %) 0.7 L Triglycerides (<150 mg/dL) > 11301 H Amylase (30 - 110 U/L) 78 Lipase (23 - 300 U/L) 319 H TSH (0.270 - 4.200 uIU/mL) 0.682 Free T4 (0.79 - 2.35 ng/dL) 1.35 Total T3 (0.97 - 1.69 ng/mL) 1.09 Total Beta HCG (NEGATIVE) NEGATIVE Hematology CBC w Diff NO MAN DIFF REQ WBC (4.8 - 10.8 /CUMM) 12.4 H RBC (4.20 - 5.40 /CUMM) 4.97 Hgb (12.0 - 16.0 G/DL) 14.0 Hct (37 - 47 %) 40.3 MCV (81.0 - 99.0 FL) 81.0 MCH (27.0 - 31.0 PG) 28.2 RDW (11.5 - 14.5 %) 12.8 Plt Count (130 - 400 /CUMM) 148 MPV (7.4 - 10.4 FL) 10.2 Gran % (42.2 - 75.2 %) 81.7 H Lymphocytes % (20.5 - 51.1 %) 15.1 L Monocytes % (1.7 - 9.3 %) 2.5 Eosinophils % (0 - 5 %) 0.5 Basophils % (0.0 - 2.0 %) 0.2 Absolute Granulocytes (1.4 - 6.5 /CUMM) 10.1 H Absolute Lymphocytes (1.2 - 3.4 /CUMM) 1.9 Absolute Monocytes (0.10 - 0.60 /CUMM) 0.3 Absolute Eosinophils (0.0 - 0.7 /CUMM) 0.1 Absolute Basophils (0.0 - 0.2 /CUMM) 0 PUBS MCHC (33.0 - 37.0 G/DL) 34.8 Toxicology Salicylates (0 - 20.0 mg/dL) < 1.0 Acetaminophen (10.0 - 30.0 ug/mL) < 10.0 L Serum Alcohol (<10 MG/DL) < 10.0 Acetone Level (NEGATIVE) NEGATIVE
[2017-03-01 16:00] VITALS: BP 117/59
--- NOTE | 2017-03-01 16:10 | PN- Gastroenterology ---
Assessment/Plan Assessment/Recommendations: Severe acute hypertriglyceridemic pancreatitis with abdominal distention, improved with diuresis, and ileus; dyspnea/hypoxia likely secondary to splinting ; improvement in acidemia and hypocalcemia. Persistent hypertriglyceridemia. Recommendations * Begin clear liquids * Continued careful monitoring of input and output, oxygen saturation * Supplemental oxygen, respiratory therapy * Management of hypertriglyceridemia per endocrinology * Calcium management per nephrology. Supplement, especially if recurrent evidence of symptomatic hypocalcemia. Subjective Subjective: Improved pain and nausea. The patient believes her abdomen is less tense, after diuresis. She is hearing some abdominal rumbling, but has not passed flatus. She is still slightly short of breath. Objective Vital Signs and I&Os Vital Signs Date Time Temp Pulse Resp B/P B/P Pulse O2 O2 Flow FiO2 Mean Ox Delivery Rate 03/01 1201 97 Room Air 03/01 1200 92 Nasal 2.0L Cannula 03/01 08 95 Nasal 3.0L Cannula 03/01 08 98.0 108 20 123/65 95 Nasal 3.0L Cannula 03/01 0400 94 Nasal 3.0L Cannula 03/01 0000 98.1 122 22 140/70 94 Nasal 3.0L Cannula 03/01 0000 92 Nasal 3.0L Cannula 02/28 2123 96 Nasal 3.0L Cannula 02/29 2000 95 Nasal 3.0L Cannula Intake & Output 03/01 1600 03/01 0400 02/28 1600 02/28 0400 02/27 1600 02/27 0400 Intake Total 2723 1613 3640 1150 2847 2000 Output Total 2135 338 415 200 400 Balance 588 1275 3225 950 2447 1999 Intake, IV 2423 1413 3340 1150 2847 1999 Intake, Oral 300 200 300 Number 0 0 Bowel Movements Output, Urine 2135 338 415 200 400 Patient 178 lb 173 lb 173 lb Weight Weight Bed scale Bed scale Measurement Method Physical Exam: Alert and oriented. Appears more comfortable. Slightly tachypnic. Remains tachycardic. Skin normal without rash, lesion, jaundice. Sclera anicteric. Abdomen distended but less intense; rare bowel sounds. Upper abdominal tenderness. No pedal/pretibial edema. Pulses normal. Current Medications: Current Medications Sig/Jack Start time Last Medication Dose Route Stop Time Status Admin Acetaminophen 650 MG ONCE ONE 03/01 315 DC 03/01 PO 03/01 316 0306 Acetaminophen 325 MG Q6 PRN / 1845 PO Acetaminophen 1,000 MG Q6 PRN 02/26 1845 AC 02/27 IV 0747 Albuterol Sulfate 3 ML Q4P PRN 02/28 2145 AC 02/28 INH 2132 Calcitriol 0.25 MCG BID 02/27 1212 AC 03/01 IV 0950 Calcium Carbonate 500 MG Q6 07/ 1200 AC 03/01 PO 1157 Dextrose/Sodium 1,000 ML Q20H 03/01 0230 DC 03/01 Chloride IV 03/01 1549 0808 Dextrose/Sodium 1,000 ML Q10H 03/01 0230 AC 03/01 Chloride IV 1157 Ergocalciferol 50,000 IU QTHURS 02/28 1415 AC 02/28 PO 1847 Fenofibrate 145 MG DAILY 02/27 0030 AC 03/01 PO 0943 Furosemide 40 MG ONCE ONE 03/01 1545 DC IV 03/01 1546 Furosemide 40 MG ONCE ONE 03/01 1215 DC 03/01 IV 03/01 1216 1232 Guaifenesin/ 10 ML Q6P PRN 03/01 0100 AC Dextromethorphan PO Heparin Sodium 5,000 UNIT Q8 02/26 2200 AC 03/01 (Porcine) SC 1404 Hydromorphone HCl 1 MG Q3 PRN 02/27 0800 AC 03/01 IV 1404 Insulin Human Regular 100 UNIT Q24H 02/26 2045 AC 03/01 Sodium Chloride 100 ML IV 0059 Lactated Ringer's 1,000 ML Q20H 03/01 0230 DC 03/01 IV 0235 Lactated Ringer's 1,000 ML Q10H 02/26 2100 DC 03/01 IV 0950 Metoclopramide HCl 10 MG Q6P PRN 02/28 0215 IV Montelukast Sodium 10 MG AT BEDTIME 02/26 2200 AC 02/28 PO 2224 Nicotinic Acid 500 MG WITH MEALS 03/01 170 UNVr PO Non-Formulary 0 SEE ADMIN CRITERIA 02/26 1900 UNVr Medication ANY Ondansetron HCl 4 MG Q6P PRN 02/26 1930 AC 03/01 IV 1300 Pantoprazole Sodium 40 MG DAILY 02/27 1000 AC 03/01 IV 0943 Potassium Phosphate 10 mMol ONE ONE 03/01 1215 AC 03/01 Sodium Chloride 250 ML IV 03/01 1617 1404 Rosuvastatin Calcium 20 MG DAILY 02/28 1115 AC 03/01 PO 0943 Trimethobenzamide HCl 200 MG TID PRN 02/28 0215 AC 02/28 IM 0212 Results Pertinent Lab Results: Laboratory Tests 03/01 03/01 1400 0420 Chemistry Sodium (137 - 145 mmol/L) 135 L Potassium (3.5 - 5.1 mmol/L) 3.7 Chloride (98 - 107 mmol/L) 107 Carbon Dioxide (22 - 30 mmol/L) 21 L Anion Gap (5 - 16) 8 BUN (7 - 17 mg/dL) 7 Creatinine (0.5 - 1.0 mg/dL) 0.5 Estimated GFR (>60 ml/min) > 60 Glucose (65 - 99 mg/dL) 149 H Calcium (8.4 - 10.2 mg/dL) 6.3 L Phosphorus (2.5 - 4.5 mg/dL) 1.2 L Magnesium (1.6 - 2.3 mg/dL) 2.4 H Total Bilirubin (0.2 - 1.3 mg/dL) 0.8 AST (14 - 36 U/L) 40 H ALT (9 - 52 U/L) 29 Albumin (3.5 - 5.0 g/dL) 2.7 L Triglycerides (<150 mg/dL) Cancelled 675 H Hematology CBC w Diff Cancelled NO MAN DIFF REQ WBC (4.8 - 10.8 /CUMM) Cancelled 7.4 RBC (4.20 - 5.40 /CUMM) Cancelled 3.66 L Hgb (12.0 - 16.0 G/DL) Cancelled 10.2 L Hct (37 - 47 %) Cancelled 29.7 L MCV (81.0 - 99.0 FL) Cancelled 81.3 MCH (27.0 - 31.0 PG) Cancelled 28.0 RDW (11.5 - 14.5 %) Cancelled 14.2 Plt Count (130 - 400 /CUMM) Cancelled 130 MPV (7.4 - 10.4 FL) Cancelled 7.4 Gran % (42.2 - 75.2 %) 76.3 H Lymphocytes % (20.5 - 51.1 %) 19.6 L Monocytes % (1.7 - 9.3 %) 3.3 Eosinophils % (0 - 5 %) 0.5 Basophils % (0.0 - 2.0 %) 0.3 Absolute Granulocytes (1.4 - 6.5 /CUMM) 5.6 Absolute Lymphocytes (1.2 - 3.4 /CUMM) 1.4 Absolute Monocytes (0.10 - 0.60 /CUMM) 0.2 Absolute Eosinophils (0.0 - 0.7 /CUMM) 0 Absolute Basophils (0.0 - 0.2 /CUMM) 0 PUBS MCHC (33.0 - 37.0 G/DL) Cancelled 34.4 02/28 1415 Urines Urinalysis MANY H Urine Color (YEL,AMB,STR) ORANG H Urine Clarity (CLEAR) TURBD H Urine pH (5.0 - 8.0) 6.0 Ur Specific [place] (1.001 - 1.035) >= 1.030 Urine Protein (NEG,<30 MG/DL) 100 H Urine Ketones (NEG) NEG Urine Nitrite (NEG) POS H Urine Bilirubin (NEG) NEG@ICTO Urine Urobilinogen (0.1 - 1.0 EU/dl) 0.2 Ur Leukocyte Esterase (NEG) NEG Ur Microscopic SEDIMENT EXAMINED Urine RBC (0 - 5 /HPF) >75 H Urine WBC (0 - 2 /HPF) 1-3 H Urine Hemoglobin (NEG) LARGE H Urine Glucose (N MG/DL) NEG 02/28 1215 Chemistry Sodium (137 - 145 mmol/L) 134 L Potassium (3.5 - 5.1 mmol/L) 4.2 Chloride (98 - 107 mmol/L) 108 H Carbon Dioxide (22 - 30 mmol/L) 18 L Anion Gap (5 - 16) 8 BUN (7 - 17 mg/dL) 10 Creatinine (0.5 - 1.0 mg/dL) 0.6 Estimated GFR (>60 ml/min) > 60 Glucose (65 - 99 mg/dL) 139 H Calcium (8.4 - 10.2 mg/dL) 6.4 L Phosphorus (2.5 - 4.5 mg/dL) 2.0 L Magnesium (1.6 - 2.3 mg/dL) 2.5 H Total Bilirubin (0.2 - 1.3 mg/dL) 0.6 AST (14 - 36 U/L) 38 H ALT (9 - 52 U/L) 25 Creatine Kinase (30 - 135 U/L) 654 H Albumin (3.5 - 5.0 g/dL) 2.9 L Triglycerides (<150 mg/dL) 749 H Coagulation PT (9.4 - 12.5 SEC) 12.9 H INR (0.90 - 1.19) 1.23 H APTT (25 - 37 SEC) 28 Fibrinogen Activity (200 - 393 MG/DL) 673 H Fibrin Degrad Products (< 10 ug/ml) >10 but < 40 ug/ml H 02/28 02/28 02/28 0600 0305 0300 Chemistry Sodium (137 - 145 mmol/L) 134 L 135 L Potassium (3.5 - 5.1 mmol/L) 4.2 4.3 Chloride (98 - 107 mmol/L) 108 H 108 H Carbon Dioxide (22 - 30 mmol/L) 16 L 17 L Anion Gap (5 - 16) 10 10 BUN (7 - 17 mg/dL) 12 11 Creatinine (0.5 - 1.0 mg/dL) 0.7 0.7 Estimated GFR (>60 ml/min) > 60 > 60 Glucose (65 - 99 mg/dL) 154 H 147 H C-Peptide Pending Lactic Acid (0.7 - 2.1 mmol/L) 1.8 Calcium (8.4 - 10.2 mg/dL) 5.9 *L 6.1 L Phosphorus (2.5 - 4.5 mg/dL) 2.1 L 2.2 L Magnesium (1.6 - 2.3 mg/dL) 2.6 H 2.6 H Total Bilirubin (0.2 - 1.3 mg/dL) 0.7 0.7 AST (14 - 36 U/L) 37 H 34 ALT (9 - 52 U/L) 27 21 Albumin (3.5 - 5.0 g/dL) 3.0 L 3.1 L Triglycerides (<150 mg/dL) 677 H Hematology CBC w Diff NO MAN DIFF REQ WBC (4.8 - 10.8 /CUMM) 10.0 RBC (4.20 - 5.40 /CUMM) 5.04 Hgb (12.0 - 16.0 G/DL) 13.9 Hct (37 - 47 %) 41.5 MCV (81.0 - 99.0 FL) 82.3 MCH (27.0 - 31.0 PG) 27.5 RDW (11.5 - 14.5 %) 14.0 Plt Count (130 - 400 /CUMM) 190 MPV (7.4 - 10.4 FL) 8.1 Gran % (42.2 - 75.2 %) 79.8 H Lymphocytes % (20.5 - 51.1 %) 17.4 L Monocytes % (1.7 - 9.3 %) 2.7 Eosinophils % (0 - 5 %) 0.1 Basophils % (0.0 - 2.0 %) 0 L Absolute Granulocytes (1.4 - 6.5 /CUMM) 8.0 H Absolute Lymphocytes (1.2 - 3.4 /CUMM) 1.7 Absolute Monocytes (0.10 - 0.60 /CUMM) 0.3 Absolute Eosinophils (0.0 - 0.7 /CUMM) 0 Absolute Basophils (0.0 - 0.2 /CUMM) 0 PUBS MCHC (33.0 - 37.0 G/DL) 33.4 Immunology SHAHEED Antibody Pending 02/28 02/27 0000 2105 Chemistry Sodium (137 - 145 mmol/L) 134 L 134 L Potassium (3.5 - 5.1 mmol/L) 4.6 4.7 Chloride (98 - 107 mmol/L) 109 H 108 H Carbon Dioxide (22 - 30 mmol/L) 15 L 15 L Anion Gap (5 - 16) 10 11 BUN (7 - 17 mg/dL) 10 10 Creatinine (0.5 - 1.0 mg/dL) 0.7 0.7 Estimated GFR (>60 ml/min) > 60 > 60 Glucose (65 - 99 mg/dL) 144 H 125 H Lactic Acid (0.7 - 2.1 mmol/L) 1.7 2.2 H Calcium (8.4 - 10.2 mg/dL) 5.7 *L 6.1 L Phosphorus (2.5 - 4.5 mg/dL) 2.1 L 2.2 L Magnesium (1.6 - 2.3 mg/dL) 2.6 H 2.7 H Total Bilirubin (0.2 - 1.3 mg/dL) 0.6 0.6 AST (14 - 36 U/L) 30 25 ALT (9 - 52 U/L) 21 20 Albumin (3.5 - 5.0 g/dL) 3.1 L 3.3 L Hematology CBC w Diff NO MAN DIFF REQ NO MAN DIFF REQ WBC (4.8 - 10.8 /CUMM) 10.0 8.4 RBC (4.20 - 5.40 /CUMM) 5.25 5.45 H Hgb (12.0 - 16.0 G/DL) 14.5 15.2 Hct (37 - 47 %) 42.2 44.8 MCV (81.0 - 99.0 FL) 80.5 L 82.2 MCH (27.0 - 31.0 PG) 27.6 27.9 RDW (11.5 - 14.5 %) 13.5 13.8 Plt Count (130 - 400 /CUMM) 197 124 L MPV (7.4 - 10.4 FL) 8.7 9.3 Gran % (42.2 - 75.2 %) 79.6 H 76.2 H Lymphocytes % (20.5 - 51.1 %) 16.7 L 18.1 L Monocytes % (1.7 - 9.3 %) 3.5 5.4 Eosinophils % (0 - 5 %) 0 0.1 Basophils % (0.0 - 2.0 %) 0.2 0.2 Absolute Granulocytes (1.4 - 6.5 /CUMM) 8.0 H 6.4 Absolute Lymphocytes (1.2 - 3.4 /CUMM) 1.7 1.5 Absolute Monocytes (0.10 - 0.60 /CUMM) 0.3 0.4 Absolute Eosinophils (0.0 - 0.7 /CUMM) 0 0 Absolute Basophils (0.0 - 0.2 /CUMM) 0 0 PUBS MCHC (33.0 - 37.0 G/DL) 34.3 33.9 02/27 02/27 07 1830 1823 1520 Chemistry Sodium (137 - 145 mmol/L) 133 L Potassium (3.5 - 5.1 mmol/L) 4.1 Chloride (98 - 107 mmol/L) 107 Carbon Dioxide (22 - 30 mmol/L) 14 L Anion Gap (5 - 16) 11 BUN (7 - 17 mg/dL) 9 Creatinine (0.5 - 1.0 mg/dL) 0.7 Estimated GFR (>60 ml/min) > 60 Glucose (65 - 99 mg/dL) 158 H Lactic Acid (0.7 - 2.1 mmol/L) 3.0 H Cancelled 4.3 H Calcium (8.4 - 10.2 mg/dL) 6.8 L Phosphorus (2.5 - 4.5 mg/dL) 1.9 L Magnesium (1.6 - 2.3 mg/dL) 3.1 H Total Bilirubin (0.2 - 1.3 mg/dL) 0.7 AST (14 - 36 U/L) 23 ALT (9 - 52 U/L) 18 Albumin (3.5 - 5.0 g/dL) 3.3 L Hematology CBC w Diff NO MAN DIFF REQ WBC (4.8 - 10.8 /CUMM) 8.1 RBC (4.20 - 5.40 /CUMM) 5.39 Hgb (12.0 - 16.0 G/DL) 14.8 Hct (37 - 47 %) 44.0 MCV (81.0 - 99.0 FL) 81.6 MCH (27.0 - 31.0 PG) 27.5 RDW (11.5 - 14.5 %) 13.6 Plt Count (130 - 400 /CUMM) 189 MPV (7.4 - 10.4 FL) 9.0 Gran % (42.2 - 75.2 %) 77.4 H Lymphocytes % (20.5 - 51.1 %) 16.8 L Monocytes % (1.7 - 9.3 %) 5.6 Eosinophils % (0 - 5 %) 0.1 Basophils % (0.0 - 2.0 %) 0.1 Absolute Granulocytes (1.4 - 6.5 /CUMM) 6.2 Absolute Lymphocytes (1.2 - 3.4 /CUMM) 1.4 Absolute Monocytes (0.10 - 0.60 /CUMM) 0.4 Absolute Eosinophils (0.0 - 0.7 /CUMM) 0 Absolute Basophils (0.0 - 0.2 /CUMM) 0 PUBS MCHC (33.0 - 37.0 G/DL) 33.7 02/27 02/27 02/27 1520 1520 1215 Chemistry Sodium (137 - 145 mmol/L) 135 L Potassium (3.5 - 5.1 mmol/L) 4.5 Plasma Potassium (3.4 - 4.4 MMOL/L) 4.3 Chloride (98 - 107 mmol/L) 107 Carbon Dioxide (22 - 30 mmol/L) 14 L Anion Gap (5 - 16) 14 BUN (7 - 17 mg/dL) 9 Creatinine (0.5 - 1.0 mg/dL) 0.7 Estimated GFR (>60 ml/min) > 60 Glucose (65 - 99 mg/dL) 178 H Calcium (8.4 - 10.2 mg/dL) 5.9 *L Ionized Calcium (4.8 - 5.6 mg/dL) 3.4 L TNP Phosphorus (2.5 - 4.5 mg/dL) 1.6 L Magnesium (1.6 - 2.3 mg/dL) 2.2 Total Bilirubin (0.2 - 1.3 mg/dL) 0.8 AST (14 - 36 U/L) 16 ALT (9 - 52 U/L) 16 Albumin (3.5 - 5.0 g/dL) 3.6 Triglycerides (<150 mg/dL) 864 H Hematology CBC w Diff NO MAN DIFF REQ WBC (4.8 - 10.8 /CUMM) 9.0 RBC (4.20 - 5.40 /CUMM) 5.64 H Hgb (12.0 - 16.0 G/DL) 15.7 Hct (37 - 47 %) 46.4 MCV (81.0 - 99.0 FL) 82.2 MCH (27.0 - 31.0 PG) 27.9 RDW (11.5 - 14.5 %) 13.6 Plt Count (130 - 400 /CUMM) 155 MPV (7.4 - 10.4 FL) 9.6 Gran % (42.2 - 75.2 %) 80.9 H Lymphocytes % (20.5 - 51.1 %) 14.5 L Monocytes % (1.7 - 9.3 %) 4.4 Eosinophils % (0 - 5 %) 0 Basophils % (0.0 - 2.0 %) 0.2 Absolute Granulocytes (1.4 - 6.5 /CUMM) 7.3 H Absolute Lymphocytes (1.2 - 3.4 /CUMM) 1.3 Absolute Monocytes (0.10 - 0.60 /CUMM) 0.4 Absolute Eosinophils (0.0 - 0.7 /CUMM) 0 Absolute Basophils (0.0 - 0.2 /CUMM) 0 PUBS MCHC (33.0 - 37.0 G/DL) 33.9 02/27 02/27 02/27 1215 1150 0930 Chemistry Sodium (137 - 145 mmol/L) 129 L Potassium (3.5 - 5.1 mmol/L) 5.6 H Plasma Potassium (3.4 - 4.4 MMOL/L) 5.1 H Chloride (98 - 107 mmol/L) 105 Carbon Dioxide (22 - 30 mmol/L) 8 *L Anion Gap (5 - 16) 16 BUN (7 - 17 mg/dL) 9 Creatinine (0.5 - 1.0 mg/dL) 0.9 Estimated GFR (>60 ml/min) > 60 Glucose (65 - 99 mg/dL) 252 H Lactic Acid (0.7 - 2.1 mmol/L) 3.7 H Calcium (8.4 - 10.2 mg/dL) 5.1 *L Ionized Calcium (() mg/dL) TNP Phosphorus (2.5 - 4.5 mg/dL) 1.7 L Magnesium (1.6 - 2.3 mg/dL) 1.6 Total Bilirubin (0.2 - 1.3 mg/dL) 0.8 AST (14 - 36 U/L) 32 ALT (9 - 52 U/L) 30 Albumin (3.5 - 5.0 g/dL) 3.0 L Toxicology Acetone Level (NEGATIVE) NEGATIVE Urines Urinalysis LIGHT H Urine Color (YEL,AMB,STR) YESIKA Urine Clarity (CLEAR) HAZY H Urine pH (5.0 - 8.0) 6.0 Ur Specific [place] (1.001 - 1.035) >= 1.030 Urine Protein (NEG,<30 MG/DL) 100 H Urine Ketones (NEG) 15 H Urine Nitrite (NEG) NEG Urine Bilirubin (NEG) NEG Urine Urobilinogen (0.1 - 1.0 EU/dl) 0.2 Ur Leukocyte Esterase (NEG) NEG Ur Microscopic SEDIMENT EXAMINED Urine RBC (0 - 5 /HPF) RARE Urine WBC (0 - 2 /HPF) 1-3 H Ur Epithelial Cells (NONE,FEW) RARE Urine Bacteria (NEG/NONE) FEW H Hyaline Casts (0/LPF) 1-3 H Granular Casts (NONE /LPF) 1-3 H Urine Mucus (FEW,NONE) MOD H Urine Hemoglobin (NEG) NEG Urine Glucose (N MG/DL) >=1000 H 02/27 02/27 0930 0545 Chemistry Sodium (137 - 145 mmol/L) 127 L Potassium (3.5 - 5.1 mmol/L) 5.9 H Plasma Potassium (3.4 - 4.4 MMOL/L) 5.5 H Chloride (98 - 107 mmol/L) 103 Carbon Dioxide (22 - 30 mmol/L) 8 *L Anion Gap (5 - 16) 18 H BUN (7 - 17 mg/dL) 8 Creatinine (0.5 - 1.0 mg/dL) 0.7 Estimated GFR (>60 ml/min) > 60 Glucose (65 - 99 mg/dL) 263 H Lactic Acid (0.7 - 2.1 mmol/L) 4.5 H 4.2 H Calcium (8.4 - 10.2 mg/dL) 5.3 *L Phosphorus (2.5 - 4.5 mg/dL) 1.3 L Magnesium (1.6 - 2.3 mg/dL) 1.8 Total Bilirubin (0.2 - 1.3 mg/dL) 1.2 AST (14 - 36 U/L) 37 H ALT (9 - 52 U/L) 23 Albumin (3.5 - 5.0 g/dL) 2.8 L Coagulation PT (9.4 - 12.5 SEC) 11.7 INR (0.90 - 1.19) 1.12 APTT (25 - 37 SEC) 29 Fibrinogen Activity (200 - 393 MG/DL) 446 H Fibrin Degrad Products (< 10 ug/ml) <10 ug/ml Hematology CBC w Diff MAN DIFF ORDERED WBC (4.8 - 10.8 /CUMM) 8.2 RBC (4.20 - 5.40 /CUMM) 5.87 H Hgb (12.0 - 16.0 G/DL) 16.3 H Hct (37 - 47 %) 47.7 H MCV (81.0 - 99.0 FL) 81.2 MCH (27.0 - 31.0 PG) 27.9 RDW (11.5 - 14.5 %) 13.1 Plt Count (130 - 400 /CUMM) 270 MPV (7.4 - 10.4 FL) 9.1 Segmented Neutrophils (42.2 - 75.2 %) 62 Band Neutrophils (0.0 - 5.0 %) 12 H Lymphocytes (20.5 - 51.1 %) 23 Monocytes (1.7 - 9.3 %) 3 Platelet Estimate (ADEQUATE) VERIFIED BY SMEAR Polychromasia 1+ PUBS MCHC (33.0 - 37.0 G/DL) 34.4 02/27 0702/27 0545 0230 0028 Chemistry Sodium (137 - 145 mmol/L) 129 L 131 L Potassium (3.5 - 5.1 mmol/L) 4.9 4.4 Chloride (98 - 107 mmol/L) 104 104 Carbon Dioxide (22 - 30 mmol/L) 6 *L 10 L Anion Gap (5 - 16) 19 H 17 H BUN (7 - 17 mg/dL) 6 L 6 L Creatinine (0.5 - 1.0 mg/dL) 0.5 0.5 Estimated GFR (>60 ml/min) > 60 > 60 Glucose (65 - 99 mg/dL) 262 H 201 H Lactic Acid (0.7 - 2.1 mmol/L) 3.9 H Calcium (8.4 - 10.2 mg/dL) 5.6 *L 6.0 L Phosphorus (2.5 - 4.5 mg/dL) 1.8 L 3.2 Magnesium (1.6 - 2.3 mg/dL) 1.7 0.8 *L Total Bilirubin (0.2 - 1.3 mg/dL) 1.0 1.1 AST (14 - 36 U/L) 36 33 ALT (9 - 52 U/L) 30 29 Albumin (3.5 - 5.0 g/dL) 2.8 L 3.1 L Triglycerides (<150 mg/dL) > 68119 H > 84812 H Cholesterol (<200 MG/DL) 837 H LDL Cholesterol Direct (<100 mg/dL) 145.50 H LDL Cholesterol, Calc (65 - 129 mg/dL) ND HDL Cholesterol (40 - 60 mg/dL) 24 L Cholesterol/HDL Ratio (0.00 - 4.23 %) 27.1 H 25-OH Vitamin D Total (30 - 100 ng/ml) < 4.2 L PTH Intact (13.8 - 85 pg/ml) 226.4 H Hematology CBC w Diff MAN DIFF ORDERED WBC (4.8 - 10.8 /CUMM) 9.9 RBC (4.20 - 5.40 /CUMM) 5.40 Hgb (12.0 - 16.0 G/DL) 15.0 Hct (37 - 47 %) 43.7 MCV (81.0 - 99.0 FL) 80.9 L MCH (27.0 - 31.0 PG) 28.2 RDW (11.5 - 14.5 %) 13.1 Plt Count (130 - 400 /CUMM) 267 MPV (7.4 - 10.4 FL) 8.4 Segmented Neutrophils (42.2 - 75.2 %) 65 Band Neutrophils (0.0 - 5.0 %) 15 H Lymphocytes (20.5 - 51.1 %) 18 L Monocytes (1.7 - 9.3 %) 2 Platelet Estimate (ADEQUATE) ADEQUATE Polychromasia 1+ Ovalocytes FEW PUBS MCHC (33.0 - 37.0 G/DL) 34.6 Other Body Source Fld Total RBCs Counted (%) 100 02/26 02/26 1841 1800 Blood Gas Bicarbonate Actual (22 - 26 MEQ/L) 19 L Mixed VBG pH (7.31 - 7.41 PH) 7.31 Mixed VBG pCO2 (41 - 51 TORR) 38 L Mixed VBG O2 Saturation (35 - 45 TORR) 38 P-50 (Temp Corrected) Y Carboxyhemoglobin (1.5 - 5.0 %) 0.2 L O2 Concentration % RA Temperature (97.0 - 100.0 FARH) 99.0 Miscellaneous Phlebotomy Draw Site R AC Toxicology Urine Opiates Screen (>2000 NG/ML) > 4000.00 H Methadone Screen (>300 NG/ML) < 40 Barbiturate Screen (>200 NG/ML) < 60 Ur Phencyclidine Scrn (>25 NG/ML) < 6.00 Amphetamines Screen (>1000 NG/ML) < 100 U Benzodiazepines Scrn (>200 NG/ML) < 85 Urine Cocaine Screen (>300 NG/ML) < 50 Urine Cannabis Screen (>50 NG/ML) < 5.00 Urines Urinalysis LIGHT H Urine Color (YEL,AMB,STR) YEL Urine Clarity (CLEAR) CLEAR Urine pH (5.0 - 8.0) 5.5 Ur Specific [place] (1.001 - 1.035) >= 1.030 Urine Protein (NEG,<30 MG/DL) TRACE H Urine Ketones (NEG) 15 H Urine Nitrite (NEG) NEG Urine Bilirubin (NEG) NEG Urine Urobilinogen (0.1 - 1.0 EU/dl) 0.2 Ur Leukocyte Esterase (NEG) NEG Ur Microscopic SEDIMENT EXAMINED Urine WBC (0 - 2 /HPF) 3-5 H Ur Epithelial Cells (NONE,FEW) MOD H Urine Bacteria (NEG/NONE) FEW H Urine Mucus (FEW,NONE) MOD H Urine Hemoglobin (NEG) TRACE-LYSED Urine Glucose (N MG/DL) NEG Imaging/Other Studies: Abdominal x-ray yesterday: IMPRESSION: Findings most consistent with a localized ileus type of pattern.
[2017-03-01 19:02] LABS: ABSOLUTE BASOPHIL COUNT 0 /CUMM (0.0-0.2); ABSOLUTE EOSINOPHIL COUNT 0.1 /CUMM (0.0-0.7); ABSOLUTE GRANULOCYTE CT 7.7 /CUMM (1.4-6.5); ABSOLUTE LYMPH COUNT 1.5 /CUMM (1.2-3.4); ABSOLUTE MONOCYTE COUNT 0.3 /CUMM (0.10-0.60); BASOPHIL % 0.2 % (0.0-2.0); EOSINOPHIL % 0.7 % (0-5); GRANULOCYTE % 79.8 % (42.2-75.2); HEMATOCRIT 30.5 % (37-47); MEAN CORPUSCULAR HGB 27.6 PG (27.0-31.0); MEAN CORPUSCULAR HGB CONC 34.1 G/DL (33.0-37.0); MEAN PLATELET VOLUME 7.3 FL (7.4-10.4); PLATELET COUNT 162 /CUMM (130-400); RBC DISTRIBUTION WIDTH 13.7 % (11.5-14.5); RED BLOOD CELL CT 3.77 /CUMM (4.20-5.40); WHITE BLOOD CELL COUNT 9.6 /CUMM (4.8-10.8)
--- NOTE | 2017-03-01 23:10 | NUR ---
NOTIFIED MD JANUSZ VO OF CONCERNS PT HAVING CONITNUED TACHYCARDIA 120'S, PT ALSO PLACED ON 2LNC DUE TO AT REST 02SAT 84%, LUNGS CLEAR BUT DIMINISHED. PT ALSO STARTED CLEAR LIQUID DIET, PT STATES ONLY BELCHING AFTER GINGERALE NOT WATER BUT NOTIFIED MD DID NOT AUSCULTATE ANY BOWEL SOUNDS. ABDOMEN REMAINS DISTENDED AND FIRM.
--- NOTE | 2017-03-01 23:41 | NUR ---
PER MD JANUSZ VO HE DISCUSSED CONCERNS WITH DR. ALVARENGA AND PER DR. ALVARENGA NO NEW INTERVENTIONS ORDERED.
[2017-03-02] VITALS: BP 132/50
[2017-03-02 05:22] LABS: ABSOLUTE BASOPHIL COUNT 0 /CUMM (0.0-0.2); ABSOLUTE EOSINOPHIL COUNT 0.1 /CUMM (0.0-0.7); ABSOLUTE LYMPH COUNT 1.7 /CUMM (1.2-3.4); ABSOLUTE MONOCYTE COUNT 0.4 /CUMM (0.10-0.60); BASOPHIL % 0.2 % (0.0-2.0); EOSINOPHIL % 0.9 % (0-5); GRANULOCYTE % 73.3 % (42.2-75.2); HEMATOCRIT 26.5 % (37-47); MEAN CORPUSCULAR HGB 27.5 PG (27.0-31.0); MEAN CORPUSCULAR HGB CONC 33.8 G/DL (33.0-37.0); MEAN CORPUSCULAR VOLUME 81.4 FL (81.0-99.0); MEAN PLATELET VOLUME 7.9 FL (7.4-10.4); PLATELET COUNT 138 /CUMM (130-400); RBC DISTRIBUTION WIDTH 13.8 % (11.5-14.5); RED BLOOD CELL CT 3.25 /CUMM (4.20-5.40); WHITE BLOOD CELL COUNT 8.2 /CUMM (4.8-10.8)
--- NOTE | 2017-03-02 07:38 | PN- CRCU ---
Subjective HPI/Critical Care Issues: Patient seen bedside. She is seen sitting upright in a chair resting comfortably maintained on supplemental oxygen 2 L via nasal cannula. She appears anxious. no fever, chills, chest pain, palpitations, vomiting, diarrhea. Started on clear liquids. Objective Current Medications: Current Medications Sig/Jack Start time Last Medication Dose Route Stop Time Status Admin Acetaminophen 1,000 MG .STK-MED ONE 03/02 0011 DC IV 03/02 0012 Acetaminophen 650 MG .STK-MED ONE 03/02 0009 DC PO 03/02 0010 Acetaminophen 325 MG Q6 PRN 02/26 1845 PO Acetaminophen 1,000 MG Q6 PRN 02/26 1845 AC 02/27 IV 0747 Albuterol Sulfate 3 ML Q4P PRN 02/28 2145 AC 03/01 INH 1948 Calcitriol 0.25 MCG BID 02/27 1212 AC 03/02 IV 0925 Calcium Carbonate 500 MG Q6 02/28 1200 DC 03/02 PO 0608 Dextrose/Sodium 1,000 ML Q20H 03/01 0230 DC 03/01 Chloride IV 03/01 1549 0808 Dextrose/Sodium 1,000 ML Q10H 03/01 0230 DC 03/01 Chloride IV 1157 Ergocalciferol 50,000 IU QTHURS 02/28 1415 DC 02/28 PO 1847 Fenofibrate 145 MG DAILY 02/27 0030 AC 03/02 PO 0925 Furosemide 40 MG ONCE ONE 03/02 1130 DC IV 03/02 1131 Furosemide 40 MG ONCE ONE 03/01 1545 DC 03/01 IV 03/01 1546 1754 Furosemide 40 MG ONCE ONE 03/01 1215 DC 03/01 IV 03/01 1216 1232 Guaifenesin/ 10 ML Q6P PRN 03/01 0100 Dextromethorphan PO Heparin Sodium 5,000 UNIT Q8 02/26 2200 AC 03/01 (Porcine) SC 2346 Hydromorphone HCl 2 MG ONCE PRN 03/02 0100 AC 03/02 IV 0052 Hydromorphone HCl 1 MG Q3 PRN 02/27 0800 AC 03/02 IV 0926 Insulin Human Regular 100 UNIT Q24H 02/26 2045 AC 03/01 Sodium Chloride 100 ML IV 2201 Lactated Ringer's 1,000 ML Q20H 03/01 0230 DC 03/01 IV 0235 Lactated Ringer's 1,000 ML Q10H 02/26 2100 DC 03/01 IV 0950 Metoclopramide HCl 10 MG Q6P PRN 02/28 0215 AC IV Montelukast Sodium 10 MG AT BEDTIME 02/26 2200 AC 03/01 PO 2209 Nicotinic Acid 500 MG WITH MEALS 03/01 1700 AC 03/02 PO 0849 Non-Formulary 0 SEE ADMIN CRITERIA 02/26 1900 UNVr Medication ANY Ondansetron HCl 4 MG .STK-MED ONE 03/01 1831 DC IM 03/01 1832 Ondansetron HCl 4 MG .STK-MED ONE 03/01 1259 DC IM 03/01 1300 Ondansetron HCl 4 MG Q6P PRN 02/26 1930 AC 03/01 IV 1832 Pantoprazole Sodium 40 MG DAILY 02/27 1000 AC 03/02 IV 0926 Phosphate 250 MG ONCE ONE 03/02 09 DC PO 03/02 0901 Potassium Chloride 20 MEQ ONCE ONE 03/02 09 DC 03/02 PO 03/02 0901 0925 Potassium Chloride 40 MEQ Q13H 03/01 2000 DC 03/01 Dextrose/Sodium 1,000 ML IV 03/02 0859 2201 Chloride Potassium Phosphate 10 mMol ONE ONE 03/01 1215 DC 03/01 Sodium Chloride 250 ML IV 03/01 1617 1404 Rosuvastatin Calcium 20 MG DAILY 02/28 1115 AC 03/02 PO 0925 Trimethobenzamide HCl 200 MG TID PRN 02/28 0215 AC 02/28 IM 0212 Vital Signs & I&O Last 24 Hrs of Vitals and I&O: Vital Signs Date Time Temp Pulse Resp B/P B/P Pulse O2 O2 Flow FiO2 Mean Ox Delivery Rate 03/02 0931 93 Room Air Room Air 03/02 0400 97 Nasal 2.0L Cannula 03/02 0000 94 Nasal 2.0L Cannula 03/02 0000 100.8 123 21 132/50 94 Nasal 2.0L Cannula 03/01 2000 93 Room Air 03/01 1951 98 Nasal 2.0L Cannula 03/01 1600 95 Nasal 2.0L Cannula 03/01 1600 98.0 122 30 117/59 95 Nasal 2.0L Cannula 03/01 1201 97 Room Air 03/01 1200 92 Nasal 2.0L Cannula Intake & Output 03/02 1600 03/02 0800 03/02 0000 Intake Total 746.4 1332.4 Output Total 500 1400 Balance 246.4 -67.6 Intake, IV 626.4 910.4 Intake, Oral 120 422 Number 0 0 Bowel Movements Output, Urine 500 1400 Exam General Appearance: well developed/nourished, alert, awake, anxious, comfortable Head: normal appearance Neck: normal inspection, supple Respiratory: bilateral wheeze present Cardiovascular: regular rate/rhythm, normal peripheral pulses Abdomen: normal bowel sounds, soft, non-tender, mild distention present.no gaurding or rigidity. Extremities: normal inspection Skin: intact, normal color Results Last 24 Hrs of Lab Results: Laboratory Tests 03/02/17 0428: Anion Gap 8, Estimated GFR > 60, Glucose 112 H, Calcium 7.2 L, Phosphorus 2.0 L, Magnesium 2.0, Total Bilirubin 0.7, AST 45 H, ALT 28, Albumin 2.8 L, Triglycerides 382 H, CBC w Diff NO MAN DIFF REQ, RBC 3.25 L, MCV 81.4, MCH 27.5, RDW 13.8, MPV 7.9, Gran % 73.3, Lymphocytes % 20.9, Monocytes % 4.7, Eosinophils % 0.9, Basophils % 0.2, Absolute Granulocytes 6.0, Absolute Lymphocytes 1.7, Absolute Monocytes 0.4, Absolute Eosinophils 0.1, Absolute Basophils 0, PUBS MCHC 33.8 03/01/17 1835: Anion Gap 10, Estimated GFR > 60, Glucose 148 H, Calcium 7.1 L, Phosphorus 2.5 , Magnesium 1.9, Total Bilirubin 0.8, AST 49 H, ALT 17, Albumin 3.4 L, Triglycerides 566 H, CBC w Diff NO MAN DIFF REQ, RBC 3.77 L, MCV 81.0, MCH 27.6, RDW 13.7, MPV 7.3 L, Gran % 79.8 H, Lymphocytes % 16.0 L, Monocytes % 3.3, Eosinophils % 0.7, Basophils % 0.2, Absolute Granulocytes 7.7 H, Absolute Lymphocytes 1.5, Absolute Monocytes 0.3, Absolute Eosinophils 0.1, Absolute Basophils 0, PUBS MCHC 34.1 03/01/17 1400: Triglycerides Cancelled, CBC w Diff Cancelled, WBC Cancelled, RBC Cancelled, Hgb Cancelled, Hct Cancelled, MCV Cancelled, MCH Cancelled, RDW Cancelled, Plt Count Cancelled, MPV Cancelled, PUBS MCHC Cancelled Impression/Plan Impression/Plan Impression/Plan: Patient with history of hypertriglyceridemia, insulin-dependent diabetes mellitus, and previous episodes of pancreatitis seen for evaluation of acute onset right upper quadrant abdominal pain. Triglycerides were found to be initially elevated to greater than 10,500 elevated lipase, and CT scan demonstrating acute pancreatitis. Patient was stared on intravenous fluids, pain medications, and antiemetics and admitted to the ICU for further management and care. Nephrology/endocrinology/gastroenterology consults were placed, patient was placed with a non-tunneled catheter and urgently underwent plasampheresis. Under aseptic precaution tunneled catheter was removed yesterday. Patient was later identified to be in DKA for which an insulin drip was started. Serum chemistries were drawn every three hours and electrolytes were aggressively repleted. Patient received ceftazidime / flagyl for concern of abdominal infection but was subsequently followed off antibiotics. -ICU -DAY 4 Respiratory Bilateral wheeze present. On nasal O2 2 L. Not dyspneic, not tachypneic. Injection Lasix 40 mEq once now and repeat later today if needed. Infection CbC, ICU bundles tomorrow. Cardiac S1-S2. No murmur. Pulse rate 109 Heme none Metabolic DKA-IV insulin switch to subcutaneous insulin. Potassium-3.7, phosphate-2. Electrolytes repleted Blood sugar 112. DC IV fluids. recheck Ca/phos/Mg/lytes,TG Levels this evening. Alimentary Oral fluids. Neuro None DVT Alps, heparin Code Status: Full Code Problem List: 1. Diabetes 2. Acute pancreatitis
[2017-03-02 08:00] VITALS: BP 130/74
--- NOTE | 2017-03-02 10:49 | PN- Nephrology ---
Assessment/Plan Assessment: 1. Pancreatitis: TG continues to improve - no pheresis need 2. Volume overload: needs more diuresis 3. Hypophos: improved - supplement po 4. HypoCa: low 8s corrected for hypoalbuminemia; @ risk for hypercalcemia as pancreatitis recovers & would stop Vit D & Ca supplement for now Suggestion: 1. d/c IV fluids 2. repeat Lasix 40 mg IV this AM - repeat later today if needed 3. K supplement as needed po 4. change insulin IV --> sc 5. recheck Ca/phos//Mg/lytes this evening Subjective Subjective: Doing better - starting to take po Still c/o abd distention - pain abiut same Good u/o w IV Lasix yesterday Objective Vital Signs and I&Os Vital Signs Date Time Temp Pulse Resp B/P B/P Pulse O2 O2 Flow FiO2 Mean Ox Delivery Rate 03/02 0931 93 Room Air Room Air 03/02 0400 97 Nasal 2.0L Cannula 03/02 0000 94 Nasal 2.0L Cannula 03/02 0000 100.8 123 21 132/50 94 Nasal 2.0L Cannula 03/01 2000 93 Room Air 03/01 1951 98 Nasal 2.0L Cannula 03/01 1600 95 Nasal 2.0L Cannula 03/01 1600 98.0 122 30 117/59 95 Nasal 2.0L Cannula 03/01 1201 97 Room Air 03/01 1200 92 Nasal 2.0L Cannula Intake & Output 03/02 1600 08 0400 03/01 1600 03/01 0400 / 1600 07/ 0400 Intake Total 746.4 1332.4 2723 1613 3640 1150 Output Total 500 1400 2135 338 415 200 Balance 246.4 -67.6 588 1275 3225 950 Intake, IV 626.4 910.4 2423 1413 3340 1150 Intake, Oral 120 422 300 200 300 Number 0 0 0 0 Bowel Movements Output, Urine 500 1400 2135 338 415 200 Patient 178 lb 173 lb Weight Weight Bed scale Measurement Method Physical Exam General Appearance: well developed/nourished, no apparent distress Head: atraumatic, normal appearance Ears, Nose, Throat: normal ENT inspection Neck: normal inspection Respiratory: decreased breath sounds Cardiovascular: regular rate/rhythm Abdomen: distention, tenderness Extremities: swelling Neurologic/Psychiatric: awake, alert Current Medications: Current Medications Sig/Jack Start time Last Medication Dose Route Stop Time Status Admin Acetaminophen 1,000 MG .STK-MED ONE 03/02 0011 DC IV 03/02 0012 Acetaminophen 650 MG .STK-MED ONE 03/02 0009 DC PO 03/02 0010 Acetaminophen 325 MG Q6 PRN 02/26 1845 PO Acetaminophen 1,000 MG Q6 PRN 02/26 1845 AC 02/27 IV 0747 Albuterol Sulfate 3 ML Q4P PRN 02/28 2145 AC 03/01 INH 1948 Calcitriol 0.25 MCG BID 02/27 1212 AC 03/02 IV 0925 Calcium Carbonate 500 MG Q6 02/28 1200 AC 03/02 PO 0608 Dextrose/Sodium 1,000 ML Q20H 03/01 0230 DC 03/01 Chloride IV 03/01 1549 0808 Dextrose/Sodium 1,000 ML Q10H 03/01 0230 DC 03/01 Chloride IV 1157 Ergocalciferol 50,000 IU QTHURS 02/28 1415 AC 02/28 PO 1847 Fenofibrate 145 MG DAILY 02/27 0030 03/02 PO 0925 Furosemide 40 MG ONCE ONE 03/01 1545 DC 03/01 IV 03/01 1546 1754 Furosemide 40 MG ONCE ONE 03/01 1215 DC 03/01 IV 03/01 1216 1232 Guaifenesin/ 10 ML Q6P PRN 03/01 0100 Dextromethorphan PO Heparin Sodium 5,000 UNIT Q8 02/26 2200 AC 03/01 (Porcine) SC 2346 Hydromorphone HCl 2 MG ONCE PRN 03/02 0100 AC 03/02 IV 0052 Hydromorphone HCl 1 MG Q3 PRN 02/27 0800 03/02 IV 0926 Insulin Human Regular 100 UNIT Q24H 02/26 2045 AC 03/01 Sodium Chloride 100 ML IV 2201 Lactated Ringer's 1,000 ML Q20H 03/01 0230 DC 03/01 IV 0235 Lactated Ringer's 1,000 ML Q10H 02/26 2100 DC 03/01 IV 0950 Metoclopramide HCl 10 MG Q6P PRN 02/28 0215 IV Montelukast Sodium 10 MG AT BEDTIME 02/26 2200 AC 03/01 PO 2209 Nicotinic Acid 500 MG WITH MEALS 03/01 1700 AC 03/02 PO 0849 Non-Formulary 0 SEE ADMIN CRITERIA 02/26 1900 UNVr Medication ANY Ondansetron HCl 4 MG .STK-MED ONE 03/01 1831 DC IM 03/01 1832 Ondansetron HCl 4 MG .STK-MED ONE 03/01 1259 DC IM 03/01 1300 Ondansetron HCl 4 MG Q6P PRN 02/26 1930 AC 03/01 IV 1832 Pantoprazole Sodium 40 MG DAILY 02/27 1000 AC 03/02 IV 0926 Phosphate 250 MG ONCE ONE 03/02 900 DC PO 03/02 901 Potassium Chloride 20 MEQ ONCE ONE 03/02 900 DC 03/02 PO 03/02 09 0925 Potassium Chloride 40 MEQ Q13H 03/01 2000 DC 03/01 Dextrose/Sodium 1,000 ML IV 03/02 0859 2201 Chloride Potassium Phosphate 10 mMol ONE ONE 03/01 1215 DC 03/01 Sodium Chloride 250 ML IV 03/01 1617 1404 Rosuvastatin Calcium 20 MG DAILY 02/28 1115 AC 03/02 PO 0925 Trimethobenzamide HCl 200 MG TID PRN 02/28 0215 AC 02/28 IM 0212 Results Pertinent Lab Results: Laboratory Tests 03/02 03/01 0428 1835 Chemistry Sodium (137 - 145 mmol/L) 139 139 Potassium (3.5 - 5.1 mmol/L) 3.7 3.7 Chloride (98 - 107 mmol/L) 106 104 Carbon Dioxide (22 - 30 mmol/L) 24 25 Anion Gap (5 - 16) 8 10 BUN (7 - 17 mg/dL) 6 L 4 L Creatinine (0.5 - 1.0 mg/dL) 0.5 0.6 Estimated GFR (>60 ml/min) > 60 > 60 Glucose (65 - 99 mg/dL) 112 H 148 H Calcium (8.4 - 10.2 mg/dL) 7.2 L 7.1 L Phosphorus (2.5 - 4.5 mg/dL) 2.0 L 2.5 Magnesium (1.6 - 2.3 mg/dL) 2.0 1.9 Total Bilirubin (0.2 - 1.3 mg/dL) 0.7 0.8 AST (14 - 36 U/L) 45 H 49 H ALT (9 - 52 U/L) 28 17 Albumin (3.5 - 5.0 g/dL) 2.8 L 3.4 L Triglycerides (<150 mg/dL) 382 H 566 H Hematology CBC w Diff NO MAN DIFF REQ NO MAN DIFF REQ WBC (4.8 - 10.8 /CUMM) 8.2 9.6 RBC (4.20 - 5.40 /CUMM) 3.25 L 3.77 L Hgb (12.0 - 16.0 G/DL) 8.9 L 10.4 L Hct (37 - 47 %) 26.5 L 30.5 L MCV (81.0 - 99.0 FL) 81.4 81.0 MCH (27.0 - 31.0 PG) 27.5 27.6 RDW (11.5 - 14.5 %) 13.8 13.7 Plt Count (130 - 400 /CUMM) 138 162 MPV (7.4 - 10.4 FL) 7.9 7.3 L Gran % (42.2 - 75.2 %) 73.3 79.8 H Lymphocytes % (20.5 - 51.1 %) 20.9 16.0 L Monocytes % (1.7 - 9.3 %) 4.7 3.3 Eosinophils % (0 - 5 %) 0.9 0.7 Basophils % (0.0 - 2.0 %) 0.2 0.2 Absolute Granulocytes (1.4 - 6.5 /CUMM) 6.0 7.7 H Absolute Lymphocytes (1.2 - 3.4 /CUMM) 1.7 1.5 Absolute Monocytes (0.10 - 0.60 /CUMM) 0.4 0.3 Absolute Eosinophils (0.0 - 0.7 /CUMM) 0.1 0.1 Absolute Basophils (0.0 - 0.2 /CUMM) 0 0 PUBS MCHC (33.0 - 37.0 G/DL) 33.8 34.1 03/01 07 1400 0420 Chemistry Sodium (137 - 145 mmol/L) 135 L Potassium (3.5 - 5.1 mmol/L) 3.7 Chloride (98 - 107 mmol/L) 107 Carbon Dioxide (22 - 30 mmol/L) 21 L Anion Gap (5 - 16) 8 BUN (7 - 17 mg/dL) 7 Creatinine (0.5 - 1.0 mg/dL) 0.5 Estimated GFR (>60 ml/min) > 60 Glucose (65 - 99 mg/dL) 149 H Calcium (8.4 - 10.2 mg/dL) 6.3 L Phosphorus (2.5 - 4.5 mg/dL) 1.2 L Magnesium (1.6 - 2.3 mg/dL) 2.4 H Total Bilirubin (0.2 - 1.3 mg/dL) 0.8 AST (14 - 36 U/L) 40 H ALT (9 - 52 U/L) 29 Albumin (3.5 - 5.0 g/dL) 2.7 L Triglycerides (<150 mg/dL) Cancelled 675 H Hematology CBC w Diff Cancelled NO MAN DIFF REQ WBC (4.8 - 10.8 /CUMM) Cancelled 7.4 RBC (4.20 - 5.40 /CUMM) Cancelled 3.66 L Hgb (12.0 - 16.0 G/DL) Cancelled 10.2 L Hct (37 - 47 %) Cancelled 29.7 L MCV (81.0 - 99.0 FL) Cancelled 81.3 MCH (27.0 - 31.0 PG) Cancelled 28.0 RDW (11.5 - 14.5 %) Cancelled 14.2 Plt Count (130 - 400 /CUMM) Cancelled 130 MPV (7.4 - 10.4 FL) Cancelled 7.4 Gran % (42.2 - 75.2 %) 76.3 H Lymphocytes % (20.5 - 51.1 %) 19.6 L Monocytes % (1.7 - 9.3 %) 3.3 Eosinophils % (0 - 5 %) 0.5 Basophils % (0.0 - 2.0 %) 0.3 Absolute Granulocytes (1.4 - 6.5 /CUMM) 5.6 Absolute Lymphocytes (1.2 - 3.4 /CUMM) 1.4 Absolute Monocytes (0.10 - 0.60 /CUMM) 0.2 Absolute Eosinophils (0.0 - 0.7 /CUMM) 0 Absolute Basophils (0.0 - 0.2 /CUMM) 0 PUBS MCHC (33.0 - 37.0 G/DL) Cancelled 34.4 02/28 1415 Urines Urinalysis MANY H Urine Color (YEL,AMB,STR) ORANG H Urine Clarity (CLEAR) TURBD H Urine pH (5.0 - 8.0) 6.0 Ur Specific [place] (1.001 - 1.035) >= 1.030 Urine Protein (NEG,<30 MG/DL) 100 H Urine Ketones (NEG) NEG Urine Nitrite (NEG) POS H Urine Bilirubin (NEG) NEG@ICTO Urine Urobilinogen (0.1 - 1.0 EU/dl) 0.2 Ur Leukocyte Esterase (NEG) NEG Ur Microscopic SEDIMENT EXAMINED Urine RBC (0 - 5 /HPF) >75 H Urine WBC (0 - 2 /HPF) 1-3 H Urine Hemoglobin (NEG) LARGE H Urine Glucose (N MG/DL) NEG 02/28 1215 Chemistry Sodium (137 - 145 mmol/L) 134 L Potassium (3.5 - 5.1 mmol/L) 4.2 Chloride (98 - 107 mmol/L) 108 H Carbon Dioxide (22 - 30 mmol/L) 18 L Anion Gap (5 - 16) 8 BUN (7 - 17 mg/dL) 10 Creatinine (0.5 - 1.0 mg/dL) 0.6 Estimated GFR (>60 ml/min) > 60 Glucose (65 - 99 mg/dL) 139 H Calcium (8.4 - 10.2 mg/dL) 6.4 L Phosphorus (2.5 - 4.5 mg/dL) 2.0 L Magnesium (1.6 - 2.3 mg/dL) 2.5 H Total Bilirubin (0.2 - 1.3 mg/dL) 0.6 AST (14 - 36 U/L) 38 H ALT (9 - 52 U/L) 25 Creatine Kinase (30 - 135 U/L) 654 H Albumin (3.5 - 5.0 g/dL) 2.9 L Triglycerides (<150 mg/dL) 749 H Coagulation PT (9.4 - 12.5 SEC) 12.9 H INR (0.90 - 1.19) 1.23 H APTT (25 - 37 SEC) 28 Fibrinogen Activity (200 - 393 MG/DL) 673 H Fibrin Degrad Products (< 10 ug/ml) >10 but < 40 ug/ml H 02/28 02/28 02/28 0600 0305 0300 Chemistry Sodium (137 - 145 mmol/L) 134 L 135 L Potassium (3.5 - 5.1 mmol/L) 4.2 4.3 Chloride (98 - 107 mmol/L) 108 H 108 H Carbon Dioxide (22 - 30 mmol/L) 16 L 17 L Anion Gap (5 - 16) 10 10 BUN (7 - 17 mg/dL) 12 11 Creatinine (0.5 - 1.0 mg/dL) 0.7 0.7 Estimated GFR (>60 ml/min) > 60 > 60 Glucose (65 - 99 mg/dL) 154 H 147 H C-Peptide Pending Lactic Acid (0.7 - 2.1 mmol/L) 1.8 Calcium (8.4 - 10.2 mg/dL) 5.9 *L 6.1 L Phosphorus (2.5 - 4.5 mg/dL) 2.1 L 2.2 L Magnesium (1.6 - 2.3 mg/dL) 2.6 H 2.6 H Total Bilirubin (0.2 - 1.3 mg/dL) 0.7 0.7 AST (14 - 36 U/L) 37 H 34 ALT (9 - 52 U/L) 27 21 Albumin (3.5 - 5.0 g/dL) 3.0 L 3.1 L Triglycerides (<150 mg/dL) 677 H Hematology CBC w Diff NO MAN DIFF REQ WBC (4.8 - 10.8 /CUMM) 10.0 RBC (4.20 - 5.40 /CUMM) 5.04 Hgb (12.0 - 16.0 G/DL) 13.9 Hct (37 - 47 %) 41.5 MCV (81.0 - 99.0 FL) 82.3 MCH (27.0 - 31.0 PG) 27.5 RDW (11.5 - 14.5 %) 14.0 Plt Count (130 - 400 /CUMM) 190 MPV (7.4 - 10.4 FL) 8.1 Gran % (42.2 - 75.2 %) 79.8 H Lymphocytes % (20.5 - 51.1 %) 17.4 L Monocytes % (1.7 - 9.3 %) 2.7 Eosinophils % (0 - 5 %) 0.1 Basophils % (0.0 - 2.0 %) 0 L Absolute Granulocytes (1.4 - 6.5 /CUMM) 8.0 H Absolute Lymphocytes (1.2 - 3.4 /CUMM) 1.7 Absolute Monocytes (0.10 - 0.60 /CUMM) 0.3 Absolute Eosinophils (0.0 - 0.7 /CUMM) 0 Absolute Basophils (0.0 - 0.2 /CUMM) 0 PUBS MCHC (33.0 - 37.0 G/DL) 33.4 Immunology SHAHEED Antibody Pending 02/28 02/27 0000 2105 Chemistry Sodium (137 - 145 mmol/L) 134 L 134 L Potassium (3.5 - 5.1 mmol/L) 4.6 4.7 Chloride (98 - 107 mmol/L) 109 H 108 H Carbon Dioxide (22 - 30 mmol/L) 15 L 15 L Anion Gap (5 - 16) 10 11 BUN (7 - 17 mg/dL) 10 10 Creatinine (0.5 - 1.0 mg/dL) 0.7 0.7 Estimated GFR (>60 ml/min) > 60 > 60 Glucose (65 - 99 mg/dL) 144 H 125 H Lactic Acid (0.7 - 2.1 mmol/L) 1.7 2.2 H Calcium (8.4 - 10.2 mg/dL) 5.7 *L 6.1 L Phosphorus (2.5 - 4.5 mg/dL) 2.1 L 2.2 L Magnesium (1.6 - 2.3 mg/dL) 2.6 H 2.7 H Total Bilirubin (0.2 - 1.3 mg/dL) 0.6 0.6 AST (14 - 36 U/L) 30 25 ALT (9 - 52 U/L) 21 20 Albumin (3.5 - 5.0 g/dL) 3.1 L 3.3 L Hematology CBC w Diff NO MAN DIFF REQ NO MAN DIFF REQ WBC (4.8 - 10.8 /CUMM) 10.0 8.4 RBC (4.20 - 5.40 /CUMM) 5.25 5.45 H Hgb (12.0 - 16.0 G/DL) 14.5 15.2 Hct (37 - 47 %) 42.2 44.8 MCV (81.0 - 99.0 FL) 80.5 L 82.2 MCH (27.0 - 31.0 PG) 27.6 27.9 RDW (11.5 - 14.5 %) 13.5 13.8 Plt Count (130 - 400 /CUMM) 197 124 L MPV (7.4 - 10.4 FL) 8.7 9.3 Gran % (42.2 - 75.2 %) 79.6 H 76.2 H Lymphocytes % (20.5 - 51.1 %) 16.7 L 18.1 L Monocytes % (1.7 - 9.3 %) 3.5 5.4 Eosinophils % (0 - 5 %) 0 0.1 Basophils % (0.0 - 2.0 %) 0.2 0.2 Absolute Granulocytes (1.4 - 6.5 /CUMM) 8.0 H 6.4 Absolute Lymphocytes (1.2 - 3.4 /CUMM) 1.7 1.5 Absolute Monocytes (0.10 - 0.60 /CUMM) 0.3 0.4 Absolute Eosinophils (0.0 - 0.7 /CUMM) 0 0 Absolute Basophils (0.0 - 0.2 /CUMM) 0 0 PUBS MCHC (33.0 - 37.0 G/DL) 34.3 33.9 07/05 07/05 07/05 1830 1823 1520 Chemistry Sodium (137 - 145 mmol/L) 133 L Potassium (3.5 - 5.1 mmol/L) 4.1 Chloride (98 - 107 mmol/L) 107 Carbon Dioxide (22 - 30 mmol/L) 14 L Anion Gap (5 - 16) 11 BUN (7 - 17 mg/dL) 9 Creatinine (0.5 - 1.0 mg/dL) 0.7 Estimated GFR (>60 ml/min) > 60 Glucose (65 - 99 mg/dL) 158 H Lactic Acid (0.7 - 2.1 mmol/L) 3.0 H Cancelled 4.3 H Calcium (8.4 - 10.2 mg/dL) 6.8 L Phosphorus (2.5 - 4.5 mg/dL) 1.9 L Magnesium (1.6 - 2.3 mg/dL) 3.1 H Total Bilirubin (0.2 - 1.3 mg/dL) 0.7 AST (14 - 36 U/L) 23 ALT (9 - 52 U/L) 18 Albumin (3.5 - 5.0 g/dL) 3.3 L Hematology CBC w Diff NO MAN DIFF REQ WBC (4.8 - 10.8 /CUMM) 8.1 RBC (4.20 - 5.40 /CUMM) 5.39 Hgb (12.0 - 16.0 G/DL) 14.8 Hct (37 - 47 %) 44.0 MCV (81.0 - 99.0 FL) 81.6 MCH (27.0 - 31.0 PG) 27.5 RDW (11.5 - 14.5 %) 13.6 Plt Count (130 - 400 /CUMM) 189 MPV (7.4 - 10.4 FL) 9.0 Gran % (42.2 - 75.2 %) 77.4 H Lymphocytes % (20.5 - 51.1 %) 16.8 L Monocytes % (1.7 - 9.3 %) 5.6 Eosinophils % (0 - 5 %) 0.1 Basophils % (0.0 - 2.0 %) 0.1 Absolute Granulocytes (1.4 - 6.5 /CUMM) 6.2 Absolute Lymphocytes (1.2 - 3.4 /CUMM) 1.4 Absolute Monocytes (0.10 - 0.60 /CUMM) 0.4 Absolute Eosinophils (0.0 - 0.7 /CUMM) 0 Absolute Basophils (0.0 - 0.2 /CUMM) 0 PUBS MCHC (33.0 - 37.0 G/DL) 33.7 02/27 02/27 02/27 1520 1520 1215 Chemistry Sodium (137 - 145 mmol/L) 135 L Potassium (3.5 - 5.1 mmol/L) 4.5 Plasma Potassium (3.4 - 4.4 MMOL/L) 4.3 Chloride (98 - 107 mmol/L) 107 Carbon Dioxide (22 - 30 mmol/L) 14 L Anion Gap (5 - 16) 14 BUN (7 - 17 mg/dL) 9 Creatinine (0.5 - 1.0 mg/dL) 0.7 Estimated GFR (>60 ml/min) > 60 Glucose (65 - 99 mg/dL) 178 H Calcium (8.4 - 10.2 mg/dL) 5.9 *L Ionized Calcium (4.8 - 5.6 mg/dL) 3.4 L TNP Phosphorus (2.5 - 4.5 mg/dL) 1.6 L Magnesium (1.6 - 2.3 mg/dL) 2.2 Total Bilirubin (0.2 - 1.3 mg/dL) 0.8 AST (14 - 36 U/L) 16 ALT (9 - 52 U/L) 16 Albumin (3.5 - 5.0 g/dL) 3.6 Triglycerides (<150 mg/dL) 864 H Hematology CBC w Diff NO MAN DIFF REQ WBC (4.8 - 10.8 /CUMM) 9.0 RBC (4.20 - 5.40 /CUMM) 5.64 H Hgb (12.0 - 16.0 G/DL) 15.7 Hct (37 - 47 %) 46.4 MCV (81.0 - 99.0 FL) 82.2 MCH (27.0 - 31.0 PG) 27.9 RDW (11.5 - 14.5 %) 13.6 Plt Count (130 - 400 /CUMM) 155 MPV (7.4 - 10.4 FL) 9.6 Gran % (42.2 - 75.2 %) 80.9 H Lymphocytes % (20.5 - 51.1 %) 14.5 L Monocytes % (1.7 - 9.3 %) 4.4 Eosinophils % (0 - 5 %) 0 Basophils % (0.0 - 2.0 %) 0.2 Absolute Granulocytes (1.4 - 6.5 /CUMM) 7.3 H Absolute Lymphocytes (1.2 - 3.4 /CUMM) 1.3 Absolute Monocytes (0.10 - 0.60 /CUMM) 0.4 Absolute Eosinophils (0.0 - 0.7 /CUMM) 0 Absolute Basophils (0.0 - 0.2 /CUMM) 0 PUBS MCHC (33.0 - 37.0 G/DL) 33.9 07/05 07/05 1215 1150 Chemistry Sodium (137 - 145 mmol/L) 129 L Potassium (3.5 - 5.1 mmol/L) 5.6 H Plasma Potassium (3.4 - 4.4 MMOL/L) 5.1 H Chloride (98 - 107 mmol/L) 105 Carbon Dioxide (22 - 30 mmol/L) 8 *L Anion Gap (5 - 16) 16 BUN (7 - 17 mg/dL) 9 Creatinine (0.5 - 1.0 mg/dL) 0.9 Estimated GFR (>60 ml/min) > 60 Glucose (65 - 99 mg/dL) 252 H Lactic Acid (0.7 - 2.1 mmol/L) 3.7 H Calcium (8.4 - 10.2 mg/dL) 5.1 *L Phosphorus (2.5 - 4.5 mg/dL) 1.7 L Magnesium (1.6 - 2.3 mg/dL) 1.6 Total Bilirubin (0.2 - 1.3 mg/dL) 0.8 AST (14 - 36 U/L) 32 ALT (9 - 52 U/L) 30 Albumin (3.5 - 5.0 g/dL) 3.0 L Toxicology Acetone Level (NEGATIVE) NEGATIVE Urines Urinalysis LIGHT H Urine Color (YEL,AMB,STR) YESIKA Urine Clarity (CLEAR) HAZY H Urine pH (5.0 - 8.0) 6.0 Ur Specific [place] (1.001 - 1.035) >= 1.030 Urine Protein (NEG,<30 MG/DL) 100 H Urine Ketones (NEG) 15 H Urine Nitrite (NEG) NEG Urine Bilirubin (NEG) NEG Urine Urobilinogen (0.1 - 1.0 EU/dl) 0.2 Ur Leukocyte Esterase (NEG) NEG Ur Microscopic SEDIMENT EXAMINED Urine RBC (0 - 5 /HPF) RARE Urine WBC (0 - 2 /HPF) 1-3 H Ur Epithelial Cells (NONE,FEW) RARE Urine Bacteria (NEG/NONE) FEW H Hyaline Casts (0/LPF) 1-3 H Granular Casts (NONE /LPF) 1-3 H Urine Mucus (FEW,NONE) MOD H Urine Hemoglobin (NEG) NEG Urine Glucose (N MG/DL) >=1000 H
--- NOTE | 2017-03-02 11:35 | PN- CRCU ---
Subjective HPI/Critical Care Issues: The patient is awake and alert. She continues to have ongoing abdominal bloating. She had significant diuresis with Lasix yesterday. Overall she is feeling improved but still has ongoing abdominal pain. She offers no new complaints today. Objective Current Medications: Current Medications Sig/Jack Start time Last Medication Dose Route Stop Time Status Admin Acetaminophen 1,000 MG .STK-MED ONE 03/02 0011 DC IV 03/02 0012 Acetaminophen 650 MG .STK-MED ONE 03/02 0009 DC PO 03/02 0010 Acetaminophen 325 MG Q6 PRN 02/26 1845 AC PO Acetaminophen 1,000 MG Q6 PRN 02/26 1845 AC 02/27 IV 0747 Albuterol Sulfate 3 ML Q4P PRN 02/28 2145 AC 03/01 INH 1948 Calcitriol 0.25 MCG BID 02/27 1212 AC 03/02 IV 0925 Calcium Carbonate 500 MG Q6 02/28 1200 DC 03/02 PO 0608 Dextrose/Sodium 1,000 ML Q20H 03/01 0230 DC 03/01 Chloride IV 03/01 1549 0808 Dextrose/Sodium 1,000 ML Q10H 03/01 0230 DC 03/01 Chloride IV 1157 Ergocalciferol 50,000 IU QTHURS 02/28 1415 DC 02/28 PO 1847 Fenofibrate 145 MG DAILY 02/27 0030 AC 03/02 PO 0925 Furosemide 40 MG ONCE ONE 03/02 1130 DC IV 03/02 1131 Furosemide 40 MG ONCE ONE 03/01 1545 DC 03/01 IV 03/01 1546 1754 Furosemide 40 MG ONCE ONE 03/01 1215 DC 03/01 IV 03/01 1216 1232 Guaifenesin/ 10 ML Q6P PRN 03/01 0100 Dextromethorphan PO Heparin Sodium 5,000 UNIT Q8 02/26 2200 AC 03/01 (Porcine) SC 2346 Hydromorphone HCl 2 MG ONCE PRN 03/02 0100 AC 03/02 IV 0052 Hydromorphone HCl 1 MG Q3 PRN 02/27 0800 AC 03/02 IV 0926 Insulin Human Regular 100 UNIT Q24H 02/26 2045 AC 03/01 Sodium Chloride 100 ML IV 2201 Lactated Ringer's 1,000 ML Q20H 03/01 0230 DC 03/01 IV 0235 Lactated Ringer's 1,000 ML Q10H 02/26 2100 DC 03/01 IV 0950 Metoclopramide HCl 10 MG Q6P PRN 02/28 0215 AC IV Montelukast Sodium 10 MG AT BEDTIME 02/26 2200 AC 03/01 PO 2209 Nicotinic Acid 500 MG WITH MEALS 03/01 1700 AC 03/02 PO 0849 Non-Formulary 0 SEE ADMIN CRITERIA 02/26 1900 UNVr Medication ANY Ondansetron HCl 4 MG .STK-MED ONE 03/01 1831 DC IM 03/01 1832 Ondansetron HCl 4 MG .STK-MED ONE 03/01 1259 DC IM 03/01 1300 Ondansetron HCl 4 MG Q6P PRN 02/26 1930 AC 03/01 IV 1832 Pantoprazole Sodium 40 MG DAILY 02/27 1000 AC 03/02 IV 0926 Phosphate 250 MG ONCE ONE 03/02 09 DC PO 03/02 0901 Potassium Chloride 20 MEQ ONCE ONE 03/02 09 DC 03/02 PO 03/02 0901 0925 Potassium Chloride 40 MEQ Q13H 03/01 2000 DC 03/01 Dextrose/Sodium 1,000 ML IV 03/02 0859 2201 Chloride Potassium Phosphate 10 mMol ONE ONE 03/01 1215 DC 03/01 Sodium Chloride 250 ML IV 03/01 1617 1404 Rosuvastatin Calcium 20 MG DAILY 02/28 1115 AC 03/02 PO 0925 Trimethobenzamide HCl 200 MG TID PRN 02/28 0215 AC 02/28 IM 0212 Vital Signs & I&O Last 24 Hrs of Vitals and I&O: Vital Signs Date Time Temp Pulse Resp B/P B/P Pulse O2 O2 Flow FiO2 Mean Ox Delivery Rate 03/02 0931 93 Room Air Room Air 03/02 0400 97 Nasal 2.0L Cannula 03/02 0000 94 Nasal 2.0L Cannula 03/02 0000 100.8 123 21 132/50 94 Nasal 2.0L Cannula 03/01 2000 93 Room Air 03/01 195 98 Nasal 2.0L Cannula 03/01 1600 95 Nasal 2.0L Cannula 03/01 1600 98.0 122 30 117/59 95 Nasal 2.0L Cannula 03/01 1201 97 Room Air 03/01 1200 92 Nasal 2.0L Cannula Intake & Output 03/02 1600 07/08 0800 07/ 0000 Intake Total 746.4 1332.4 Output Total 500 1400 Balance 246.4 -67.6 Intake, IV 626.4 910.4 Intake, Oral 120 422 Number 0 0 Bowel Movements Output, Urine 500 1400 Exam General Appearance: alert, awake, comfortable Head: atraumatic, normal appearance Neck: supple Respiratory: quiet respiration, decreased breath sounds Cardiovascular: regular rate/rhythm Extremities: trace edema Skin: intact, normal color, warm/dry Impression/Plan Impression/Plan Impression/Plan: 1. 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 2. Electrolyte derangement secondary to above. 3. Diabetes. Recommendations: -s/p plasmapheresis, significant reduction in TG, katerina discontinued -hyperlycemic tx per endocrinology -gi, endocrine, renal and GI consultations are appreciated -monitor hemodynamics -incentive spirometry -pain control -diuresis as per nephrology -ppi -no abx warranted at this time -DVT prophylaxis at all times -continue all supportive care
--- NOTE | 2017-03-02 12:21 | PN- Gastroenterology ---
Assessment/Plan Assessment/Recommendations: * Severe acute hypertriglyceridemic pancreatitis, managed with supportive measures, insulin, one session of plasmapheresis. No fever, leukocytosis * Abdominal distention, improved with diuresis. Fluid overload although no suspicion for intra-abdominal hypertension * Resolving ileus. * Dyspnea/hypoxia likely secondary to atelectasis; small pleural effusions, no evidence of ARDS or CHF * Resolution of acidemia and hypocalcemia. * Improvement in hypertriglyceridemia. Recommendations * Continue clear liquids. Ensure Clear. * Continued careful monitoring of input and output, oxygen saturation * Supplemental oxygen, respiratory therapy * Agree with continued diuresis * Management of hypertriglyceridemia per endocrinology; nephrology has suggested stopping insulin drip * Calcium management per nephrology. Subjective Subjective: Abdominal pain is better, although the patient still feels "pressure/tightness. " This may have been exacerbated by ingestion of liquids. Intermittent nausea persists. No vomiting. No fever. She had a bowel movement. Objective Vital Signs and I&Os Vital Signs Date Time Temp Pulse Resp B/P B/P Pulse O2 O2 Flow FiO2 Mean Ox Delivery Rate 03/02 0931 93 Room Air Room Air 03/02 0400 97 Nasal 2.0L Cannula 03/02 0000 94 Nasal 2.0L Cannula 03/02 0000 100.8 123 21 132/50 94 Nasal 2.0L Cannula 03/01 2000 93 Room Air 03/01 195 98 Nasal 2.0L Cannula 03/01 1600 95 Nasal 2.0L Cannula 03/01 1600 98.0 122 30 117/59 95 Nasal 2.0L Cannula Intake & Output 03/02 0400 03/01 1600 03/01 0400 02/28 0400 Intake Total 746.4 1332.4 2723 1613 3640 1150 Output Total 500 1400 2135 338 415 200 Balance 246.4 -67.6 588 1275 3225 950 Intake, IV 626.4 910.4 2423 1413 3340 1150 Intake, Oral 120 422 300 200 300 Number 0 0 0 0 Bowel Movements Output, Urine 500 1400 2135 338 415 200 Patient 178 lb 173 lb Weight Weight Bed scale Measurement Method Physical Exam: Tachycardic although improved. Alert and oriented. Sitting up in chair. Sclera anicteric. Mucous membranes moist. Extremities with 1+ edema. Abdomen with positive bowel sounds, and distended but not tense; improvement in tenderness to palpation. Current Medications: Current Medications Sig/Jack Start time Last Medication Dose Route Stop Time Status Admin Acetaminophen 1,000 MG .STK-MED ONE 03/02 0011 DC IV 03/02 0012 Acetaminophen 650 MG .STK-MED ONE 03/02 0009 DC PO 03/02 0010 Acetaminophen 325 MG Q6 PRN 02/26 1845 AC PO Acetaminophen 1,000 MG Q6 PRN 02/26 1845 AC 02/27 IV 0747 Albuterol Sulfate 3 ML Q4P PRN 02/28 2145 AC 03/01 INH 1948 Calcitriol 0.25 MCG BID 02/27 1212 DC 03/02 IV 0925 Calcium Carbonate 500 MG Q6 02/28 1200 DC 03/02 PO 0608 Dextrose/Sodium 1,000 ML Q20H 03/01 0230 DC 03/01 Chloride IV 03/01 1549 0808 Dextrose/Sodium 1,000 ML Q10H 03/01 0230 DC 03/01 Chloride IV 1157 Ergocalciferol 50,000 IU QTHURS 02/28 1415 DC 02/28 PO 1847 Fenofibrate 145 MG DAILY 02/27 0030 AC 03/02 PO 0925 Furosemide 40 MG ONCE ONE 03/02 1130 DC 03/02 IV 03/02 1131 1200 Furosemide 40 MG ONCE ONE 03/01 1545 DC 03/01 IV 03/01 1546 1754 Furosemide 40 MG ONCE ONE 03/01 1215 DC 03/01 IV 03/01 1216 1232 Guaifenesin/ 10 ML Q6P PRN 03/01 0100 AC Dextromethorphan PO Heparin Sodium 5,000 UNIT Q8 02/26 2200 AC 03/01 (Porcine) SC 2346 Hydromorphone HCl 2 MG ONCE PRN 03/02 0100 AC 03/02 IV 0052 Hydromorphone HCl 1 MG Q3 PRN 02/27 0800 AC 03/02 IV 0926 Insulin Aspart 0 TIDAC 03/02 1200 UNVr SC Insulin Detemir 12 UNITS BID 03/02 1144 UNVr 03/02 SC 1202 Insulin Human Regular 100 UNIT Q24H / 2045 DC 03/01 Sodium Chloride 100 ML IV 2201 Lactated Ringer's 1,000 ML Q10H 02/26 2100 DC 03/01 IV 0950 Metoclopramide HCl 10 MG Q6P PRN 02/28 0215 AC IV Montelukast Sodium 10 MG AT BEDTIME 02/26 2200 AC 03/01 PO 2209 Nicotinic Acid 500 MG WITH MEALS 03/01 1700 AC 03/02 PO 1200 Non-Formulary 0 SEE ADMIN CRITERIA 02/26 1900 UNVr Medication ANY Ondansetron HCl 4 MG .STK-MED ONE 03/01 1831 DC IM 03/01 1832 Ondansetron HCl 4 MG .STK-MED ONE 03/01 1259 DC IM 03/01 1300 Ondansetron HCl 4 MG Q6P PRN 02/26 1930 AC 03/01 IV 1832 Pantoprazole Sodium 40 MG DAILY 02/27 1000 AC 03/02 IV 0926 Phosphate 250 MG ONCE ONE 03/02 900 DC 03/02 PO 03/02 0901 1200 Potassium Chloride 20 MEQ ONCE ONE 03/02 0900 DC 03/02 PO 03/02 0901 0925 Potassium Chloride 40 MEQ Q13H 03/01 2000 DC 03/01 Dextrose/Sodium 1,000 ML IV 03/02 0859 2201 Chloride Potassium Phosphate 10 mMol ONE ONE 03/01 1215 DC 03/01 Sodium Chloride 250 ML IV 03/01 1617 1404 Rosuvastatin Calcium 20 MG DAILY 02/28 1115 AC 03/02 PO 0925 Trimethobenzamide HCl 200 MG TID PRN 02/28 0215 AC 02/28 IM 0212 Results Pertinent Lab Results: Laboratory Tests 03/02 03/01 0428 1835 Chemistry Sodium (137 - 145 mmol/L) 139 139 Potassium (3.5 - 5.1 mmol/L) 3.7 3.7 Chloride (98 - 107 mmol/L) 106 104 Carbon Dioxide (22 - 30 mmol/L) 24 25 Anion Gap (5 - 16) 8 10 BUN (7 - 17 mg/dL) 6 L 4 L Creatinine (0.5 - 1.0 mg/dL) 0.5 0.6 Estimated GFR (>60 ml/min) > 60 > 60 Glucose (65 - 99 mg/dL) 112 H 148 H Calcium (8.4 - 10.2 mg/dL) 7.2 L 7.1 L Phosphorus (2.5 - 4.5 mg/dL) 2.0 L 2.5 Magnesium (1.6 - 2.3 mg/dL) 2.0 1.9 Total Bilirubin (0.2 - 1.3 mg/dL) 0.7 0.8 AST (14 - 36 U/L) 45 H 49 H ALT (9 - 52 U/L) 28 17 Albumin (3.5 - 5.0 g/dL) 2.8 L 3.4 L Triglycerides (<150 mg/dL) 382 H 566 H Hematology CBC w Diff NO MAN DIFF REQ NO MAN DIFF REQ WBC (4.8 - 10.8 /CUMM) 8.2 9.6 RBC (4.20 - 5.40 /CUMM) 3.25 L 3.77 L Hgb (12.0 - 16.0 G/DL) 8.9 L 10.4 L Hct (37 - 47 %) 26.5 L 30.5 L MCV (81.0 - 99.0 FL) 81.4 81.0 MCH (27.0 - 31.0 PG) 27.5 27.6 RDW (11.5 - 14.5 %) 13.8 13.7 Plt Count (130 - 400 /CUMM) 138 162 MPV (7.4 - 10.4 FL) 7.9 7.3 L Gran % (42.2 - 75.2 %) 73.3 79.8 H Lymphocytes % (20.5 - 51.1 %) 20.9 16.0 L Monocytes % (1.7 - 9.3 %) 4.7 3.3 Eosinophils % (0 - 5 %) 0.9 0.7 Basophils % (0.0 - 2.0 %) 0.2 0.2 Absolute Granulocytes (1.4 - 6.5 /CUMM) 6.0 7.7 H Absolute Lymphocytes (1.2 - 3.4 /CUMM) 1.7 1.5 Absolute Monocytes (0.10 - 0.60 /CUMM) 0.4 0.3 Absolute Eosinophils (0.0 - 0.7 /CUMM) 0.1 0.1 Absolute Basophils (0.0 - 0.2 /CUMM) 0 0 PUBS MCHC (33.0 - 37.0 G/DL) 33.8 34.1 03/01 07/ 1400 0420 Chemistry Sodium (137 - 145 mmol/L) 135 L Potassium (3.5 - 5.1 mmol/L) 3.7 Chloride (98 - 107 mmol/L) 107 Carbon Dioxide (22 - 30 mmol/L) 21 L Anion Gap (5 - 16) 8 BUN (7 - 17 mg/dL) 7 Creatinine (0.5 - 1.0 mg/dL) 0.5 Estimated GFR (>60 ml/min) > 60 Glucose (65 - 99 mg/dL) 149 H Calcium (8.4 - 10.2 mg/dL) 6.3 L Phosphorus (2.5 - 4.5 mg/dL) 1.2 L Magnesium (1.6 - 2.3 mg/dL) 2.4 H Total Bilirubin (0.2 - 1.3 mg/dL) 0.8 AST (14 - 36 U/L) 40 H ALT (9 - 52 U/L) 29 Albumin (3.5 - 5.0 g/dL) 2.7 L Triglycerides (<150 mg/dL) Cancelled 675 H Hematology CBC w Diff Cancelled NO MAN DIFF REQ WBC (4.8 - 10.8 /CUMM) Cancelled 7.4 RBC (4.20 - 5.40 /CUMM) Cancelled 3.66 L Hgb (12.0 - 16.0 G/DL) Cancelled 10.2 L Hct (37 - 47 %) Cancelled 29.7 L MCV (81.0 - 99.0 FL) Cancelled 81.3 MCH (27.0 - 31.0 PG) Cancelled 28.0 RDW (11.5 - 14.5 %) Cancelled 14.2 Plt Count (130 - 400 /CUMM) Cancelled 130 MPV (7.4 - 10.4 FL) Cancelled 7.4 Gran % (42.2 - 75.2 %) 76.3 H Lymphocytes % (20.5 - 51.1 %) 19.6 L Monocytes % (1.7 - 9.3 %) 3.3 Eosinophils % (0 - 5 %) 0.5 Basophils % (0.0 - 2.0 %) 0.3 Absolute Granulocytes (1.4 - 6.5 /CUMM) 5.6 Absolute Lymphocytes (1.2 - 3.4 /CUMM) 1.4 Absolute Monocytes (0.10 - 0.60 /CUMM) 0.2 Absolute Eosinophils (0.0 - 0.7 /CUMM) 0 Absolute Basophils (0.0 - 0.2 /CUMM) 0 PUBS MCHC (33.0 - 37.0 G/DL) Cancelled 34.4 02/28 1415 Urines Urinalysis MANY H Urine Color (YEL,AMB,STR) ORANG H Urine Clarity (CLEAR) TURBD H Urine pH (5.0 - 8.0) 6.0 Ur Specific [place] (1.001 - 1.035) >= 1.030 Urine Protein (NEG,<30 MG/DL) 100 H Urine Ketones (NEG) NEG Urine Nitrite (NEG) POS H Urine Bilirubin (NEG) NEG@ICTO Urine Urobilinogen (0.1 - 1.0 EU/dl) 0.2 Ur Leukocyte Esterase (NEG) NEG Ur Microscopic SEDIMENT EXAMINED Urine RBC (0 - 5 /HPF) >75 H Urine WBC (0 - 2 /HPF) 1-3 H Urine Hemoglobin (NEG) LARGE H Urine Glucose (N MG/DL) NEG 02/28 1215 Chemistry Sodium (137 - 145 mmol/L) 134 L Potassium (3.5 - 5.1 mmol/L) 4.2 Chloride (98 - 107 mmol/L) 108 H Carbon Dioxide (22 - 30 mmol/L) 18 L Anion Gap (5 - 16) 8 BUN (7 - 17 mg/dL) 10 Creatinine (0.5 - 1.0 mg/dL) 0.6 Estimated GFR (>60 ml/min) > 60 Glucose (65 - 99 mg/dL) 139 H Calcium (8.4 - 10.2 mg/dL) 6.4 L Phosphorus (2.5 - 4.5 mg/dL) 2.0 L Magnesium (1.6 - 2.3 mg/dL) 2.5 H Total Bilirubin (0.2 - 1.3 mg/dL) 0.6 AST (14 - 36 U/L) 38 H ALT (9 - 52 U/L) 25 Creatine Kinase (30 - 135 U/L) 654 H Albumin (3.5 - 5.0 g/dL) 2.9 L Triglycerides (<150 mg/dL) 749 H Coagulation PT (9.4 - 12.5 SEC) 12.9 H INR (0.90 - 1.19) 1.23 H APTT (25 - 37 SEC) 28 Fibrinogen Activity (200 - 393 MG/DL) 673 H Fibrin Degrad Products (< 10 ug/ml) >10 but < 40 ug/ml H 02/28 07 07 0600 0305 0300 Chemistry Sodium (137 - 145 mmol/L) 134 L 135 L Potassium (3.5 - 5.1 mmol/L) 4.2 4.3 Chloride (98 - 107 mmol/L) 108 H 108 H Carbon Dioxide (22 - 30 mmol/L) 16 L 17 L Anion Gap (5 - 16) 10 10 BUN (7 - 17 mg/dL) 12 11 Creatinine (0.5 - 1.0 mg/dL) 0.7 0.7 Estimated GFR (>60 ml/min) > 60 > 60 Glucose (65 - 99 mg/dL) 154 H 147 H C-Peptide Pending Lactic Acid (0.7 - 2.1 mmol/L) 1.8 Calcium (8.4 - 10.2 mg/dL) 5.9 *L 6.1 L Phosphorus (2.5 - 4.5 mg/dL) 2.1 L 2.2 L Magnesium (1.6 - 2.3 mg/dL) 2.6 H 2.6 H Total Bilirubin (0.2 - 1.3 mg/dL) 0.7 0.7 AST (14 - 36 U/L) 37 H 34 ALT (9 - 52 U/L) 27 21 Albumin (3.5 - 5.0 g/dL) 3.0 L 3.1 L Triglycerides (<150 mg/dL) 677 H Hematology CBC w Diff NO MAN DIFF REQ WBC (4.8 - 10.8 /CUMM) 10.0 RBC (4.20 - 5.40 /CUMM) 5.04 Hgb (12.0 - 16.0 G/DL) 13.9 Hct (37 - 47 %) 41.5 MCV (81.0 - 99.0 FL) 82.3 MCH (27.0 - 31.0 PG) 27.5 RDW (11.5 - 14.5 %) 14.0 Plt Count (130 - 400 /CUMM) 190 MPV (7.4 - 10.4 FL) 8.1 Gran % (42.2 - 75.2 %) 79.8 H Lymphocytes % (20.5 - 51.1 %) 17.4 L Monocytes % (1.7 - 9.3 %) 2.7 Eosinophils % (0 - 5 %) 0.1 Basophils % (0.0 - 2.0 %) 0 L Absolute Granulocytes (1.4 - 6.5 /CUMM) 8.0 H Absolute Lymphocytes (1.2 - 3.4 /CUMM) 1.7 Absolute Monocytes (0.10 - 0.60 /CUMM) 0.3 Absolute Eosinophils (0.0 - 0.7 /CUMM) 0 Absolute Basophils (0.0 - 0.2 /CUMM) 0 PUBS MCHC (33.0 - 37.0 G/DL) 33.4 Immunology SHAHEED Antibody Pending 02/28 02/27 0000 2105 Chemistry Sodium (137 - 145 mmol/L) 134 L 134 L Potassium (3.5 - 5.1 mmol/L) 4.6 4.7 Chloride (98 - 107 mmol/L) 109 H 108 H Carbon Dioxide (22 - 30 mmol/L) 15 L 15 L Anion Gap (5 - 16) 10 11 BUN (7 - 17 mg/dL) 10 10 Creatinine (0.5 - 1.0 mg/dL) 0.7 0.7 Estimated GFR (>60 ml/min) > 60 > 60 Glucose (65 - 99 mg/dL) 144 H 125 H Lactic Acid (0.7 - 2.1 mmol/L) 1.7 2.2 H Calcium (8.4 - 10.2 mg/dL) 5.7 *L 6.1 L Phosphorus (2.5 - 4.5 mg/dL) 2.1 L 2.2 L Magnesium (1.6 - 2.3 mg/dL) 2.6 H 2.7 H Total Bilirubin (0.2 - 1.3 mg/dL) 0.6 0.6 AST (14 - 36 U/L) 30 25 ALT (9 - 52 U/L) 21 20 Albumin (3.5 - 5.0 g/dL) 3.1 L 3.3 L Hematology CBC w Diff NO MAN DIFF REQ NO MAN DIFF REQ WBC (4.8 - 10.8 /CUMM) 10.0 8.4 RBC (4.20 - 5.40 /CUMM) 5.25 5.45 H Hgb (12.0 - 16.0 G/DL) 14.5 15.2 Hct (37 - 47 %) 42.2 44.8 MCV (81.0 - 99.0 FL) 80.5 L 82.2 MCH (27.0 - 31.0 PG) 27.6 27.9 RDW (11.5 - 14.5 %) 13.5 13.8 Plt Count (130 - 400 /CUMM) 197 124 L MPV (7.4 - 10.4 FL) 8.7 9.3 Gran % (42.2 - 75.2 %) 79.6 H 76.2 H Lymphocytes % (20.5 - 51.1 %) 16.7 L 18.1 L Monocytes % (1.7 - 9.3 %) 3.5 5.4 Eosinophils % (0 - 5 %) 0 0.1 Basophils % (0.0 - 2.0 %) 0.2 0.2 Absolute Granulocytes (1.4 - 6.5 /CUMM) 8.0 H 6.4 Absolute Lymphocytes (1.2 - 3.4 /CUMM) 1.7 1.5 Absolute Monocytes (0.10 - 0.60 /CUMM) 0.3 0.4 Absolute Eosinophils (0.0 - 0.7 /CUMM) 0 0 Absolute Basophils (0.0 - 0.2 /CUMM) 0 0 PUBS MCHC (33.0 - 37.0 G/DL) 34.3 33.9 02/27 02/27 07 1830 1823 1520 Chemistry Sodium (137 - 145 mmol/L) 133 L Potassium (3.5 - 5.1 mmol/L) 4.1 Chloride (98 - 107 mmol/L) 107 Carbon Dioxide (22 - 30 mmol/L) 14 L Anion Gap (5 - 16) 11 BUN (7 - 17 mg/dL) 9 Creatinine (0.5 - 1.0 mg/dL) 0.7 Estimated GFR (>60 ml/min) > 60 Glucose (65 - 99 mg/dL) 158 H Lactic Acid (0.7 - 2.1 mmol/L) 3.0 H Cancelled 4.3 H Calcium (8.4 - 10.2 mg/dL) 6.8 L Phosphorus (2.5 - 4.5 mg/dL) 1.9 L Magnesium (1.6 - 2.3 mg/dL) 3.1 H Total Bilirubin (0.2 - 1.3 mg/dL) 0.7 AST (14 - 36 U/L) 23 ALT (9 - 52 U/L) 18 Albumin (3.5 - 5.0 g/dL) 3.3 L Hematology CBC w Diff NO MAN DIFF REQ WBC (4.8 - 10.8 /CUMM) 8.1 RBC (4.20 - 5.40 /CUMM) 5.39 Hgb (12.0 - 16.0 G/DL) 14.8 Hct (37 - 47 %) 44.0 MCV (81.0 - 99.0 FL) 81.6 MCH (27.0 - 31.0 PG) 27.5 RDW (11.5 - 14.5 %) 13.6 Plt Count (130 - 400 /CUMM) 189 MPV (7.4 - 10.4 FL) 9.0 Gran % (42.2 - 75.2 %) 77.4 H Lymphocytes % (20.5 - 51.1 %) 16.8 L Monocytes % (1.7 - 9.3 %) 5.6 Eosinophils % (0 - 5 %) 0.1 Basophils % (0.0 - 2.0 %) 0.1 Absolute Granulocytes (1.4 - 6.5 /CUMM) 6.2 Absolute Lymphocytes (1.2 - 3.4 /CUMM) 1.4 Absolute Monocytes (0.10 - 0.60 /CUMM) 0.4 Absolute Eosinophils (0.0 - 0.7 /CUMM) 0 Absolute Basophils (0.0 - 0.2 /CUMM) 0 PUBS MCHC (33.0 - 37.0 G/DL) 33.7 02/27 02/27 1520 1520 Chemistry Sodium (137 - 145 mmol/L) 135 L Potassium (3.5 - 5.1 mmol/L) 4.5 Plasma Potassium (3.4 - 4.4 MMOL/L) 4.3 Chloride (98 - 107 mmol/L) 107 Carbon Dioxide (22 - 30 mmol/L) 14 L Anion Gap (5 - 16) 14 BUN (7 - 17 mg/dL) 9 Creatinine (0.5 - 1.0 mg/dL) 0.7 Estimated GFR (>60 ml/min) > 60 Glucose (65 - 99 mg/dL) 178 H Calcium (8.4 - 10.2 mg/dL) 5.9 *L Ionized Calcium (4.8 - 5.6 mg/dL) 3.4 L Phosphorus (2.5 - 4.5 mg/dL) 1.6 L Magnesium (1.6 - 2.3 mg/dL) 2.2 Total Bilirubin (0.2 - 1.3 mg/dL) 0.8 AST (14 - 36 U/L) 16 ALT (9 - 52 U/L) 16 Albumin (3.5 - 5.0 g/dL) 3.6 Triglycerides (<150 mg/dL) 864 H Hematology CBC w Diff NO MAN DIFF REQ WBC (4.8 - 10.8 /CUMM) 9.0 RBC (4.20 - 5.40 /CUMM) 5.64 H Hgb (12.0 - 16.0 G/DL) 15.7 Hct (37 - 47 %) 46.4 MCV (81.0 - 99.0 FL) 82.2 MCH (27.0 - 31.0 PG) 27.9 RDW (11.5 - 14.5 %) 13.6 Plt Count (130 - 400 /CUMM) 155 MPV (7.4 - 10.4 FL) 9.6 Gran % (42.2 - 75.2 %) 80.9 H Lymphocytes % (20.5 - 51.1 %) 14.5 L Monocytes % (1.7 - 9.3 %) 4.4 Eosinophils % (0 - 5 %) 0 Basophils % (0.0 - 2.0 %) 0.2 Absolute Granulocytes (1.4 - 6.5 /CUMM) 7.3 H Absolute Lymphocytes (1.2 - 3.4 /CUMM) 1.3 Absolute Monocytes (0.10 - 0.60 /CUMM) 0.4 Absolute Eosinophils (0.0 - 0.7 /CUMM) 0 Absolute Basophils (0.0 - 0.2 /CUMM) 0 PUBS MCHC (33.0 - 37.0 G/DL) 33.9
--- NOTE | 2017-03-02 13:10 | PN- Diabetes ---
Assessment/Plan Assessment: 36-year-old female with past medical history of hypertriglyceridemia and multiple episodes of pancreatitis, type 2 diabetes mellitus, asthma presented to the ED for acute onset of right upper quadrant pain and she was diagnosed with acute pancreatitis which most likely is related to severe hypertriglyceridemia. Patient received plasmaphoresis and TRIG level improved. She is still on insulin drip at 1 units per hour since 6 am this morning. IVF was discontinued. Her FSGs have been between 120 and 160. She tolerated clear liquid diet. Am lab on 03/02/2017 showed TRIG 382. with regards to hypocalcemia, she is on Calcitriol 0.25 mcg iv twice a day, WHITNEY 500 mg every 6 hours. Her repeat calcium 7.2, albumin 2.8 WHITNEY was discontinued as per nephrology. Clinically she has been feeling better. Plan: 1. hypocalcemia: calcemia level improved; --- calcium supplement was discontinued; --- will stop calcitriol; ---recommend vitamin D 1000 units daily; ---monitor calcium level this morning and will give patient oral calcium supplement as it is indicated. 2. TRIG level improved and glucose level has been stable. ---SHAHEED 65 antibody and C-peptide level are still pending; --- stop insulin drip; ---start Levemior 12 units twice a day; ---start Novolog coverage before meals--detail see the inpatient DM order; ---monitor FSGs ---repeat electrolytes and TRIG level this afternoon. will follow. Subjective Subjective: She feels better. Objective Last 24 Hrs of Vital Signs/I&O Vital Signs Date Time Temp Pulse Resp B/P B/P Pulse O2 O2 Flow FiO2 Mean Ox Delivery Rate 03/02 1200 Nasal 2.0L Cannula 03/02 0931 93 Room Air Room Air 03/02 08 Nasal 2.0L Cannula 03/02 08 99.0 113 20 130/74 98 Nasal 2.0L Cannula 03/02 0400 97 Nasal 2.0L Cannula 03/02 0000 94 Nasal 2.0L Cannula 03/02 0000 100.8 123 21 132/50 94 Nasal 2.0L Cannula 03/01 2000 93 Room Air 03/01 195 98 Nasal 2.0L Cannula 03/01 1600 95 Nasal 2.0L Cannula 03/01 1600 98.0 122 30 117/59 95 Nasal 2.0L Cannula Intake & Output 03/02 1600 03/02 0800 03/02 0000 Intake Total 746.4 1332.4 Output Total 500 1400 Balance 246.4 -67.6 Intake, IV 626.4 910.4 Intake, Oral 120 422 Number 0 0 Bowel Movements Output, Urine 500 1400 Findings Pertinent Lab/Dave Results: Laboratory Tests 03/02 03/01 0428 1835 Chemistry Sodium (137 - 145 mmol/L) 139 139 Potassium (3.5 - 5.1 mmol/L) 3.7 3.7 Chloride (98 - 107 mmol/L) 106 104 Carbon Dioxide (22 - 30 mmol/L) 24 25 Anion Gap (5 - 16) 8 10 BUN (7 - 17 mg/dL) 6 L 4 L Creatinine (0.5 - 1.0 mg/dL) 0.5 0.6 Estimated GFR (>60 ml/min) > 60 > 60 Glucose (65 - 99 mg/dL) 112 H 148 H Calcium (8.4 - 10.2 mg/dL) 7.2 L 7.1 L Phosphorus (2.5 - 4.5 mg/dL) 2.0 L 2.5 Magnesium (1.6 - 2.3 mg/dL) 2.0 1.9 Total Bilirubin (0.2 - 1.3 mg/dL) 0.7 0.8 AST (14 - 36 U/L) 45 H 49 H ALT (9 - 52 U/L) 28 17 Albumin (3.5 - 5.0 g/dL) 2.8 L 3.4 L Triglycerides (<150 mg/dL) 382 H 566 H Hematology CBC w Diff NO MAN DIFF REQ NO MAN DIFF REQ WBC (4.8 - 10.8 /CUMM) 8.2 9.6 RBC (4.20 - 5.40 /CUMM) 3.25 L 3.77 L Hgb (12.0 - 16.0 G/DL) 8.9 L 10.4 L Hct (37 - 47 %) 26.5 L 30.5 L MCV (81.0 - 99.0 FL) 81.4 81.0 MCH (27.0 - 31.0 PG) 27.5 27.6 RDW (11.5 - 14.5 %) 13.8 13.7 Plt Count (130 - 400 /CUMM) 138 162 MPV (7.4 - 10.4 FL) 7.9 7.3 L Gran % (42.2 - 75.2 %) 73.3 79.8 H Lymphocytes % (20.5 - 51.1 %) 20.9 16.0 L Monocytes % (1.7 - 9.3 %) 4.7 3.3 Eosinophils % (0 - 5 %) 0.9 0.7 Basophils % (0.0 - 2.0 %) 0.2 0.2 Absolute Granulocytes (1.4 - 6.5 /CUMM) 6.0 7.7 H Absolute Lymphocytes (1.2 - 3.4 /CUMM) 1.7 1.5 Absolute Monocytes (0.10 - 0.60 /CUMM) 0.4 0.3 Absolute Eosinophils (0.0 - 0.7 /CUMM) 0.1 0.1 Absolute Basophils (0.0 - 0.2 /CUMM) 0 0 PUBS MCHC (33.0 - 37.0 G/DL) 33.8 34.1 07/07 1400 Chemistry Triglycerides Cancelled Hematology CBC w Diff Cancelled WBC Cancelled RBC Cancelled Hgb Cancelled Hct Cancelled MCV Cancelled MCH Cancelled RDW Cancelled Plt Count Cancelled MPV Cancelled PUBS MCHC Cancelled
[2017-03-02 16:00] VITALS: BP 128/70
[2017-03-03] VITALS: BP 130/60
--- NOTE | 2017-03-03 | NUR ---
PT OOB TO CHAIR. MONITOR SINUS TACHYCARDIA AT RATE OF 114. NO DYSPNEA NOTED. O2 SAT=95% ON ROOM AIR. ABDOMEN DISTENDED BUT SOFT. NO C/O NAUSEA. DENIES PAIN. AMBULATED TO BATHROOM THEN RETURNED TO BED. TAKING PO FLUIDS.
[2017-03-03 06:13] LABS: ABSOLUTE BASOPHIL COUNT 0 /CUMM (0.0-0.2); ABSOLUTE EOSINOPHIL COUNT 0.1 /CUMM (0.0-0.7); ABSOLUTE GRANULOCYTE CT 5.8 /CUMM (1.4-6.5); ABSOLUTE LYMPH COUNT 1.8 /CUMM (1.2-3.4); ABSOLUTE MONOCYTE COUNT 0.5 /CUMM (0.10-0.60); BASOPHIL % 0.2 % (0.0-2.0); EOSINOPHIL % 1.2 % (0-5); GRANULOCYTE % 71.2 % (42.2-75.2); HEMATOCRIT 25.9 % (37-47); MEAN CORPUSCULAR HGB 27.6 PG (27.0-31.0); MEAN CORPUSCULAR HGB CONC 34.1 G/DL (33.0-37.0); MEAN CORPUSCULAR VOLUME 81.2 FL (81.0-99.0); PLATELET COUNT 152 /CUMM (130-400); RBC DISTRIBUTION WIDTH 13.5 % (11.5-14.5); WHITE BLOOD CELL COUNT 8.2 /CUMM (4.8-10.8)
[2017-03-03 08:00] VITALS: BP 140/70
--- NOTE | 2017-03-03 08:44 | PN- Resident CRCU ---
Subjective HPI/CRCU Issues: Patient seen and examined. She is seen sitting upright in bed resting comfortably. She appears to be in no acute distress. She reports feeling well and denies any new complaints. She admits that her abdomen is persistently swollen and tender, but much improved over previous days. She denies any further nausea or shortness of breath. Additionally she denies any fever, chills, chest pain, palpitations, further shortness of breath, nausea, vomiting, diarrhea. Objective Vital Signs & I&O Last 8 Hrs of Vitals and I&O: Sinus Tachycardia HR 102-112 BP Sys 128-141 BP Jessie 61-73 O2 92-97% RR 17-22 Exam General Appearance: well developed/nourished, no apparent distress, alert, awake , comfortable Other Physical Findings: General-well developed, well nourished middle aged woman in no acute distress HEENT-NCAT, PERRL, EOMI, anicteric sclera Cardio/Chest-S1, S2 w/o m/g/r;RRR Lung-CTA bilaterally Abdomen-mild tenderness without guarding/rigidity, bowel sounds intact Neuro- Awake and alert, CN II - XII grossly intact Ext-normal pulses, no cyanosis/clubbing/edema Current Medications: Current Medications Sig/Jack Start time Last Medication Dose Route Stop Time Status Admin Acetaminophen 325 MG Q6 PRN 02/26 1845 AC PO Acetaminophen 1,000 MG Q6 PRN 02/26 1845 AC 03/02 IV 1324 Albuterol Sulfate 3 ML Q4P PRN 02/28 2145 AC 03/01 INH 1948 Alprazolam 0.25 MG ONCE ONE 03/02 1930 DC 03/02 PO 03/02 1932000 Cholecalciferol 1,000 IU DAILY 03/02 1649 AC 03/03 PO 1020 Fenofibrate 145 MG DAILY 02/27 0030 AC 03/03 PO 1020 Furosemide 40 MG ONCE ONE 03/03 1145 UNVr IV 03/03 1146 Guaifenesin/ 10 ML Q6P PRN 03/01 0100 AC Dextromethorphan PO Heparin Sodium 5,000 UNIT Q8 02/26 2200 AC 03/03 (Porcine) SC 0717 Hydromorphone HCl 1 MG Q6P PRN 03/03 0900 AC IV Hydromorphone HCl 2 MG ONCE PRN 03/02 0100 AC 03/02 IV 0052 Hydromorphone HCl 1 MG Q3 PRN 02/27 0800 DC 03/02 IV 1325 Insulin Aspart 0 TIDAC 03/02 1200 AC 03/03 SC 0756 Insulin Detemir 12 UNITS BID 03/02 1144 AC 03/03 SC 1029 Magnesium Oxide 400 MG ONE ONE 03/02 1745 DC 03/02 PO 03/02 1746 2002 Metoclopramide HCl 10 MG Q6P PRN 02/28 0215 AC IV Montelukast Sodium 10 MG AT BEDTIME 02/26 2200 AC 03/02 PO 2001 Nicotinic Acid 500 MG WITH MEALS 03/01 1700 AC 03/03 PO 0755 Non-Formulary 0 SEE ADMIN CRITERIA 02/26 190 UNVr Medication ANY Omeprazole 40 MG DAILY AC 03/04 0700 AC PO Ondansetron HCl 4 MG .STK-MED ONE 03/02 191 DC IM 03/02 191 Ondansetron HCl 4 MG Q6P PRN 02/26 1930 AC 03/02 IV 1915 Pantoprazole Sodium 40 MG DAILY 02/27 1000 DC 03/03 IV 1020 Potassium Chloride 40 MEQ BID 03/03 1000 AC 03/03 PO 03/03 2201 1020 Potassium Chloride 40 MEQ ONCE ONE 03/03 0915 CAN PO 03/03 0916 Potassium Chloride 60 MEQ ONCE ONE 03/02 1745 CAN PO 03/02 1746 Potassium Phosphate 15 mMol ONE ONE 03/02 1745 DC 03/02 Dextrose/Water 250 ML IV 03/028 2001 Rosuvastatin Calcium 20 MG DAILY 02/28 1115 AC 03/03 PO 1020 Trimethobenzamide HCl 200 MG TID PRN 02/28 0215 AC 02/28 IM 0212 Impression/Plan Impression/Problem List Impression: Patient reports dramatic improvement in her abdominal pain and resolution of her shortness of breath and nausea. She has good diuresis with intravenous lasix; remain remain in positive net fluid balance. She is to be given further diuresis today with potassium supplementation with her diet advanced to full liquids. Protonix was converted to prilosec. Niacin was started for further lipid control. She was downgraded from ICU to general medicine. #Severe Hypertriglyceridemia, improving #Acute Pancreatitis, improving #Diabetic Ketoacidosis, resolved #History of insulin-dependent diabetes mellitus #Lactic acidosis, resolved #Hypocalcemia, resolved #Hypophosphatemia, resolved #Hypomagnesemia, resolved Patient with history of hypertriglyceridemia, insulin-dependent diabetes mellitus, and previous episodes of pancreatitis seen for evaluation of acute onset right upper quadrant abdominal pain. Triglycerides were found to be initially elevated to greater than 10,500 elevated lipase, and CT scan demonstrating acute pancreatitis. Patient was stared on intravenous fluids, pain medications, and antiemetics and admitted to the ICU for further management and care. Nephrology/endocrinology/gastroenterology consults were placed, patient was placed with a non-tunneled catheter and urgently underwent plasampheresis. Patient was later identified to be in DKA for which an insulin drip was started. Serum chemistries were drawn every three hours and electrolytes were aggressively repleted. Patient received ceftazidime / flagyl for concern of abdominal infection but was subsequently followed off antibiotics. -ICU -Strict ins&outs -Incentive spirometry -Zofran/Reglan/Tigan -Lipitor 80mg PO Daily -Fenofibrate 145mg PO Daily -Niacin 500mg PO WM -Calitriol 0.25mcg IV BID -Prilosec 40mg PO Daily -Pain control with Acetaminophen/Dilaudid -Endocrine/GI/Nephro/GS/ID consults -Follow up blood/urine cultures -FULL liquid diet -DVT PPx with subcutaneous heparin -F/U GAD65, C-peptide Problem List: 1. Acute pancreatitis 2. Hyperglycemia Pain Ratin Tomorrow's Labs & Rationales: CBC ICU Triglycerides Plan DVT/Prophylaxis: mechanical Code Status: Full Code
--- NOTE | 2017-03-03 11:02 | PN- Gastroenterology ---
Assessment/Plan Assessment/Recommendations: * Severe acute hypertriglyceridemic pancreatitis, managed with supportive measures, insulin, one session of plasmapheresis. No fever, leukocytosis * Abdominal distention, continues to improve with diuresis. * Improved dyspnea * Resolution of hypocalcemia * Stable improvement in hypertriglyceridemia. Recommendations * Advance to full liquid diet with polymeric supplementation * Continue diuresis * May downgrade from ICU to general medical service * Priority at this point will be optimal management of hypertriglyceridemia. Subjective Subjective: Abdominal continues to improve, and essentially now just pressure. Mild intermittent nausea. Tolerating clear liquids. Continues to diurese well; abdominal size is smaller. Has had several loose, nonbloody bowel movements. Objective Vital Signs and I&Os Vital Signs Date Time Temp Pulse Resp B/P B/P Pulse O2 O2 Flow FiO2 Mean Ox Delivery Rate 03/03 08 96 Room Air Room Air 03/03 0800 99.1 110 22 140/70 96 Room Air Room Air 03/03 0400 94 Room Air 03/03 0000 98.5 114 18 130/60 95 Room Air 03/03 0000 95 Room Air 03/02 2000 Nasal 2.0L Cannula 03/02 1600 Nasal 2.0L Cannula 03/02 1600 98.9 106 20 128/70 95 Nasal 2.0L Cannula 03/02 1200 Nasal 2.0L Cannula Intake & Output 03/03 1600 03/03 0400 03/02 1600 03/02 0400 03/01 1600 03/01 0400 Intake Total 411 527 7228.7 1332.4 2723 1613 Output Total 828 610 4087 1400 2135 338 Balance -400 -226 -89.3 -67.6 588 1275 Intake, IV 274 1230.7 910.4 2423 1413 Intake, Oral 300 300 580 422 300 200 Number 1 1 1 0 0 0 Bowel Movements Output, Urine 239 545 3914 1400 2135 338 Patient 178 lb Weight Weight Bed scale Measurement Method Physical Exam: Alert and oriented. Remains tachycardic although improved. Sclera anicteric. Mucous membrane is moist. No peripheral edema. Abdomen is less distended, and less tender. Current Medications: Current Medications Sig/Jack Start time Last Medication Dose Route Stop Time Status Admin Acetaminophen 325 MG Q6 PRN 02/26 1845 AC PO Acetaminophen 1,000 MG Q6 PRN 02/26 1845 AC 03/02 IV 1324 Albuterol Sulfate 3 ML Q4P PRN 07 2145 AC 03/01 INH 1948 Alprazolam 0.25 MG ONCE ONE 03/02 1930 DC 03/02 PO 03/02 1932000 Calcitriol 0.25 MCG BID 02/27 1212 DC 07 IV 0925 Calcium Carbonate 500 MG Q6 02/28 1200 DC 03/02 PO 0608 Cholecalciferol 1,000 IU DAILY 03/02 1649 AC 03/03 PO 1020 Ergocalciferol 50,000 IU QTHURS 02/28 1415 DC 02/28 PO 1847 Fenofibrate 145 MG DAILY 02/27 0030 AC 03/03 PO 1020 Furosemide 40 MG ONCE ONE 03/02 1130 DC 03/02 IV 03/02 1131 1200 Guaifenesin/ 10 ML Q6P PRN 03/01 0100 AC Dextromethorphan PO Heparin Sodium 5,000 UNIT Q8 02/26 2200 AC 03/03 (Porcine) SC 0717 Hydromorphone HCl 1 MG Q6P PRN 03/03 0900 AC IV Hydromorphone HCl 2 MG ONCE PRN 03/02 0100 AC 03/02 IV 0052 Hydromorphone HCl 1 MG Q3 PRN 02/27 0800 DC 03/02 IV 1325 Insulin Aspart 0 TIDAC 03/02 1200 AC 03/03 SC 0756 Insulin Detemir 12 UNITS BID 03/02 1144 AC 03/03 SC 1029 Insulin Human Regular 100 UNIT Q24H 02/26 2045 DC 03/01 Sodium Chloride 100 ML IV 2201 Magnesium Oxide 400 MG ONE ONE 03/02 1745 DC 03/02 PO 03/02 1746 2001 Metoclopramide HCl 10 MG Q6P PRN 02/28 0215 AC IV Montelukast Sodium 10 MG AT BEDTIME 02/26 2200 AC 03/02 PO 2000 Nicotinic Acid 500 MG WITH MEALS 03/01 1700 AC 03/03 PO 0755 Non-Formulary 0 SEE ADMIN CRITERIA 02/26 190 UNVr Medication ANY Omeprazole 40 MG DAILY AC 03/04 0700 AC PO Ondansetron HCl 4 MG .STK-MED ONE 03/02 1915 DC IM 03/02 191 Ondansetron HCl 4 MG Q6P PRN 02/26 1930 AC 03/02 IV 1915 Pantoprazole Sodium 40 MG DAILY 02/27 1000 DC 03/03 IV 1020 Potassium Chloride 40 MEQ BID 03/03 1000 AC 03/03 PO 03/03 2201 1020 Potassium Chloride 40 MEQ ONCE ONE 03/03 0915 CAN PO 03/03 0916 Potassium Chloride 60 MEQ ONCE ONE 03/02 1745 CAN PO 03/02 174 Potassium Phosphate 15 mMol ONE ONE 03/02 1745 DC 03/02 Dextrose/Water 250 ML IV 03/02 Rosuvastatin Calcium 20 MG DAILY 02/28 1115 AC 03/03 PO 1020 Trimethobenzamide HCl 200 MG TID PRN 02/28 0215 AC 02/28 IM 0212 Results Pertinent Lab Results: Laboratory Tests 03/03 03/02 03/02 0430 1800 1613 Chemistry Sodium (137 - 145 mmol/L) 139 Cancelled 138 Potassium (3.5 - 5.1 mmol/L) 3.3 L Cancelled 3.5 Chloride (98 - 107 mmol/L) 103 Cancelled 103 Carbon Dioxide (22 - 30 mmol/L) 24 Cancelled 25 Anion Gap (5 - 16) 13 Cancelled 10 BUN (7 - 17 mg/dL) 4 L Cancelled 5 L Creatinine (0.5 - 1.0 mg/dL) 0.5 Cancelled 0.5 Estimated GFR (>60 ml/min) > 60 > 60 BUN/Creatinine Ratio (7 - 25 %) 10.0 Glucose (65 - 99 mg/dL) 150 H Cancelled Calcium (8.4 - 10.2 mg/dL) 8.0 L Cancelled 7.8 L Phosphorus (2.5 - 4.5 mg/dL) 2.2 L Cancelled 1.5 L Magnesium (1.6 - 2.3 mg/dL) 1.6 Cancelled 1.7 Total Bilirubin (0.2 - 1.3 mg/dL) 0.5 Cancelled AST (14 - 36 U/L) 30 Cancelled ALT (9 - 52 U/L) 23 Cancelled Albumin (3.5 - 5.0 g/dL) 3.1 L Cancelled 3.1 L Triglycerides (<150 mg/dL) 357 H Hematology CBC w Diff NO MAN DIFF REQ WBC (4.8 - 10.8 /CUMM) 8.2 RBC (4.20 - 5.40 /CUMM) 3.20 L Hgb (12.0 - 16.0 G/DL) 8.8 L Hct (37 - 47 %) 25.9 L MCV (81.0 - 99.0 FL) 81.2 MCH (27.0 - 31.0 PG) 27.6 RDW (11.5 - 14.5 %) 13.5 Plt Count (130 - 400 /CUMM) 152 MPV (7.4 - 10.4 FL) 8.0 Gran % (42.2 - 75.2 %) 71.2 Lymphocytes % (20.5 - 51.1 %) 21.8 Monocytes % (1.7 - 9.3 %) 5.6 Eosinophils % (0 - 5 %) 1.2 Basophils % (0.0 - 2.0 %) 0.2 Absolute Granulocytes (1.4 - 6.5 /CUMM) 5.8 Absolute Lymphocytes (1.2 - 3.4 /CUMM) 1.8 Absolute Monocytes (0.10 - 0.60 /CUMM) 0.5 Absolute Eosinophils (0.0 - 0.7 /CUMM) 0.1 Absolute Basophils (0.0 - 0.2 /CUMM) 0 PUBS MCHC (33.0 - 37.0 G/DL) 34.1 03/02 03/02 1600 0428 Chemistry Sodium (137 - 145 mmol/L) Cancelled 139 Potassium (3.5 - 5.1 mmol/L) Cancelled 3.7 Chloride (98 - 107 mmol/L) Cancelled 106 Carbon Dioxide (22 - 30 mmol/L) Cancelled 24 Anion Gap (5 - 16) Cancelled 8 BUN (7 - 17 mg/dL) Cancelled 6 L Creatinine (0.5 - 1.0 mg/dL) Cancelled 0.5 Estimated GFR (>60 ml/min) > 60 BUN/Creatinine Ratio Cancelled Glucose (65 - 99 mg/dL) 112 H Calcium (8.4 - 10.2 mg/dL) 7.2 L Phosphorus (2.5 - 4.5 mg/dL) 2.0 L Magnesium (1.6 - 2.3 mg/dL) 2.0 Total Bilirubin (0.2 - 1.3 mg/dL) 0.7 AST (14 - 36 U/L) 45 H ALT (9 - 52 U/L) 28 Albumin (3.5 - 5.0 g/dL) 2.8 L Triglycerides (<150 mg/dL) Cancelled 382 H Hematology CBC w Diff NO MAN DIFF REQ WBC (4.8 - 10.8 /CUMM) 8.2 RBC (4.20 - 5.40 /CUMM) 3.25 L Hgb (12.0 - 16.0 G/DL) 8.9 L Hct (37 - 47 %) 26.5 L MCV (81.0 - 99.0 FL) 81.4 MCH (27.0 - 31.0 PG) 27.5 RDW (11.5 - 14.5 %) 13.8 Plt Count (130 - 400 /CUMM) 138 MPV (7.4 - 10.4 FL) 7.9 Gran % (42.2 - 75.2 %) 73.3 Lymphocytes % (20.5 - 51.1 %) 20.9 Monocytes % (1.7 - 9.3 %) 4.7 Eosinophils % (0 - 5 %) 0.9 Basophils % (0.0 - 2.0 %) 0.2 Absolute Granulocytes (1.4 - 6.5 /CUMM) 6.0 Absolute Lymphocytes (1.2 - 3.4 /CUMM) 1.7 Absolute Monocytes (0.10 - 0.60 /CUMM) 0.4 Absolute Eosinophils (0.0 - 0.7 /CUMM) 0.1 Absolute Basophils (0.0 - 0.2 /CUMM) 0 PUBS MCHC (33.0 - 37.0 G/DL) 33.8 03/01 03/01 1835 1400 Chemistry Sodium (137 - 145 mmol/L) 139 Potassium (3.5 - 5.1 mmol/L) 3.7 Chloride (98 - 107 mmol/L) 104 Carbon Dioxide (22 - 30 mmol/L) 25 Anion Gap (5 - 16) 10 BUN (7 - 17 mg/dL) 4 L Creatinine (0.5 - 1.0 mg/dL) 0.6 Estimated GFR (>60 ml/min) > 60 Glucose (65 - 99 mg/dL) 148 H Calcium (8.4 - 10.2 mg/dL) 7.1 L Phosphorus (2.5 - 4.5 mg/dL) 2.5 Magnesium (1.6 - 2.3 mg/dL) 1.9 Total Bilirubin (0.2 - 1.3 mg/dL) 0.8 AST (14 - 36 U/L) 49 H ALT (9 - 52 U/L) 17 Albumin (3.5 - 5.0 g/dL) 3.4 L Triglycerides (<150 mg/dL) 566 H Cancelled Hematology CBC w Diff NO MAN DIFF REQ Cancelled WBC (4.8 - 10.8 /CUMM) 9.6 Cancelled RBC (4.20 - 5.40 /CUMM) 3.77 L Cancelled Hgb (12.0 - 16.0 G/DL) 10.4 L Cancelled Hct (37 - 47 %) 30.5 L Cancelled MCV (81.0 - 99.0 FL) 81.0 Cancelled MCH (27.0 - 31.0 PG) 27.6 Cancelled RDW (11.5 - 14.5 %) 13.7 Cancelled Plt Count (130 - 400 /CUMM) 162 Cancelled MPV (7.4 - 10.4 FL) 7.3 L Cancelled Gran % (42.2 - 75.2 %) 79.8 H Lymphocytes % (20.5 - 51.1 %) 16.0 L Monocytes % (1.7 - 9.3 %) 3.3 Eosinophils % (0 - 5 %) 0.7 Basophils % (0.0 - 2.0 %) 0.2 Absolute Granulocytes (1.4 - 6.5 /CUMM) 7.7 H Absolute Lymphocytes (1.2 - 3.4 /CUMM) 1.5 Absolute Monocytes (0.10 - 0.60 /CUMM) 0.3 Absolute Eosinophils (0.0 - 0.7 /CUMM) 0.1 Absolute Basophils (0.0 - 0.2 /CUMM) 0 PUBS MCHC (33.0 - 37.0 G/DL) 34.1 Cancelled 03/01 02/28 0420 1415 Chemistry Sodium (137 - 145 mmol/L) 135 L Potassium (3.5 - 5.1 mmol/L) 3.7 Chloride (98 - 107 mmol/L) 107 Carbon Dioxide (22 - 30 mmol/L) 21 L Anion Gap (5 - 16) 8 BUN (7 - 17 mg/dL) 7 Creatinine (0.5 - 1.0 mg/dL) 0.5 Estimated GFR (>60 ml/min) > 60 Glucose (65 - 99 mg/dL) 149 H Calcium (8.4 - 10.2 mg/dL) 6.3 L Phosphorus (2.5 - 4.5 mg/dL) 1.2 L Magnesium (1.6 - 2.3 mg/dL) 2.4 H Total Bilirubin (0.2 - 1.3 mg/dL) 0.8 AST (14 - 36 U/L) 40 H ALT (9 - 52 U/L) 29 Albumin (3.5 - 5.0 g/dL) 2.7 L Triglycerides (<150 mg/dL) 675 H Hematology CBC w Diff NO MAN DIFF REQ WBC (4.8 - 10.8 /CUMM) 7.4 RBC (4.20 - 5.40 /CUMM) 3.66 L Hgb (12.0 - 16.0 G/DL) 10.2 L Hct (37 - 47 %) 29.7 L MCV (81.0 - 99.0 FL) 81.3 MCH (27.0 - 31.0 PG) 28.0 RDW (11.5 - 14.5 %) 14.2 Plt Count (130 - 400 /CUMM) 130 MPV (7.4 - 10.4 FL) 7.4 Gran % (42.2 - 75.2 %) 76.3 H Lymphocytes % (20.5 - 51.1 %) 19.6 L Monocytes % (1.7 - 9.3 %) 3.3 Eosinophils % (0 - 5 %) 0.5 Basophils % (0.0 - 2.0 %) 0.3 Absolute Granulocytes (1.4 - 6.5 /CUMM) 5.6 Absolute Lymphocytes (1.2 - 3.4 /CUMM) 1.4 Absolute Monocytes (0.10 - 0.60 /CUMM) 0.2 Absolute Eosinophils (0.0 - 0.7 /CUMM) 0 Absolute Basophils (0.0 - 0.2 /CUMM) 0 PUBS MCHC (33.0 - 37.0 G/DL) 34.4 Urines Urinalysis MANY H Urine Color (YEL,AMB,STR) ORANG H Urine Clarity (CLEAR) TURBD H Urine pH (5.0 - 8.0) 6.0 Ur Specific [place] (1.001 - 1.035) >= 1.030 Urine Protein (NEG,<30 MG/DL) 100 H Urine Ketones (NEG) NEG Urine Nitrite (NEG) POS H Urine Bilirubin (NEG) NEG@ICTO Urine Urobilinogen (0.1 - 1.0 EU/dl) 0.2 Ur Leukocyte Esterase (NEG) NEG Ur Microscopic SEDIMENT EXAMINED Urine RBC (0 - 5 /HPF) >75 H Urine WBC (0 - 2 /HPF) 1-3 H Urine Hemoglobin (NEG) LARGE H Urine Glucose (N MG/DL) NEG 02/28 1215 Chemistry Sodium (137 - 145 mmol/L) 134 L Potassium (3.5 - 5.1 mmol/L) 4.2 Chloride (98 - 107 mmol/L) 108 H Carbon Dioxide (22 - 30 mmol/L) 18 L Anion Gap (5 - 16) 8 BUN (7 - 17 mg/dL) 10 Creatinine (0.5 - 1.0 mg/dL) 0.6 Estimated GFR (>60 ml/min) > 60 Glucose (65 - 99 mg/dL) 139 H Calcium (8.4 - 10.2 mg/dL) 6.4 L Phosphorus (2.5 - 4.5 mg/dL) 2.0 L Magnesium (1.6 - 2.3 mg/dL) 2.5 H Total Bilirubin (0.2 - 1.3 mg/dL) 0.6 AST (14 - 36 U/L) 38 H ALT (9 - 52 U/L) 25 Creatine Kinase (30 - 135 U/L) 654 H Albumin (3.5 - 5.0 g/dL) 2.9 L Triglycerides (<150 mg/dL) 749 H Coagulation PT (9.4 - 12.5 SEC) 12.9 H INR (0.90 - 1.19) 1.23 H APTT (25 - 37 SEC) 28 Fibrinogen Activity (200 - 393 MG/DL) 673 H Fibrin Degrad Products (< 10 ug/ml) >10 but < 40 ug/ml H
--- NOTE | 2017-03-03 11:29 | PN- CRCU ---
Subjective HPI/Critical Care Issues: The patient is awake and alert. She reports feeling improved overall. There were no overnight events reported. Impression/Plan Impression/Plan Impression/Plan: 1. 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 2. Electrolyte derangement secondary to above. 3. Insulin-dependent diabetes. Recommendations: * Downgrade to gen med. * Full liquid diet. * Increase activity/out of bed to chair. * Lasix 40 mg x 1 today. * Hyperlycemic tx as per endocrinology. * Continue empiric IV Unasyn. * GI, endocrine, renal and GI consultations are appreciated, will follow up recommendations. * Continue with pain control. * Monitor off IV antibiotics. * DVT prophylaxis at all times. * Continue all supportive care. Code Status: Full Code
--- NOTE | 2017-03-03 11:57 | PN- Diabetes ---
Assessment/Plan Assessment: 36-year-old female with past medical history of hypertriglyceridemia and multiple episodes of pancreatitis, type 2 diabetes mellitus, asthma presented to the ED for acute onset of right upper quadrant pain and she was diagnosed with acute pancreatitis which most likely is related to severe hypertriglyceridemia. Patient received plasmaphoresis and was on insulin drip for several days. She was put on Levemir 12 units twice a day, Novolog coverage before meals. her FSGs were 138, 166, 156, 142, 171. Repeat TRIG 357, calcium 7.8, phos 1.5 and albumin 3.1. Calcium supplement and calcitriol were discontinued. Plan: continue the current insulin sc regimen; monitor FSGs and repeat TRIG level tomorrow morning. will follow. Subjective Subjective: she feels better. Objective Last 24 Hrs of Vital Signs/I&O Vital Signs Date Time Temp Pulse Resp B/P B/P Pulse O2 O2 Flow FiO2 Mean Ox Delivery Rate 03/03 08 96 Room Air Room Air 03/03 0800 99.1 110 22 140/70 96 Room Air Room Air 03/03 0400 94 Room Air / 0000 98.5 114 18 130/60 95 Room Air 07/ 0000 95 Room Air / 2000 Nasal 2.0L Cannula 03/02 1600 Nasal 2.0L Cannula 03/02 1600 98.9 106 20 128/70 95 Nasal 2.0L Cannula 03/02 1200 Nasal 2.0L Cannula Intake & Output 03/03 1600 03/03 0800 / 0000 Intake Total 300 574 Output Total 700 800 Balance -400 -226 Intake, IV 274 Intake, Oral 300 300 Number 1 1 Bowel Movements Output, Urine 700 800 Findings Pertinent Lab/Dave Results: Laboratory Tests 03/03 03/02 03/02 0430 1800 1613 Chemistry Sodium (137 - 145 mmol/L) 139 Cancelled 138 Potassium (3.5 - 5.1 mmol/L) 3.3 L Cancelled 3.5 Chloride (98 - 107 mmol/L) 103 Cancelled 103 Carbon Dioxide (22 - 30 mmol/L) 24 Cancelled 25 Anion Gap (5 - 16) 13 Cancelled 10 BUN (7 - 17 mg/dL) 4 L Cancelled 5 L Creatinine (0.5 - 1.0 mg/dL) 0.5 Cancelled 0.5 Estimated GFR (>60 ml/min) > 60 > 60 BUN/Creatinine Ratio (7 - 25 %) 10.0 Glucose (65 - 99 mg/dL) 150 H Cancelled Calcium (8.4 - 10.2 mg/dL) 8.0 L Cancelled 7.8 L Phosphorus (2.5 - 4.5 mg/dL) 2.2 L Cancelled 1.5 L Magnesium (1.6 - 2.3 mg/dL) 1.6 Cancelled 1.7 Total Bilirubin (0.2 - 1.3 mg/dL) 0.5 Cancelled AST (14 - 36 U/L) 30 Cancelled ALT (9 - 52 U/L) 23 Cancelled Albumin (3.5 - 5.0 g/dL) 3.1 L Cancelled 3.1 L Triglycerides (<150 mg/dL) 357 H Hematology CBC w Diff NO MAN DIFF REQ WBC (4.8 - 10.8 /CUMM) 8.2 RBC (4.20 - 5.40 /CUMM) 3.20 L Hgb (12.0 - 16.0 G/DL) 8.8 L Hct (37 - 47 %) 25.9 L MCV (81.0 - 99.0 FL) 81.2 MCH (27.0 - 31.0 PG) 27.6 RDW (11.5 - 14.5 %) 13.5 Plt Count (130 - 400 /CUMM) 152 MPV (7.4 - 10.4 FL) 8.0 Gran % (42.2 - 75.2 %) 71.2 Lymphocytes % (20.5 - 51.1 %) 21.8 Monocytes % (1.7 - 9.3 %) 5.6 Eosinophils % (0 - 5 %) 1.2 Basophils % (0.0 - 2.0 %) 0.2 Absolute Granulocytes (1.4 - 6.5 /CUMM) 5.8 Absolute Lymphocytes (1.2 - 3.4 /CUMM) 1.8 Absolute Monocytes (0.10 - 0.60 /CUMM) 0.5 Absolute Eosinophils (0.0 - 0.7 /CUMM) 0.1 Absolute Basophils (0.0 - 0.2 /CUMM) 0 PUBS MCHC (33.0 - 37.0 G/DL) 34.1 07/08 1600 Chemistry Sodium Cancelled Potassium Cancelled Chloride Cancelled Carbon Dioxide Cancelled Anion Gap Cancelled BUN Cancelled Creatinine Cancelled BUN/Creatinine Ratio Cancelled Triglycerides Cancelled
--- NOTE | 2017-03-03 12:36 | PN- CRCU ---
Subjective HPI/Critical Care Issues: The patient is awake and alert. She reports feeling markedly improved. She denies any new complaints today. She has ongoing abdominal distention. She is now transitioned to subcutaneous insulin and has improved blood sugar control. Objective Current Medications: Current Medications Sig/Jack Start time Last Medication Dose Route Stop Time Status Admin Acetaminophen 325 MG Q6 PRN 02/26 1845 AC PO Acetaminophen 1,000 MG Q6 PRN 02/26 1845 AC 03/02 IV 1324 Albuterol Sulfate 3 ML Q4P PRN 02/28 2145 AC 03/01 INH 1948 Alprazolam 0.25 MG ONCE ONE 03/02 193 DC 03/02 PO 03/02 1931 2000 Cholecalciferol 1,000 IU DAILY 03/02 1649 AC 03/03 PO 1020 Fenofibrate 145 MG DAILY 02/27 0030 AC 03/03 PO 1020 Furosemide 40 MG ONCE ONE 03/03 1145 DC IV 03/03 1146 Guaifenesin/ 10 ML Q6P PRN 03/01 0100 AC Dextromethorphan PO Heparin Sodium 5,000 UNIT Q8 02/26 2200 AC 03/03 (Porcine) SC 0717 Hydromorphone HCl 1 MG Q6P PRN 03/03 0900 AC IV Hydromorphone HCl 2 MG ONCE PRN 03/02 0100 AC 03/02 IV 0052 Hydromorphone HCl 1 MG Q3 PRN 02/27 0800 DC 03/02 IV 1325 Insulin Aspart 0 TIDAC 03/02 1200 AC 03/03 SC 0756 Insulin Detemir 12 UNITS BID 03/02 1144 AC 03/03 SC 1029 Magnesium Oxide 400 MG ONE ONE 03/02 1745 DC 03/02 PO 03/02 1746 2002 Metoclopramide HCl 10 MG Q6P PRN 02/28 0215 AC IV Montelukast Sodium 10 MG AT BEDTIME 02/26 2200 AC 03/02 PO 2000 Nicotinic Acid 500 MG WITH MEALS 03/01 1700 AC 03/03 PO 0755 Non-Formulary 0 SEE ADMIN CRITERIA 02/26 190 UNVr Medication ANY Omeprazole 40 MG DAILY AC 03/04 0700 AC PO Ondansetron HCl 4 MG .STK-MED ONE 03/02 1915 DC IM 03/02 191 Ondansetron HCl 4 MG Q6P PRN 02/26 1930 AC 03/02 IV 1915 Pantoprazole Sodium 40 MG DAILY 02/27 1000 DC 03/03 IV 1020 Potassium Chloride 40 MEQ BID 03/03 1000 AC 03/03 PO 03/03 2201 1020 Potassium Chloride 40 MEQ ONCE ONE 03/03 0915 CAN PO 03/03 0916 Potassium Chloride 60 MEQ ONCE ONE 03/02 1745 CAN PO 03/02 1746 Potassium Phosphate 15 mMol ONE ONE 03/02 1745 DC 03/02 Dextrose/Water 250 ML IV 03/02 Rosuvastatin Calcium 20 MG DAILY 02/28 1115 AC 03/03 PO 1020 Trimethobenzamide HCl 200 MG TID PRN 02/28 0215 AC 02/28 IM 0212 Vital Signs & I&O Last 24 Hrs of Vitals and I&O: Vital Signs Date Time Temp Pulse Resp B/P B/P Pulse O2 O2 Flow FiO2 Mean Ox Delivery Rate 03/03 800 96 Room Air Room Air 03/03 08 99.1 110 22 140/70 96 Room Air Room Air 03/03 0400 94 Room Air 03/03 0000 98.5 114 18 130/60 95 Room Air 03/03 0000 95 Room Air 03/02 2000 Nasal 2.0L Cannula 03/02 1600 Nasal 2.0L Cannula 03/02 1600 98.9 106 20 128/70 95 Nasal 2.0L Cannula Intake & Output 03/03 1600 03/03 0800 03/03 0000 Intake Total 300 574 Output Total 700 800 Balance -400 -226 Intake, IV 274 Intake, Oral 300 300 Number 1 1 Bowel Movements Output, Urine 700 800 General Appearance: well developed/nourished, no apparent distress, alert, awake , comfortable Other Physical Findings: General-well developed, well nourished, no acute distress Cardio/Chest-S1, S2 w/o m/g/r;RRR Lung-CTA bilaterally Abdomen-mild tenderness without guarding/rigidity, bowel sounds intact Neuro- Awake and alert, CN II - XII grossly intact Ext-normal pulses, no cyanosis/clubbing/edema Results Last 24 Hrs of Lab Results: Laboratory Tests 03/03/17 0430: Anion Gap 13, Estimated GFR > 60, Glucose 150 H, Calcium 8.0 L, Phosphorus 2.2 L, Magnesium 1.6, Total Bilirubin 0.5, AST 30, ALT 23, Albumin 3.1 L, CBC w Diff NO MAN DIFF REQ, RBC 3.20 L, MCV 81.2, MCH 27.6, RDW 13.5, MPV 8.0, Gran % 71.2, Lymphocytes % 21.8, Monocytes % 5.6, Eosinophils % 1.2, Basophils % 0.2, Absolute Granulocytes 5.8, Absolute Lymphocytes 1.8, Absolute Monocytes 0.5, Absolute Eosinophils 0.1, Absolute Basophils 0, PUBS MCHC 34.1 03/02/17 1800: Sodium Cancelled, Potassium Cancelled, Chloride Cancelled, Carbon Dioxide Cancelled, Anion Gap Cancelled, BUN Cancelled, Creatinine Cancelled, Glucose Cancelled, Calcium Cancelled, Phosphorus Cancelled, Magnesium Cancelled, Total Bilirubin Cancelled, AST Cancelled, ALT Cancelled, Albumin Cancelled 03/02/17 1613: Anion Gap 10, Estimated GFR > 60, BUN/Creatinine Ratio 10.0, Calcium 7.8 L, Phosphorus 1.5 L, Magnesium 1.7, Albumin 3.1 L, Triglycerides 357 H 03/02/17 1600: Sodium Cancelled, Potassium Cancelled, Chloride Cancelled, Carbon Dioxide Cancelled, Anion Gap Cancelled, BUN Cancelled, Creatinine Cancelled, BUN/ Creatinine Ratio Cancelled, Triglycerides Cancelled Impression/Plan Impression/Plan Impression/Plan: 1. 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 2. Electrolyte derangement secondary to above. 3. Insulin-dependent diabetes. 4. Hypokalemia. Recommendations: * Downgrade to gen med. * Full liquid diet. * Increase activity/out of bed to chair. * Lasix 40 mg x 1 today. * Hyperlycemic tx as per endocrinology. * Continue empiric IV Unasyn. * GI, endocrine, renal and GI consultations are appreciated, will follow up recommendations. * Potassium repletion ordered. * Continue with pain control. * Monitor off IV antibiotics. * DVT prophylaxis at all times. * Continue all supportive care. Code Status: Full Code
--- NOTE | 2017-03-03 13:05 | Transfer of Care Summary ---
Hospital Course Course Hospital Course: 36 year old woman with past medical history of IDDM, hypertriglyceridemia, and multiple episodes of pancreatitis seen for evaluation of abdominal pain. Patient reports that around 9:30am on the day of admission she develop acute onset 10/10 right upper quadrant abdominal pain radiating straight through to her back with associated nausea, nonbloody bilious vomiting, fever, chills, weakness and fatigue. She otherwise denied any chest pain, palpitations. Vital signs upon initial evaluation were within normal limits. Abdominal examination demonstrated a moderate/severely tender abdomen. Lab studies were remarkable for mild leukocytosis to 12.5, stable hemoglobin/hematocrit, triglycerides > 10,500. Imaging studies including CT Abd/Pelvis and CXR were suggestive of acute pancreatitis. Patient clinically appeared to have acute pancreatitis secondary to severe acute hypertriglyceridemia for which consults with nephrology, endocrinology, and gastroenterology were placed and patient was admitted to the ICU for further evaluation. Problem List on Admission: -Severe Hypertriglyceridemia -Acute Pancreatitis -Diabetic Ketoacidosis -Lactic Acidosis -Hypocalcemia -Hypophosphatemia Patients serum chemistries were monitored every three hours with plasma electrolytes checked; most lab studies were erroneous secondary to severe hypertriglyceridemia. Clinically patient was found to be in diabetic ketoacidosis shortly after admission for which an insulin drip was started. An urgent non-tunneled catheter was placed in the patients right chest pain and plasmapheresis was initiated. Electrolytes were corrected aggressively and DKA was managed with intravenous fluids. Lactated Ringers was infused aggressively. Pain control / antiemetics were utilized. Finnegan catheter was utilized to closely monitor ins and outs. Patient demonstrated dramatic improvement in her serum triglycerides with plasmapheresis; however the level remained around 700 for several days for which patient remained in the insulin drip and D5NS despite resolution of DKA. Patient has low urine output for which lasix were given as needed with effective diuresis. Finnegan catheter and non-tunneled catheter were removed. Patient was subsequent started on a clear liquid diet when her abdominal pain and examination improved which was subsequently advanced to full liquids. Triglycerides lowered to the 300's which are reportedly baseline. She was downgraded from ICU admission to general medicine. Problem List on Transfer: -Severe Hypertriglyceridemia, improved to baseline -Diabetic Ketoacidosis, resolved -Acute pancreatitis, clinically improving -History of Insulin-dependent diabetes mellitus -Electrolyte disturbances, stable Plan / Follow: -Patient remains in net positive fluid balance, diurese as tolerated -Replete electrolytes as needed, especially potassium -If patient develops acute abdominal pain get stat CT abdomen with IV contrast and contact GI & Gen surgery -Continue Crestor / Fenofibrate / Niacin / Fish Oil -Continue antiemetics as needed -Taper pain medications as tolerated -Follow GI/Nephro/Endo/ID recommendations -Follow off antibiotics -Outpatient Endocrine / Gastroenterology follow up Assessment/Plan: As above
[2017-03-03 16:00] VITALS: BP 128/64
--- NOTE | 2017-03-03 20:28 | NUR ---
RECEIVED PATIENT ALERT/ORIENTED X3. CHANGED FROM ICU TO GEN MED STATUS AROUND 0840. PATIENT DENIES ABDOMINAL PAIN AND DENIES NAUSEA. VSS. ABDOMEN SOFT/NONTENDER, +BS. HAVING LOOSE GREEN BMS. 40 MG IV LASIX ORDERED AND GIVEN. ACCU CHECKS W/ MEALS COVERED W/ NOVOLOG AND LEVEMIR. PATIENT ON ROOM AIR, 97%. SKIN INTACT. VOIDING ADEQUATE AMOUNTS OF URINE. HAS HER PERIOD. SANITARY PADS AVAILABLE/PROVIDED NEEDED. PATIENT TOLERATING CLEAR LIQUID DIET WELL AND ADVANCED TO FULL LIQUID. TRIGLYCERIDES TO BE RECHECKED TOMORROW. GIVEN PATIENT EMOTIONAL REASSURANCE FOR OCCASIONAL ANXIETY. SAFETY MAINTAINED.
[2017-03-04] VITALS: BP 120/60
--- NOTE | 2017-03-04 01:26 | NUR ---
0000 PATIENT AWAKENED FOR VS CHECK,DENIES ANY C/O ABDOMINAL PAIN OR OTHER DISCOMFORT AT THIS TIME, SKIN PALE, WARM AND DRY, O2 SAT 96% ON RA, BREATHE SOUNDS CLEAR, ABDOMEN DISTENDED BUT SOFT, +BS, RE-SETTLED FOR SLEEP, CALL LIGHT WITHIN REACH
[2017-03-04 04:00] VITALS: BP 140/70
[2017-03-04 04:52] LABS: ABSOLUTE BASOPHIL COUNT 0 /CUMM (0.0-0.2); ABSOLUTE EOSINOPHIL COUNT 0.1 /CUMM (0.0-0.7); ABSOLUTE LYMPH COUNT 1.9 /CUMM (1.2-3.4); ABSOLUTE MONOCYTE COUNT 0.6 /CUMM (0.10-0.60); BASOPHIL % 0.2 % (0.0-2.0); EOSINOPHIL % 1.4 % (0-5); HEMATOCRIT 27.3 % (37-47); MEAN CORPUSCULAR HGB 27.7 PG (27.0-31.0); MEAN CORPUSCULAR HGB CONC 34.3 G/DL (33.0-37.0); MEAN CORPUSCULAR VOLUME 80.7 FL (81.0-99.0); MEAN PLATELET VOLUME 7.2 FL (7.4-10.4); PLATELET COUNT 190 /CUMM (130-400); RBC DISTRIBUTION WIDTH 13.5 % (11.5-14.5); RED BLOOD CELL CT 3.38 /CUMM (4.20-5.40); WHITE BLOOD CELL COUNT 9.6 /CUMM (4.8-10.8)
--- NOTE | 2017-03-04 06:35 | NUR ---
PATIENT HAS SLEPT WELL OVERNIGHT, CONTINUES TO DENY NEED FOR PAIN MED, RESTING QUIETLY, AWAITING AM MD ROUNDS
[2017-03-04 08:00] VITALS: BP 150/80
--- NOTE | 2017-03-04 08:27 | PN- Housestaff ---
Subjective Follow-up For: Hypertriglyceridemia induced pancreatitis Electrolyte imbalance Diabetes mellitus Subjective: This morning patient is feeling much better. She is feeling hungry and wants to regular diet for lunch. At this moment she denies any nausea but mild epigastric pain. She is having bowel movements. Complains of dry cough. Review of Systems Constitutional: Reports: see HPI. Objective Last 24 Hrs of Vital Signs/I&O Vital Signs Date Time Temp Pulse Resp B/P B/P Pulse O2 O2 Flow FiO2 Mean Ox Delivery Rate 03/04 0400 98.6 112 18 140/70 96 Room Air 03/04 0000 96 Room Air 03/04 0000 98.4 104 18 120/60 96 Room Air 03/03 1600 94 Room Air Room Air 03/03 1600 98.4 105 16 128/64 97 Room Air Room Air Intake & Output 03/04 1600 03/04 0800 03/04 0000 Intake Total 125 250 Output Total 230 3900 Balance -105 -3650 Intake, IV 10 Intake, Oral 125 240 Number 0 1 Bowel Movements Output, Urine 230 3900 Physical Exam General Appearance: Alert, Oriented X3, Cooperative, No Acute Distress Neck: Supple Cardiovascular: tachy Lungs: Clear to Auscultation Abdomen: Normal Bowel Sounds, Soft, mild tenderness on palpation of epigastric area Neurological: Normal Speech, Strength at 5/5 X4 Ext, Sensation Intact, Cranial Nerves 3-12 NL Extremities: No Edema Current Medications: Current Medications Sig/Jack Start time Last Medication Dose Route Stop Time Status Admin Acetaminophen 325 MG Q6 PRN 02/26 1845 AC PO Acetaminophen 1,000 MG Q6 PRN 02/26 1845 AC 03/02 IV 1324 Albuterol Sulfate 2 PUF Q4P PRN 03/03 1415 AC INH Albuterol Sulfate 3 ML Q4P PRN 02/28 2145 DC 03/01 INH 1948 Alprazolam 0.25 MG ONCE ONE 03/03 2200 DC 03/03 PO 03/03 2201 2348 Cholecalciferol 1,000 IU DAILY 03/02 1649 AC 03/03 PO 1020 Fenofibrate 145 MG DAILY 02/27 0030 AC 03/03 PO 1020 Furosemide 40 MG ONCE ONE 03/03 1145 DC 03/03 IV 03/03 1146 1610 Guaifenesin/ 10 ML Q6P PRN 03/01 0100 AC Dextromethorphan PO Heparin Sodium 5,000 UNIT Q8 02/26 2200 AC 03/04 (Porcine) SC 0630 Hydromorphone HCl 1 MG Q6P PRN 03/03 0900 AC IV Hydromorphone HCl 2 MG ONCE PRN 03/02 0100 AC 03/02 IV 0052 Insulin Aspart 0 TIDAC 03/02 1200 AC 03/03 SC 161 Insulin Detemir 12 UNITS BID 03/02 1144 AC 03/03 SC 205 Magnesium Oxide 400 MG DAILY 03/03 195 AC 03/03 PO 205 Metformin HCl 500 MG AC 03/04 1200 AC PO Metoclopramide HCl 10 MG Q6P PRN 02/28 021 AC 03/03 IV 213 Montelukast Sodium 10 MG AT BEDTIME 02/26 2200 AC 03/03 PO 205 Nicotinic Acid 500 MG WITH MEALS 03/01 170 AC 03/03 PO 161 Non-Formulary 0 SEE ADMIN CRITERIA 02/26 190 UNVr Medication ANY Omeprazole 40 MG DAILY AC 03/04 07 AC 03/04 PO 0631 Ondansetron HCl 4 MG Q6P PRN 02/26 1930 AC 03/02 IV 191 Pantoprazole Sodium 40 MG DAILY 02/27 1000 DC 03/03 IV 1020 Potassium Chloride 40 MEQ ONCE ONE 03/04 0745 DC PO 03/04 746 Potassium Chloride 40 MEQ BID 03/03 1000 DC 03/03 PO 03/03 Potassium Chloride 40 MEQ ONCE ONE 03/03 0915 CAN PO 03/03 0916 Rosuvastatin Calcium 20 MG DAILY 02/28 1115 AC 03/03 PO 1020 Trimethobenzamide HCl 200 MG TID PRN 02/28 0215 AC 02/28 IM 0212 Last 24 Hrs of Lab/Dave Results Last 24 Hrs of Labs/Mics: Laboratory Tests 03/04/17 0430: Anion Gap 14, Estimated GFR > 60, Glucose 146 H, Calcium 8.9, Phosphorus 3.2, Magnesium 1.6, Total Bilirubin 0.6, AST 28, ALT 25, Albumin 3.4 L, Triglycerides 267 H, CBC w Diff NO MAN DIFF REQ, RBC 3.38 L, MCV 80.7 L, MCH 27.7, RDW 13.5, MPV 7.2 L, Gran % 73.0, Lymphocytes % 19.3 L, Monocytes % 6.1, Eosinophils % 1.4, Basophils % 0.2, Absolute Granulocytes 7.0 H, Absolute Lymphocytes 1.9, Absolute Monocytes 0.6, Absolute Eosinophils 0.1, Absolute Basophils 0, PUBS MCHC 34.3 Assessment/Plan Assessment: 36-year-old woman with past medical history of hypertriglyceridemia and 2 episodes of pancreatitis secondary to hypertriglyceridemia, type 2 diabetes mellitus, history of DKA. PROBLEM LIST 1. Hypertriglyceridemia induced pancreatitis. improving. TGs 267 2. Electrolyte imbalance 3. DKA- resolved 4. H/O Diabetes mellitus 5. Microcytic anemia PLAN * Monitor vitals every shift * Replete electrolytes * We'll advance her diet to regular today (low fat diabetic diet) * Started her on metformin today * check iron studies * Patient wants to go home. will ask consultants if its okay to discharge patient. * Continue GI and DVT prophylaxis * Full code Problem List: 1. Acute pancreatitis Pain Ratin Pain Location: epigastric Pain Goal: Pain 4 or less Pain Plan: dilaudid Tomorrow's Labs & Rationales: icu bundle DVT/Prophylaxis: mechanical, pharmacological
--- NOTE | 2017-03-04 08:58 | PN- Pulmonary ---
Subjective HPI/Critical Care Issues: pt seen and examined TG 267 gm hold hyperglycemia improved Objective Current Medications: Current Medications Sig/Jack Start time Last Medication Dose Route Stop Time Status Admin Acetaminophen 325 MG Q6 PRN 02/26 1845 AC PO Acetaminophen 1,000 MG Q6 PRN 02/26 1845 AC 03/02 IV 1324 Albuterol Sulfate 2 PUF Q4P PRN 03/03 1415 AC INH Albuterol Sulfate 3 ML Q4P PRN 02/28 2145 DC 03/01 INH 1948 Alprazolam 0.25 MG ONCE ONE 03/03 2200 DC 03/03 PO 03/03 2201 2348 Cholecalciferol 1,000 IU DAILY 03/02 1649 AC 03/03 PO 1020 Fenofibrate 145 MG DAILY 02/27 0030 AC 03/03 PO 1020 Furosemide 40 MG ONCE ONE 03/03 1145 DC 03/03 IV 03/03 1146 1610 Guaifenesin/ 10 ML Q6P PRN 03/01 0100 AC Dextromethorphan PO Heparin Sodium 5,000 UNIT Q8 02/26 2200 AC 03/04 (Porcine) SC 0630 Hydromorphone HCl 1 MG Q6P PRN 03/03 0900 AC IV Hydromorphone HCl 2 MG ONCE PRN 03/02 0100 AC 03/02 IV 0052 Insulin Aspart 0 TIDAC 03/02 1200 AC 03/03 SC 1612 Insulin Detemir 12 UNITS BID 03/02 1144 AC 03/03 SC 2059 Magnesium Oxide 400 MG DAILY 03/03 195 AC 03/03 PO 2055 Metformin HCl 500 MG AC 03/04 1200 AC PO Metoclopramide HCl 10 MG Q6P PRN 02/28 0215 AC 03/03 IV 2139 Montelukast Sodium 10 MG AT BEDTIME 02/26 2200 AC 03/03 PO 2055 Nicotinic Acid 500 MG WITH MEALS 03/01 1700 AC 03/03 PO 1612 Non-Formulary 0 SEE ADMIN CRITERIA 02/26 1900 UNVr Medication ANY Omeprazole 40 MG DAILY AC 03/04 0700 AC 03/04 PO 0631 Ondansetron HCl 4 MG Q6P PRN 02/26 1930 AC 03/02 IV 1915 Pantoprazole Sodium 40 MG DAILY 02/27 1000 DC 03/03 IV 1020 Potassium Chloride 40 MEQ ONCE ONE 03/04 0745 DC PO 03/04 0746 Potassium Chloride 40 MEQ BID 03/03 1000 DC 03/03 PO 03/03 2202054 Potassium Chloride 40 MEQ ONCE ONE 03/03 0915 CAN PO 03/03 0916 Rosuvastatin Calcium 20 MG DAILY 02/28 1115 AC 03/03 PO 1020 Trimethobenzamide HCl 200 MG TID PRN 02/28 0215 AC 02/28 IM 0212 Vital Signs & I&O Last 24 Hrs of Vitals and I&O: Vital Signs Date Time Temp Pulse Resp B/P B/P Pulse O2 O2 Flow FiO2 Mean Ox Delivery Rate 03/04 0400 98.6 112 18 140/70 96 Room Air 03/04 0000 96 Room Air 03/04 0000 98.4 104 18 120/60 96 Room Air 03/03 1600 94 Room Air Room Air 03/03 1600 98.4 105 16 128/64 97 Room Air Room Air Intake & Output 03/04 1600 03/04 0800 07 0000 Intake Total 125 250 Output Total 230 3900 Balance -105 -3650 Intake, IV 10 Intake, Oral 125 240 Number 0 1 Bowel Movements Output, Urine 230 3900 Exam Other Physical Findings: gen awake and alert heent ncat cvs s1, s2 lungs ctab abd bs+ ext no edema Results Last 24 Hrs of Lab Results: Laboratory Tests 03/04/17 0430: Anion Gap 14, Estimated GFR > 60, Glucose 146 H, Calcium 8.9, Phosphorus 3.2, Magnesium 1.6, Total Bilirubin 0.6, AST 28, ALT 25, Albumin 3.4 L, Triglycerides 267 H, CBC w Diff NO MAN DIFF REQ, RBC 3.38 L, MCV 80.7 L, MCH 27.7, RDW 13.5, MPV 7.2 L, Gran % 73.0, Lymphocytes % 19.3 L, Monocytes % 6.1, Eosinophils % 1.4, Basophils % 0.2, Absolute Granulocytes 7.0 H, Absolute Lymphocytes 1.9, Absolute Monocytes 0.6, Absolute Eosinophils 0.1, Absolute Basophils 0, PUBS MCHC 34.3 Impression/Plan Impression/Plan Impression/Plan: Impression 36 year old woman * significant acute on chronic hypertrygliceredimia with pancreatitis * electrolyte derangement secondary to above Plan -s/p plasmapheresis, significant reduction in TG -hyperlycemic tx per endocrinology -gi, endocrine, renal and GI consultations are appreciated -monitor hemodynamics -incentive spirometry -pain control -ppi -no abx warranted at this time GM hold DVT prophylaxis at all times
--- NOTE | 2017-03-04 10:40 | PN- Infect Dx ---
Subjective Subjective: Afebrile. She feels well today with decreased abdominal distention and discomfort and with no complaints of shortness of breath. She was mildly nauseous this morning but has an appetite now. Objective Last 24 Hrs of Vital Signs/I&O Vital Signs Date Time Temp Pulse Resp B/P B/P Pulse O2 O2 Flow FiO2 Mean Ox Delivery Rate 03/04 0400 98.6 112 18 140/70 96 Room Air 03/04 0000 96 Room Air 03/04 0000 98.4 104 18 120/60 96 Room Air 03/03 1600 94 Room Air Room Air 03/03 1600 98.4 105 16 128/64 97 Room Air Room Air Intake & Output 03/04 1600 03/04 0800 03/04 0000 Intake Total 125 250 Output Total 230 3900 Balance -105 -3650 Intake, IV 10 Intake, Oral 125 240 Number 0 1 Bowel Movements Output, Urine 230 3900 Physical Exam Other Physical Findings: She appears comfortable in no acute distress Lungs crackles at the right base Heart regular rhythm with no murmur Abdomen decreased distention, minimally tender on palpation, mostly on the right side, with positive bowel sounds Extremities no cyanosis, clubbing or edema Results Last 24 Hours of Lab Results: Laboratory Tests 03/04 0430 Chemistry Sodium (137 - 145 mmol/L) 141 Potassium (3.5 - 5.1 mmol/L) 3.5 Chloride (98 - 107 mmol/L) 103 Carbon Dioxide (22 - 30 mmol/L) 23 Anion Gap (5 - 16) 14 BUN (7 - 17 mg/dL) 6 L Creatinine (0.5 - 1.0 mg/dL) 0.5 Estimated GFR (>60 ml/min) > 60 Glucose (65 - 99 mg/dL) 146 H Calcium (8.4 - 10.2 mg/dL) 8.9 Phosphorus (2.5 - 4.5 mg/dL) 3.2 Magnesium (1.6 - 2.3 mg/dL) 1.6 Total Bilirubin (0.2 - 1.3 mg/dL) 0.6 AST (14 - 36 U/L) 28 ALT (9 - 52 U/L) 25 Albumin (3.5 - 5.0 g/dL) 3.4 L Triglycerides (<150 mg/dL) 267 H Hematology CBC w Diff NO MAN DIFF REQ WBC (4.8 - 10.8 /CUMM) 9.6 RBC (4.20 - 5.40 /CUMM) 3.38 L Hgb (12.0 - 16.0 G/DL) 9.3 L Hct (37 - 47 %) 27.3 L MCV (81.0 - 99.0 FL) 80.7 L MCH (27.0 - 31.0 PG) 27.7 RDW (11.5 - 14.5 %) 13.5 Plt Count (130 - 400 /CUMM) 190 MPV (7.4 - 10.4 FL) 7.2 L Gran % (42.2 - 75.2 %) 73.0 Lymphocytes % (20.5 - 51.1 %) 19.3 L Monocytes % (1.7 - 9.3 %) 6.1 Eosinophils % (0 - 5 %) 1.4 Basophils % (0.0 - 2.0 %) 0.2 Absolute Granulocytes (1.4 - 6.5 /CUMM) 7.0 H Absolute Lymphocytes (1.2 - 3.4 /CUMM) 1.9 Absolute Monocytes (0.10 - 0.60 /CUMM) 0.6 Absolute Eosinophils (0.0 - 0.7 /CUMM) 0.1 Absolute Basophils (0.0 - 0.2 /CUMM) 0 PUBS MCHC (33.0 - 37.0 G/DL) 34.3 Last 24 Hours of Dave Results: No recent cultures Assessment/Plan Impression: Doing well with improvement in her abdominal symptoms and with temperatures and white blood cell count remaining normal off antibiotics. Her triglyceride level continues to decrease status post 1 pheresis treatment for pancreatitis secondary to severe hypertriglyceridemia. Suggestion: 1. Continue to follow off antibiotics Will no longer follow at this time, but please call with any questions
[2017-03-04] MEDS ORDERED: VITAMIN D1000 UNIT PO (10:44)
[2017-03-04] MEDS ORDERED: GLUCOPHAGE500 M1 PO ×2 (10:55→13:40)
[2017-03-04] MEDS ORDERED: ZOFRAN4 M2 PO ×2 (10:55→13:40)
[2017-03-04] MEDS ORDERED: LEVEMIR100 UNIT/1 SC ×2 (10:55→13:40)
[2017-03-04] MEDS ORDERED: NIACIN500 M7 PO ×2 (10:55→13:40)
[2017-03-04] MEDS ORDERED: OMEPRAZOLE20 M2 PO ×2 (10:55→13:40)
[2017-03-04] MEDS ORDERED: MAGNESIUM OXID400 M1 PO ×2 (10:55→13:40)
[2017-03-04] MEDS ORDERED: NOVOLOG100 UNIT/2 SC ×2 (10:55→13:40)
--- NOTE | 2017-03-04 11:02 | Patient Discharge Instructions ---
Discharge Instructions General Discharge Information You were seen/treated for: Hypertriglyceridemia induced pancreatitis Electrolyte imbalance Diabetes mellitus You had these procedures: Plasmapheresis Special Instructions: 1. Please follow-up with your primary care provider after discharge 2. Please follow-up with your museum exhibit technician after discharge 3. Please follow-up with your certified home health aide after discharge. 4. Diabetes mellitus. NovoLog insulin sliding scale if blood sugars are more than 150. blood sugar less [id number] mg/dl....no coverage 151-200 mg/dl....2 units 201-250 mg/dl....4 units 251-300 mg/dl....6 units 301-350 mg/dl....8 units 351-400 mg/dl....10 units more than 400 mg/dl....12 units and call your doctor. Diet Recommended Diet: Diabetic, Low Fat Activity Full Activity/No Limits: Yes Acute Coronary Syndrome Inclusion Criteria At DC or during hospital stay patient has or had the following: ACS DIAGNOSIS No Discharge Core Measures Meds if any: Prescribed or Continued at Discharge Meds if any: NOT Prescribed or Continued at Discharge Congestive Heart Failure Inclusion Criteria At DC or during hospital stay patient has or had the following: CHF DIAGNOSIS No Discharge Core Measures Meds if any: Prescribed or Continued at Discharge Meds if any: NOT Prescribed or Continued at Discharge Cerebrovascular accident Inclusion Criteria At DC or during hospital stay patient has or had the following: CVA/TIA Diagnosis No Discharge Core Measures Meds if any: Prescribed or Continued at Discharge Meds if any: NOT Prescribed or Continued at Discharge Venous thromboembolism Inclusion Criteria VTE Diagnosis No VTE Type NONE VTE Confirmed by (Test) NONE Discharge Core Measures - Per Current guidelines, there needs to be overlap - treatment for the first 5 days of Warfarin therapy. - If discharged on Warfarin prior to 5 days of - overlap therapy, the patient will need to be - assessed for post discharge needs including - *Post discharge parental anticoagulation - *Warfarin and/or parental anticoagulation education - *Follow up date to check INR post discharge At least 5 days overlap therapy as Inpatient No Meds if any: Prescribed or Continued at Discharge Note: Overlap Therapy is Warfarin and Anticoagulant Meds if any: NOT Prescribed or Continued at Discharge
--- NOTE | 2017-03-04 11:45 | PN- Diabetes ---
Assessment/Plan Assessment: 36-year-old female with past medical history of hypertriglyceridemia and multiple episodes of pancreatitis, type 2 diabetes mellitus, asthma presented to the ED for acute onset of right upper quadrant pain and she was diagnosed with acute pancreatitis which most likely is related to severe hypertriglyceridemia. Patient received plasmaphoresis and was on insulin drip for several days. She was put on Levemir 12 units twice a day, Novolog coverage before meals. her FSGs were 171, 187, 199 and 184. Repeat TRIG 267 this am; her SHAHEED 65 antibody is < 5 and C-peptide is 2.49 suggestive of DM type 2. Plan: DM management: 1. continue Levemir 12 units twice a day; 2. start metformin 500 mg with meals x 3 times a day; 3. Novolog coverage before meals only when her FSG is > 150. with regards to lipid management: continue fish oil, crestor and fenofibrate. recommend genetic testing as outpatient. Subjective Subjective: She feels well this morning. Objective Last 24 Hrs of Vital Signs/I&O Vital Signs Date Time Temp Pulse Resp B/P B/P Pulse O2 O2 Flow FiO2 Mean Ox Delivery Rate 03/04 08 98.5 107 16 150/80 97 Nasal Room Air Cannula 03/04 0400 98.6 112 18 140/70 96 Room Air 03/04 0000 96 Room Air 03/04 0000 98.4 104 18 120/60 96 Room Air 03/03 1600 94 Room Air Room Air 03/03 1600 98.4 105 16 128/64 97 Room Air Room Air Intake & Output 03/04 1600 /10 0800 03/04 0000 Intake Total 125 250 Output Total 230 3900 Balance -105 -3650 Intake, IV 10 Intake, Oral 125 240 Number 0 1 Bowel Movements Output, Urine 230 3900 Findings Pertinent Lab/Dave Results: Laboratory Tests 03/04 0430 Chemistry Sodium (137 - 145 mmol/L) 141 Potassium (3.5 - 5.1 mmol/L) 3.5 Chloride (98 - 107 mmol/L) 103 Carbon Dioxide (22 - 30 mmol/L) 23 Anion Gap (5 - 16) 14 BUN (7 - 17 mg/dL) 6 L Creatinine (0.5 - 1.0 mg/dL) 0.5 Estimated GFR (>60 ml/min) > 60 Glucose (65 - 99 mg/dL) 146 H Calcium (8.4 - 10.2 mg/dL) 8.9 Phosphorus (2.5 - 4.5 mg/dL) 3.2 Magnesium (1.6 - 2.3 mg/dL) 1.6 Total Bilirubin (0.2 - 1.3 mg/dL) 0.6 AST (14 - 36 U/L) 28 ALT (9 - 52 U/L) 25 Albumin (3.5 - 5.0 g/dL) 3.4 L Triglycerides (<150 mg/dL) 267 H Hematology CBC w Diff NO MAN DIFF REQ WBC (4.8 - 10.8 /CUMM) 9.6 RBC (4.20 - 5.40 /CUMM) 3.38 L Hgb (12.0 - 16.0 G/DL) 9.3 L Hct (37 - 47 %) 27.3 L MCV (81.0 - 99.0 FL) 80.7 L MCH (27.0 - 31.0 PG) 27.7 RDW (11.5 - 14.5 %) 13.5 Plt Count (130 - 400 /CUMM) 190 MPV (7.4 - 10.4 FL) 7.2 L Gran % (42.2 - 75.2 %) 73.0 Lymphocytes % (20.5 - 51.1 %) 19.3 L Monocytes % (1.7 - 9.3 %) 6.1 Eosinophils % (0 - 5 %) 1.4 Basophils % (0.0 - 2.0 %) 0.2 Absolute Granulocytes (1.4 - 6.5 /CUMM) 7.0 H Absolute Lymphocytes (1.2 - 3.4 /CUMM) 1.9 Absolute Monocytes (0.10 - 0.60 /CUMM) 0.6 Absolute Eosinophils (0.0 - 0.7 /CUMM) 0.1 Absolute Basophils (0.0 - 0.2 /CUMM) 0 PUBS MCHC (33.0 - 37.0 G/DL) 34.3
--- NOTE | 2017-03-06 15:57 | Discharge Summary ---
Visit Information Visit Dates Admission Date: 02/26/17 Discharge Date: 03/04/17 Hospital Course Course Attending Physician: FRANC BERGER MD Primary Care Physician: ANYA LAWRENCE MD Consulting Request: 1 Consulting Specialty: Endocrinology Consulting Request: 2 Consulting Specialty: Gastroenterology Consulting Request: 3 Consulting Specialty: Nephrology Consulting Request: 4 Consulting Specialty: General Surgery Consulting Request: 5 Consulting Specialty: Infectious Disease Hospital Course: 36 year old woman with past medical history of IDDM, hypertriglyceridemia, and multiple episodes of pancreatitis seen for evaluation of abdominal pain. Patient reports that around 9:30am on the day of admission she develop acute onset 10/10 right upper quadrant abdominal pain radiating straight through to her back with associated nausea, nonbloody bilious vomiting, fever, chills, weakness and fatigue. She otherwise denied any chest pain, palpitations. Vital signs upon initial evaluation were within normal limits. Abdominal examination demonstrated a moderate/severely tender abdomen. Lab studies were remarkable for mild leukocytosis to 12.5, stable hemoglobin/hematocrit, triglycerides > 10,500. Imaging studies including CT Abd/Pelvis and CXR were suggestive of acute pancreatitis. Patient clinically appeared to have acute pancreatitis secondary to severe acute hypertriglyceridemia for which consults with nephrology, endocrinology, and gastroenterology were placed and patient was admitted to the ICU for further evaluation. Problem List on Admission: -Severe Hypertriglyceridemia -Acute Pancreatitis -Diabetic Ketoacidosis -Lactic Acidosis -Hypocalcemia -Hypophosphatemia Patients serum chemistries were monitored every three hours with plasma electrolytes checked; most lab studies were erroneous secondary to severe hypertriglyceridemia. Clinically patient was found to be in diabetic ketoacidosis shortly after admission for which an insulin drip was started. An urgent non-tunneled catheter was placed in the patients right chest pain and plasmapheresis was initiated. Electrolytes were corrected aggressively and DKA was managed with intravenous fluids. Lactated Ringers was infused aggressively. Pain control / antiemetics were utilized. Finnegan catheter was utilized to closely monitor ins and outs. Patient demonstrated dramatic improvement in her serum triglycerides with plasmapheresis; however the level remained around 700 for several days for which patient remained in the insulin drip and D5NS despite resolution of DKA. Patient has low urine output for which lasix were given as needed with effective diuresis. Finnegan catheter and non-tunneled catheter were removed. Patient was subsequent started on a clear liquid diet when her abdominal pain and examination improved which was subsequently advanced to full liquids. Triglycerides lowered to the 300's which are reportedly baseline. She was given intravenous lasix with good diuresis and diet was advanced without any further abdominal pain or nausea. She is to be discharged to home with instruction to follow up with her various specialists after discharge and to take her new prescriptions as directed. Problem List on Discharge: -Severe Hypertriglyceridemia, improved to baseline -Diabetic Ketoacidosis, resolved -Acute pancreatitis, clinically improved -History of Insulin-dependent diabetes Allergies: Coded Allergies: Penicillins (HIVES 02/28/17) atorvastatin (From LIPITOR) (THROAT CLOSES 02/28/17) Significant Procedures: SERVICE DATE: 02/26/17- EXAM TYPE: RAD - XRY-CHEST XRAY, PA AND LATERAL IMPRESSION: Mild left basilar atelectatic changes, otherwise no acute cardiopulmonary findings. SERVICE DATE: 02/26/17-1534 EXAM TYPE: CAT - CT ABD & PELVIS W/O IV CONTRAS IMPRESSION: 1. Moderate swelling of the pancreatic head is demonstrated with mild peripancreatic acute fluid. The findings are concordant with the clinical diagnosis of pancreatitis. No well-defined fluid collection is seen. The lack of intravenous contrast limits evaluation for pancreatic necrosis or for evaluation of the adjacent pancreatic vasculature. 2. Hepatic steatosis without hepatomegaly. No obvious biliary ductal dilatation. The gallbladder is decompressed and not evaluated. Right upper quadrant sonography may be of further utility if there is concern regarding biliary dilatation or cholelithiasis. There are no CT manifestations to suggest cholecystitis. 3. Tiny nonobstructive left lower pole renal calculus. SERVICE DATE: 02/27/17 EXAM TYPE: IR - FLUORO GUID VENOUS ACCESS; INTERVENTIONAL SETUP; US-GUIDANCE VASCULAR ACCESS IMPRESSION: Successful placement of right sided jugular dialysis catheter. SERVICE DATE: 02/27/17 EXAM TYPE: US - US-LIMITED ABDOMEN IMPRESSION: 1. Fatty infiltration of liver. 2. The pancreas could not be seen. SERVICE DATE: 02/27/17 EXAM TYPE: CARD - ECHOCARDIOGRAM CONCLUSIONS Technically difficult and limited study. No significant chamber abnormalities. No significant valve abnormalities. Normal transthoracic echocardiogram. SERVICE DATE: 02/28/17- EXAM TYPE: RAD - QOJ-WZMORCS-CQFOZRYS VIEWS IMPRESSION: Findings most consistent with a localized ileus type of pattern. SERVICE DATE: 02/28/17 EXAM TYPE: RAD - XRY-PORTABLE CHEST XRAY IMPRESSION: Low lung volume. Small bilateral pleural effusions. SERVICE DATE: 02/28/17 EXAM TYPE: RAD - XRY-PORTABLE CHEST XRAY IMPRESSION: Small bilateral pleural effusions with increasing atelectasis at the bilateral lung bases. Infiltrate especially left lung base not excluded. Continued follow-up along with clinical correlation is recommended. Disposition Summary Disposition Principal Diagnosis: Severe Hypertriglyceridemia Acute Pancreatitis Additional Diagnosis: Diabetic Ketoacidosis Discharge Disposition: home or self care Discharge Instructions General Discharge Information Code Status: Full Code Patient's Diet: Low fat, diabetic diet Patient's Activity: Return to full activity as tolerated Follow-Up Instructions/Appts: 1. Please follow-up with your primary care provider after discharge 2. Please follow-up with your machine packer after discharge 3. Please follow-up with your [facility] hospice after discharge. 4. Diabetes mellitus. NovoLog insulin sliding scale if blood sugars are more than 150. blood sugar less [id number] mg/dl....no coverage 151-200 mg/dl....2 units 201-250 mg/dl....4 units 251-300 mg/dl....6 units 301-350 mg/dl....8 units 351-400 mg/dl....10 units more than 400 mg/dl....12 units and call your doctor. Medications at Discharge Discharge Medications: Stop taking the following medications: Metformin HCl (Metformin HCl ER) 500 MG TAB.ER.24 Insulin Lispro, Recombinant (Humalog) 100 U/ML EDVIN Inject into fatty tissue DAILY Continue taking these medications: Vitamin B Complex (Vitamin B Complex) 1 EACH CAPSULE 1 Capsule ORAL DAILY Comments: PER PT Ethinyl Estradiol/Norgestima (Tri-Sprintec 28 35 Mcg-0.25 MG) 1 TAB TAB 1 Tablet ORAL DAILY Qty = 84 Comments: PER PT Alprazolam (Alprazolam Odt) 0.25 MG TAB.JEANNIEDIS Comments: Last Taken: 03/03/17 Time: 2348 Fenofibrate (Fenofibrate) 160 MG TABLET 1 Tablet ORAL DAILY Comments: Last Taken: 03/04/17 Time: 0952 145MG GIVEN Multivitamin (Multiple Vitamins) 1 EACH TABLET 1 Tablet ORAL DAILY Comments: PER PT Cyclobenzaprine (Flexeril 5MG Tab) 5 MG TAB 1 Tablet ORAL TAKE AT BEDTIME as needed for PAIN Qty = 8 Acetaminophen/Hydrocodone Bi (Bison 325 MG-5 MG) 1 TAB TAB 1 Tablet ORAL Q6HR as needed for PAIN Qty = 8 Rosuvastatin Calcium (Crestor) 20 MG TABLET 1 Tablet ORAL DAILY Qty = 90 Comments: Last Taken: 03/04/17 Time: 0953 [place]-3 Acid Ethyl Esters ([place]-3 Acid Ethyl Esters) 1 GRAM CAPSULE 2 Capsule ORAL TWICE DAILY Qty = 360 Albuterol Sulfate (Proair Hfa) 90 MCG HFA.AER.AD 2 Puff Inhale through mouth EVERY 4-6 HOURS NEEDED as needed for WHEEZING Qty = 9 Comments: Last Taken: NOT TAKEN AT HOSPITAL Time: Cholecalciferol (Vitamin D3) (Vitamin D) 1,000 UNIT TABLET 1 Tablet ORAL DAILY Qty = 30 Comments: Time:Last Taken: 03/04/17 Time: 0952 Start taking the following new medications: Insulin Aspart (Novolog) 100 UNIT/ML VIAL 1 Units Inject into fatty tissue As Directed Qty = 1 No Refills Instructions: Please see DC inst for full detail Comments: Last Taken: 03/04/17 Time: 1652 Metformin Hydochloride (Glucophage) 500 MG TABLET 1 Tablet ORAL 3 TIMES DAILY BEFORE MEALS Qty = 30 No Refills Comments: Last Taken: 03/04/17 Time: 1652 Niacin (Niacin) 500 MG TABLET 1 Tablet ORAL WITH MEALS Qty = 90 No Refills Comments: Last Taken: 03/04/17 Time: 1652 Omeprazole (Omeprazole) 20 MG CAPSULE.DR 40 Milligram ORAL DAILY BEFORE BREAKFAST Qty = 15 No Refills Comments: Last Taken: 03/04/17 Time: 0631 Ondansetron HCl (Zofran) 4 MG TABLET 1 Tablet ORAL Every 6-8 Hours as Needed as needed for NAUSEA Qty = 10 No Refills Comments: Last Taken: 03/04/17 Time: 1251 Magnesium Oxide (Magnesium Oxide) 400 MG TABLET 1 Tablet ORAL DAILY Qty = 30 No Refills Comments: Last Taken: 03/04/17 Time: 0952 Insulin Detemir (Levemir) 100 UNIT/ML VIAL 12 Units Inject into fatty tissue TWICE DAILY Qty = 5 No Refills Comments: Last Taken: 03/04/17 Time: 0954 Copies To: RISHABH JACKSON,ADAM Hong; MELINDA JACKSON,ANYA; RYLIE JACKSON,SILKE Thakkar; MIKA JACKSON,[facility]
== END 2017-03-04 17:20 | DRG 439 ==
LOC: ERH 15:18 → ERHI 17:12 → CRI 17:12 → CANRESERV 17:55 → ENRESERV 17:55 → ENTRNSPT 19:39 → EDTRNSPTSTS 19:42 → EDBEDREQ 20:22 → ERHI 20:33 → DELTRNSPT 21:21 → CANRESERV 02-27 02:17 → ENRESERV 02-27 02:17 → CRI 02-27 04:14
PROVIDERS: Internal Medicine; Internal Medicine Interventional Cardiology; Physician Assistant Medical; Student in an Organized Health Care Education/Training Program; ADMIT Internal Medicine
PROC: 02H633Z Insertion of Infusion Device into Right Atrium, Percutaneous Approach (ICD-10-PCS; principal; 2017-02-27)
PROC: 6A550Z3 Pheresis of Plasma, Single (ICD-10-PCS; 2017-02-27)
DX: K85.80 Other acute pancreatitis without necrosis or infection (principal); E87.2 Acidosis; E83.42 Hypomagnesemia; E83.39 Other disorders of phosphorus metabolism; K56.7 Ileus, unspecified; E83.51 Hypocalcemia; E87.1 Hypo-osmolality and hyponatremia; E78.1 Pure hyperglyceridemia; J45.909 Unspecified asthma, uncomplicated; K86.1 Other chronic pancreatitis; R01.1 Cardiac murmur, unspecified; F41.9 Anxiety disorder, unspecified; E11.9 Type 2 diabetes mellitus without complications; E55.9 Vitamin D deficiency, unspecified; E21.1 Secondary hyperparathyroidism, not elsewhere classified; E87.6 Hypokalemia; D50.9 Iron deficiency anemia, unspecified; Z79.4 Long term (current) use of insulin
CPT/HCPCS: 83519; CCU; ERO; 36415; 74020; 74176; 77001; 80307; 81001; 82436; 87040; 87086; 93005; 93010; 93306; 96374; 96375; C1752; C1769; G0480; J0131; J0610; J0636; J0713; J1170; J1644; J1650; J1815; J1940; J2405; J2765; J3250; J3490; J7040; J7042; J7060; J7120; P9041